=== PATIENT | male | born 1955 | race Two or more races ===

== ENCOUNTER 2020-01-06 18:27 | Inpatient (IN) | payer SELFPAY ==
[~2020-01-06] VITALS: Ht 157.5 cm; Wt 99.8 kg
[2020-01-06] VITALS (12 sets, daily range): BP systolic 57–126; BP diastolic 39–79
[2020-01-06] MEDS ORDERED: ETOMIDATE 20 MG/10 ML VIAL. IV ONE (18:54)
[2020-01-06] MEDS ORDERED: PROPOFOL 50 ML IV ONE (18:55)
[2020-01-06] MEDS ORDERED: SUCCINYLCHOLINE 200 MG/10 ML VIAL. ONE (18:55)
[2020-01-06] MEDS: PROPOFOL 50 ML IV ONE (18:55)
[2020-01-06] MEDS ORDERED: fentaNYL PF VIAL 100 MCG/2 ML VIAL IV PRN ×2 (19:00)
--- NOTE | 2020-01-06 19:01 | PHYS DOC ---
Past Medical History Past Medical History: No Pertinent History Past Surgical History: No Surgical History Smoking Status: Unknown if ever smoked Alcohol Use: None General Adult EDM: Chief Complaint: SHORTNESS OF BREATH HPI: HPI: Patient is a 54-year-old male reportedly previously healthy who presents emergency room complaining of respiratory distress. History is very limited due to respiratory distress and patient being Romanian-speaking only. Patient rep ortedly tested positive for COVID on Friday Review of Systems: Review of Systems: Unable to obtain Heart Score: Risk Factors: Risk Factors: DM, Current or recent (<one month) smoker, HTN, HLP, family history of CAD, obesity. Risk Scores: Score 0 - 3: 2.5% MACE over next 6 weeks - Discharge Home Score 4 - 6: 20.3% MACE over next 6 weeks - Admit for Clinical Observation Score 7 - 10: 72.7% MACE over next 6 weeks - Early Invasive Strategies Current Medications: Current Medications Medications (Trade) Dose Ordered Sig/Augusto Start Time Stop Time Status Last Admin Dose Admin Etomidate (Amidate) 20 mg STK-MED ONCE 01/06/20 18:54 01/06/20 18:54 DC Propofol 50 ml @ As Directed STK-MED ONCE 01/06/20 18:55 01/06/20 18:56 DC Succinylcholine Chloride (Anectine) 200 mg STK-MED ONCE 01/06/20 18:55 01/06/20 18:55 DC Allergies: Allergies: Allergies Coded Allergies Type Severity Reaction Last Updated Verified No Known Drug Allergies 01/06/20 No Physical Exam: PE: General: Awake, alert, moderate distress D. Well Nourished, well hydrated. Cooperative HEENT: Atraumatic, EOMI, PERRL, airway patent, moist oral mucosa Neck: Supple, trachea midline Respiratory: Tachypnea, diffuse crackles, decreased breath sounds, respiratory distress, increased work of breathing CV: Tachycardic, no murmur, cap refill <2 GI: Soft, nondistended, nontender, no masses MSK: No obvious deformities Skin: Warm, dry, intact Neuro: A&O x3, speech NL, sensory and motor grossly intact, no focal deficits Psych: Normal affect, normal mood, not suicidal or homicidal Current Patient Data: Vital Signs: Vital Signs Date Time Temp Pulse Resp B/P (MAP) Pulse Ox O2 Delivery O2 Flow Rate FiO2 01/06/20 18:30 97.9 110 45 199/95 (129) 100 NonRebreather Mask 18.0 97.9 EKG: EKG: [] Radiology/Procedures: Radiology/Procedures: [] Course & Med Decision Making: Course & Med Decision Making Pertinent Labs and Imaging studies reviewed. (See chart for details) Patient is a 54-year-old male who presents to the emergency room with respiratory distress. At this time there is concern for the novel coronavirus 19. Patient's risk factors include age, race. Risk stratifying work-up was ordered including chest x-ray, d-dimer, CPK, CRP, LDH, troponin, ferritin, CBC, CMP. At this time, patients labs, vitals, and exam are significant for elevated inflammatory markers. Upon arrival to the emergency room patient is in respirat ory distress requiring 25 L on a nonrebreather. Patient is in significant respiratory distress and is hypoxic. He was intubated without difficulty. There was some difficulty with keeping him sedated. Adjustments were made to the ventilator to help with oxygenation. Chest x-ray and ABG are suggestive of severe ARDs. due to patient's risk and clinical picture, they will need to be admitted at this time. IVFs will be limited due to concern for fluid overload in COVID-19 patients. Patient will be given empiric antibiotics due to infiltrates and risk of co-bacterial infection. Further treatment will be dictated by the inpatient team. Dragon Disclaimer: Dragon Disclaimer: This electronic medical record was generated, in whole or in part, using a voice recognition dictation system. Justicifation of Admission Dx: Justifications for Admission: Justification of Admission Dx: Yes Critical Care Time Critical Care: Authorized and Performed by: Gaston Espinal MD Total critical care time: approximately 40 minutes Due to a high probability of clinically significant, life threatening deterioration, the patient required my highest level of preparedness to intervene emergently and I personally spent this critical care time directly and personally managing the patient. This critical care time included obtaining a history; examining the patient; pulse oximetry; ventilator management if necessary; ordering and review of studies; arranging urgent treatment with development of a management plan; evaluation of patient's response to treatment; frequent reassessment; discussion with patient/family; and, discussions with other providers. This critical care time was performed to assess and manage the high probability of imminent, life-threatening deterioration that could result in multi-organ failure. It was exclusive of separately billable procedures and treating other patients and teaching time. Please see MDM section and the rest of the note for further information on patient assessment and treatment. PROCEDURE Procedure Intubation Performed by: Gaston Espinal MD Consent: Verbal consent not obtained. The procedure was performed in an emergent situation. Required items: required blood products, implants, devices, and special equipment available Patient identity confirmed: arm band Time out: Immediately prior to procedure a "time out" was called to verify the correct patient, procedure, equipment, client support coordinator and site/side marked as required. Indications: respiratory failure and airway protection Intubation method: glidescope Patient status: paralyzed (RSI) Preoxygenation: NRB Sedatives: etomidate Paralytic: succinylcoline Laryngoscope size: Mac 4 Tube size: 7.5 mm Tube type: cuffed Number of attempts: 1 Cords visualized: yes Post-procedure assessment: chest rise, BS = bilaterally none over epigastrum, +CO2 detector Breath sounds: equal and absent over the epigastrium Cuff inflated: yes Tube secured with: adhesive tape Chest x-ray interpreted by me. Chest x-ray findings: endotracheal tube in appropriate position Patient tolerance: Patient tolerated the procedure well with no immediate complications. GASTON ESPINAL MD Jan 06, 2020 19:01
[2020-01-06 19:05] LABS: BASO % 0 % (0-3); EOS % 0 % (0-3); HEMATOCRIT 38.5 % (39.0-53.0); HEMOGLOBIN 13.3 g/dL (13.0-17.5); LYMPH # 1.1 x10^3/uL (1.0-4.8); LYMPH % 8 % (24-48); MEAN CORPUSCULAR HEMOGLOBIN 31 pg (25-35); MEAN CORPUSCULAR HGB CONC 34 g/dL (31-37); MEAN CORPUSCULAR VOLUME 89 fL (79-100); MONO # 0.8 x10^3/uL (0.0-1.1); MONO % 5 % (0-9); NEUT # 12.5 x10^3/uL (1.8-7.7); NEUT % 87 % (31-73); PLATELET COUNT 294 x10^3/uL (140-400); RED BLOOD COUNT 4.33 x10^6/uL (4.30-5.70); RED CELL DISTRIBUTION WIDTH 13.1 % (11.5-14.5); WHITE BLOOD COUNT 14.4 x10^3/uL (4.0-11.0)
[2020-01-06 19:09] LABS: CALCIUM 8.4 mg/dL (8.5-10.1); CREATININE 1.6 mg/dL (0.7-1.3); GFR 45.1; POTASSIUM 3.6 mmol/L (3.5-5.1)
[2020-01-06 19:13] LABS: BASE EXCESS ABG -6 mmol/L (-3-3); HCO3 ABG 18 mmol/L (21-28); PCO2 ABG 31 mmHg (35-46); PO2 ABG 82 mmHg (75-108); SAT O2 ABG 95 % (92-99)
[2020-01-06] MEDS ORDERED: MIDAZOLAM HCL/PF 5 MG/5 ML VIAL. ONE (19:17)
[2020-01-06] MEDS ORDERED: MIDAZOLAM HCL/PF 5 MG/5 ML VIAL. NS ONE (19:18)
[2020-01-06] MEDS ORDERED: IPRATRPIUM/ALBUTEROL 0.5/2.5MG 3 ML NEBU. ONE (19:27)
[2020-01-06] MEDS ORDERED: MIDAZOLAM HCL 50 MG in IV NORMAL SALINE 50ML 50 ML IV ONE (19:30)
[2020-01-06] MEDS: MIDAZOLAM 100mg/100ml NS BAG 100 ML IV PRN (19:37)
[2020-01-06 19:47] LABS: ALBUMIN 2.6 g/dL (3.4-5.0); ALBUMIN/GLOBULIN RATIO 0.5 (1.0-1.7); MAGNESIUM 2.4 mg/dL (1.8-2.4); TOTAL BILIRUBIN 1.4 mg/dL (0.2-1.0); TOTAL PROTEIN 7.9 g/dL (6.4-8.2)
[2020-01-06 19:48] LABS: % ATYL 2 % (0-0); % BANDS 18 % (0-9); % BASOS 1 % (0-3); % EOS 2 % (0-5); % LYMPHS 7 % (24-48); % METAS 3 % (0-0); % MONOS 4 % (0-10); % SEGS 63 % (35-66)
[2020-01-06 19:49] LABS: PLT ESTIMATE ADEQUATE (ADEQUATE); POLYCHROMASIA SLIGHT
[2020-01-06 19:51] LABS: C-REACTIVE PROTEIN 342.9 mg/L (0-3.3)
[2020-01-06 19:54] LABS: BILIRUBIN,URINE SMALL (NEG); CLARITY,URINE CLOUDY; COLOR,URINE ORANGE; NITRITE,URINE NEGATIVE (NEG); PROTEIN,URINE 30 mg/dL (NEG-TRACE)
[2020-01-06 19:59] LABS: BACTERIA,URINE 0 /HPF (0-FEW); RBC,URINE OCC /HPF (0-2); SQUAMOUS EPITHELIAL CELL,UR OCC /LPF
[2020-01-06 20:00] LABS: AMORPHOUS SEDIMENT,UR PRESENT /HPF; GRANULAR CASTS,URINE OCCASIONAL /HPF; HYALINE CASTS, URINE MODERATE /HPF
[2020-01-06 20:03] LABS: FIO2 ABG 95
[2020-01-06] MEDS ORDERED: IV NORMAL SALINE 500ML BAG 500 ML IV PRN (20:15)
[2020-01-06] MEDS ORDERED: fentaNYL PF VIAL 100 MCG/2 ML VIAL IVP ONE (20:15)
[2020-01-06] MEDS ORDERED: ATROPINE 0.5 MG/5 ML DISP.SYRINGE. IV PRN (20:15)
[2020-01-06] MEDS ORDERED: PIPERACILLIN/TAZOBACTAM 3.375 GM in IV NORMAL SALINE 50ML 50 ML IV ONE (20:45)
--- NOTE | 2020-01-06 21:16 | RAD ---
AP portable chest radiograph 01/06/2020 Clinical History: Respiratory failure. An AP erect portable digital radiograph of the chest was obtained. No previous studies available for comparison. An ET tube has been placed. The tip of this tube overlies the trachea 3 cm below the level of clavicles. An NG tube been placed. The tip of this tube extends to overlie the antrum of the stomach. The cardiac silhouette is mildly enlarged. The thoracic aorta is mildly tortuous. Bilateral perihilar infiltrates are seen which are most confluent within the lower lobes. No pneumothorax or pleural effusion is noted the osseous structures are grossly intact. IMPRESSION: 1. ET and NG tube position as discussed above. 2. Bilateral perihilar infiltrates. Electronically signed by: Fredis Burns MD (01/06/2020 9:14 PM) [id number]
[2020-01-06] MEDS ORDERED: POTASSIUM CL 20MEQ D5-0.45NACL 1,000 ML IV ONE (21:30)
[2020-01-06] MEDS ORDERED: ONDANSETRON PF 4 MG/2 ML VIAL. IV PRN (21:30)
[2020-01-06] MEDS ORDERED: ACETAMINOPHEN 650 MG SUPP.RECT. PR PRN (21:30)
[2020-01-06] MEDS ORDERED: NOREPINEPHRINE VIAL 8 MG in IV DEXTROSE 5% 250 ML IV PRN (21:45)
[2020-01-06] MEDS ORDERED: IV NORMAL SALINE 1000ML BAG 1,000 ML IV ONE ×2 (21:45→22:30)
[2020-01-06] MEDS: VECURONIUM BOLUS 10 MG VIAL. IV PRN (22:03)
--- NOTE | 2020-01-06 22:06 | NUR ---
Spoke with Dr. Campos regarding patient's status. Orders received to keep patient well sedated--may add Fentanyl and 6 mg Vec PRN. For hypotension, may give 1 L bolus of fluid and then reassess--if the bolus helps patient then we may give another 1 L bolus NS. May start Levophed for BP, get ABG in AM, and may keep PEEP at 12 if needed, but if patient's O2 sats improve then try turning down PEEP to 11 and see how he does. Reassessments of Versed and Fentanyl not completed by ED RN--documented as "not done" by this RN.
[2020-01-06] MEDS: ENOXAPARIN 40 MG/0.4 ML SYRINGE. SQ SCH (22:13)
[2020-01-06] MEDS: CHLORHEXIDINE 0.12% 15 ML MOUTHWASH. MM SCH (22:13)
[2020-01-06] MEDS: methylPREDNISolone SOD SUCC PF 40 MG/ML VIAL. IV SCH (22:14)
--- NOTE | 2020-01-06 23:00 | NUR ---
Patient admitted to room 116 at 2100. Patient transferred to ICU bed. RT at bedside placed patient on ventilator. ICU monitors placed. Patient not tolerating ventilator well, coughing, high peak pressures, raised arms- O2 saturation in 80s. Patient received bolus of versed. Patient became more relaxed, SBP then dropped to the 50s. Another CAT OPERATOR called Dr. Campos on behalf of this pattern chart writer. Orders received for levophed, vec, NS bolus, and Vec PRN. Patient responded well to levophed. This RN called patient's brother Luis Carlos- update given. Emphasized that patient is critically ill. Family states patient does not have known medical history and is not currently taking any medications. Patient did recently test positive for covid a couple days ago. Admission completed using this information to the best of this RN's ability. ER reassessments not completed documented "not done" by this RN
[2020-01-07] VITALS (35 sets, daily range): BP systolic 76–167; BP diastolic 57–101
[2020-01-07] MEDS: PIPERACILLIN/TAZOBACTAM 3.375 GM in IV NORMAL SALINE 50ML 50 ML IV SCH ×4 (00:51→17:36)
[2020-01-07] MEDS: methylPREDNISolone SOD SUCC PF 40 MG/ML VIAL. IV SCH ×3 (05:36→20:52)
[2020-01-07] MEDS: MIDAZOLAM 100mg/100ml NS BAG 100 ML IV PRN ×2 (05:37→20:07)
[2020-01-07 06:17] LABS: BASO % 0 % (0-3); EOS % 0 % (0-3); HEMOGLOBIN 11.4 g/dL (13.0-17.5); LYMPH # 0.5 x10^3/uL (1.0-4.8); LYMPH % 5 % (24-48); MEAN CORPUSCULAR HEMOGLOBIN 31 pg (25-35); MEAN CORPUSCULAR HGB CONC 35 g/dL (31-37); MEAN CORPUSCULAR VOLUME 88 fL (79-100); MONO # 0.4 x10^3/uL (0.0-1.1); MONO % 4 % (0-9); NEUT # 9.4 x10^3/uL (1.8-7.7); NEUT % 91 % (31-73); PLATELET COUNT 212 x10^3/uL (140-400); RED BLOOD COUNT 3.73 x10^6/uL (4.30-5.70); RED CELL DISTRIBUTION WIDTH 13.1 % (11.5-14.5); WHITE BLOOD COUNT 10.4 x10^3/uL (4.0-11.0)
[2020-01-07 06:46] LABS: ALBUMIN/GLOBULIN RATIO 0.4 (1.0-1.7); CALCIUM 7.5 mg/dL (8.5-10.1); CREATININE 1.2 mg/dL (0.7-1.3); GFR 62.9; POTASSIUM 4.5 mmol/L (3.5-5.1); TOTAL BILIRUBIN 1.1 mg/dL (0.2-1.0); TOTAL PROTEIN 6.5 g/dL (6.4-8.2)
[2020-01-07] MEDS: PANTOPRAZOLE IV PUSH 40 MG VIAL. IVP SCH (08:11)
[2020-01-07 08:15] LABS: BASE EXCESS ABG -6 mmol/L (-3-3); HCO3 ABG 19 mmol/L (21-28); PCO2 ABG 36 mmHg (35-46); PO2 ABG 72 mmHg (75-108); SAT O2 ABG 92 % (92-99)
[2020-01-07] MEDS: ENOXAPARIN 40 MG/0.4 ML SYRINGE. SQ SCH (08:15)
[2020-01-07] MEDS: ZINC SULFATE 220 MG CAPSULE. PO SCH (08:15)
[2020-01-07] MEDS: CHLORHEXIDINE 0.12% 15 ML MOUTHWASH. MM SCH (08:16)
[2020-01-07 08:18] LABS: FIO2 ABG 100
--- NOTE | 2020-01-07 09:44 | PDOC1 ---
History and Physical Date of Admission Date of Admission Respiratory failure Identification/Chief Complaint Chief Complaint COVID-19 infection Source Source: Chart review History of Present Illness History of Present Illness Patient is a 54-year-old gentleman who was diagnosed with COVID-19 infection on Friday 5 days prior to his admission to the intensive care unit. Apparently the patient reported worsening respiratory distress reason why he came to the emergency department for evaluation and treatment. The story was quite limited since the patient was speaking Polish only and his acuity was such that he required mechanical ventilation and prompt intubation by the emergency department physician. At the present time patient is intubated and sedated continues to require a lot of support no pertinent past medical history was reported he is admitted to the intensive care unit for further treatment Past Medical History Past Medical History No past medical history Past Surgical History Past Surgical History: No pertinent history Family History Family History: No Significant Social History Smoke: No ALCOHOL: none Drugs: None Current Medications Current Medications Current Medications Medications (Trade) Dose Ordered Sig/Augusto Start Time Stop Time Status Last Admin Dose Admin Acetaminophen (Tylenol Supp) 650 mg PRN Q4HRS PRN 01/06/20 21:30 Acetaminophen (Tylenol) 650 mg PRN Q4HRS PRN 01/06/20 21:30 Albuterol/ Ipratropium (Duoneb) 3 ml STK-MED ONCE 01/06/20 19:27 01/06/20 19:27 DC Atropine Sulfate (ATROPINE 0.5mg SYRINGE) 0.5 mg PRN Q5MIN PRN 01/06/20 20:15 Chlorhexidine Gluconate (Peridex) 15 ml BID 01/06/20 21:00 01/07/20 08:16 15 ML Dexmedetomidine HCl 400 mcg/ Sodium Chloride 100 ml @ 0 mls/hr CONT PRN 01/06/20 20:15 Docusate Sodium (Colace) 100 mg PRN BID PRN 01/06/20 21:30 Enoxaparin Sodium (Lovenox 40mg Syringe) 40 mg BID 01/06/20 21:30 01/07/20 08:15 40 MG Etomidate (Amidate) 20 mg STK-MED ONCE 01/06/20 18:54 01/06/20 18:54 DC Fentanyl Citrate 30 ml @ 0 mls/hr CONT PRN 01/06/20 21:45 01/07/20 07:36 2.5 MLS/HR Fentanyl Citrate (Fentanyl 2ml Vial) 100 mcg 1X ONCE 01/06/20 20:15 01/06/20 20:18 DC 01/06/20 20:17 100 MCG Methylprednisolone Sodium Succinate (SOLU-Medrol 40MG VIAL) 40 mg Q8HRS 01/06/20 22:00 01/07/20 05:36 40 MG Midazolam HCl (Versed) 5 mg 1X ONCE 01/06/20 19:18 01/06/20 19:59 DC 01/06/20 19:18 5 MG Midazolam HCl 50 mg/Sodium Chloride 50 ml @ 0 mls/hr 1X ONCE 01/06/20 19:30 01/06/20 19:31 UNV Norepinephrine Bitartrate 8 mg/ Dextrose 258 ml @ 12.578 mls/ hr CONT PRN 01/06/20 21:45 01/06/20 22:15 6.289 MLS/HR Ondansetron HCl (Zofran) 4 mg PRN Q4HRS PRN 01/06/20 21:30 Pantoprazole Sodium (PROTONIX VIAL for IV PUSH) 40 mg DAILYAC 01/07/20 07:30 01/07/20 08:11 40 MG Piperacillin Sod/ Tazobactam Sod 3.375 gm/Sodium Chloride 50 ml @ 100 mls/hr Q6HRS 01/07/20 00:00 01/07/20 05:37 100 MLS/HR Potassium Chloride/Dextrose/ Sod Cl 1,000 ml @ 125 mls/hr Q8H ONCE 01/06/20 21:30 01/07/20 05:29 DC 01/06/20 22:13 125 MLS/HR Propofol 50 ml @ 0 mls/hr 1X ONCE 01/06/20 20:00 01/06/20 20:01 DC 01/06/20 18:55 3.9 MLS/HR Sodium Chloride 1,000 ml @ 1,000 mls/hr 1X ONCE 01/06/20 22:30 01/06/20 23:29 DC 01/06/20 22:36 1,000 MLS/HR Succinylcholine Chloride (Anectine) 200 mg STK-MED ONCE 01/06/20 18:55 01/06/20 18:55 DC Vecuronium [place] (Norcuron Bolus) 6 mg PRN Q2HR PRN 01/06/20 21:45 01/06/20 22:03 6 MG Zinc Sulfate (Orazinc) 220 mg DAILY 01/07/20 09:00 01/07/20 08:15 220 MG Allergies Allergies Allergies Coded Allergies Type Severity Reaction Last Updated Verified No Known Drug Allergies 01/06/20 No ROS Review of System Patient is intubated and sedated unable to assess due to acuity of his illness Physical Exam Physical Exam GEN.: No apparent distress. Sedated HEENT: Head is normocephalic, atraumatic NECK: Supple. LUNGS: Coarse to auscultation. HEART: RRR, S1, S2 present. Peripheral pulses intact ABDOMEN: Soft, nontender. Positive bowel sounds. EXTREMITIES: Without any cyanosis. NEUROLOGIC: Sedated PSYCHIATRIC: Unable to assess SKIN: No ulcerations Vitals Vitals Vital Signs Date Time Temp Pulse Resp B/P (MAP) Pulse Ox O2 Delivery O2 Flow Rate FiO2 01/07/20 08:02 99 Ventilator 01/07/20 07:36 20 01/07/20 06:15 97/65 (76) 01/07/20 06:00 73 01/07/20 04:00 99.0 99.0 01/06/20 18:30 18.0 Labs Labs Laboratory Tests Test 01/06/20 18:30 01/06/20 19:00 01/06/20 19:41 01/07/20 05:30 White Blood Count 14.4 x10^3/uL (4.0-11.0) 10.4 x10^3/uL (4.0-11.0) Red Blood Count 4.33 x10^6/uL (4.30-5.70) 3.73 x10^6/uL (4.30-5.70) Hemoglobin 13.3 g/dL (13.0-17.5) 11.4 g/dL (13.0-17.5) Hematocrit 38.5 % (39.0-53.0) 33.0 % (39.0-53.0) Mean Corpuscular Volume 89 fL (79-100) 88 fL (79-100) Mean Corpuscular Hemoglobin 31 pg (25-35) 31 pg (25-35) Mean Corpuscular Hemoglobin Concent 34 g/dL (31-37) 35 g/dL (31-37) Red Cell Distribution Width 13.1 % (11.5-14.5) 13.1 % (11.5-14.5) Platelet Count 294 x10^3/uL (140-400) 212 x10^3/uL (140-400) Neutrophils (%) (Auto) 87 % (31-73) 91 % (31-73) Lymphocytes (%) (Auto) 8 % (24-48) 5 % (24-48) Monocytes (%) (Auto) 5 % (0-9) 4 % (0-9) Eosinophils (%) (Auto) 0 % (0-3) 0 % (0-3) Basophils (%) (Auto) 0 % (0-3) 0 % (0-3) Neutrophils # (Auto) 12.5 x10^3/uL (1.8-7.7) 9.4 x10^3/uL (1.8-7.7) Lymphocytes # (Auto) 1.1 x10^3/uL (1.0-4.8) 0.5 x10^3/uL (1.0-4.8) Monocytes # (Auto) 0.8 x10^3/uL (0.0-1.1) 0.4 x10^3/uL (0.0-1.1) Eosinophils # (Auto) 0.0 x10^3/uL (0.0-0.7) 0.0 x10^3/uL (0.0-0.7) Basophils # (Auto) 0.0 x10^3/uL (0.0-0.2) 0.0 x10^3/uL (0.0-0.2) Segmented Neutrophils % 63 % (35-66) Band Neutrophils % 18 % (0-9) Lymphocytes % 7 % (24-48) Atypical Lymphocytes % (Manual) 2 % (0-0) Monocytes % 4 % (0-10) Eosinophils % 2 % (0-5) Basophils % 1 % (0-3) Metamyelocytes % 3 % (0-0) Platelet Estimate Adequate (ADEQUATE) Giant Platelets Polychromasia Slight D-Dimer (Shivani) 4.02 ug/mlFEU (0.00-0.50) Sodium Level 129 mmol/L (136-145) 130 mmol/L (136-145) Potassium Level 3.6 mmol/L (3.5-5.1) 4.5 mmol/L (3.5-5.1) Chloride Level 90 mmol/L (98-107) 97 mmol/L (98-107) Carbon Dioxide Level 22 mmol/L (21-32) 23 mmol/L (21-32) Anion Gap 17 (6-14) 10 (6-14) Blood Urea Nitrogen 25 mg/dL (8-26) 29 mg/dL (8-26) Creatinine 1.6 mg/dL (0.7-1.3) 1.2 mg/dL (0.7-1.3) Estimated GFR (Cockcroft-Gault) 45.1 62.9 BUN/Creatinine Ratio 16 (6-20) 24 (6-20) Glucose Level 301 mg/dL (70-99) 420 mg/dL (70-99) Calcium Level 8.4 mg/dL (8.5-10.1) 7.5 mg/dL (8.5-10.1) Magnesium Level 2.4 mg/dL (1.8-2.4) Ferritin 1683 ng/mL (26-388) Total Bilirubin 1.4 mg/dL (0.2-1.0) 1.1 mg/dL (0.2-1.0) Aspartate Amino Transf (AST/SGOT) 65 U/L (15-37) 57 U/L (15-37) Alanine Aminotransferase (ALT/SGPT) 63 U/L (16-63) 55 U/L (16-63) Alkaline Phosphatase 141 U/L (46-116) 103 U/L (46-116) Creatine Kinase 120 U/L (39-308) C-Reactive Protein, Quantitative 342.9 mg/L (0-3.3) Total Protein 7.9 g/dL (6.4-8.2) 6.5 g/dL (6.4-8.2) Albumin 2.6 g/dL (3.4-5.0) 2.0 g/dL (3.4-5.0) Albumin/Globulin Ratio 0.5 (1.0-1.7) 0.4 (1.0-1.7) Lipase 109 U/L (73-393) O2 Saturation 95 % (92-99) Arterial Blood pH 7.38 (7.35-7.45) Arterial Blood pCO2 at Patient Temp 31 mmHg (35-46) Arterial Blood pO2 at Patient Temp 82 mmHg (75-108) Arterial Blood HCO3 18 mmol/L (21-28) Arterial Blood Base Excess -6 mmol/L (-3-3) FiO2 95 Urine Collection Type U cath Urine Color Crook Urine Clarity Cloudy Urine pH 5.0 (<5.0-8.0) Urine Specific [place] 1.025 (1.000-1.030) Urine Protein 30 mg/dL (NEG-TRACE) Urine Glucose (UA) 250 mg/dL (NEG) Urine Ketones (Stick) Trace mg/dL (NEG) Urine Blood Negative (NEG) Urine Nitrite Negative (NEG) Urine Bilirubin Small (NEG) Urine Urobilinogen Dipstick 2.0 mg/dL (0.2 mg/dL) Urine Leukocyte Esterase Trace (NEG) Urine RBC Occ /HPF (0-2) Urine WBC 1-4 /HPF (0-4) Urine Squamous Epithelial Cells Occ /LPF Urine Amorphous Sediment Present /HPF Urine Bacteria 0 /HPF (0-FEW) Urine Hyaline Casts Moderate /HPF Urine Granular Casts Occasional /HPF Urine Mucus Marked /LPF Test 01/07/20 08:15 O2 Saturation 92 % (92-99) Arterial Blood pH 7.34 (7.35-7.45) Arterial Blood pCO2 at Patient Temp 36 mmHg (35-46) Arterial Blood pO2 at Patient Temp 72 mmHg (75-108) Arterial Blood HCO3 19 mmol/L (21-28) Arterial Blood Base Excess -6 mmol/L (-3-3) FiO2 100 Laboratory Tests Test 01/06/20 18:30 01/06/20 19:00 01/06/20 19:41 01/07/20 05:30 White Blood Count 14.4 x10^3/uL (4.0-11.0) 10.4 x10^3/uL (4.0-11.0) Red Blood Count 4.33 x10^6/uL (4.30-5.70) 3.73 x10^6/uL (4.30-5.70) Hemoglobin 13.3 g/dL (13.0-17.5) 11.4 g/dL (13.0-17.5) Hematocrit 38.5 % (39.0-53.0) 33.0 % (39.0-53.0) Mean Corpuscular Volume 89 fL (79-100) 88 fL (79-100) Mean Corpuscular Hemoglobin 31 pg (25-35) 31 pg (25-35) Mean Corpuscular Hemoglobin Concent 34 g/dL (31-37) 35 g/dL (31-37) Red Cell Distribution Width 13.1 % (11.5-14.5) 13.1 % (11.5-14.5) Platelet Count 294 x10^3/uL (140-400) 212 x10^3/uL (140-400) Neutrophils (%) (Auto) 87 % (31-73) 91 % (31-73) Lymphocytes (%) (Auto) 8 % (24-48) 5 % (24-48) Monocytes (%) (Auto) 5 % (0-9) 4 % (0-9) Eosinophils (%) (Auto) 0 % (0-3) 0 % (0-3) Basophils (%) (Auto) 0 % (0-3) 0 % (0-3) Neutrophils # (Auto) 12.5 x10^3/uL (1.8-7.7) 9.4 x10^3/uL (1.8-7.7) Lymphocytes # (Auto) 1.1 x10^3/uL (1.0-4.8) 0.5 x10^3/uL (1.0-4.8) Monocytes # (Auto) 0.8 x10^3/uL (0.0-1.1) 0.4 x10^3/uL (0.0-1.1) Eosinophils # (Auto) 0.0 x10^3/uL (0.0-0.7) 0.0 x10^3/uL (0.0-0.7) Basophils # (Auto) 0.0 x10^3/uL (0.0-0.2) 0.0 x10^3/uL (0.0-0.2) Segmented Neutrophils % 63 % (35-66) Band Neutrophils % 18 % (0-9) Lymphocytes % 7 % (24-48) Atypical Lymphocytes % (Manual) 2 % (0-0) Monocytes % 4 % (0-10) Eosinophils % 2 % (0-5) Basophils % 1 % (0-3) Metamyelocytes % 3 % (0-0) Platelet Estimate Adequate (ADEQUATE) Giant Platelets Polychromasia Slight D-Dimer (Shivani) 4.02 ug/mlFEU (0.00-0.50) Sodium Level 129 mmol/L (136-145) 130 mmol/L (136-145) Potassium Level 3.6 mmol/L (3.5-5.1) 4.5 mmol/L (3.5-5.1) Chloride Level 90 mmol/L (98-107) 97 mmol/L (98-107) Carbon Dioxide Level 22 mmol/L (21-32) 23 mmol/L (21-32) Anion Gap 17 (6-14) 10 (6-14) Blood Urea Nitrogen 25 mg/dL (8-26) 29 mg/dL (8-26) Creatinine 1.6 mg/dL (0.7-1.3) 1.2 mg/dL (0.7-1.3) Estimated GFR (Cockcroft-Gault) 45.1 62.9 BUN/Creatinine Ratio 16 (6-20) 24 (6-20) Glucose Level 301 mg/dL (70-99) 420 mg/dL (70-99) Calcium Level 8.4 mg/dL (8.5-10.1) 7.5 mg/dL (8.5-10.1) Magnesium Level 2.4 mg/dL (1.8-2.4) Ferritin 1683 ng/mL (26-388) Total Bilirubin 1.4 mg/dL (0.2-1.0) 1.1 mg/dL (0.2-1.0) Aspartate Amino Transf (AST/SGOT) 65 U/L (15-37) 57 U/L (15-37) Alanine Aminotransferase (ALT/SGPT) 63 U/L (16-63) 55 U/L (16-63) Alkaline Phosphatase 141 U/L (46-116) 103 U/L (46-116) Creatine Kinase 120 U/L (39-308) C-Reactive Protein, Quantitative 342.9 mg/L (0-3.3) Total Protein 7.9 g/dL (6.4-8.2) 6.5 g/dL (6.4-8.2) Albumin 2.6 g/dL (3.4-5.0) 2.0 g/dL (3.4-5.0) Albumin/Globulin Ratio 0.5 (1.0-1.7) 0.4 (1.0-1.7) Lipase 109 U/L (73-393) O2 Saturation 95 % (92-99) Arterial Blood pH 7.38 (7.35-7.45) Arterial Blood pCO2 at Patient Temp 31 mmHg (35-46) Arterial Blood pO2 at Patient Temp 82 mmHg (75-108) Arterial Blood HCO3 18 mmol/L (21-28) Arterial Blood Base Excess -6 mmol/L (-3-3) FiO2 95 Urine Collection Type U cath Urine Color [place] Urine Clarity Cloudy Urine pH 5.0 (<5.0-8.0) Urine Specific [place] 1.025 (1.000-1.030) Urine Protein 30 mg/dL (NEG-TRACE) Urine Glucose (UA) 250 mg/dL (NEG) Urine Ketones (Stick) Trace mg/dL (NEG) Urine Blood Negative (NEG) Urine Nitrite Negative (NEG) Urine Bilirubin Small (NEG) Urine Urobilinogen Dipstick 2.0 mg/dL (0.2 mg/dL) Urine Leukocyte Esterase Trace (NEG) Urine RBC Occ /HPF (0-2) Urine WBC 1-4 /HPF (0-4) Urine Squamous Epithelial Cells Occ /LPF Urine Amorphous Sediment Present /HPF Urine Bacteria 0 /HPF (0-FEW) Urine Hyaline Casts Moderate /HPF Urine Granular Casts Occasional /HPF Urine Mucus Marked /LPF Test 01/07/20 08:15 O2 Saturation 92 % (92-99) Arterial Blood pH 7.34 (7.35-7.45) Arterial Blood pCO2 at Patient Temp 36 mmHg (35-46) Arterial Blood pO2 at Patient Temp 72 mmHg (75-108) Arterial Blood HCO3 19 mmol/L (21-28) Arterial Blood Base Excess -6 mmol/L (-3-3) FiO2 100 VTE Prophylaxis Ordered VTE Prophylaxis Devices: Yes VTE Pharmacological Prophylaxi: Yes Assessment/Plan Assessment/Plan Acute hypoxemic respiratory failure Leukocytosis with bandemia secondary to septic process Hyponatremia secondary to low effective circulatory volume Acue renal failure due to vasomotor nephropathy most likely Hyperglycemia mild transaminitis Plan: supoprtive measures will start insulin follow labs in am prognosis guarded consult pulmonology Justicifation of Admission Dx: Justifications for Admission: Justification of Admission Dx: Yes CAROLINA VEGA MD Jan 07, 2020 09:44
--- NOTE | 2020-01-07 09:47 | CONS ---
DATE OF CONSULTATION: PULMONARY CONSULTATION ATTENDING PHYSICIAN: Juventino Gill MD REASON FOR CONSULTATION: Respiratory failure, COVID-19 pneumonia. HISTORY OF PRESENT ILLNESS: The patient is a 54-year-old male with a BMI of 31. He was brought into the hospital in respiratory distress. The patient was clinically suspected to have COVID-19 hypoxic respiratory failure as he tested positive on Friday. Due to his respiratory distress, he was intubated. The patient is currently in the ICU. His ABGs has latest shown a pH of 7.34, pCO2 of 36 and a pO2 of 72 on 100% FiO2 with bicarbonate of 19. He is currently on assist control mode and 10 of PEEP and 100% FiO2. His chest x-ray revealed bilateral perihilar infiltrates. Consultation requested for further evaluation and management. PAST MEDICAL HISTORY: Unable to obtain. FAMILY HISTORY: Unable to obtain. ALLERGIES: None. SOCIAL HISTORY: Unable to obtain. MEDICATIONS: Reviewed as listed in the [facility]AD including broad-spectrum antibiotic, Zosyn. He is on sedation, Lovenox for DVT prophylaxis. REVIEW OF SYSTEMS: Unable to obtain from the patient. PHYSICAL EXAMINATION: VITAL SIGNS: Reviewed. Blood pressure 97 systolic. Pulse ox is 99% on current FiO2. T-max of 99. GENERAL: Visual exam done due to COVID-19 pandemia. He is obese. He is in no respiratory distress. No paradoxical breathing pattern. EXTREMITIES: With trace pitting edema. LABORATORY DATA: Reviewed. Sodium 130, potassium 4.5, chloride 97, BUN 29 and creatinine 1.2. Bilirubin 1.1 from 1.4. AST, ALT mildly elevated. Albumin is 2.0. D-dimer is 4.02. White cell count 10.4, hemoglobin 11.4 and platelets are 212. IMPRESSION: 1. Acute hypoxic respiratory failure secondary to COVID-19 pneumonia/ARDS/acute lung injury. 2. Abnormal chest x-ray with bilateral infiltrates consistent with COVID-19 pneumonia. 3. Hypotension secondary to combination of hypovolemia and sepsis status post 2 liters of IV fluids. 4. Acute kidney injury, improving. 5. Severe protein-calorie malnutrition. 6. Abnormal D-dimer related to COVID-19 pneumonia. Currently on DVT prophylaxis. RECOMMENDATIONS: 1. Continue present assist control mode, PEEP of 8 and FiO2 of 100% and gradually wean based on improvement clinically. 2. Follow chest x-rays as needed. 3. Broad spectrum antibiotic. 4. IV steroids will be added. 5. DVT prophylaxis with Lovenox high dose. 6. The patient would require intubation for minimal 1 week. 7. Stress ulcer prophylaxis. 8. Discussed with RN and RT. Critical care time 39 minutes. YVONNE TAYLOR MD DR: LOVELY/sahil JOB#: [id number] / [id number]
--- NOTE | 2020-01-07 09:59 | EKG ---
[facility] [address] [place] [address] Test Date: 2020-01-06 Test Time: 18:40:03 Pat Name: YANDY SCHAEFFER Department: Room: 116 1 Gender: M [employer] Operator: : [id number] Requested By: GASTON ORTA Order Number: [id number] Reading MD: Measurements Intervals Raven Rate: 115 P: -2 CA: 106 QRS: 36 QRSD: 98 T: 47 QT: 314 QTc: 436 Interpretive Statements SINUS TACHYCARDIA LEFT ATRIAL ABNORMALITY ABNORMAL ECG RI6.02 No previous ECG available for comparison
[2020-01-07] MEDS: IV NORMAL SALINE 1000ML BAG 1,000 ML IV SCH (10:16)
[2020-01-07] MEDS ORDERED: INSULIN GLARGINE SYRINGE. SQ ONE (11:00)
[2020-01-07] MEDS: ASCORBIC ACID 500 MG TABLET PO SCH ×2 (11:31→17:36)
[2020-01-07] MEDS: INSULIN LISPRO 300 UNITS/3 ML VIAL. SQ SCH ×2 (11:41→17:42)
[2020-01-07] MEDS ORDERED: INSULIN LISPRO 300 UNITS/3 ML VIAL. SQ SCH (14:00)
[2020-01-07] MEDS ORDERED: methylPREDNISolone SOD SUCC PF 40 MG/ML VIAL. IV SCH (14:00)
--- NOTE | 2020-01-07 14:27 | NUR ---
SS following for discharge planning. SS reviewed pt chart and discussed with pt RN. Pt is from home and is currently on the vent. Pt self pay. Per RN, pt tested positive for COVID19 on Friday. COVID19 retest ordered. Plasma being ordered. Pt on IV Zosyn. SS will continue to follow for discharge planning.
--- NOTE | 2020-01-07 15:10 | RAD ---
EXAM: CHEST ONE VIEW. HISTORY: Central line placement. COMPARISON: 01/06/2020. FINDINGS: A frontal view of the chest is obtained. A right internal jugular central venous catheter has its tip in the superior vena cava. A nasogastric tube has its tip below the inferior margin of the view. An endotracheal tube has its tip 3 cm above the elvis. Bilateral diffuse airspace opacities have improved but not completely resolved. There is no pneumothorax or clear pleural effusion. The heart is not enlarged. IMPRESSION: 1. Improved bilateral infiltrates. Correlate for moderate residual pulmonary edema or multifocal pneumonia. Electronically signed by: Kevan Barnhart MD (01/07/2020 3:07 PM) [id number]
--- NOTE | 2020-01-07 17:40 | PDOC ---
Provider Note Provider Note Anesthesiology Called to place a central line in Covid+ pt. requiring IV access. Right IJ TLC placed in usual sterile fashion and under US guidance. Cath. sutured in place and sterile dressing applied. CXR pending to confirm placement. Pt. tolerated procedure well. Mohan Martínez MD Justicifation of Admission Dx: Justifications for Admission: Justification of Admission Dx: Yes ZARI MARTÍNEZ MD Jan 07, 2020 17:40
[2020-01-07] MEDS: INSULIN GLARGINE SYRINGE. SQ SCH (20:54)
[2020-01-08] VITALS (25 sets, daily range): BP systolic 114–188; BP diastolic 60–88
[2020-01-08] MEDS: PIPERACILLIN/TAZOBACTAM 3.375 GM in IV NORMAL SALINE 50ML 50 ML IV SCH ×5 (00:22→23:39)
[2020-01-08] MEDS: ASCORBIC ACID 500 MG TABLET PO SCH ×5 (00:22→23:38)
[2020-01-08] MEDS: IV NORMAL SALINE 1000ML BAG 1,000 ML IV SCH ×2 (00:22→12:59)
[2020-01-08] MEDS: INSULIN LISPRO 300 UNITS/3 ML VIAL. SQ SCH ×5 (00:32→23:41)
[2020-01-08] MEDS: VECURONIUM BOLUS 10 MG VIAL. IV PRN ×4 (04:19→19:35)
[2020-01-08] MEDS: methylPREDNISolone SOD SUCC PF 40 MG/ML VIAL. IV SCH ×3 (06:09→21:02)
[2020-01-08] MEDS: MIDAZOLAM 100mg/100ml NS BAG 100 ML IV PRN ×2 (06:09→16:29)
[2020-01-08] MEDS: DEXMEDETOMIDINE 400 MCG in IV NORMAL SALINE 100ML 96 ML IV PRN ×2 (06:10→16:29)
[2020-01-08 06:35] LABS: ALBUMIN 1.9 g/dL (3.4-5.0); ALBUMIN/GLOBULIN RATIO 0.5 (1.0-1.7); CALCIUM 7.3 mg/dL (8.5-10.1); CREATININE 1.4 mg/dL (0.7-1.3); GFR 52.6; POTASSIUM 3.7 mmol/L (3.5-5.1); TOTAL BILIRUBIN 0.9 mg/dL (0.2-1.0); TOTAL PROTEIN 5.5 g/dL (6.4-8.2)
[2020-01-08 06:41] LABS: BASO % 0 % (0-3); EOS % 0 % (0-3); HEMATOCRIT 30.3 % (39.0-53.0); HEMOGLOBIN 10.4 g/dL (13.0-17.5); LYMPH # 0.4 x10^3/uL (1.0-4.8); LYMPH % 4 % (24-48); MEAN CORPUSCULAR HEMOGLOBIN 31 pg (25-35); MEAN CORPUSCULAR HGB CONC 34 g/dL (31-37); MEAN CORPUSCULAR VOLUME 90 fL (79-100); MONO # 0.4 x10^3/uL (0.0-1.1); MONO % 3 % (0-9); NEUT # 11.1 x10^3/uL (1.8-7.7); NEUT % 93 % (31-73); PLATELET COUNT 215 x10^3/uL (140-400); RED BLOOD COUNT 3.36 x10^6/uL (4.30-5.70); RED CELL DISTRIBUTION WIDTH 13.4 % (11.5-14.5)
[2020-01-08] MEDS: PANTOPRAZOLE IV PUSH 40 MG VIAL. IVP SCH (07:51)
--- NOTE | 2020-01-08 08:33 | NUR ---
Sam's Renal Function has Changed 01/06 BUN 29 Creat 1.2 01/07 BUN [address] Meza to discuss need for Renal Consult?
--- NOTE | 2020-01-08 08:50 | RAD ---
EXAM: CHEST ONE VIEW. HISTORY: Ventilated, respiratory failure. COMPARISON: 01/07/2020. FINDINGS: A frontal view of the chest is obtained. An endotracheal tube has its tip 5 cm above the elvis. A right internal jugular central venous catheter has its tip in the right brachycephalic vein. A nasogastric tube has its tip below the inferior margin of the view. Bilateral diffuse airspace infiltrates appear increased in the left base and slightly improved elsewhere. There is no pneumothorax or clear pleural effusion. The heart is not enlarged. IMPRESSION: 1. Bilateral diffuse infiltrates are increased in the left base and mildly improved elsewhere. Electronically signed by: Kevan Barnhart MD (01/08/2020 8:47 AM) [id number]
--- NOTE | 2020-01-08 08:56 | PDOC ---
PULMONARY PROGRESS NOTES DATE: 01/08/20 TIME: 08:49 Subjective remains intubated/sedated AC mode ,90%FIO2/10 PEEP Vitals Vital Signs Date Time Temp Pulse Resp B/P (MAP) Pulse Ox O2 Delivery O2 Flow Rate FiO2 01/08/20 08:00 99.2 83 23 145/72 (96) 99 99.2 01/08/20 08:00 Mechanical Ventilator Comments visual exam done due to COVID-Pandemia no resp distess no skin rash lower extremity edema Labs Laboratory Tests Test 01/06/20 18:30 01/06/20 19:00 01/06/20 19:35 01/06/20 19:41 White Blood Count 14.4 x10^3/uL (4.0-11.0) Red Blood Count 4.33 x10^6/uL (4.30-5.70) Hemoglobin 13.3 g/dL (13.0-17.5) Hematocrit 38.5 % (39.0-53.0) Mean Corpuscular Volume 89 fL (79-100) Mean Corpuscular Hemoglobin 31 pg (25-35) Mean Corpuscular Hemoglobin Concent 34 g/dL (31-37) Red Cell Distribution Width 13.1 % (11.5-14.5) Platelet Count 294 x10^3/uL (140-400) Neutrophils (%) (Auto) 87 % (31-73) Lymphocytes (%) (Auto) 8 % (24-48) Monocytes (%) (Auto) 5 % (0-9) Eosinophils (%) (Auto) 0 % (0-3) Basophils (%) (Auto) 0 % (0-3) Neutrophils # (Auto) 12.5 x10^3/uL (1.8-7.7) Lymphocytes # (Auto) 1.1 x10^3/uL (1.0-4.8) Monocytes # (Auto) 0.8 x10^3/uL (0.0-1.1) Eosinophils # (Auto) 0.0 x10^3/uL (0.0-0.7) Basophils # (Auto) 0.0 x10^3/uL (0.0-0.2) Segmented Neutrophils % 63 % (35-66) Band Neutrophils % 18 % (0-9) Lymphocytes % 7 % (24-48) Atypical Lymphocytes % (Manual) 2 % (0-0) Monocytes % 4 % (0-10) Eosinophils % 2 % (0-5) Basophils % 1 % (0-3) Metamyelocytes % 3 % (0-0) Platelet Estimate Adequate (ADEQUATE) Giant Platelets Polychromasia Slight D-Dimer (Shivani) 4.02 ug/mlFEU (0.00-0.50) Sodium Level 129 mmol/L (136-145) Potassium Level 3.6 mmol/L (3.5-5.1) Chloride Level 90 mmol/L (98-107) Carbon Dioxide Level 22 mmol/L (21-32) Anion Gap 17 (6-14) Blood Urea Nitrogen 25 mg/dL (8-26) Creatinine 1.6 mg/dL (0.7-1.3) Estimated GFR (Cockcroft-Gault) 45.1 BUN/Creatinine Ratio 16 (6-20) Glucose Level 301 mg/dL (70-99) Calcium Level 8.4 mg/dL (8.5-10.1) Magnesium Level 2.4 mg/dL (1.8-2.4) Ferritin 1683 ng/mL (26-388) Total Bilirubin 1.4 mg/dL (0.2-1.0) Aspartate Amino Transf (AST/SGOT) 65 U/L (15-37) Alanine Aminotransferase (ALT/SGPT) 63 U/L (16-63) Alkaline Phosphatase 141 U/L (46-116) Creatine Kinase 120 U/L (39-308) C-Reactive Protein, Quantitative 342.9 mg/L (0-3.3) Total Protein 7.9 g/dL (6.4-8.2) Albumin 2.6 g/dL (3.4-5.0) Albumin/Globulin Ratio 0.5 (1.0-1.7) Lipase 109 U/L (73-393) O2 Saturation 95 % (92-99) Arterial Blood pH 7.38 (7.35-7.45) Arterial Blood pCO2 at Patient Temp 31 mmHg (35-46) Arterial Blood pO2 at Patient Temp 82 mmHg (75-108) Arterial Blood HCO3 18 mmol/L (21-28) Arterial Blood Base Excess -6 mmol/L (-3-3) FiO2 95 Coronavirus (PCR) Detected (Not Detected) Urine Collection Type U cath Urine Color Cedar Urine Clarity Cloudy Urine pH 5.0 (<5.0-8.0) Urine Specific Hubbard 1.025 (1.000-1.030) Urine Protein 30 mg/dL (NEG-TRACE) Urine Glucose (UA) 250 mg/dL (NEG) Urine Ketones (Stick) Trace mg/dL (NEG) Urine Blood Negative (NEG) Urine Nitrite Negative (NEG) Urine Bilirubin Small (NEG) Urine Urobilinogen Dipstick 2.0 mg/dL (0.2 mg/dL) Urine Leukocyte Esterase Trace (NEG) Urine RBC Occ /HPF (0-2) Urine WBC 1-4 /HPF (0-4) Urine Squamous Epithelial Cells Occ /LPF Urine Amorphous Sediment Present /HPF Urine Bacteria 0 /HPF (0-FEW) Urine Hyaline Casts Moderate /HPF Urine Granular Casts Occasional /HPF Urine Mucus Marked /LPF Test 01/07/20 05:30 01/07/20 08:15 01/07/20 17:41 01/07/20 20:51 White Blood Count 10.4 x10^3/uL (4.0-11.0) Red Blood Count 3.73 x10^6/uL (4.30-5.70) Hemoglobin 11.4 g/dL (13.0-17.5) Hematocrit 33.0 % (39.0-53.0) Mean Corpuscular Volume 88 fL (79-100) Mean Corpuscular Hemoglobin 31 pg (25-35) Mean Corpuscular Hemoglobin Concent 35 g/dL (31-37) Red Cell Distribution Width 13.1 % (11.5-14.5) Platelet Count 212 x10^3/uL (140-400) Neutrophils (%) (Auto) 91 % (31-73) Lymphocytes (%) (Auto) 5 % (24-48) Monocytes (%) (Auto) 4 % (0-9) Eosinophils (%) (Auto) 0 % (0-3) Basophils (%) (Auto) 0 % (0-3) Neutrophils # (Auto) 9.4 x10^3/uL (1.8-7.7) Lymphocytes # (Auto) 0.5 x10^3/uL (1.0-4.8) Monocytes # (Auto) 0.4 x10^3/uL (0.0-1.1) Eosinophils # (Auto) 0.0 x10^3/uL (0.0-0.7) Basophils # (Auto) 0.0 x10^3/uL (0.0-0.2) Sodium Level 130 mmol/L (136-145) Potassium Level 4.5 mmol/L (3.5-5.1) Chloride Level 97 mmol/L (98-107) Carbon Dioxide Level 23 mmol/L (21-32) Anion Gap 10 (6-14) Blood Urea Nitrogen 29 mg/dL (8-26) Creatinine 1.2 mg/dL (0.7-1.3) Estimated GFR (Cockcroft-Gault) 62.9 BUN/Creatinine Ratio 24 (6-20) Glucose Level 420 mg/dL (70-99) Calcium Level 7.5 mg/dL (8.5-10.1) Total Bilirubin 1.1 mg/dL (0.2-1.0) Aspartate Amino Transf (AST/SGOT) 57 U/L (15-37) Alanine Aminotransferase (ALT/SGPT) 55 U/L (16-63) Alkaline Phosphatase 103 U/L (46-116) Total Protein 6.5 g/dL (6.4-8.2) Albumin 2.0 g/dL (3.4-5.0) Albumin/Globulin Ratio 0.4 (1.0-1.7) O2 Saturation 92 % (92-99) Arterial Blood pH 7.34 (7.35-7.45) Arterial Blood pCO2 at Patient Temp 36 mmHg (35-46) Arterial Blood pO2 at Patient Temp 72 mmHg (75-108) Arterial Blood HCO3 19 mmol/L (21-28) Arterial Blood Base Excess -6 mmol/L (-3-3) FiO2 100 Glucose (Fingerstick) 285 mg/dL (70-99) 257 mg/dL (70-99) Test 01/08/20 00:29 01/08/20 05:30 01/08/20 06:00 Glucose (Fingerstick) 316 mg/dL (70-99) 351 mg/dL (70-99) White Blood Count 12.0 x10^3/uL (4.0-11.0) Red Blood Count 3.36 x10^6/uL (4.30-5.70) Hemoglobin 10.4 g/dL (13.0-17.5) Hematocrit 30.3 % (39.0-53.0) Mean Corpuscular Volume 90 fL (79-100) Mean Corpuscular Hemoglobin 31 pg (25-35) Mean Corpuscular Hemoglobin Concent 34 g/dL (31-37) Red Cell Distribution Width 13.4 % (11.5-14.5) Platelet Count 215 x10^3/uL (140-400) Neutrophils (%) (Auto) 93 % (31-73) Lymphocytes (%) (Auto) 4 % (24-48) Monocytes (%) (Auto) 3 % (0-9) Eosinophils (%) (Auto) 0 % (0-3) Basophils (%) (Auto) 0 % (0-3) Neutrophils # (Auto) 11.1 x10^3/uL (1.8-7.7) Lymphocytes # (Auto) 0.4 x10^3/uL (1.0-4.8) Monocytes # (Auto) 0.4 x10^3/uL (0.0-1.1) Eosinophils # (Auto) 0.0 x10^3/uL (0.0-0.7) Basophils # (Auto) 0.0 x10^3/uL (0.0-0.2) Sodium Level 138 mmol/L (136-145) Potassium Level 3.7 mmol/L (3.5-5.1) Chloride Level 104 mmol/L (98-107) Carbon Dioxide Level 21 mmol/L (21-32) Anion Gap 13 (6-14) Blood Urea Nitrogen 50 mg/dL (8-26) Creatinine 1.4 mg/dL (0.7-1.3) Estimated GFR (Cockcroft-Gault) 52.6 BUN/Creatinine Ratio 36 (6-20) Glucose Level 350 mg/dL (70-99) Calcium Level 7.3 mg/dL (8.5-10.1) Total Bilirubin 0.9 mg/dL (0.2-1.0) Aspartate Amino Transf (AST/SGOT) 96 U/L (15-37) Alanine Aminotransferase (ALT/SGPT) 74 U/L (16-63) Alkaline Phosphatase 110 U/L (46-116) Total Protein 5.5 g/dL (6.4-8.2) Albumin 1.9 g/dL (3.4-5.0) Albumin/Globulin Ratio 0.5 (1.0-1.7) Laboratory Tests Test 01/07/20 17:41 01/07/20 20:51 01/08/20 00:29 01/08/20 05:30 Glucose (Fingerstick) 285 mg/dL (70-99) 257 mg/dL (70-99) 316 mg/dL (70-99) White Blood Count 12.0 x10^3/uL (4.0-11.0) Red Blood Count 3.36 x10^6/uL (4.30-5.70) Hemoglobin 10.4 g/dL (13.0-17.5) Hematocrit 30.3 % (39.0-53.0) Mean Corpuscular Volume 90 fL (79-100) Mean Corpuscular Hemoglobin 31 pg (25-35) Mean Corpuscular Hemoglobin Concent 34 g/dL (31-37) Red Cell Distribution Width 13.4 % (11.5-14.5) Platelet Count 215 x10^3/uL (140-400) Neutrophils (%) (Auto) 93 % (31-73) Lymphocytes (%) (Auto) 4 % (24-48) Monocytes (%) (Auto) 3 % (0-9) Eosinophils (%) (Auto) 0 % (0-3) Basophils (%) (Auto) 0 % (0-3) Neutrophils # (Auto) 11.1 x10^3/uL (1.8-7.7) Lymphocytes # (Auto) 0.4 x10^3/uL (1.0-4.8) Monocytes # (Auto) 0.4 x10^3/uL (0.0-1.1) Eosinophils # (Auto) 0.0 x10^3/uL (0.0-0.7) Basophils # (Auto) 0.0 x10^3/uL (0.0-0.2) Sodium Level 138 mmol/L (136-145) Potassium Level 3.7 mmol/L (3.5-5.1) Chloride Level 104 mmol/L (98-107) Carbon Dioxide Level 21 mmol/L (21-32) Anion Gap 13 (6-14) Blood Urea Nitrogen 50 mg/dL (8-26) Creatinine 1.4 mg/dL (0.7-1.3) Estimated GFR (Cockcroft-Gault) 52.6 BUN/Creatinine Ratio 36 (6-20) Glucose Level 350 mg/dL (70-99) Calcium Level 7.3 mg/dL (8.5-10.1) Total Bilirubin 0.9 mg/dL (0.2-1.0) Aspartate Amino Transf (AST/SGOT) 96 U/L (15-37) Alanine Aminotransferase (ALT/SGPT) 74 U/L (16-63) Alkaline Phosphatase 110 U/L (46-116) Total Protein 5.5 g/dL (6.4-8.2) Albumin 1.9 g/dL (3.4-5.0) Albumin/Globulin Ratio 0.5 (1.0-1.7) Test 01/08/20 06:00 Glucose (Fingerstick) 351 mg/dL (70-99) Impression . 1. Acute hypoxic respiratory failure secondary to COVID-19 pneumonia/ARDS/acute lung injury. 2. Abnormal chest x-ray with bilateral infiltrates consistent with COVID-19 pneumonia. 3. Hypotension secondary to combination of hypovolemia and sepsis status post 2 liters of IV fluids. no pressors 4. Acute kidney injury, improving. 5. Severe protein-calorie malnutrition. 6. Abnormal D-dimer related to COVID-19 pneumonia. Currently on DVT prophylaxis. Plan . RECOMMENDATIONS: 1. Continue present assist control mode, PEEP of 10 and FiO2 of 90% and gradually wean based on improvement clinically. 2. Follow chest x-rays as needed. 3. Broad spectrum antibiotic. 4. IV steroids 5. DVT prophylaxis with Lovenox high dose. 6. The patient would require intubation for minimal 1 week. 7. Stress ulcer prophylaxis. 8. Discussed with RN and RT. 9. s/p Plasma 10. repeat D-Dimer Friday Critical care time 30 minutes. YVONNE TYALOR MD Jan 08, 2020 08:56
[2020-01-08 09:01] LABS: BASE EXCESS ABG -6 mmol/L (-3-3); HCO3 ABG 17 mmol/L (21-28); PCO2 ABG 28 mmHg (35-46); PO2 ABG 80 mmHg (75-108); SAT O2 ABG 94 % (92-99)
[2020-01-08 09:04] LABS: FIO2 ABG 90%+10
[2020-01-08] MEDS: ZINC SULFATE 220 MG CAPSULE. PO SCH (09:26)
[2020-01-08] MEDS: INSULIN GLARGINE SYRINGE. SQ SCH ×2 (09:27→21:07)
--- NOTE | 2020-01-08 11:24 | PDOC ---
PROGRESS NOTES Date of Service: DATE: 01/08/20 TIME: 11:07 Chief Complaint Chief Complaint Assessment/Plan Acute hypoxemic respiratory failure Leukocytosis with bandemia secondary to septic process Hyponatremia secondary to low effective circulatory volume Acue renal failure due to vasomotor nephropathy most likely Hyperglycemia mild transaminitis Plan: supportive measures will adjust insulin for better glycemia control follow labs in am prognosis guarded follow pulmonology recommendations Vitals Vitals Vital Signs Date Time Temp Pulse Resp B/P (MAP) Pulse Ox O2 Delivery O2 Flow Rate FiO2 01/08/20 11:00 82 37 143/68 (93) 94 01/08/20 10:44 Ventilator 01/08/20 08:00 99.2 99.2 Labs LABS Laboratory Tests Test 01/07/20 17:41 01/07/20 20:51 01/08/20 00:29 01/08/20 05:30 Glucose (Fingerstick) 285 mg/dL (70-99) 257 mg/dL (70-99) 316 mg/dL (70-99) White Blood Count 12.0 x10^3/uL (4.0-11.0) Red Blood Count 3.36 x10^6/uL (4.30-5.70) Hemoglobin 10.4 g/dL (13.0-17.5) Hematocrit 30.3 % (39.0-53.0) Mean Corpuscular Volume 90 fL (79-100) Mean Corpuscular Hemoglobin 31 pg (25-35) Mean Corpuscular Hemoglobin Concent 34 g/dL (31-37) Red Cell Distribution Width 13.4 % (11.5-14.5) Platelet Count 215 x10^3/uL (140-400) Neutrophils (%) (Auto) 93 % (31-73) Lymphocytes (%) (Auto) 4 % (24-48) Monocytes (%) (Auto) 3 % (0-9) Eosinophils (%) (Auto) 0 % (0-3) Basophils (%) (Auto) 0 % (0-3) Neutrophils # (Auto) 11.1 x10^3/uL (1.8-7.7) Lymphocytes # (Auto) 0.4 x10^3/uL (1.0-4.8) Monocytes # (Auto) 0.4 x10^3/uL (0.0-1.1) Eosinophils # (Auto) 0.0 x10^3/uL (0.0-0.7) Basophils # (Auto) 0.0 x10^3/uL (0.0-0.2) Sodium Level 138 mmol/L (136-145) Potassium Level 3.7 mmol/L (3.5-5.1) Chloride Level 104 mmol/L (98-107) Carbon Dioxide Level 21 mmol/L (21-32) Anion Gap 13 (6-14) Blood Urea Nitrogen 50 mg/dL (8-26) Creatinine 1.4 mg/dL (0.7-1.3) Estimated GFR (Cockcroft-Gault) 52.6 BUN/Creatinine Ratio 36 (6-20) Glucose Level 350 mg/dL (70-99) Calcium Level 7.3 mg/dL (8.5-10.1) Total Bilirubin 0.9 mg/dL (0.2-1.0) Aspartate Amino Transf (AST/SGOT) 96 U/L (15-37) Alanine Aminotransferase (ALT/SGPT) 74 U/L (16-63) Alkaline Phosphatase 110 U/L (46-116) Total Protein 5.5 g/dL (6.4-8.2) Albumin 1.9 g/dL (3.4-5.0) Albumin/Globulin Ratio 0.5 (1.0-1.7) Test 01/08/20 06:00 01/08/20 08:00 Glucose (Fingerstick) 351 mg/dL (70-99) O2 Saturation 94 % (92-99) Arterial Blood pH 7.41 (7.35-7.45) Arterial Blood pCO2 at Patient Temp 28 mmHg (35-46) Arterial Blood pO2 at Patient Temp 80 mmHg (75-108) Arterial Blood HCO3 17 mmol/L (21-28) Arterial Blood Base Excess -6 mmol/L (-3-3) FiO2 90%+10 Comment Review of Relevant I have reviewed the following items hong (where applicable) has been applied. Labs Laboratory Tests Test 01/06/20 18:30 01/06/20 19:00 01/06/20 19:35 01/06/20 19:41 White Blood Count 14.4 x10^3/uL (4.0-11.0) Red Blood Count 4.33 x10^6/uL (4.30-5.70) Hemoglobin 13.3 g/dL (13.0-17.5) Hematocrit 38.5 % (39.0-53.0) Mean Corpuscular Volume 89 fL (79-100) Mean Corpuscular Hemoglobin 31 pg (25-35) Mean Corpuscular Hemoglobin Concent 34 g/dL (31-37) Red Cell Distribution Width 13.1 % (11.5-14.5) Platelet Count 294 x10^3/uL (140-400) Neutrophils (%) (Auto) 87 % (31-73) Lymphocytes (%) (Auto) 8 % (24-48) Monocytes (%) (Auto) 5 % (0-9) Eosinophils (%) (Auto) 0 % (0-3) Basophils (%) (Auto) 0 % (0-3) Neutrophils # (Auto) 12.5 x10^3/uL (1.8-7.7) Lymphocytes # (Auto) 1.1 x10^3/uL (1.0-4.8) Monocytes # (Auto) 0.8 x10^3/uL (0.0-1.1) Eosinophils # (Auto) 0.0 x10^3/uL (0.0-0.7) Basophils # (Auto) 0.0 x10^3/uL (0.0-0.2) Segmented Neutrophils % 63 % (35-66) Band Neutrophils % 18 % (0-9) Lymphocytes % 7 % (24-48) Atypical Lymphocytes % (Manual) 2 % (0-0) Monocytes % 4 % (0-10) Eosinophils % 2 % (0-5) Basophils % 1 % (0-3) Metamyelocytes % 3 % (0-0) Platelet Estimate Adequate (ADEQUATE) Giant Platelets Polychromasia Slight D-Dimer (Shivani) 4.02 ug/mlFEU (0.00-0.50) Sodium Level 129 mmol/L (136-145) Potassium Level 3.6 mmol/L (3.5-5.1) Chloride Level 90 mmol/L (98-107) Carbon Dioxide Level 22 mmol/L (21-32) Anion Gap 17 (6-14) Blood Urea Nitrogen 25 mg/dL (8-26) Creatinine 1.6 mg/dL (0.7-1.3) Estimated GFR (Cockcroft-Gault) 45.1 BUN/Creatinine Ratio 16 (6-20) Glucose Level 301 mg/dL (70-99) Calcium Level 8.4 mg/dL (8.5-10.1) Magnesium Level 2.4 mg/dL (1.8-2.4) Ferritin 1683 ng/mL (26-388) Total Bilirubin 1.4 mg/dL (0.2-1.0) Aspartate Amino Transf (AST/SGOT) 65 U/L (15-37) Alanine Aminotransferase (ALT/SGPT) 63 U/L (16-63) Alkaline Phosphatase 141 U/L (46-116) Creatine Kinase 120 U/L (39-308) C-Reactive Protein, Quantitative 342.9 mg/L (0-3.3) Total Protein 7.9 g/dL (6.4-8.2) Albumin 2.6 g/dL (3.4-5.0) Albumin/Globulin Ratio 0.5 (1.0-1.7) Lipase 109 U/L (73-393) O2 Saturation 95 % (92-99) Arterial Blood pH 7.38 (7.35-7.45) Arterial Blood pCO2 at Patient Temp 31 mmHg (35-46) Arterial Blood pO2 at Patient Temp 82 mmHg (75-108) Arterial Blood HCO3 18 mmol/L (21-28) Arterial Blood Base Excess -6 mmol/L (-3-3) FiO2 95 Coronavirus (PCR) Detected (Not Detected) Urine Collection Type U cath Urine Color [place] Urine Clarity Cloudy Urine pH 5.0 (<5.0-8.0) Urine Specific [place] 1.025 (1.000-1.030) Urine Protein 30 mg/dL (NEG-TRACE) Urine Glucose (UA) 250 mg/dL (NEG) Urine Ketones (Stick) Trace mg/dL (NEG) Urine Blood Negative (NEG) Urine Nitrite Negative (NEG) Urine Bilirubin Small (NEG) Urine Urobilinogen Dipstick 2.0 mg/dL (0.2 mg/dL) Urine Leukocyte Esterase Trace (NEG) Urine RBC Occ /HPF (0-2) Urine WBC 1-4 /HPF (0-4) Urine Squamous Epithelial Cells Occ /LPF Urine Amorphous Sediment Present /HPF Urine Bacteria 0 /HPF (0-FEW) Urine Hyaline Casts Moderate /HPF Urine Granular Casts Occasional /HPF Urine Mucus Marked /LPF Test 01/07/20 05:30 01/07/20 08:15 01/07/20 17:41 01/07/20 20:51 White Blood Count 10.4 x10^3/uL (4.0-11.0) Red Blood Count 3.73 x10^6/uL (4.30-5.70) Hemoglobin 11.4 g/dL (13.0-17.5) Hematocrit 33.0 % (39.0-53.0) Mean Corpuscular Volume 88 fL (79-100) Mean Corpuscular Hemoglobin 31 pg (25-35) Mean Corpuscular Hemoglobin Concent 35 g/dL (31-37) Red Cell Distribution Width 13.1 % (11.5-14.5) Platelet Count 212 x10^3/uL (140-400) Neutrophils (%) (Auto) 91 % (31-73) Lymphocytes (%) (Auto) 5 % (24-48) Monocytes (%) (Auto) 4 % (0-9) Eosinophils (%) (Auto) 0 % (0-3) Basophils (%) (Auto) 0 % (0-3) Neutrophils # (Auto) 9.4 x10^3/uL (1.8-7.7) Lymphocytes # (Auto) 0.5 x10^3/uL (1.0-4.8) Monocytes # (Auto) 0.4 x10^3/uL (0.0-1.1) Eosinophils # (Auto) 0.0 x10^3/uL (0.0-0.7) Basophils # (Auto) 0.0 x10^3/uL (0.0-0.2) Sodium Level 130 mmol/L (136-145) Potassium Level 4.5 mmol/L (3.5-5.1) Chloride Level 97 mmol/L (98-107) Carbon Dioxide Level 23 mmol/L (21-32) Anion Gap 10 (6-14) Blood Urea Nitrogen 29 mg/dL (8-26) Creatinine 1.2 mg/dL (0.7-1.3) Estimated GFR (Cockcroft-Gault) 62.9 BUN/Creatinine Ratio 24 (6-20) Glucose Level 420 mg/dL (70-99) Calcium Level 7.5 mg/dL (8.5-10.1) Total Bilirubin 1.1 mg/dL (0.2-1.0) Aspartate Amino Transf (AST/SGOT) 57 U/L (15-37) Alanine Aminotransferase (ALT/SGPT) 55 U/L (16-63) Alkaline Phosphatase 103 U/L (46-116) Total Protein 6.5 g/dL (6.4-8.2) Albumin 2.0 g/dL (3.4-5.0) Albumin/Globulin Ratio 0.4 (1.0-1.7) O2 Saturation 92 % (92-99) Arterial Blood pH 7.34 (7.35-7.45) Arterial Blood pCO2 at Patient Temp 36 mmHg (35-46) Arterial Blood pO2 at Patient Temp 72 mmHg (75-108) Arterial Blood HCO3 19 mmol/L (21-28) Arterial Blood Base Excess -6 mmol/L (-3-3) FiO2 100 Glucose (Fingerstick) 285 mg/dL (70-99) 257 mg/dL (70-99) Test 01/08/20 00:29 01/08/20 05:30 01/08/20 06:00 01/08/20 08:00 Glucose (Fingerstick) 316 mg/dL (70-99) 351 mg/dL (70-99) White Blood Count 12.0 x10^3/uL (4.0-11.0) Red Blood Count 3.36 x10^6/uL (4.30-5.70) Hemoglobin 10.4 g/dL (13.0-17.5) Hematocrit 30.3 % (39.0-53.0) Mean Corpuscular Volume 90 fL (79-100) Mean Corpuscular Hemoglobin 31 pg (25-35) Mean Corpuscular Hemoglobin Concent 34 g/dL (31-37) Red Cell Distribution Width 13.4 % (11.5-14.5) Platelet Count 215 x10^3/uL (140-400) Neutrophils (%) (Auto) 93 % (31-73) Lymphocytes (%) (Auto) 4 % (24-48) Monocytes (%) (Auto) 3 % (0-9) Eosinophils (%) (Auto) 0 % (0-3) Basophils (%) (Auto) 0 % (0-3) Neutrophils # (Auto) 11.1 x10^3/uL (1.8-7.7) Lymphocytes # (Auto) 0.4 x10^3/uL (1.0-4.8) Monocytes # (Auto) 0.4 x10^3/uL (0.0-1.1) Eosinophils # (Auto) 0.0 x10^3/uL (0.0-0.7) Basophils # (Auto) 0.0 x10^3/uL (0.0-0.2) Sodium Level 138 mmol/L (136-145) Potassium Level 3.7 mmol/L (3.5-5.1) Chloride Level 104 mmol/L (98-107) Carbon Dioxide Level 21 mmol/L (21-32) Anion Gap 13 (6-14) Blood Urea Nitrogen 50 mg/dL (8-26) Creatinine 1.4 mg/dL (0.7-1.3) Estimated GFR (Cockcroft-Gault) 52.6 BUN/Creatinine Ratio 36 (6-20) Glucose Level 350 mg/dL (70-99) Calcium Level 7.3 mg/dL (8.5-10.1) Total Bilirubin 0.9 mg/dL (0.2-1.0) Aspartate Amino Transf (AST/SGOT) 96 U/L (15-37) Alanine Aminotransferase (ALT/SGPT) 74 U/L (16-63) Alkaline Phosphatase 110 U/L (46-116) Total Protein 5.5 g/dL (6.4-8.2) Albumin 1.9 g/dL (3.4-5.0) Albumin/Globulin Ratio 0.5 (1.0-1.7) O2 Saturation 94 % (92-99) Arterial Blood pH 7.41 (7.35-7.45) Arterial Blood pCO2 at Patient Temp 28 mmHg (35-46) Arterial Blood pO2 at Patient Temp 80 mmHg (75-108) Arterial Blood HCO3 17 mmol/L (21-28) Arterial Blood Base Excess -6 mmol/L (-3-3) FiO2 90%+10 Laboratory Tests Test 01/07/20 17:41 01/07/20 20:51 01/08/20 00:29 01/08/20 05:30 Glucose (Fingerstick) 285 mg/dL (70-99) 257 mg/dL (70-99) 316 mg/dL (70-99) White Blood Count 12.0 x10^3/uL (4.0-11.0) Red Blood Count 3.36 x10^6/uL (4.30-5.70) Hemoglobin 10.4 g/dL (13.0-17.5) Hematocrit 30.3 % (39.0-53.0) Mean Corpuscular Volume 90 fL (79-100) Mean Corpuscular Hemoglobin 31 pg (25-35) Mean Corpuscular Hemoglobin Concent 34 g/dL (31-37) Red Cell Distribution Width 13.4 % (11.5-14.5) Platelet Count 215 x10^3/uL (140-400) Neutrophils (%) (Auto) 93 % (31-73) Lymphocytes (%) (Auto) 4 % (24-48) Monocytes (%) (Auto) 3 % (0-9) Eosinophils (%) (Auto) 0 % (0-3) Basophils (%) (Auto) 0 % (0-3) Neutrophils # (Auto) 11.1 x10^3/uL (1.8-7.7) Lymphocytes # (Auto) 0.4 x10^3/uL (1.0-4.8) Monocytes # (Auto) 0.4 x10^3/uL (0.0-1.1) Eosinophils # (Auto) 0.0 x10^3/uL (0.0-0.7) Basophils # (Auto) 0.0 x10^3/uL (0.0-0.2) Sodium Level 138 mmol/L (136-145) Potassium Level 3.7 mmol/L (3.5-5.1) Chloride Level 104 mmol/L (98-107) Carbon Dioxide Level 21 mmol/L (21-32) Anion Gap 13 (6-14) Blood Urea Nitrogen 50 mg/dL (8-26) Creatinine 1.4 mg/dL (0.7-1.3) Estimated GFR (Cockcroft-Gault) 52.6 BUN/Creatinine Ratio 36 (6-20) Glucose Level 350 mg/dL (70-99) Calcium Level 7.3 mg/dL (8.5-10.1) Total Bilirubin 0.9 mg/dL (0.2-1.0) Aspartate Amino Transf (AST/SGOT) 96 U/L (15-37) Alanine Aminotransferase (ALT/SGPT) 74 U/L (16-63) Alkaline Phosphatase 110 U/L (46-116) Total Protein 5.5 g/dL (6.4-8.2) Albumin 1.9 g/dL (3.4-5.0) Albumin/Globulin Ratio 0.5 (1.0-1.7) Test 01/08/20 06:00 01/08/20 08:00 Glucose (Fingerstick) 351 mg/dL (70-99) O2 Saturation 94 % (92-99) Arterial Blood pH 7.41 (7.35-7.45) Arterial Blood pCO2 at Patient Temp 28 mmHg (35-46) Arterial Blood pO2 at Patient Temp 80 mmHg (75-108) Arterial Blood HCO3 17 mmol/L (21-28) Arterial Blood Base Excess -6 mmol/L (-3-3) FiO2 90%+10 Microbiology 01/06/20 Urine Culture - Final, Complete Medications Current Medications Etomidate (Amidate) 20 mg STK-MED ONCE IV ; Start 01/06/20 at 18:54; Stop 01/06/20 at 18:54; Status DC Succinylcholine Chloride (Anectine) 200 mg STK-MED ONCE .ROUTE ; Start 01/06/20 at 18:55; Stop 01/06/20 at 18:55; Status DC Propofol 50 ml @ As Directed STK-MED ONCE IV ; Start 01/06/20 at 18:55; Stop 01/06/20 at 18:56; Status DC Propofol 100 ml @ 0 mls/hr CONT PRN IV SEE PROTOCOL; Start 01/06/20 at 19:00 Fentanyl Citrate (Fentanyl 2ml Vial) 25 mcg PRN Q1HR PRN IV SEE COMMENTS; Start 01/06/20 at 19:00 Fentanyl Citrate (Fentanyl 2ml Vial) 50 mcg PRN Q1HR PRN IV SEE COMMENTS Last administered on 01/06/20at 19:42; Start 01/06/20 at 19:00 Chlorhexidine Gluconate (Peridex) 15 ml BID MM Last administered on 01/07/20at 08:16; Start 01/06/20 at 21:00; Stop 01/07/20 at 09:45; Status DC Midazolam HCl (Versed) 5 mg STK-MED ONCE .ROUTE ; Start 01/06/20 at 19:17; Stop 01/06/20 at 19:18; Status DC Midazolam HCl 50 mg/Sodium Chloride 50 ml @ 0 mls/hr 1X ONCE IV ; Start 01/06/20 at 19:30; Stop 01/06/20 at 19:31; Status UNV Albuterol/ Ipratropium (Duoneb) 3 ml STK-MED ONCE .ROUTE ; Start 01/06/20 at 19:27; Stop 01/06/20 at 19:27; Status DC Midazolam HCl 100 ml @ 0 mls/hr CONT PRN IV SEE PROTOCOL Last administered on 01/08/20at 06:09; Start 01/06/20 at 19:30 Propofol 50 ml @ 0 mls/hr 1X ONCE IV Last administered on 01/06/20at 18:55; Start 01/06/20 at 20:00; Stop 01/06/20 at 20:01; Status DC Midazolam HCl (Versed) 5 mg 1X ONCE NS Last administered on 01/06/20at 19:18; Start 01/06/20 at 19:18; Stop 01/06/20 at 19:59; Status DC Piperacillin Sod/ Tazobactam Sod 3.375 gm/Sodium Chloride 50 ml @ 100 mls/hr 1X ONCE IV Last administered on 01/06/20at 21:47; Start 01/06/20 at 20:45; Stop 01/06/20 at 21:14; Status DC Dexmedetomidine HCl 400 mcg/ Sodium Chloride 100 ml @ 0 mls/hr CONT PRN IV SEDATION Last administered on 01/08/20at 06:10; Start 01/06/20 at 20:15 Sodium Chloride 500 ml @ 500 mls/hr 1X PRN PRN IV SEE COMMENTS; Start 01/06/20 at 20:15 Atropine Sulfate (ATROPINE 0.5mg SYRINGE) 0.5 mg PRN Q5MIN PRN IV SEE COMMENTS; Start 01/06/20 at 20:15 Fentanyl Citrate (Fentanyl 2ml Vial) 100 mcg 1X ONCE IVP Last administered on 01/06/20at 20:17; Start 01/06/20 at 20:15; Stop 01/06/20 at 20:18; Status DC Methylprednisolone Sodium Succinate (SOLU-Medrol 40MG VIAL) 40 mg Q8HRS IV Last administered on 01/08/20at 06:09; Start 01/06/20 at 22:00 Enoxaparin Sodium (Lovenox 40mg Syringe) 40 mg BID SQ Last administered on 01/07/20at 08:15; Start 01/06/20 at 21:30; Stop 01/07/20 at 09:47; Status DC Potassium Chloride/Dextrose/ Sod Cl 1,000 ml @ 125 mls/hr Q8H ONCE IV Last administered on 01/06/20at 22:13; Start 01/06/20 at 21:30; Stop 01/07/20 at 05: 29; Status DC Zinc Sulfate (Orazinc) 220 mg DAILY PO Last administered on 01/08/20at 09:26; Start 01/07/20 at 09:00 Ondansetron HCl (Zofran) 4 mg PRN Q4HRS PRN IV NAUSEA/VOMITING; Start 01/06/20 at 21:30 Acetaminophen (Tylenol) 650 mg PRN Q4HRS PRN GT TEMP OVER 100.4F OR MILD PAIN; Start 01/06/20 at 21:30 Acetaminophen (Tylenol Supp) 650 mg PRN Q4HRS PRN [place] TEMP OVER 100.4F OR MILD PAIN; Start 01/06/20 at 21:30 Docusate Sodium (Colace) 100 mg PRN BID PRN PO HARD STOOLS; Start 01/06/20 at 21:30 Piperacillin Sod/ Tazobactam Sod 3.375 gm/Sodium Chloride 50 ml @ 100 mls/hr Q6HRS IV Last administered on 01/08/20at 06:09; Start 01/07/20 at 00:00 Pantoprazole Sodium (PROTONIX VIAL for IV PUSH) 40 mg DAILYAC IVP Last administered on 01/08/20at 07:51; Start 01/07/20 at 07:30 Norepinephrine Bitartrate 8 mg/ Dextrose 258 ml @ 12.578 mls/ hr CONT PRN IV PER PROTOCOL Last administered on 01/06/20at 22:15; Start 01/06/20 at 21:45 Sodium Chloride 1,000 ml @ 1,000 mls/hr 1X ONCE IV Last administered on 01/06/20at 21:44; Start 01/06/20 at 21:45; Stop 01/06/20 at 22:44; Status DC Fentanyl Citrate 30 ml @ 0 mls/hr CONT PRN IV SEE PROTOCOL Last administered on 01/08/20at 10:44; Start 01/06/20 at 21:45 Vecuronium [place] (Norcuron Bolus) 6 mg PRN Q2HR PRN IV VENT ASYNCHRONY Last administered on 01/08/20at 06:36; Start 01/06/20 at 21:45 Sodium Chloride 1,000 ml @ 1,000 mls/hr 1X ONCE IV Last administered on 01/06/20at 22:36; Start 01/06/20 at 22:30; Stop 01/06/20 at 23:29; Status DC Methylprednisolone Sodium Succinate (SOLU-Medrol 40MG VIAL) 40 mg Q8HRS IV ; Start 01/07/20 at 14:00; Status UNV Enoxaparin Sodium (Lovenox 80mg Syringe) 80 mg BID SQ Last administered on 01/07/20at 20:53; Start 01/07/20 at 21:00; Stop 01/08/20 at 08:57; Status DC Insulin Human Lispro (HumaLOG) 6 units TID SQ ; Start 01/07/20 at 14:00; Stop 01/07/20 at 10:05; Status DC Insulin Glargine (Lantus Syringe) 10 unit BID SQ Last administered on 01/08/20at 09:27; Start 01/07/20 at 21:00 Ascorbic Acid (Vitamin C) 250 mg Q6HRS PO Last administered on 01/08/20at 06:09; Start 01/07/20 at 12:00 Sodium Chloride 1,000 ml @ 75 mls/hr [id number] IV Last administered on 01/08/20at 00:22; Start 01/07/20 at 10:00 Insulin Human Lispro (HumaLOG) 6 units Q6HRS SQ Last administered on 01/08/20at 06:11; Start 01/07/20 at 12:00 Insulin Glargine (Lantus Syringe) 10 unit 1X ONCE SQ Last administered on 01/07/20at 11:40; Start 01/07/20 at 11:00; Stop 01/07/20 at 11:01; Status DC Enoxaparin Sodium (Lovenox 60mg Syringe) 60 mg BID SQ Last administered on 01/08/20at 09:26; Start 01/08/20 at 09:00 Vecuronium [place] (Norcuron Bolus) 6 mg PRN Q6HRS PRN IV SEDATION; Start 01/08/20 at 09:30 Vitals/I & O Vital Sign - Last 24 Hours 01/07/20 01/07/20 01/07/20 01/07/20 12:00 12:00 12:15 13:00 Temp 99.2 99.2 Pulse 72 66 Resp 20 B/P (MAP) 91/59 (70) 95/62 (73) Pulse Ox 100 100 100 O2 Delivery Mechanical Ventilator Ventilator 01/07/20 01/07/20 01/07/20 01/07/20 14:00 15:00 15:46 16:00 Temp 99.3 99.3 Pulse 64 66 67 Resp B/P (MAP) 86/59 (68) 117/83 (94) 101/67 (78) Pulse Ox 98 100 100 96 O2 Delivery Ventilator 01/07/20 01/07/20 01/07/20 01/07/20 16:00 16:24 17:00 18:00 Pulse 67 66 Resp B/P (MAP) 103/61 (75) 101/60 (74) Pulse Ox 99 100 100 O2 Delivery Mechanical Ventilator Ventilator 01/07/20 01/07/20 01/07/20 01/07/20 19:00 20:00 20:00 21:00 Temp 99.0 99.0 Pulse 66 64 66 Resp 20 B/P (MAP) 108/64 (79) 105/63 (77) 110/66 (81) Pulse Ox 100 100 96 O2 Delivery Mechanical Ventilator 01/07/20 01/07/20 01/07/20 01/07/20 21:00 21:54 22:00 22:54 Temp 98.7 99.0 98.7 99.0 Pulse 66 66 67 Resp 22 B/P (MAP) 112/69 112/69 (83) 114/68 Pulse Ox 96 96 O2 Delivery Ventilator 01/07/20 01/07/20 01/08/20 01/08/20 23:00 23:54 00:00 00:00 Temp 98.6 98.6 98.6 98.6 Pulse 67 74 74 Resp B/P (MAP) 114/68 (83) 119/71 119/71 (87) Pulse Ox 99 100 O2 Delivery Mechanical Ventilator 01/08/20 01/08/20 01/08/20 01/08/20 00:46 01:00 01:52 02:00 Temp 98.5 98.5 Pulse 70 73 73 Resp B/P (MAP) 114/64 (81) 117/64 117/64 (81) Pulse Ox 95 99 96 O2 Delivery Ventilator 01/08/20 01/08/20 01/08/20 01/08/20 03:00 04:00 04:00 05:00 Temp 99.8 99.8 Pulse 71 73 84 Resp 28 B/P (MAP) 126/67 (86) 115/60 (78) 126/64 (84) Pulse Ox 99 100 97 O2 Delivery Mechanical Ventilator 01/08/20 01/08/20 01/08/20 01/08/20 05:00 06:00 07:00 07:45 Pulse 75 82 Resp 30 24 B/P (MAP) 137/67 (90) 142/68 (92) Pulse Ox 95 98 100 98 O2 Delivery Ventilator Ventilator 01/08/20 01/08/20 01/08/20 01/08/20 08:00 08:00 09:00 10:00 Temp 99.2 99.2 Pulse 83 85 82 Resp 23 35 36 B/P (MAP) 145/72 (96) 135/67 (89) 145/73 (97) Pulse Ox 99 93 96 O2 Delivery Mechanical Ventilator 01/08/20 01/08/20 10:44 11:00 Pulse 82 Resp 22 37 B/P (MAP) 143/68 (93) Pulse Ox 96 94 O2 Delivery Ventilator Intake and Output 01/07/20 01/07/20 01/08/20 15:00 23:00 07:00 Intake Total 225 ml 678 ml 1969 ml Output Total 370 ml 255 ml 450 ml Balance -145 ml 423 ml 1519 ml Justicifation of Admission Dx: Justifications for Admission: Justification of Admission Dx: Yes CAROLINA VEGA MD Jan 08, 2020 11:24
[2020-01-08] MEDS: fentaNYL HIGH DOSE PCA 55 ML IV PRN (16:31)
[2020-01-08] MEDS: PROPOFOL 100 ML IV PRN (17:09)
[2020-01-08] MEDS: ACETAMINOPHEN 650 MG/20.3 ML SOLUTION. GT PRN (19:35)
--- NOTE | 2020-01-08 20:37 | NUR ---
Patient overbreathing vent RR in 32-38, Peaks easily hit 50-60 when even touched. Deep suctioning produces no sputum. Patient recently placed on propofol gtt, now maxed, also used dose of PRN vec to get patient back in sync. Also spiked new fever of 101.7. Paged Dr. Gill about development, spoke in lengths about patient condition: labs, UO, sedation, vent settings. Decided to draw fungal blood cultures and see if dose of Tylenol and ice packs are effective in treating newly developed fever.
[2020-01-09] VITALS (24 sets, daily range): BP systolic 128–180; BP diastolic 69–96
[2020-01-09] MEDS: DEXMEDETOMIDINE 400 MCG in IV NORMAL SALINE 100ML 96 ML IV PRN ×5 (00:43→18:20)
[2020-01-09] MEDS: PROPOFOL 100 ML IV PRN ×6 (02:35→21:09)
[2020-01-09] MEDS: IV NORMAL SALINE 1000ML BAG 1,000 ML IV SCH ×2 (03:40→15:04)
[2020-01-09] MEDS: MIDAZOLAM 100mg/100ml NS BAG 100 ML IV PRN ×2 (04:55→12:59)
[2020-01-09] MEDS: methylPREDNISolone SOD SUCC PF 40 MG/ML VIAL. IV SCH ×3 (05:56→23:28)
[2020-01-09] MEDS: PIPERACILLIN/TAZOBACTAM 3.375 GM in IV NORMAL SALINE 50ML 50 ML IV SCH ×4 (05:56→23:28)
[2020-01-09] MEDS: ASCORBIC ACID 500 MG TABLET PO SCH ×4 (05:56→23:28)
[2020-01-09 06:04] LABS: BASO # 0.1 x10^3/uL (0.0-0.2); BASO % 1 % (0-3); EOS % 0 % (0-3); HEMATOCRIT 31.2 % (39.0-53.0); HEMOGLOBIN 10.6 g/dL (13.0-17.5); LYMPH # 0.5 x10^3/uL (1.0-4.8); LYMPH % 5 % (24-48); MEAN CORPUSCULAR HEMOGLOBIN 31 pg (25-35); MEAN CORPUSCULAR HGB CONC 34 g/dL (31-37); MEAN CORPUSCULAR VOLUME 91 fL (79-100); MONO # 0.4 x10^3/uL (0.0-1.1); MONO % 4 % (0-9); NEUT # 10.2 x10^3/uL (1.8-7.7); NEUT % 91 % (31-73); PLATELET COUNT 202 x10^3/uL (140-400); RED BLOOD COUNT 3.44 x10^6/uL (4.30-5.70); RED CELL DISTRIBUTION WIDTH 13.4 % (11.5-14.5); WHITE BLOOD COUNT 11.3 x10^3/uL (4.0-11.0)
[2020-01-09] MEDS ORDERED: INSULIN LISPRO 300 UNITS/3 ML VIAL. SQ ONE (06:15)
[2020-01-09] MEDS: INSULIN LISPRO 300 UNITS/3 ML VIAL. SQ SCH ×3 (06:19→17:52)
[2020-01-09 06:24] LABS: ALBUMIN 1.7 g/dL (3.4-5.0); ALBUMIN/GLOBULIN RATIO 0.5 (1.0-1.7); CALCIUM 6.9 mg/dL (8.5-10.1); CREATININE 1.4 mg/dL (0.7-1.3); GFR 52.6; POTASSIUM 4.4 mmol/L (3.5-5.1); TOTAL BILIRUBIN 0.7 mg/dL (0.2-1.0); TOTAL PROTEIN 5.3 g/dL (6.4-8.2)
[2020-01-09] MEDS: PANTOPRAZOLE IV PUSH 40 MG VIAL. IVP SCH (07:50)
[2020-01-09 08:48] LABS: BASE EXCESS ABG -4 mmol/L (-3-3); HCO3 ABG 20 mmol/L (21-28); PCO2 ABG 34 mmHg (35-46)
[2020-01-09 08:52] LABS: FIO2 ABG 100%+10; PO2 ABG 46 mmHg (75-108)
[2020-01-09] MEDS: INSULIN GLARGINE SYRINGE. SQ SCH ×2 (09:02→21:10)
[2020-01-09] MEDS: ZINC SULFATE 220 MG CAPSULE. PO SCH (09:02)
--- NOTE | 2020-01-09 09:39 | PDOC ---
PULMONARY PROGRESS NOTES DATE: 01/09/20 TIME: 09:37 Subjective remains intubated/sedated AC mode ,100%FIO2/10 PEEP nursing report hypoxia with minimal stimulation Vitals Vital Signs Date Time Temp Pulse Resp B/P (MAP) Pulse Ox O2 Delivery O2 Flow Rate FiO2 01/09/20 09:00 73 21 144/79 (100) 94 01/09/20 08:00 98.8 98.8 01/09/20 08:00 Mechanical Ventilator Comments visual exam done due to COVID-Pandemia no resp distess no skin rash lower extremity edema Labs Laboratory Tests Test 01/07/20 17:41 01/07/20 20:51 01/08/20 00:29 01/08/20 05:30 Glucose (Fingerstick) 285 mg/dL (70-99) 257 mg/dL (70-99) 316 mg/dL (70-99) White Blood Count 12.0 x10^3/uL (4.0-11.0) Red Blood Count 3.36 x10^6/uL (4.30-5.70) Hemoglobin 10.4 g/dL (13.0-17.5) Hematocrit 30.3 % (39.0-53.0) Mean Corpuscular Volume 90 fL (79-100) Mean Corpuscular Hemoglobin 31 pg (25-35) Mean Corpuscular Hemoglobin Concent 34 g/dL (31-37) Red Cell Distribution Width 13.4 % (11.5-14.5) Platelet Count 215 x10^3/uL (140-400) Neutrophils (%) (Auto) 93 % (31-73) Lymphocytes (%) (Auto) 4 % (24-48) Monocytes (%) (Auto) 3 % (0-9) Eosinophils (%) (Auto) 0 % (0-3) Basophils (%) (Auto) 0 % (0-3) Neutrophils # (Auto) 11.1 x10^3/uL (1.8-7.7) Lymphocytes # (Auto) 0.4 x10^3/uL (1.0-4.8) Monocytes # (Auto) 0.4 x10^3/uL (0.0-1.1) Eosinophils # (Auto) 0.0 x10^3/uL (0.0-0.7) Basophils # (Auto) 0.0 x10^3/uL (0.0-0.2) Sodium Level 138 mmol/L (136-145) Potassium Level 3.7 mmol/L (3.5-5.1) Chloride Level 104 mmol/L (98-107) Carbon Dioxide Level 21 mmol/L (21-32) Anion Gap 13 (6-14) Blood Urea Nitrogen 50 mg/dL (8-26) Creatinine 1.4 mg/dL (0.7-1.3) Estimated GFR (Cockcroft-Gault) 52.6 BUN/Creatinine Ratio 36 (6-20) Glucose Level 350 mg/dL (70-99) Calcium Level 7.3 mg/dL (8.5-10.1) Total Bilirubin 0.9 mg/dL (0.2-1.0) Aspartate Amino Transf (AST/SGOT) 96 U/L (15-37) Alanine Aminotransferase (ALT/SGPT) 74 U/L (16-63) Alkaline Phosphatase 110 U/L (46-116) Total Protein 5.5 g/dL (6.4-8.2) Albumin 1.9 g/dL (3.4-5.0) Albumin/Globulin Ratio 0.5 (1.0-1.7) Test 01/08/20 06:00 01/08/20 08:00 01/08/20 11:42 01/08/20 18:16 Glucose (Fingerstick) 351 mg/dL (70-99) 420 mg/dL (70-99) 390 mg/dL (70-99) O2 Saturation 94 % (92-99) Arterial Blood pH 7.41 (7.35-7.45) Arterial Blood pCO2 at Patient Temp 28 mmHg (35-46) Arterial Blood pO2 at Patient Temp 80 mmHg (75-108) Arterial Blood HCO3 17 mmol/L (21-28) Arterial Blood Base Excess -6 mmol/L (-3-3) FiO2 90%+10 Test 01/08/20 20:58 01/08/20 23:33 01/09/20 05:30 01/09/20 05:42 Glucose (Fingerstick) 429 mg/dL (70-99) 432 mg/dL (70-99) 444 mg/dL (70-99) White Blood Count 11.3 x10^3/uL (4.0-11.0) Red Blood Count 3.44 x10^6/uL (4.30-5.70) Hemoglobin 10.6 g/dL (13.0-17.5) Hematocrit 31.2 % (39.0-53.0) Mean Corpuscular Volume 91 fL (79-100) Mean Corpuscular Hemoglobin 31 pg (25-35) Mean Corpuscular Hemoglobin Concent 34 g/dL (31-37) Red Cell Distribution Width 13.4 % (11.5-14.5) Platelet Count 202 x10^3/uL (140-400) Neutrophils (%) (Auto) 91 % (31-73) Lymphocytes (%) (Auto) 5 % (24-48) Monocytes (%) (Auto) 4 % (0-9) Eosinophils (%) (Auto) 0 % (0-3) Basophils (%) (Auto) 1 % (0-3) Neutrophils # (Auto) 10.2 x10^3/uL (1.8-7.7) Lymphocytes # (Auto) 0.5 x10^3/uL (1.0-4.8) Monocytes # (Auto) 0.4 x10^3/uL (0.0-1.1) Eosinophils # (Auto) 0.0 x10^3/uL (0.0-0.7) Basophils # (Auto) 0.1 x10^3/uL (0.0-0.2) Sodium Level 143 mmol/L (136-145) Potassium Level 4.4 mmol/L (3.5-5.1) Chloride Level 109 mmol/L (98-107) Carbon Dioxide Level 24 mmol/L (21-32) Anion Gap 10 (6-14) Blood Urea Nitrogen 44 mg/dL (8-26) Creatinine 1.4 mg/dL (0.7-1.3) Estimated GFR (Cockcroft-Gault) 52.6 BUN/Creatinine Ratio 31 (6-20) Glucose Level 462 mg/dL (70-99) Calcium Level 6.9 mg/dL (8.5-10.1) Total Bilirubin 0.7 mg/dL (0.2-1.0) Aspartate Amino Transf (AST/SGOT) 106 U/L (15-37) Alanine Aminotransferase (ALT/SGPT) 101 U/L (16-63) Alkaline Phosphatase 139 U/L (46-116) Total Protein 5.3 g/dL (6.4-8.2) Albumin 1.7 g/dL (3.4-5.0) Albumin/Globulin Ratio 0.5 (1.0-1.7) Test 01/09/20 08:00 Arterial Blood pH 7.40 (7.35-7.45) Arterial Blood pCO2 at Patient Temp 34 mmHg (35-46) Arterial Blood pO2 at Patient Temp 46 mmHg (75-108) Arterial Blood HCO3 20 mmol/L (21-28) Arterial Blood Base Excess -4 mmol/L (-3-3) FiO2 100%+10 Laboratory Tests Test 01/08/20 11:42 01/08/20 18:16 01/08/20 20:58 01/08/20 23:33 Glucose (Fingerstick) 420 mg/dL (70-99) 390 mg/dL (70-99) 429 mg/dL (70-99) 432 mg/dL (70-99) Test 01/09/20 05:30 01/09/20 05:42 01/09/20 08:00 White Blood Count 11.3 x10^3/uL (4.0-11.0) Red Blood Count 3.44 x10^6/uL (4.30-5.70) Hemoglobin 10.6 g/dL (13.0-17.5) Hematocrit 31.2 % (39.0-53.0) Mean Corpuscular Volume 91 fL (79-100) Mean Corpuscular Hemoglobin 31 pg (25-35) Mean Corpuscular Hemoglobin Concent 34 g/dL (31-37) Red Cell Distribution Width 13.4 % (11.5-14.5) Platelet Count 202 x10^3/uL (140-400) Neutrophils (%) (Auto) 91 % (31-73) Lymphocytes (%) (Auto) 5 % (24-48) Monocytes (%) (Auto) 4 % (0-9) Eosinophils (%) (Auto) 0 % (0-3) Basophils (%) (Auto) 1 % (0-3) Neutrophils # (Auto) 10.2 x10^3/uL (1.8-7.7) Lymphocytes # (Auto) 0.5 x10^3/uL (1.0-4.8) Monocytes # (Auto) 0.4 x10^3/uL (0.0-1.1) Eosinophils # (Auto) 0.0 x10^3/uL (0.0-0.7) Basophils # (Auto) 0.1 x10^3/uL (0.0-0.2) Sodium Level 143 mmol/L (136-145) Potassium Level 4.4 mmol/L (3.5-5.1) Chloride Level 109 mmol/L (98-107) Carbon Dioxide Level 24 mmol/L (21-32) Anion Gap 10 (6-14) Blood Urea Nitrogen 44 mg/dL (8-26) Creatinine 1.4 mg/dL (0.7-1.3) Estimated GFR (Cockcroft-Gault) 52.6 BUN/Creatinine Ratio 31 (6-20) Glucose Level 462 mg/dL (70-99) Calcium Level 6.9 mg/dL (8.5-10.1) Total Bilirubin 0.7 mg/dL (0.2-1.0) Aspartate Amino Transf (AST/SGOT) 106 U/L (15-37) Alanine Aminotransferase (ALT/SGPT) 101 U/L (16-63) Alkaline Phosphatase 139 U/L (46-116) Total Protein 5.3 g/dL (6.4-8.2) Albumin 1.7 g/dL (3.4-5.0) Albumin/Globulin Ratio 0.5 (1.0-1.7) Glucose (Fingerstick) 444 mg/dL (70-99) Arterial Blood pH 7.40 (7.35-7.45) Arterial Blood pCO2 at Patient Temp 34 mmHg (35-46) Arterial Blood pO2 at Patient Temp 46 mmHg (75-108) Arterial Blood HCO3 20 mmol/L (21-28) Arterial Blood Base Excess -4 mmol/L (-3-3) FiO2 100%+10 Comments CXR 01/06 IMPRESSION: 1. Bilateral diffuse infiltrates are increased in the left base and mildly improved elsewhere. Impression . 1. Acute hypoxic respiratory failure secondary to COVID-19 pneumonia/ARDS/acute lung injury--worsening oxygen requirements 2. Abnormal chest x-ray with bilateral infiltrates consistent with COVID-19 pneumonia. 3. Hypotension secondary to combination of hypovolemia and sepsis status post 2 liters of IV fluids. no pressors 4. Acute kidney injury, improving. 5. Severe protein-calorie malnutrition. 6. Abnormal D-dimer related to COVID-19 pneumonia. Currently on DVT prophylaxis. Plan . RECOMMENDATIONS: 1. Continue present assist control mode, PEEP of 10 and FiO2 of 90% ABG reviewed , remain hypoxic will increase PEEP, ensure adequate sedation 2. Follow chest x-rays as needed. 3. Broad spectrum antibiotic. 4. Cont. IV steroids 5. DVT prophylaxis with Lovenox high dose. 6. The patient would require intubation for minimal 1 week. 7. Stress ulcer prophylaxis. 8. Discussed with RN and RT. 9. s/p Plasma 10. repeat D-Dimer Friday. cont. TF for nutritional sup[port Critical care time 30 minutes. YVONNE TAYLOR MD Jan 09, 2020 09:39
[2020-01-09] MEDS: fentaNYL HIGH DOSE PCA 55 ML IV PRN (10:24)
[2020-01-09] MEDS: VECURONIUM BOLUS 10 MG VIAL. IV PRN (15:38)
[2020-01-09] MEDS: ACETAMINOPHEN 650 MG/20.3 ML SOLUTION. GT PRN (22:59)
[2020-01-10] VITALS (24 sets, daily range): BP systolic 110–184; BP diastolic 60–83
[2020-01-10] MEDS: MIDAZOLAM 100mg/100ml NS BAG 100 ML IV PRN ×3 (00:16→19:29)
[2020-01-10] MEDS: DEXMEDETOMIDINE 400 MCG in IV NORMAL SALINE 100ML 96 ML IV PRN ×3 (00:18→18:59)
[2020-01-10] MEDS: INSULIN LISPRO 300 UNITS/3 ML VIAL. SQ SCH ×4 (01:20→18:41)
[2020-01-10] MEDS: PROPOFOL 100 ML IV PRN ×5 (01:21→17:17)
[2020-01-10] MEDS: fentaNYL HIGH DOSE PCA 55 ML IV PRN ×2 (02:32→19:32)
[2020-01-10 05:16] LABS: BASO % 0 % (0-3); EOS % 0 % (0-3); HEMATOCRIT 30.9 % (39.0-53.0); HEMOGLOBIN 10.4 g/dL (13.0-17.5); LYMPH # 0.5 x10^3/uL (1.0-4.8); LYMPH % 4 % (24-48); MEAN CORPUSCULAR HEMOGLOBIN 31 pg (25-35); MEAN CORPUSCULAR HGB CONC 34 g/dL (31-37); MEAN CORPUSCULAR VOLUME 91 fL (79-100); MONO # 0.4 x10^3/uL (0.0-1.1); MONO % 3 % (0-9); NEUT % 93 % (31-73); PLATELET COUNT 184 x10^3/uL (140-400); RED BLOOD COUNT 3.38 x10^6/uL (4.30-5.70); RED CELL DISTRIBUTION WIDTH 13.3 % (11.5-14.5); WHITE BLOOD COUNT 13.9 x10^3/uL (4.0-11.0)
[2020-01-10] MEDS: PIPERACILLIN/TAZOBACTAM 3.375 GM in IV NORMAL SALINE 50ML 50 ML IV SCH ×3 (05:41→18:28)
[2020-01-10] MEDS: methylPREDNISolone SOD SUCC PF 40 MG/ML VIAL. IV SCH ×3 (05:41→21:12)
[2020-01-10] MEDS: ASCORBIC ACID 500 MG TABLET PO SCH ×3 (05:42→18:28)
[2020-01-10] MEDS: IV NORMAL SALINE 1000ML BAG 1,000 ML IV SCH ×2 (05:44→19:33)
[2020-01-10 05:47] LABS: ALBUMIN 1.6 g/dL (3.4-5.0); ALBUMIN/GLOBULIN RATIO 0.4 (1.0-1.7); CALCIUM 7.2 mg/dL (8.5-10.1); CREATININE 1.1 mg/dL (0.7-1.3); GFR 69.5; POTASSIUM 4.5 mmol/L (3.5-5.1); TOTAL BILIRUBIN 0.7 mg/dL (0.2-1.0); TOTAL PROTEIN 5.7 g/dL (6.4-8.2)
[2020-01-10 08:32] LABS: BASE EXCESS ABG 1 mmol/L (-3-3); HCO3 ABG 25 mmol/L (21-28); PCO2 ABG 40 mmHg (35-46); PO2 ABG 83 mmHg (75-108)
[2020-01-10 08:49] LABS: FIO2 ABG 100
[2020-01-10] MEDS: PANTOPRAZOLE IV PUSH 40 MG VIAL. IVP SCH (08:55)
[2020-01-10] MEDS: ZINC SULFATE 220 MG CAPSULE. PO SCH (08:56)
[2020-01-10] MEDS: INSULIN GLARGINE SYRINGE. SQ SCH ×2 (09:24→21:12)
[2020-01-10] MEDS ORDERED: ALTEPLASE 1MG SYRINGE. INT CAT ONE (11:00)
--- NOTE | 2020-01-10 11:07 | NUR ---
SS following up with discharge planning. SS reviewed pt chart and discussed with pt RN. Pt remains on the vent at this time. COVID19 positive. Pt on IV Zosyn. Pt is self pay. SS discussed with [facility]. Pt is not a citizen and works at [employer]. [employer] working to complete application for [employer]. SS will continue to follow for discharge planning.
--- NOTE | 2020-01-10 11:47 | PDOC ---
PULMONARY PROGRESS NOTES DATE: 01/10/20 TIME: 11:44 Subjective remains intubated/sedated AC mode ,100%FIO2/10 PEEP nursing report hypoxia with minimal stimulation Vitals Vital Signs Date Time Temp Pulse Resp B/P (MAP) Pulse Ox O2 Delivery O2 Flow Rate FiO2 01/10/20 10:00 62 22 137/68 (91) 100 Ventilator 01/10/20 08:00 98.1 98.1 01/10/20 03:02 18.0 Comments visual exam done due to COVID-Pandemia no resp distess no skin rash lower extremity edema Labs Laboratory Tests Test 01/08/20 18:16 01/08/20 20:58 01/08/20 23:33 01/09/20 05:30 Glucose (Fingerstick) 390 mg/dL (70-99) 429 mg/dL (70-99) 432 mg/dL (70-99) White Blood Count 11.3 x10^3/uL (4.0-11.0) Red Blood Count 3.44 x10^6/uL (4.30-5.70) Hemoglobin 10.6 g/dL (13.0-17.5) Hematocrit 31.2 % (39.0-53.0) Mean Corpuscular Volume 91 fL (79-100) Mean Corpuscular Hemoglobin 31 pg (25-35) Mean Corpuscular Hemoglobin Concent 34 g/dL (31-37) Red Cell Distribution Width 13.4 % (11.5-14.5) Platelet Count 202 x10^3/uL (140-400) Neutrophils (%) (Auto) 91 % (31-73) Lymphocytes (%) (Auto) 5 % (24-48) Monocytes (%) (Auto) 4 % (0-9) Eosinophils (%) (Auto) 0 % (0-3) Basophils (%) (Auto) 1 % (0-3) Neutrophils # (Auto) 10.2 x10^3/uL (1.8-7.7) Lymphocytes # (Auto) 0.5 x10^3/uL (1.0-4.8) Monocytes # (Auto) 0.4 x10^3/uL (0.0-1.1) Eosinophils # (Auto) 0.0 x10^3/uL (0.0-0.7) Basophils # (Auto) 0.1 x10^3/uL (0.0-0.2) Sodium Level 143 mmol/L (136-145) Potassium Level 4.4 mmol/L (3.5-5.1) Chloride Level 109 mmol/L (98-107) Carbon Dioxide Level 24 mmol/L (21-32) Anion Gap 10 (6-14) Blood Urea Nitrogen 44 mg/dL (8-26) Creatinine 1.4 mg/dL (0.7-1.3) Estimated GFR (Cockcroft-Gault) 52.6 BUN/Creatinine Ratio 31 (6-20) Glucose Level 462 mg/dL (70-99) Calcium Level 6.9 mg/dL (8.5-10.1) Total Bilirubin 0.7 mg/dL (0.2-1.0) Aspartate Amino Transf (AST/SGOT) 106 U/L (15-37) Alanine Aminotransferase (ALT/SGPT) 101 U/L (16-63) Alkaline Phosphatase 139 U/L (46-116) Total Protein 5.3 g/dL (6.4-8.2) Albumin 1.7 g/dL (3.4-5.0) Albumin/Globulin Ratio 0.5 (1.0-1.7) Test 01/09/20 05:42 01/09/20 08:00 01/09/20 11:28 01/09/20 17:51 Glucose (Fingerstick) 444 mg/dL (70-99) 426 mg/dL (70-99) 363 mg/dL (70-99) O2 Saturation % (92-99) Arterial Blood pH 7.40 (7.35-7.45) Arterial Blood pCO2 at Patient Temp 34 mmHg (35-46) Arterial Blood pO2 at Patient Temp 46 mmHg (75-108) Arterial Blood HCO3 20 mmol/L (21-28) Arterial Blood Base Excess -4 mmol/L (-3-3) FiO2 100%+10 Test 01/10/20 00:39 01/10/20 05:00 01/10/20 05:04 01/10/20 07:30 Glucose (Fingerstick) 342 mg/dL (70-99) 326 mg/dL (70-99) White Blood Count 13.9 x10^3/uL (4.0-11.0) Red Blood Count 3.38 x10^6/uL (4.30-5.70) Hemoglobin 10.4 g/dL (13.0-17.5) Hematocrit 30.9 % (39.0-53.0) Mean Corpuscular Volume 91 fL (79-100) Mean Corpuscular Hemoglobin 31 pg (25-35) Mean Corpuscular Hemoglobin Concent 34 g/dL (31-37) Red Cell Distribution Width 13.3 % (11.5-14.5) Platelet Count 184 x10^3/uL (140-400) Neutrophils (%) (Auto) 93 % (31-73) Lymphocytes (%) (Auto) 4 % (24-48) Monocytes (%) (Auto) 3 % (0-9) Eosinophils (%) (Auto) 0 % (0-3) Basophils (%) (Auto) 0 % (0-3) Neutrophils # (Auto) 13.0 x10^3/uL (1.8-7.7) Lymphocytes # (Auto) 0.5 x10^3/uL (1.0-4.8) Monocytes # (Auto) 0.4 x10^3/uL (0.0-1.1) Eosinophils # (Auto) 0.0 x10^3/uL (0.0-0.7) Basophils # (Auto) 0.0 x10^3/uL (0.0-0.2) D-Dimer (Shivani) > 20.00 ug/mlFEU Sodium Level 149 mmol/L (136-145) Potassium Level 4.5 mmol/L (3.5-5.1) Chloride Level 114 mmol/L (98-107) Carbon Dioxide Level 25 mmol/L (21-32) Anion Gap 10 (6-14) Blood Urea Nitrogen 34 mg/dL (8-26) Creatinine 1.1 mg/dL (0.7-1.3) Estimated GFR (Cockcroft-Gault) 69.5 BUN/Creatinine Ratio 31 (6-20) Glucose Level 316 mg/dL (70-99) Calcium Level 7.2 mg/dL (8.5-10.1) Total Bilirubin 0.7 mg/dL (0.2-1.0) Aspartate Amino Transf (AST/SGOT) 76 U/L (15-37) Alanine Aminotransferase (ALT/SGPT) 77 U/L (16-63) Alkaline Phosphatase 118 U/L (46-116) Total Protein 5.7 g/dL (6.4-8.2) Albumin 1.6 g/dL (3.4-5.0) Albumin/Globulin Ratio 0.4 (1.0-1.7) Arterial Blood pH 7.42 (7.35-7.45) Arterial Blood pCO2 at Patient Temp 40 mmHg (35-46) Arterial Blood pO2 at Patient Temp 83 mmHg (75-108) Arterial Blood HCO3 25 mmol/L (21-28) Arterial Blood Base Excess 1 mmol/L (-3-3) FiO2 100 Laboratory Tests Test 01/09/20 17:51 01/10/20 00:39 01/10/20 05:00 01/10/20 05:04 Glucose (Fingerstick) 363 mg/dL (70-99) 342 mg/dL (70-99) 326 mg/dL (70-99) White Blood Count 13.9 x10^3/uL (4.0-11.0) Red Blood Count 3.38 x10^6/uL (4.30-5.70) Hemoglobin 10.4 g/dL (13.0-17.5) Hematocrit 30.9 % (39.0-53.0) Mean Corpuscular Volume 91 fL (79-100) Mean Corpuscular Hemoglobin 31 pg (25-35) Mean Corpuscular Hemoglobin Concent 34 g/dL (31-37) Red Cell Distribution Width 13.3 % (11.5-14.5) Platelet Count 184 x10^3/uL (140-400) Neutrophils (%) (Auto) 93 % (31-73) Lymphocytes (%) (Auto) 4 % (24-48) Monocytes (%) (Auto) 3 % (0-9) Eosinophils (%) (Auto) 0 % (0-3) Basophils (%) (Auto) 0 % (0-3) Neutrophils # (Auto) 13.0 x10^3/uL (1.8-7.7) Lymphocytes # (Auto) 0.5 x10^3/uL (1.0-4.8) Monocytes # (Auto) 0.4 x10^3/uL (0.0-1.1) Eosinophils # (Auto) 0.0 x10^3/uL (0.0-0.7) Basophils # (Auto) 0.0 x10^3/uL (0.0-0.2) D-Dimer (Shivani) > 20.00 ug/mlFEU Sodium Level 149 mmol/L (136-145) Potassium Level 4.5 mmol/L (3.5-5.1) Chloride Level 114 mmol/L (98-107) Carbon Dioxide Level 25 mmol/L (21-32) Anion Gap 10 (6-14) Blood Urea Nitrogen 34 mg/dL (8-26) Creatinine 1.1 mg/dL (0.7-1.3) Estimated GFR (Cockcroft-Gault) 69.5 BUN/Creatinine Ratio 31 (6-20) Glucose Level 316 mg/dL (70-99) Calcium Level 7.2 mg/dL (8.5-10.1) Total Bilirubin 0.7 mg/dL (0.2-1.0) Aspartate Amino Transf (AST/SGOT) 76 U/L (15-37) Alanine Aminotransferase (ALT/SGPT) 77 U/L (16-63) Alkaline Phosphatase 118 U/L (46-116) Total Protein 5.7 g/dL (6.4-8.2) Albumin 1.6 g/dL (3.4-5.0) Albumin/Globulin Ratio 0.4 (1.0-1.7) Test 01/10/20 07:30 Arterial Blood pH 7.42 (7.35-7.45) Arterial Blood pCO2 at Patient Temp 40 mmHg (35-46) Arterial Blood pO2 at Patient Temp 83 mmHg (75-108) Arterial Blood HCO3 25 mmol/L (21-28) Arterial Blood Base Excess 1 mmol/L (-3-3) FiO2 100 Comments CXR 01/06 IMPRESSION: 1. Bilateral diffuse infiltrates are increased in the left base and mildly improved elsewhere. Impression . 1. Acute hypoxic respiratory failure secondary to COVID-19 pneumonia/ARDS/acute lung injury--worsening oxygen requirements 2. Abnormal chest x-ray with bilateral infiltrates consistent with COVID-19 pneumonia. 3. Hypotension secondary to combination of hypovolemia and sepsis status post 2 liters of IV fluids. no pressors 4. Acute kidney injury, improving. 5. Severe protein-calorie malnutrition. 6. Abnormal D-dimer related to COVID-19 pneumonia. Currently on high dose DVT prophylaxis.Sig increase in D-Dimer to 20. will order dopplers Plan . RECOMMENDATIONS: 1. Continue present assist control mode, PEEP of 12 and FiO2 of 100% ABG reviewed , wean FIO2/PEEP as tolerated, ensure adequate sedation 2. Follow chest x-rays as needed. 3. Broad spectrum antibiotic. 4. Cont. IV steroids 5. Abnormal D-dimer related to COVID-19 pneumonia. Currently on high dose DVT prophylaxis. Sig increase in D-Dimer to 20. will order dopplers 7. Stress ulcer prophylaxis. 8. Discussed with RN and RT. 9. s/p Plasma 10. cont. TF for nutritional sup[port Critical care time 30 minutes. YVONNE TAYLOR MD Jan 10, 2020 11:47
--- NOTE | 2020-01-10 12:27 | PDOC ---
PROGRESS NOTES Date of Service: DATE: 01/10/20 TIME: 12:23 Chief Complaint Chief Complaint Assessment/Plan Acute hypoxemic respiratory failure Leukocytosis with bandemia secondary to septic process Hyponatremia secondary to low effective circulatory volume Acue renal failure due to vasomotor nephropathy most likely Hyperglycemia mild transaminitis Uncontrolled hypertension Plan: will start hidralazine will increase insulin for better glycemia control supportive measures will adjust insulin for better glycemia control follow labs in am prognosis guarded follow pulmonology recommendations History of Present Illness History of Present Illness History of Present Illness Patient is a 54-year-old gentleman who was diagnosed with COVID-19 infection on Friday 5 days prior to his admission to the intensive care unit. Apparently the patient reported worsening respiratory distress reason why he came to the emergency department for evaluation and treatment. The story was quite limited since the patient was speaking [place]oth[place] only and his acuity was such that he required mechanical ventilation and prompt intubation by the emergency department physician. At the present time patient is intubated and sedated continues to require a lot of support no pertinent past medical history was reported he is admitted to the intensive care unit for further treatment 01/10/2020 Continues to require full support, glycemia has been noted in hypertension as well. Discussed with nursing staff, all of concerns were addressed to the best of my abilities no acute events reported overnight Vitals Vitals Vital Signs Date Time Temp Pulse Resp B/P (MAP) Pulse Ox O2 Delivery O2 Flow Rate FiO2 01/10/20 10:00 62 22 137/68 (91) 100 Ventilator 01/10/20 08:00 98.1 98.1 01/10/20 03:02 18.0 Labs LABS Laboratory Tests Test 01/09/20 17:51 01/10/20 00:39 01/10/20 05:00 01/10/20 05:04 Glucose (Fingerstick) 363 mg/dL (70-99) 342 mg/dL (70-99) 326 mg/dL (70-99) White Blood Count 13.9 x10^3/uL (4.0-11.0) Red Blood Count 3.38 x10^6/uL (4.30-5.70) Hemoglobin 10.4 g/dL (13.0-17.5) Hematocrit 30.9 % (39.0-53.0) Mean Corpuscular Volume 91 fL (79-100) Mean Corpuscular Hemoglobin 31 pg (25-35) Mean Corpuscular Hemoglobin Concent 34 g/dL (31-37) Red Cell Distribution Width 13.3 % (11.5-14.5) Platelet Count 184 x10^3/uL (140-400) Neutrophils (%) (Auto) 93 % (31-73) Lymphocytes (%) (Auto) 4 % (24-48) Monocytes (%) (Auto) 3 % (0-9) Eosinophils (%) (Auto) 0 % (0-3) Basophils (%) (Auto) 0 % (0-3) Neutrophils # (Auto) 13.0 x10^3/uL (1.8-7.7) Lymphocytes # (Auto) 0.5 x10^3/uL (1.0-4.8) Monocytes # (Auto) 0.4 x10^3/uL (0.0-1.1) Eosinophils # (Auto) 0.0 x10^3/uL (0.0-0.7) Basophils # (Auto) 0.0 x10^3/uL (0.0-0.2) D-Dimer (Shivani) > 20.00 ug/mlFEU Sodium Level 149 mmol/L (136-145) Potassium Level 4.5 mmol/L (3.5-5.1) Chloride Level 114 mmol/L (98-107) Carbon Dioxide Level 25 mmol/L (21-32) Anion Gap 10 (6-14) Blood Urea Nitrogen 34 mg/dL (8-26) Creatinine 1.1 mg/dL (0.7-1.3) Estimated GFR (Cockcroft-Gault) 69.5 BUN/Creatinine Ratio 31 (6-20) Glucose Level 316 mg/dL (70-99) Calcium Level 7.2 mg/dL (8.5-10.1) Total Bilirubin 0.7 mg/dL (0.2-1.0) Aspartate Amino Transf (AST/SGOT) 76 U/L (15-37) Alanine Aminotransferase (ALT/SGPT) 77 U/L (16-63) Alkaline Phosphatase 118 U/L (46-116) Total Protein 5.7 g/dL (6.4-8.2) Albumin 1.6 g/dL (3.4-5.0) Albumin/Globulin Ratio 0.4 (1.0-1.7) Test 01/10/20 07:30 01/10/20 11:53 Arterial Blood pH 7.42 (7.35-7.45) Arterial Blood pCO2 at Patient Temp 40 mmHg (35-46) Arterial Blood pO2 at Patient Temp 83 mmHg (75-108) Arterial Blood HCO3 25 mmol/L (21-28) Arterial Blood Base Excess 1 mmol/L (-3-3) FiO2 100 Glucose (Fingerstick) 243 mg/dL (70-99) Comment Review of Relevant I have reviewed the following items hong (where applicable) has been applied. Labs Laboratory Tests Test 01/08/20 18:16 01/08/20 20:58 01/08/20 23:33 01/09/20 05:30 Glucose (Fingerstick) 390 mg/dL (70-99) 429 mg/dL (70-99) 432 mg/dL (70-99) White Blood Count 11.3 x10^3/uL (4.0-11.0) Red Blood Count 3.44 x10^6/uL (4.30-5.70) Hemoglobin 10.6 g/dL (13.0-17.5) Hematocrit 31.2 % (39.0-53.0) Mean Corpuscular Volume 91 fL (79-100) Mean Corpuscular Hemoglobin 31 pg (25-35) Mean Corpuscular Hemoglobin Concent 34 g/dL (31-37) Red Cell Distribution Width 13.4 % (11.5-14.5) Platelet Count 202 x10^3/uL (140-400) Neutrophils (%) (Auto) 91 % (31-73) Lymphocytes (%) (Auto) 5 % (24-48) Monocytes (%) (Auto) 4 % (0-9) Eosinophils (%) (Auto) 0 % (0-3) Basophils (%) (Auto) 1 % (0-3) Neutrophils # (Auto) 10.2 x10^3/uL (1.8-7.7) Lymphocytes # (Auto) 0.5 x10^3/uL (1.0-4.8) Monocytes # (Auto) 0.4 x10^3/uL (0.0-1.1) Eosinophils # (Auto) 0.0 x10^3/uL (0.0-0.7) Basophils # (Auto) 0.1 x10^3/uL (0.0-0.2) Sodium Level 143 mmol/L (136-145) Potassium Level 4.4 mmol/L (3.5-5.1) Chloride Level 109 mmol/L (98-107) Carbon Dioxide Level 24 mmol/L (21-32) Anion Gap 10 (6-14) Blood Urea Nitrogen 44 mg/dL (8-26) Creatinine 1.4 mg/dL (0.7-1.3) Estimated GFR (Cockcroft-Gault) 52.6 BUN/Creatinine Ratio 31 (6-20) Glucose Level 462 mg/dL (70-99) Calcium Level 6.9 mg/dL (8.5-10.1) Total Bilirubin 0.7 mg/dL (0.2-1.0) Aspartate Amino Transf (AST/SGOT) 106 U/L (15-37) Alanine Aminotransferase (ALT/SGPT) 101 U/L (16-63) Alkaline Phosphatase 139 U/L (46-116) Total Protein 5.3 g/dL (6.4-8.2) Albumin 1.7 g/dL (3.4-5.0) Albumin/Globulin Ratio 0.5 (1.0-1.7) Test 01/09/20 05:42 01/09/20 08:00 01/09/20 11:28 01/09/20 17:51 Glucose (Fingerstick) 444 mg/dL (70-99) 426 mg/dL (70-99) 363 mg/dL (70-99) O2 Saturation % (92-99) Arterial Blood pH 7.40 (7.35-7.45) Arterial Blood pCO2 at Patient Temp 34 mmHg (35-46) Arterial Blood pO2 at Patient Temp 46 mmHg (75-108) Arterial Blood HCO3 20 mmol/L (21-28) Arterial Blood Base Excess -4 mmol/L (-3-3) FiO2 100%+10 Test 01/10/20 00:39 01/10/20 05:00 01/10/20 05:04 01/10/20 07:30 Glucose (Fingerstick) 342 mg/dL (70-99) 326 mg/dL (70-99) White Blood Count 13.9 x10^3/uL (4.0-11.0) Red Blood Count 3.38 x10^6/uL (4.30-5.70) Hemoglobin 10.4 g/dL (13.0-17.5) Hematocrit 30.9 % (39.0-53.0) Mean Corpuscular Volume 91 fL (79-100) Mean Corpuscular Hemoglobin 31 pg (25-35) Mean Corpuscular Hemoglobin Concent 34 g/dL (31-37) Red Cell Distribution Width 13.3 % (11.5-14.5) Platelet Count 184 x10^3/uL (140-400) Neutrophils (%) (Auto) 93 % (31-73) Lymphocytes (%) (Auto) 4 % (24-48) Monocytes (%) (Auto) 3 % (0-9) Eosinophils (%) (Auto) 0 % (0-3) Basophils (%) (Auto) 0 % (0-3) Neutrophils # (Auto) 13.0 x10^3/uL (1.8-7.7) Lymphocytes # (Auto) 0.5 x10^3/uL (1.0-4.8) Monocytes # (Auto) 0.4 x10^3/uL (0.0-1.1) Eosinophils # (Auto) 0.0 x10^3/uL (0.0-0.7) Basophils # (Auto) 0.0 x10^3/uL (0.0-0.2) D-Dimer (Shivani) > 20.00 ug/mlFEU Sodium Level 149 mmol/L (136-145) Potassium Level 4.5 mmol/L (3.5-5.1) Chloride Level 114 mmol/L (98-107) Carbon Dioxide Level 25 mmol/L (21-32) Anion Gap 10 (6-14) Blood Urea Nitrogen 34 mg/dL (8-26) Creatinine 1.1 mg/dL (0.7-1.3) Estimated GFR (Cockcroft-Gault) 69.5 BUN/Creatinine Ratio 31 (6-20) Glucose Level 316 mg/dL (70-99) Calcium Level 7.2 mg/dL (8.5-10.1) Total Bilirubin 0.7 mg/dL (0.2-1.0) Aspartate Amino Transf (AST/SGOT) 76 U/L (15-37) Alanine Aminotransferase (ALT/SGPT) 77 U/L (16-63) Alkaline Phosphatase 118 U/L (46-116) Total Protein 5.7 g/dL (6.4-8.2) Albumin 1.6 g/dL (3.4-5.0) Albumin/Globulin Ratio 0.4 (1.0-1.7) Arterial Blood pH 7.42 (7.35-7.45) Arterial Blood pCO2 at Patient Temp 40 mmHg (35-46) Arterial Blood pO2 at Patient Temp 83 mmHg (75-108) Arterial Blood HCO3 25 mmol/L (21-28) Arterial Blood Base Excess 1 mmol/L (-3-3) FiO2 100 Test 01/10/20 11:53 Glucose (Fingerstick) 243 mg/dL (70-99) Laboratory Tests Test 01/09/20 17:51 01/10/20 00:39 01/10/20 05:00 01/10/20 05:04 Glucose (Fingerstick) 363 mg/dL (70-99) 342 mg/dL (70-99) 326 mg/dL (70-99) White Blood Count 13.9 x10^3/uL (4.0-11.0) Red Blood Count 3.38 x10^6/uL (4.30-5.70) Hemoglobin 10.4 g/dL (13.0-17.5) Hematocrit 30.9 % (39.0-53.0) Mean Corpuscular Volume 91 fL (79-100) Mean Corpuscular Hemoglobin 31 pg (25-35) Mean Corpuscular Hemoglobin Concent 34 g/dL (31-37) Red Cell Distribution Width 13.3 % (11.5-14.5) Platelet Count 184 x10^3/uL (140-400) Neutrophils (%) (Auto) 93 % (31-73) Lymphocytes (%) (Auto) 4 % (24-48) Monocytes (%) (Auto) 3 % (0-9) Eosinophils (%) (Auto) 0 % (0-3) Basophils (%) (Auto) 0 % (0-3) Neutrophils # (Auto) 13.0 x10^3/uL (1.8-7.7) Lymphocytes # (Auto) 0.5 x10^3/uL (1.0-4.8) Monocytes # (Auto) 0.4 x10^3/uL (0.0-1.1) Eosinophils # (Auto) 0.0 x10^3/uL (0.0-0.7) Basophils # (Auto) 0.0 x10^3/uL (0.0-0.2) D-Dimer (Shivani) > 20.00 ug/mlFEU Sodium Level 149 mmol/L (136-145) Potassium Level 4.5 mmol/L (3.5-5.1) Chloride Level 114 mmol/L (98-107) Carbon Dioxide Level 25 mmol/L (21-32) Anion Gap 10 (6-14) Blood Urea Nitrogen 34 mg/dL (8-26) Creatinine 1.1 mg/dL (0.7-1.3) Estimated GFR (Cockcroft-Gault) 69.5 BUN/Creatinine Ratio 31 (6-20) Glucose Level 316 mg/dL (70-99) Calcium Level 7.2 mg/dL (8.5-10.1) Total Bilirubin 0.7 mg/dL (0.2-1.0) Aspartate Amino Transf (AST/SGOT) 76 U/L (15-37) Alanine Aminotransferase (ALT/SGPT) 77 U/L (16-63) Alkaline Phosphatase 118 U/L (46-116) Total Protein 5.7 g/dL (6.4-8.2) Albumin 1.6 g/dL (3.4-5.0) Albumin/Globulin Ratio 0.4 (1.0-1.7) Test 01/10/20 07:30 01/10/20 11:53 Arterial Blood pH 7.42 (7.35-7.45) Arterial Blood pCO2 at Patient Temp 40 mmHg (35-46) Arterial Blood pO2 at Patient Temp 83 mmHg (75-108) Arterial Blood HCO3 25 mmol/L (21-28) Arterial Blood Base Excess 1 mmol/L (-3-3) FiO2 100 Glucose (Fingerstick) 243 mg/dL (70-99) Microbiology 01/08/20 Blood Culture - Preliminary, Resulted NO GROWTH AFTER 1 DAY 01/06/20 Urine Culture - Final, Complete Medications Current Medications Etomidate (Amidate) 20 mg STK-MED ONCE IV ; Start 01/06/20 at 18:54; Stop 01/06/20 at 18:54; Status DC Succinylcholine Chloride (Anectine) 200 mg STK-MED ONCE .ROUTE ; Start 01/06/20 at 18:55; Stop 01/06/20 at 18:55; Status DC Propofol 50 ml @ As Directed STK-MED ONCE IV ; Start 01/06/20 at 18:55; Stop 01/06/20 at 18:56; Status DC Propofol 100 ml @ 0 mls/hr CONT PRN IV SEE PROTOCOL Last administered on 01/10/20at 10:28; Start 01/06/20 at 19:00 Fentanyl Citrate (Fentanyl 2ml Vial) 25 mcg PRN Q1HR PRN IV SEE COMMENTS; Start 01/06/20 at 19:00 Fentanyl Citrate (Fentanyl 2ml Vial) 50 mcg PRN Q1HR PRN IV SEE COMMENTS Last administered on 01/06/20at 19:42; Start 01/06/20 at 19:00 Chlorhexidine Gluconate (Peridex) 15 ml BID MM Last administered on 01/07/20at 08:16; Start 01/06/20 at 21:00; Stop 01/07/20 at 09:45; Status DC Midazolam HCl (Versed) 5 mg STK-MED ONCE .ROUTE ; Start 01/06/20 at 19:17; Stop 01/06/20 at 19:18; Status DC Midazolam HCl 50 mg/Sodium Chloride 50 ml @ 0 mls/hr 1X ONCE IV ; Start 01/06/20 at 19:30; Stop 01/06/20 at 19:31; Status UNV Albuterol/ Ipratropium (Duoneb) 3 ml STK-MED ONCE .ROUTE ; Start 01/06/20 at 19:27; Stop 01/06/20 at 19:27; Status DC Midazolam HCl 100 ml @ 0 mls/hr CONT PRN IV SEE PROTOCOL Last administered on 01/10/20at 10:27; Start 01/06/20 at 19:30 Propofol 50 ml @ 0 mls/hr 1X ONCE IV Last administered on 01/06/20at 18:55; Start 01/06/20 at 20:00; Stop 01/06/20 at 20:01; Status DC Midazolam HCl (Versed) 5 mg 1X ONCE NS Last administered on 01/06/20at 19:18; Start 01/06/20 at 19:18; Stop 01/06/20 at 19:59; Status DC Piperacillin Sod/ Tazobactam Sod 3.375 gm/Sodium Chloride 50 ml @ 100 mls/hr 1X ONCE IV Last administered on 01/06/20at 21:47; Start 01/06/20 at 20:45; Stop 01/06/20 at 21:14; Status DC Dexmedetomidine HCl 400 mcg/ Sodium Chloride 100 ml @ 0 mls/hr CONT PRN IV SEDATION Last administered on 01/10/20at 05:42; Start 01/06/20 at 20:15 Sodium Chloride 500 ml @ 500 mls/hr 1X PRN PRN IV SEE COMMENTS; Start 01/06/20 at 20:15 Atropine Sulfate (ATROPINE 0.5mg SYRINGE) 0.5 mg PRN Q5MIN PRN IV SEE COMMENTS; Start 01/06/20 at 20:15 Fentanyl Citrate (Fentanyl 2ml Vial) 100 mcg 1X ONCE IVP Last administered on 01/06/20at 20:17; Start 01/06/20 at 20:15; Stop 01/06/20 at 20:18; Status DC Methylprednisolone Sodium Succinate (SOLU-Medrol 40MG VIAL) 40 mg Q8HRS IV Last administered on 01/10/20at 05:41; Start 01/06/20 at 22:00 Enoxaparin Sodium (Lovenox 40mg Syringe) 40 mg BID SQ Last administered on 01/07/20at 08:15; Start 01/06/20 at 21:30; Stop 01/07/20 at 09:47; Status DC Potassium Chloride/Dextrose/ Sod Cl 1,000 ml @ 125 mls/hr Q8H ONCE IV Last administered on 01/06/20at 22:13; Start 01/06/20 at 21:30; Stop 01/07/20 at 05:29; Status DC Zinc Sulfate (Orazinc) 220 mg DAILY PO Last administered on 01/10/20at 08:56; Start 01/07/20 at 09:00 Ondansetron HCl (Zofran) 4 mg PRN Q4HRS PRN IV NAUSEA/VOMITING; Start 01/06/20 at 21:30 Acetaminophen (Tylenol) 650 mg PRN Q4HRS PRN GT TEMP OVER 100.4F OR MILD PAIN Last administered on 01/09/20at 22:59; Start 01/06/20 at 21:30 Acetaminophen (Tylenol Supp) 650 mg PRN Q4HRS PRN SD TEMP OVER 100.4F OR MILD PAIN; Start 01/06/20 at 21:30 Docusate Sodium (Colace) 100 mg PRN BID PRN PO HARD STOOLS; Start 01/06/20 at 21:30 Piperacillin Sod/ Tazobactam Sod 3.375 gm/Sodium Chloride 50 ml @ 100 mls/hr Q6HRS IV Last administered on 01/10/20at 12:04; Start 01/07/20 at 00:00 Pantoprazole Sodium (PROTONIX VIAL for IV PUSH) 40 mg DAILYAC IVP Last administered on 01/10/20at 08:55; Start 01/07/20 at 07:30 Norepinephrine Bitartrate 8 mg/ Dextrose 258 ml @ 12.578 mls/ hr CONT PRN IV PER PROTOCOL Last administered on 01/06/20at 22:15; Start 01/06/20 at 21:45 Sodium Chloride 1,000 ml @ 1,000 mls/hr 1X ONCE IV Last administered on 01/06/20at 21:44; Start 01/06/20 at 21:45; Stop 01/06/20 at 22:44; Status DC Fentanyl Citrate 30 ml @ 0 mls/hr CONT PRN IV SEE PROTOCOL Last administered on 01/08/20at 10:44; Start 01/06/20 at 21:45; Stop 01/08/20 at 14:49; Status DC Vecuronium [place] (Norcuron Bolus) 6 mg PRN Q2HR PRN IV VENT ASYNCHRONY Last administered on 01/08/20at 11:23; Start 01/06/20 at 21:45; Stop 01/08/20 at 14:48; Status DC Sodium Chloride 1,000 ml @ 1,000 mls/hr 1X ONCE IV Last administered on 01/06/20at 22:36; Start 01/06/20 at 22:30; Stop 01/06/20 at 23:29; Status DC Methylprednisolone Sodium Succinate (SOLU-Medrol 40MG VIAL) 40 mg Q8HRS IV ; Start 01/07/20 at 14:00; Status UNV Enoxaparin Sodium (Lovenox 80mg Syringe) 80 mg BID SQ Last administered on 01/07/20at 20:53; Start 01/07/20 at 21:00; Stop 01/08/20 at 08:57; Status DC Insulin Human Lispro (HumaLOG) 6 units TID SQ ; Start 01/07/20 at 14:00; Stop 01/07/20 at 10:05; Status DC Insulin Glargine (Lantus Syringe) 10 unit BID SQ Last administered on 01/08/20at 09:27; Start 01/07/20 at 21:00; Stop 01/08/20 at 11:25; Status DC Ascorbic Acid (Vitamin C) 250 mg Q6HRS PO Last administered on 01/10/20at 12:05; Start 01/07/20 at 12:00 Sodium Chloride 1,000 ml @ 75 mls/hr [id number] IV Last administered on 01/10/20at 05:44; Start 01/07/20 at 10:00 Insulin Human Lispro (HumaLOG) 6 units Q6HRS SQ Last administered on 01/08/20at 06:11; Start 01/07/20 at 12:00; Stop 01/08/20 at 11:25; Status DC Insulin Glargine (Lantus Syringe) 10 unit 1X ONCE SQ Last administered on 01/07/20at 11:40; Start 01/07/20 at 11:00; Stop 01/07/20 at 11:01; Status DC Enoxaparin Sodium (Lovenox 60mg Syringe) 60 mg BID SQ Last administered on 01/09at 08:55; Start 01/08/20 at 09:00 Vecuronium [place] (Norcuron Bolus) 6 mg PRN Q6HRS PRN IV SEDATION Last administered on 01/09/20at 15:38; Start 01/08/20 at 09:30 Insulin Glargine (Lantus Syringe) 14 unit BID SQ Last administered on 01/10/20at 09:24; Start 01/08/20 at 21:00 Insulin Human Lispro (HumaLOG) 8 units Q6HRS SQ Last administered on 01/10/20at 12:11; Start 01/08/20 at 12:00 Fentanyl Citrate 55 ml @ 0 mls/hr CONT PRN IV SEE PROTOCOL Last administered on 01/10/20at 02:32; Start 01/08/20 at 14:49 Lorazepam (Ativan Inj) 1 mg PRN Q1HR PRN IVP ANXIETY / AGITATION- MODERATE; Start 01/08/20 at 16:15 Lorazepam (Ativan Inj) 2 mg PRN Q1HR PRN IVP ANXIETY / AGITATION- SEVERE Last administered on 01/09/20at 13:10; Start 01/08/20 at 16:30 Insulin Human Lispro (HumaLOG) 6 units 1X ONCE SQ Last administered on 01/09/20at 06:20; Start 01/09/20 at 06:15; Stop 01/09/20 at 06:16; Status DC Hydralazine HCl (Apresoline Inj) 10 mg PRN Q4HRS PRN IVP ELEVATED BP, SEE COMMENTS; Start 01/10/20 at 09:15 Alteplase, Recombinant (Cathflo For Central Catheter Clearance) 1 mg 1X ONCE INT CAT Last administered on 01/10/20at 12:05; Start 01/10/20 at 11:00; Stop 01/10/20 at 11:01; Status DC Vitals/I & O Vital Sign - Last 24 Hours 01/09/20 01/09/20 01/09/20 01/09/20 13:00 14:00 15:00 15:22 Pulse 81 77 78 Resp B/P (MAP) 172/81 (111) 166/85 (112) 180/92 (121) Pulse Ox 93 99 97 98 O2 Delivery Ventilator 01/09/20 01/09/20 01/09/20 01/09/20 16:00 16:00 17:00 18:00 Temp 99.1 99.1 Pulse 79 77 80 Resp B/P (MAP) 167/86 (113) 157/71 (99) 172/92 (118) Pulse Ox 97 99 100 O2 Delivery Mechanical Ventilator 01/09/20 01/09/20 01/09/20 01/09/20 19:00 19:26 20:00 20:00 Pulse 81 81 Resp B/P (MAP) 161/82 (108) 174/96 (122) Pulse Ox 99 94 100 O2 Delivery Ventilator Mechanical Ventilator 01/09/20 01/09/20 01/09/20 01/09/20 21:00 22:00 23:00 23:59 Temp 103.0 103.0 Pulse 81 80 78 Resp 22 22 B/P (MAP) 175/91 (119) 169/90 (116) 145/75 (98) Pulse Ox 100 100 100 O2 Delivery Mechanical Ventilator 01/10/20 01/10/20 01/10/20 01/10/20 00:01 00:33 01:00 02:00 Temp 102.0 102.0 Pulse 78 77 77 Resp B/P (MAP) 172/80 (110) 145/75 (98) 184/83 (116) Pulse Ox 99 100 100 100 O2 Delivery Ventilator 01/10/20 01/10/20 01/10/20 01/10/20 02:32 03:00 03:02 03:57 Pulse 77 Resp B/P (MAP) 162/67 (98) Pulse Ox 100 100 100 100 O2 Delivery Ventilator Ventilator O2 Flow Rate 18.0 18.0 01/10/20 01/10/20 01/10/20 01/10/20 04:00 04:00 05:00 06:00 Temp 101.3 101.3 Pulse 77 71 70 Resp 24 B/P (MAP) 167/77 (107) 169/81 (110) 166/81 (109) Pulse Ox 100 100 100 O2 Delivery Mechanical Ventilator 01/10/20 01/10/20 01/10/20 01/10/20 07:00 07:30 08:00 08:00 Temp 98.1 98.1 Pulse 66 64 Resp 22 22 B/P (MAP) 157/77 (103) 156/79 (104) Pulse Ox 100 100 100 O2 Delivery Ventilator Ventilator Ventilator Mechanical Ventilator 01/10/20 01/10/20 09:00 10:00 Pulse 62 62 Resp 22 22 B/P (MAP) 155/77 (103) 137/68 (91) Pulse Ox 100 100 O2 Delivery Ventilator Ventilator Intake and Output 01/09/20 01/09/20 01/10/20 15:00 23:00 07:00 Intake Total 300 ml 2518 ml 2995.1 ml Output Total 1100 ml 1050 ml 775 ml Balance -800 ml 1468 ml 2220.1 ml Justicifation of Admission Dx: Justifications for Admission: Justification of Admission Dx: Yes CAROLINA VEGA MD Jan 10, 2020 12:27
--- NOTE | 2020-01-10 13:14 | RAD ---
Examination: Bilateral Lower Extremity Venous Doppler Ultrasound History: Bilateral lower extremity edema Comparison: None Procedure: Dominguez scale, color flow 2D and spectal waveform analysis images are obtained with and without compression in the area of the common femoral vein, superficial femoral vein - femoral vein junction, main femoral vein (superficial femoral vein) and popliteal vein. Veins of the proximal calf are also imaged. Findings: There is normal duplex flow, color flow and compressibility of all visualized vein segments. No evidence of deep venous thrombus is present. Impression: No evidence of DVT in the bilateral lower extremity venous system. Electronically signed by: Winston Dueñas MD (01/10/2020 1:11 PM) [id number]
[2020-01-10] MEDS: VECURONIUM BOLUS 10 MG VIAL. IV PRN ×2 (14:00→16:36)
[2020-01-10] MEDS: VECURONIUM BROMIDE 50 MG in TOTAL VOLUME 50 ML IV PRN ×2 (16:36→21:12)
[2020-01-11] VITALS (23 sets, daily range): BP systolic 133–220; BP diastolic 61–100
[2020-01-11] MEDS: ASCORBIC ACID 500 MG TABLET PO SCH ×4 (00:30→17:36)
[2020-01-11] MEDS: PIPERACILLIN/TAZOBACTAM 3.375 GM in IV NORMAL SALINE 50ML 50 ML IV SCH ×4 (00:30→17:29)
[2020-01-11] MEDS: INSULIN LISPRO 300 UNITS/3 ML VIAL. SQ SCH ×4 (00:31→17:32)
[2020-01-11] MEDS: PROPOFOL 100 ML IV PRN ×5 (02:46→21:04)
[2020-01-11] MEDS: methylPREDNISolone SOD SUCC PF 40 MG/ML VIAL. IV SCH ×3 (05:53→20:31)
[2020-01-11 06:14] LABS: BASO % 0 % (0-3); EOS % 0 % (0-3); HEMATOCRIT 30.3 % (39.0-53.0); LYMPH # 0.4 x10^3/uL (1.0-4.8); LYMPH % 4 % (24-48); MEAN CORPUSCULAR HEMOGLOBIN 31 pg (25-35); MEAN CORPUSCULAR HGB CONC 33 g/dL (31-37); MEAN CORPUSCULAR VOLUME 92 fL (79-100); MONO # 0.2 x10^3/uL (0.0-1.1); MONO % 2 % (0-9); NEUT # 11.7 x10^3/uL (1.8-7.7); NEUT % 95 % (31-73); PLATELET COUNT 179 x10^3/uL (140-400); RED BLOOD COUNT 3.28 x10^6/uL (4.30-5.70); RED CELL DISTRIBUTION WIDTH 13.6 % (11.5-14.5); WHITE BLOOD COUNT 12.3 x10^3/uL (4.0-11.0)
[2020-01-11 06:20] LABS: ALBUMIN 1.4 g/dL (3.4-5.0); ALBUMIN/GLOBULIN RATIO 0.4 (1.0-1.7); CALCIUM 7.1 mg/dL (8.5-10.1); POTASSIUM 4.8 mmol/L (3.5-5.1); TOTAL BILIRUBIN 0.6 mg/dL (0.2-1.0); TOTAL PROTEIN 5.4 g/dL (6.4-8.2)
[2020-01-11 06:44] LABS: SAT O2 ABG 95 % (92-99)
[2020-01-11] MEDS: MIDAZOLAM 100mg/100ml NS BAG 100 ML IV PRN ×2 (07:09→18:42)
[2020-01-11] MEDS: PANTOPRAZOLE IV PUSH 40 MG VIAL. IVP SCH (08:02)
[2020-01-11] MEDS: ZINC SULFATE 220 MG CAPSULE. PO SCH (08:02)
[2020-01-11] MEDS: DOCUSATE SODIUM 100 MG CAPSULE. PO PRN (08:02)
[2020-01-11] MEDS: DEXMEDETOMIDINE 400 MCG in IV NORMAL SALINE 100ML 96 ML IV PRN ×2 (08:29→18:36)
[2020-01-11] MEDS: INSULIN GLARGINE SYRINGE. SQ SCH ×3 (08:30→20:30)
[2020-01-11 08:41] LABS: BASE EXCESS ABG -2 mmol/L (-3-3); HCO3 ABG 23 mmol/L (21-28); PCO2 ABG 45 mmHg (35-46); PO2 ABG 63 mmHg (65-108); SAT O2 ABG 90 % (92-99)
[2020-01-11 08:56] LABS: FIO2 ABG 100% VENT
[2020-01-11] MEDS: hydrALAZINE 20 MG/ML VIAL. IVP PRN ×2 (09:23→18:10)
[2020-01-11] MEDS: VECURONIUM BROMIDE 50 MG in TOTAL VOLUME 50 ML IV PRN ×2 (09:47→18:35)
--- NOTE | 2020-01-11 09:52 | PDOC ---
PULMONARY PROGRESS NOTES DATE: 01/11/20 TIME: 09:49 Subjective remains intubated/sedated AC mode ,100%FIO2/12 PEEP nursing report hypoxia with minimal stimulation Full dose lovenox added 01/09 due to increase in D-dimer to 20 Vitals Vital Signs Date Time Temp Pulse Resp B/P (MAP) Pulse Ox O2 Delivery O2 Flow Rate FiO2 01/11/20 09:23 93 177/72 01/11/20 07:45 95 Ventilator 01/11/20 07:00 22 01/11/20 04:00 99.1 99.1 Comments visual exam done due to COVID-Pandemia no resp distess no skin rash lower extremity edema Labs Laboratory Tests Test 01/09/20 11:28 01/09/20 17:51 01/10/20 00:39 01/10/20 05:00 Glucose (Fingerstick) 426 mg/dL (70-99) 363 mg/dL (70-99) 342 mg/dL (70-99) White Blood Count 13.9 x10^3/uL (4.0-11.0) Red Blood Count 3.38 x10^6/uL (4.30-5.70) Hemoglobin 10.4 g/dL (13.0-17.5) Hematocrit 30.9 % (39.0-53.0) Mean Corpuscular Volume 91 fL (79-100) Mean Corpuscular Hemoglobin 31 pg (25-35) Mean Corpuscular Hemoglobin Concent 34 g/dL (31-37) Red Cell Distribution Width 13.3 % (11.5-14.5) Platelet Count 184 x10^3/uL (140-400) Neutrophils (%) (Auto) 93 % (31-73) Lymphocytes (%) (Auto) 4 % (24-48) Monocytes (%) (Auto) 3 % (0-9) Eosinophils (%) (Auto) 0 % (0-3) Basophils (%) (Auto) 0 % (0-3) Neutrophils # (Auto) 13.0 x10^3/uL (1.8-7.7) Lymphocytes # (Auto) 0.5 x10^3/uL (1.0-4.8) Monocytes # (Auto) 0.4 x10^3/uL (0.0-1.1) Eosinophils # (Auto) 0.0 x10^3/uL (0.0-0.7) Basophils # (Auto) 0.0 x10^3/uL (0.0-0.2) D-Dimer (Shivani) > 20.00 ug/mlFEU Sodium Level 149 mmol/L (136-145) Potassium Level 4.5 mmol/L (3.5-5.1) Chloride Level 114 mmol/L (98-107) Carbon Dioxide Level 25 mmol/L (21-32) Anion Gap 10 (6-14) Blood Urea Nitrogen 34 mg/dL (8-26) Creatinine 1.1 mg/dL (0.7-1.3) Estimated GFR (Cockcroft-Gault) 69.5 BUN/Creatinine Ratio 31 (6-20) Glucose Level 316 mg/dL (70-99) Calcium Level 7.2 mg/dL (8.5-10.1) Total Bilirubin 0.7 mg/dL (0.2-1.0) Aspartate Amino Transf (AST/SGOT) 76 U/L (15-37) Alanine Aminotransferase (ALT/SGPT) 77 U/L (16-63) Alkaline Phosphatase 118 U/L (46-116) Total Protein 5.7 g/dL (6.4-8.2) Albumin 1.6 g/dL (3.4-5.0) Albumin/Globulin Ratio 0.4 (1.0-1.7) Test 01/10/20 05:04 01/10/20 07:30 01/10/20 11:53 01/10/20 18:34 Glucose (Fingerstick) 326 mg/dL (70-99) 243 mg/dL (70-99) 317 mg/dL (70-99) O2 Saturation 95 % (92-99) Arterial Blood pH 7.42 (7.35-7.45) Arterial Blood pCO2 at Patient Temp 40 mmHg (35-46) Arterial Blood pO2 at Patient Temp 83 mmHg (75-108) Arterial Blood HCO3 25 mmol/L (21-28) Arterial Blood Base Excess 1 mmol/L (-3-3) FiO2 100 Test 01/11/20 00:29 01/11/20 05:30 01/11/20 05:41 01/11/20 08:00 Glucose (Fingerstick) 304 mg/dL (70-99) 327 mg/dL (70-99) White Blood Count 12.3 x10^3/uL (4.0-11.0) Red Blood Count 3.28 x10^6/uL (4.30-5.70) Hemoglobin 10.0 g/dL (13.0-17.5) Hematocrit 30.3 % (39.0-53.0) Mean Corpuscular Volume 92 fL (79-100) Mean Corpuscular Hemoglobin 31 pg (25-35) Mean Corpuscular Hemoglobin Concent 33 g/dL (31-37) Red Cell Distribution Width 13.6 % (11.5-14.5) Platelet Count 179 x10^3/uL (140-400) Neutrophils (%) (Auto) 95 % (31-73) Lymphocytes (%) (Auto) 4 % (24-48) Monocytes (%) (Auto) 2 % (0-9) Eosinophils (%) (Auto) 0 % (0-3) Basophils (%) (Auto) 0 % (0-3) Neutrophils # (Auto) 11.7 x10^3/uL (1.8-7.7) Lymphocytes # (Auto) 0.4 x10^3/uL (1.0-4.8) Monocytes # (Auto) 0.2 x10^3/uL (0.0-1.1) Eosinophils # (Auto) 0.0 x10^3/uL (0.0-0.7) Basophils # (Auto) 0.0 x10^3/uL (0.0-0.2) Sodium Level 148 mmol/L (136-145) Potassium Level 4.8 mmol/L (3.5-5.1) Chloride Level 114 mmol/L (98-107) Carbon Dioxide Level 26 mmol/L (21-32) Anion Gap 8 (6-14) Blood Urea Nitrogen 39 mg/dL (8-26) Creatinine 1.0 mg/dL (0.7-1.3) Estimated GFR (Cockcroft-Gault) 75.0 BUN/Creatinine Ratio 39 (6-20) Glucose Level 342 mg/dL (70-99) Calcium Level 7.1 mg/dL (8.5-10.1) Total Bilirubin 0.6 mg/dL (0.2-1.0) Aspartate Amino Transf (AST/SGOT) 51 U/L (15-37) Alanine Aminotransferase (ALT/SGPT) 55 U/L (16-63) Alkaline Phosphatase 111 U/L (46-116) Total Protein 5.4 g/dL (6.4-8.2) Albumin 1.4 g/dL (3.4-5.0) Albumin/Globulin Ratio 0.4 (1.0-1.7) O2 Saturation 90 % (92-99) Arterial Blood pH 7.34 (7.35-7.45) Arterial Blood pCO2 at Patient Temp 45 mmHg (35-46) Arterial Blood pO2 at Patient Temp 63 mmHg (65-108) Arterial Blood HCO3 23 mmol/L (21-28) Arterial Blood Base Excess -2 mmol/L (-3-3) FiO2 100% vent Laboratory Tests Test 01/10/20 11:53 01/10/20 18:34 01/11/20 00:29 01/11/20 05:30 Glucose (Fingerstick) 243 mg/dL (70-99) 317 mg/dL (70-99) 304 mg/dL (70-99) White Blood Count 12.3 x10^3/uL (4.0-11.0) Red Blood Count 3.28 x10^6/uL (4.30-5.70) Hemoglobin 10.0 g/dL (13.0-17.5) Hematocrit 30.3 % (39.0-53.0) Mean Corpuscular Volume 92 fL (79-100) Mean Corpuscular Hemoglobin 31 pg (25-35) Mean Corpuscular Hemoglobin Concent 33 g/dL (31-37) Red Cell Distribution Width 13.6 % (11.5-14.5) Platelet Count 179 x10^3/uL (140-400) Neutrophils (%) (Auto) 95 % (31-73) Lymphocytes (%) (Auto) 4 % (24-48) Monocytes (%) (Auto) 2 % (0-9) Eosinophils (%) (Auto) 0 % (0-3) Basophils (%) (Auto) 0 % (0-3) Neutrophils # (Auto) 11.7 x10^3/uL (1.8-7.7) Lymphocytes # (Auto) 0.4 x10^3/uL (1.0-4.8) Monocytes # (Auto) 0.2 x10^3/uL (0.0-1.1) Eosinophils # (Auto) 0.0 x10^3/uL (0.0-0.7) Basophils # (Auto) 0.0 x10^3/uL (0.0-0.2) Sodium Level 148 mmol/L (136-145) Potassium Level 4.8 mmol/L (3.5-5.1) Chloride Level 114 mmol/L (98-107) Carbon Dioxide Level 26 mmol/L (21-32) Anion Gap 8 (6-14) Blood Urea Nitrogen 39 mg/dL (8-26) Creatinine 1.0 mg/dL (0.7-1.3) Estimated GFR (Cockcroft-Gault) 75.0 BUN/Creatinine Ratio 39 (6-20) Glucose Level 342 mg/dL (70-99) Calcium Level 7.1 mg/dL (8.5-10.1) Total Bilirubin 0.6 mg/dL (0.2-1.0) Aspartate Amino Transf (AST/SGOT) 51 U/L (15-37) Alanine Aminotransferase (ALT/SGPT) 55 U/L (16-63) Alkaline Phosphatase 111 U/L (46-116) Total Protein 5.4 g/dL (6.4-8.2) Albumin 1.4 g/dL (3.4-5.0) Albumin/Globulin Ratio 0.4 (1.0-1.7) Test 01/11/20 05:41 01/11/20 08:00 Glucose (Fingerstick) 327 mg/dL (70-99) O2 Saturation 90 % (92-99) Arterial Blood pH 7.34 (7.35-7.45) Arterial Blood pCO2 at Patient Temp 45 mmHg (35-46) Arterial Blood pO2 at Patient Temp 63 mmHg (65-108) Arterial Blood HCO3 23 mmol/L (21-28) Arterial Blood Base Excess -2 mmol/L (-3-3) FiO2 100% vent Comments CXR 01/06 IMPRESSION: 1. Bilateral diffuse infiltrates are increased in the left base and mildly improved elsewhere. Impression . 1. Acute hypoxic respiratory failure secondary to COVID-19 pneumonia/ARDS/acute lung injury--worsening oxygen requirements 2. Abnormal chest x-ray with bilateral infiltrates consistent with COVID-19 pneumonia. 3. Hypotension secondary to combination of hypovolemia and sepsis status post 2 liters of IV fluids. no pressors, now hypertensive 4. Acute kidney injury, improving. 5. Severe protein-calorie malnutrition. 6. Abnormal D-dimer related to COVID-19 pneumonia. Full dose lovenox added 01/09 due to increase in D-dimer to 20 Plan . RECOMMENDATIONS: 1. Continue present assist control mode, PEEP of 12 and FiO2 of 100% ABG revi ewed , wean FIO2/PEEP as tolerated, ensure adequate sedation 2. Follow chest x-rays as needed. 3. Broad spectrum antibiotic. 4. Cont. IV steroids 5. Abnormal D-dimer related to COVID-19 pneumonia. Full dose lovenox added 01/09 due to increase in D-dimer to 20. dopplers neg for DVT 7. Stress ulcer prophylaxis. 8. Discussed with RN and RT. 9. s/p Plasma 10. cont. TF for nutritional sup[port Critical care time 30 minutes. YVONNE TAYLOR MD Jan 11, 2020 09:52
[2020-01-11] MEDS ORDERED: FUROSEMIDE 40 MG/4 ML VIAL. IVP ONE (10:00)
--- NOTE | 2020-01-11 10:01 | PDOC ---
PROGRESS NOTES Date of Service: DATE: 01/11/20 TIME: 10:00 Chief Complaint Chief Complaint Assessment/Plan Acute hypoxemic respiratory failure Leukocytosis with bandemia secondary to septic process Hyponatremia secondary to low effective circulatory volume Acue renal failure due to vasomotor nephropathy most likely Hyperglycemia mild transaminitis Uncontrolled hypertension Plan: will start hidralazine will increase insulin for better glycemia control supportive measures will adjust insulin for better glycemia control follow labs in am prognosis guarded follow pulmonology recommendations History of Present Illness History of Present Illness History of Present Illness Patient is a 54-year-old gentleman who was diagnosed with COVID-19 infection on Friday 5 days prior to his admission to the intensive care unit. Apparently the patient reported worsening respiratory distress reason why he came to the emergency department for evaluation and treatment. The story was quite limited since the patient was speaking English only and his acuity was such that he required mechanical ventilation and prompt intubation by the emergency department physician. At the present time patient is intubated and sedated continues to require a lot of support no pertinent past medical history was reported he is admitted to the intensive care unit for further treatment 01/10/2020 Continues to require full support, glycemia has been noted in hypertension as well. Discussed with nursing staff, all of concerns were addressed to the best of my abilities no acute events reported overnight 01/11/2020 No acute events reported overnight, case discussed with nursing staff patient in no acute distress Vitals Vitals Vital Signs Date Time Temp Pulse Resp B/P (MAP) Pulse Ox O2 Delivery O2 Flow Rate FiO2 01/11/20 09:23 93 177/72 01/11/20 08:00 Mechanical Ventilator 01/11/20 07:45 95 01/11/20 07:00 22 01/11/20 04:00 99.1 99.1 Labs LABS Laboratory Tests Test 01/10/20 11:53 01/10/20 18:34 01/11/20 00:29 01/11/20 05:30 Glucose (Fingerstick) 243 mg/dL (70-99) 317 mg/dL (70-99) 304 mg/dL (70-99) White Blood Count 12.3 x10^3/uL (4.0-11.0) Red Blood Count 3.28 x10^6/uL (4.30-5.70) Hemoglobin 10.0 g/dL (13.0-17.5) Hematocrit 30.3 % (39.0-53.0) Mean Corpuscular Volume 92 fL (79-100) Mean Corpuscular Hemoglobin 31 pg (25-35) Mean Corpuscular Hemoglobin Concent 33 g/dL (31-37) Red Cell Distribution Width 13.6 % (11.5-14.5) Platelet Count 179 x10^3/uL (140-400) Neutrophils (%) (Auto) 95 % (31-73) Lymphocytes (%) (Auto) 4 % (24-48) Monocytes (%) (Auto) 2 % (0-9) Eosinophils (%) (Auto) 0 % (0-3) Basophils (%) (Auto) 0 % (0-3) Neutrophils # (Auto) 11.7 x10^3/uL (1.8-7.7) Lymphocytes # (Auto) 0.4 x10^3/uL (1.0-4.8) Monocytes # (Auto) 0.2 x10^3/uL (0.0-1.1) Eosinophils # (Auto) 0.0 x10^3/uL (0.0-0.7) Basophils # (Auto) 0.0 x10^3/uL (0.0-0.2) Sodium Level 148 mmol/L (136-145) Potassium Level 4.8 mmol/L (3.5-5.1) Chloride Level 114 mmol/L (98-107) Carbon Dioxide Level 26 mmol/L (21-32) Anion Gap 8 (6-14) Blood Urea Nitrogen 39 mg/dL (8-26) Creatinine 1.0 mg/dL (0.7-1.3) Estimated GFR (Cockcroft-Gault) 75.0 BUN/Creatinine Ratio 39 (6-20) Glucose Level 342 mg/dL (70-99) Calcium Level 7.1 mg/dL (8.5-10.1) Total Bilirubin 0.6 mg/dL (0.2-1.0) Aspartate Amino Transf (AST/SGOT) 51 U/L (15-37) Alanine Aminotransferase (ALT/SGPT) 55 U/L (16-63) Alkaline Phosphatase 111 U/L (46-116) Total Protein 5.4 g/dL (6.4-8.2) Albumin 1.4 g/dL (3.4-5.0) Albumin/Globulin Ratio 0.4 (1.0-1.7) Test 01/11/20 05:41 01/11/20 08:00 Glucose (Fingerstick) 327 mg/dL (70-99) O2 Saturation 90 % (92-99) Arterial Blood pH 7.34 (7.35-7.45) Arterial Blood pCO2 at Patient Temp 45 mmHg (35-46) Arterial Blood pO2 at Patient Temp 63 mmHg (65-108) Arterial Blood HCO3 23 mmol/L (21-28) Arterial Blood Base Excess -2 mmol/L (-3-3) FiO2 100% vent Comment Review of Relevant I have reviewed the following items hong (where applicable) has been applied. Labs Laboratory Tests Test 01/09/20 11:28 01/09/20 17:51 01/10/20 00:39 01/10/20 05:00 Glucose (Fingerstick) 426 mg/dL (70-99) 363 mg/dL (70-99) 342 mg/dL (70-99) White Blood Count 13.9 x10^3/uL (4.0-11.0) Red Blood Count 3.38 x10^6/uL (4.30-5.70) Hemoglobin 10.4 g/dL (13.0-17.5) Hematocrit 30.9 % (39.0-53.0) Mean Corpuscular Volume 91 fL (79-100) Mean Corpuscular Hemoglobin 31 pg (25-35) Mean Corpuscular Hemoglobin Concent 34 g/dL (31-37) Red Cell Distribution Width 13.3 % (11.5-14.5) Platelet Count 184 x10^3/uL (140-400) Neutrophils (%) (Auto) 93 % (31-73) Lymphocytes (%) (Auto) 4 % (24-48) Monocytes (%) (Auto) 3 % (0-9) Eosinophils (%) (Auto) 0 % (0-3) Basophils (%) (Auto) 0 % (0-3) Neutrophils # (Auto) 13.0 x10^3/uL (1.8-7.7) Lymphocytes # (Auto) 0.5 x10^3/uL (1.0-4.8) Monocytes # (Auto) 0.4 x10^3/uL (0.0-1.1) Eosinophils # (Auto) 0.0 x10^3/uL (0.0-0.7) Basophils # (Auto) 0.0 x10^3/uL (0.0-0.2) D-Dimer (Shivani) > 20.00 ug/mlFEU Sodium Level 149 mmol/L (136-145) Potassium Level 4.5 mmol/L (3.5-5.1) Chloride Level 114 mmol/L (98-107) Carbon Dioxide Level 25 mmol/L (21-32) Anion Gap 10 (6-14) Blood Urea Nitrogen 34 mg/dL (8-26) Creatinine 1.1 mg/dL (0.7-1.3) Estimated GFR (Cockcroft-Gault) 69.5 BUN/Creatinine Ratio 31 (6-20) Glucose Level 316 mg/dL (70-99) Calcium Level 7.2 mg/dL (8.5-10.1) Total Bilirubin 0.7 mg/dL (0.2-1.0) Aspartate Amino Transf (AST/SGOT) 76 U/L (15-37) Alanine Aminotransferase (ALT/SGPT) 77 U/L (16-63) Alkaline Phosphatase 118 U/L (46-116) Total Protein 5.7 g/dL (6.4-8.2) Albumin 1.6 g/dL (3.4-5.0) Albumin/Globulin Ratio 0.4 (1.0-1.7) Test 01/10/20 05:04 01/10/20 07:30 01/10/20 11:53 01/10/20 18:34 Glucose (Fingerstick) 326 mg/dL (70-99) 243 mg/dL (70-99) 317 mg/dL (70-99) O2 Saturation 95 % (92-99) Arterial Blood pH 7.42 (7.35-7.45) Arterial Blood pCO2 at Patient Temp 40 mmHg (35-46) Arterial Blood pO2 at Patient Temp 83 mmHg (75-108) Arterial Blood HCO3 25 mmol/L (21-28) Arterial Blood Base Excess 1 mmol/L (-3-3) FiO2 100 Test 01/11/20 00:29 01/11/20 05:30 8/25/20 05:41 01/11/20 08:00 Glucose (Fingerstick) 304 mg/dL (70-99) 327 mg/dL (70-99) White Blood Count 12.3 x10^3/uL (4.0-11.0) Red Blood Count 3.28 x10^6/uL (4.30-5.70) Hemoglobin 10.0 g/dL (13.0-17.5) Hematocrit 30.3 % (39.0-53.0) Mean Corpuscular Volume 92 fL (79-100) Mean Corpuscular Hemoglobin 31 pg (25-35) Mean Corpuscular Hemoglobin Concent 33 g/dL (31-37) Red Cell Distribution Width 13.6 % (11.5-14.5) Platelet Count 179 x10^3/uL (140-400) Neutrophils (%) (Auto) 95 % (31-73) Lymphocytes (%) (Auto) 4 % (24-48) Monocytes (%) (Auto) 2 % (0-9) Eosinophils (%) (Auto) 0 % (0-3) Basophils (%) (Auto) 0 % (0-3) Neutrophils # (Auto) 11.7 x10^3/uL (1.8-7.7) Lymphocytes # (Auto) 0.4 x10^3/uL (1.0-4.8) Monocytes # (Auto) 0.2 x10^3/uL (0.0-1.1) Eosinophils # (Auto) 0.0 x10^3/uL (0.0-0.7) Basophils # (Auto) 0.0 x10^3/uL (0.0-0.2) Sodium Level 148 mmol/L (136-145) Potassium Level 4.8 mmol/L (3.5-5.1) Chloride Level 114 mmol/L (98-107) Carbon Dioxide Level 26 mmol/L (21-32) Anion Gap 8 (6-14) Blood Urea Nitrogen 39 mg/dL (8-26) Creatinine 1.0 mg/dL (0.7-1.3) Estimated GFR (Cockcroft-Gault) 75.0 BUN/Creatinine Ratio 39 (6-20) Glucose Level 342 mg/dL (70-99) Calcium Level 7.1 mg/dL (8.5-10.1) Total Bilirubin 0.6 mg/dL (0.2-1.0) Aspartate Amino Transf (AST/SGOT) 51 U/L (15-37) Alanine Aminotransferase (ALT/SGPT) 55 U/L (16-63) Alkaline Phosphatase 111 U/L (46-116) Total Protein 5.4 g/dL (6.4-8.2) Albumin 1.4 g/dL (3.4-5.0) Albumin/Globulin Ratio 0.4 (1.0-1.7) O2 Saturation 90 % (92-99) Arterial Blood pH 7.34 (7.35-7.45) Arterial Blood pCO2 at Patient Temp 45 mmHg (35-46) Arterial Blood pO2 at Patient Temp 63 mmHg (65-108) Arterial Blood HCO3 23 mmol/L (21-28) Arterial Blood Base Excess -2 mmol/L (-3-3) FiO2 100% vent Laboratory Tests Test 01/10/20 11:53 01/10/20 18:34 01/11/20 00:29 01/11/20 05:30 Glucose (Fingerstick) 243 mg/dL (70-99) 317 mg/dL (70-99) 304 mg/dL (70-99) White Blood Count 12.3 x10^3/uL (4.0-11.0) Red Blood Count 3.28 x10^6/uL (4.30-5.70) Hemoglobin 10.0 g/dL (13.0-17.5) Hematocrit 30.3 % (39.0-53.0) Mean Corpuscular Volume 92 fL (79-100) Mean Corpuscular Hemoglobin 31 pg (25-35) Mean Corpuscular Hemoglobin Concent 33 g/dL (31-37) Red Cell Distribution Width 13.6 % (11.5-14.5) Platelet Count 179 x10^3/uL (140-400) Neutrophils (%) (Auto) 95 % (31-73) Lymphocytes (%) (Auto) 4 % (24-48) Monocytes (%) (Auto) 2 % (0-9) Eosinophils (%) (Auto) 0 % (0-3) Basophils (%) (Auto) 0 % (0-3) Neutrophils # (Auto) 11.7 x10^3/uL (1.8-7.7) Lymphocytes # (Auto) 0.4 x10^3/uL (1.0-4.8) Monocytes # (Auto) 0.2 x10^3/uL (0.0-1.1) Eosinophils # (Auto) 0.0 x10^3/uL (0.0-0.7) Basophils # (Auto) 0.0 x10^3/uL (0.0-0.2) Sodium Level 148 mmol/L (136-145) Potassium Level 4.8 mmol/L (3.5-5.1) Chloride Level 114 mmol/L (98-107) Carbon Dioxide Level 26 mmol/L (21-32) Anion Gap 8 (6-14) Blood Urea Nitrogen 39 mg/dL (8-26) Creatinine 1.0 mg/dL (0.7-1.3) Estimated GFR (Cockcroft-Gault) 75.0 BUN/Creatinine Ratio 39 (6-20) Glucose Level 342 mg/dL (70-99) Calcium Level 7.1 mg/dL (8.5-10.1) Total Bilirubin 0.6 mg/dL (0.2-1.0) Aspartate Amino Transf (AST/SGOT) 51 U/L (15-37) Alanine Aminotransferase (ALT/SGPT) 55 U/L (16-63) Alkaline Phosphatase 111 U/L (46-116) Total Protein 5.4 g/dL (6.4-8.2) Albumin 1.4 g/dL (3.4-5.0) Albumin/Globulin Ratio 0.4 (1.0-1.7) Test 01/11/20 05:41 01/11/20 08:00 Glucose (Fingerstick) 327 mg/dL (70-99) O2 Saturation 90 % (92-99) Arterial Blood pH 7.34 (7.35-7.45) Arterial Blood pCO2 at Patient Temp 45 mmHg (35-46) Arterial Blood pO2 at Patient Temp 63 mmHg (65-108) Arterial Blood HCO3 23 mmol/L (21-28) Arterial Blood Base Excess -2 mmol/L (-3-3) FiO2 100% vent Microbiology 01/08/20 Blood Culture - Preliminary, Resulted NO GROWTH AFTER 2 DAYS 01/06/20 Urine Culture - Final, Complete Medications Current Medications Etomidate (Amidate) 20 mg STK-MED ONCE IV ; Start 01/06/20 at 18:54; Stop 01/06/20 at 18:54; Status DC Succinylcholine Chloride (Anectine) 200 mg STK-MED ONCE .ROUTE ; Start 01/06/20 at 18:55; Stop 01/06/20 at 18:55; Status DC Propofol 50 ml @ As Directed STK-MED ONCE IV ; Start 01/06/20 at 18:55; Stop 01/06/20 at 18:56; Status DC Propofol 100 ml @ 0 mls/hr CONT PRN IV SEE PROTOCOL Last administered on 01/11/20at 05:54; Start 01/06/20 at 19:00 Fentanyl Citrate (Fentanyl 2ml Vial) 25 mcg PRN Q1HR PRN IV SEE COMMENTS; Start 01/06/20 at 19:00 Fentanyl Citrate (Fentanyl 2ml Vial) 50 mcg PRN Q1HR PRN IV SEE COMMENTS Last administered on 01/06/20at 19:42; Start 01/06/20 at 19:00 Chlorhexidine Gluconate (Peridex) 15 ml BID MM Last administered on 01/07/20at 08:16; Start 01/06/20 at 21:00; Stop 01/07/20 at 09:45; Status DC Midazolam HCl (Versed) 5 mg STK-MED ONCE .ROUTE ; Start 01/06/20 at 19:17; Stop 01/06/20 at 19:18; Status DC Midazolam HCl 50 mg/Sodium Chloride 50 ml @ 0 mls/hr 1X ONCE IV ; Start 01/06/20 at 19:30; Stop 01/06/20 at 19:31; Status UNV Albuterol/ Ipratropium (Duoneb) 3 ml STK-MED ONCE .ROUTE ; Start 01/06/20 at 19:27; Stop 01/06/20 at 19:27; Status DC Midazolam HCl 100 ml @ 0 mls/hr CONT PRN IV SEE PROTOCOL Last administered on 01/11/20at 07:09; Start 01/06/20 at 19:30 Propofol 50 ml @ 0 mls/hr 1X ONCE IV Last administered on 01/06/20at 18:55; Start 01/06/20 at 20:00; Stop 01/06/20 at 20:01; Status DC Midazolam HCl (Versed) 5 mg 1X ONCE NS Last administered on 01/06/20at 19:18; Start 01/06/20 at 19:18; Stop 01/06/20 at 19:59; Status DC Piperacillin Sod/ Tazobactam Sod 3.375 gm/Sodium Chloride 50 ml @ 100 mls/hr 1X ONCE IV Last administered on 01/06/20at 21:47; Start 01/06/20 at 20:45; Stop 01/06/20 at 21:14; Status DC Dexmedetomidine HCl 400 mcg/ Sodium Chloride 100 ml @ 0 mls/hr CONT PRN IV SEDATION Last administered on 01/11/20at 08:29; Start 01/06/20 at 20:15 Sodium Chloride 500 ml @ 500 mls/hr 1X PRN PRN IV SEE COMMENTS; Start 01/06/20 at 20:15 Atropine Sulfate (ATROPINE 0.5mg SYRINGE) 0.5 mg PRN Q5MIN PRN IV SEE COMMENTS; Start 01/06/20 at 20:15 Fentanyl Citrate (Fentanyl 2ml Vial) 100 mcg 1X ONCE IVP Last administered on 01/06/20at 20:17; Start 01/06/20 at 20:15; Stop 01/06/20 at 20:18; Status DC Methylprednisolone Sodium Succinate (SOLU-Medrol 40MG VIAL) 40 mg Q8HRS IV Last administered on 01/11/20at 05:53; Start 01/06/20 at 22:00 Enoxaparin Sodium (Lovenox 40mg Syringe) 40 mg BID SQ Last administered on 01/07/20at 08:15; Start 01/06/20 at 21:30; Stop 01/07/20 at 09:47; Status DC Potassium Chloride/Dextrose/ Sod Cl 1,000 ml @ 125 mls/hr Q8H ONCE IV Last administered on 01/06/20at 22:13; Start 01/06/20 at 21:30; Stop 01/07/20 at 05:29; Status DC Zinc Sulfate (Orazinc) 220 mg DAILY PO Last administered on 01/11/20at 08:02; Start 01/07/20 at 09:00 Ondansetron HCl (Zofran) 4 mg PRN Q4HRS PRN IV NAUSEA/VOMITING; Start 01/06/20 at 21:30 Acetaminophen (Tylenol) 650 mg PRN Q4HRS PRN GT TEMP OVER 100.4F OR MILD PAIN Last administered on 01/09/20at 22:59; Start 01/06/20 at 21:30 Acetaminophen (Tylenol Supp) 650 mg PRN Q4HRS PRN LA TEMP OVER 100.4F OR MILD PAIN; Start 01/06/20 at 21:30 Docusate Sodium (Colace) 100 mg PRN BID PRN PO HARD STOOLS Last administered on 01/11/20at 08:02; Start 01/06/20 at 21:30 Piperacillin Sod/ Tazobactam Sod 3.375 gm/Sodium Chloride 50 ml @ 100 mls/hr Q6HRS IV Last administered on 01/11/20at 05:54; Start 01/07/20 at 00:00 Pantoprazole Sodium (PROTONIX VIAL for IV PUSH) 40 mg DAILYAC IVP Last administered on 01/11/20 08:02; Start 01/07/20 at 07:30 Norepinephrine Bitartrate 8 mg/ Dextrose 258 ml @ 12.578 mls/ hr CONT PRN IV PER PROTOCOL Last administered on 01/06/20at 22:15; Start 01/06/20 at 21:45 Sodium Chloride 1,000 ml @ 1,000 mls/hr 1X ONCE IV Last administered on 01/06/20at 21:44; Start 01/06/20 at 21:45; Stop 01/06/20 at 22:44; Status DC Fentanyl Citrate 30 ml @ 0 mls/hr CONT PRN IV SEE PROTOCOL Last administered on 01/08/20at 10:44; Start 01/06/20 at 21:45; Stop 01/08/20 at 14:49; Status DC Vecuronium Golva (Norcuron Bolus) 6 mg PRN Q2HR PRN IV VENT ASYNCHRONY Last administered on 01/08/20at 11:23; Start 01/06/20 at 21:45; Stop 01/08/20 at 14:48; Status DC Sodium Chloride 1,000 ml @ 1,000 mls/hr 1X ONCE IV Last administered on 01/06/20at 22:36; Start 01/06/20 at 22:30; Stop 01/06/20 at 23:29; Status DC Methylprednisolone Sodium Succinate (SOLU-Medrol 40MG VIAL) 40 mg Q8HRS IV ; Start 01/07/20 at 14:00; Status UNV Enoxaparin Sodium (Lovenox 80mg Syringe) 80 mg BID SQ Last administered on 01/07/20at 20:53; Start 01/07/20 at 21:00; Stop 01/08/20 at 08:57; Status DC Insulin Human Lispro (HumaLOG) 6 units TID SQ ; Start 01/07/20 at 14:00; Stop 01/07/20 at 10:05; Status DC Insulin Glargine (Lantus Syringe) 10 unit BID SQ Last administered on 01/08/20at 09:27; Start 01/07/20 at 21:00; Stop 01/08/20 at 11:25; Status DC Ascorbic Acid (Vitamin C) 250 mg Q6HRS PO Last administered on 01/11/20at 05:52; Start 01/07/20 at 12:00 Sodium Chloride 1,000 ml @ 75 mls/hr [id number] IV Last administered on 01/10/20at 19:33; Start 01/07/20 at 10:00 Insulin Human Lispro (HumaLOG) 6 units Q6HRS SQ Last administered on 01/08/20at 06:11; Start 01/07/20 at 12:00; Stop 01/08/20 at 11:25; Status DC Insulin Glargine (Lantus Syringe) 10 unit 1X ONCE SQ Last administered on 01/07/20at 11:40; Start 01/07/20 at 11:00; Stop 01/07/20 at 11:01; Status DC Enoxaparin Sodium (Lovenox 60mg Syringe) 60 mg BID SQ Last administered on 01/10/20at 08:55; Start 01/08/20 at 09:00; Stop 01/10/20 at 16:45; Status DC Vecuronium Golva (Norcuron Bolus) 6 mg PRN Q6HRS PRN IV SEDATION Last administered on 01/10/20at 16:36; Start 01/08/20 at 09:30 Insulin Glargine (Lantus Syringe) 14 unit BID SQ Last administered on 01/10/20at 09:24; Start 01/08/20 at 21:00; Stop 01/10/20 at 12:27; Status DC Insulin Human Lispro (HumaLOG) 8 units Q6HRS SQ Last administered on 01/10/20at 12:11; Start 01/08/20 at 12:00; Stop 01/10/20 at 12:27; Status DC Fentanyl Citrate 55 ml @ 0 mls/hr CONT PRN IV SEE PROTOCOL Last administered on 01/10/20at 19:32; Start 01/08/20 at 14:49 Lorazepam (Ativan Inj) 1 mg PRN Q1HR PRN IVP ANXIETY / AGITATION- MODERATE; Start 01/08/20 at 16:15 Lorazepam (Ativan Inj) 2 mg PRN Q1HR PRN IVP ANXIETY / AGITATION- SEVERE Last administered on 01/09/20at 13:10; Start 01/08/20 at 16:30 Insulin Human Lispro (HumaLOG) 6 units 1X ONCE SQ Last administered on 01/09/20at 06:20; Start 01/09/20 at 06:15; Stop 01/09/20 at 06:16; Status DC Hydralazine HCl (Apresoline Inj) 10 mg PRN Q4HRS PRN IVP ELEVATED BP, SEE COMMENTS Last administered on 01/11/20at 09:23; Start 01/10/20 at 09:15 Alteplase, Recombinant (Cathflo For Central Catheter Clearance) 1 mg 1X ONCE INT CAT Last administered on 01/10/20at 12:05; Start 01/10/20 at 11:00; Stop 01/10/20 at 11:01; Status DC Insulin Glargine (Lantus Syringe) 18 unit BID SQ Last administered on 01/11/20at 08:30; Start 01/10/20 at 21:00 Insulin Human Lispro (HumaLOG) 10 units Q6HRS SQ Last administered on 01/11/20at 05:53; Start 01/10/20 at 18:00 Vecuronium Golva 50 mg/ Miscellaneous 50 ml @ 4.027 mls/ hr CONT PRN IV SEE I/O RECORD Last administered on 01/11/20at 09:47; Start 01/10/20 at 16:15 Enoxaparin Sodium (Lovenox Per Pharmacy Treatment Dosing) 1 each PRN DAILY PRN MC SEE COMMENTS; Start 01/10/20 at 16:45 Enoxaparin Sodium (Lovenox 80mg Syringe) 80 mg Q12HR SQ Last administered on 01/11/20at 08:03; Start 01/10/20 at 21:00 Furosemide (Lasix) 40 mg 1X ONCE IVP ; Start 01/11/20 at 10:00; Stop 01/11/20 at 10:01 Vitals/I & O Vital Sign - Last 24 Hours 01/10/20 01/10/20 01/10/20 01/10/20 11:00 12:00 12:00 12:00 Temp 98.4 98.4 Pulse 62 60 Resp 22 B/P (MAP) 141/70 (93) 137/79 (98) Pulse Ox 99 99 99 O2 Delivery Ventilator Ventilator Mechanical Ventilator Ventilator 01/10/20 01/10/20 01/10/20 01/10/20 13:00 14:00 15:00 15:38 Pulse 62 76 64 Resp 22 B/P (MAP) 117/62 (80) 127/66 (86) 134/67 (89) Pulse Ox 98 44 89 88 O2 Delivery Ventilator Ventilator Ventilator Ventilator 01/10/20 01/10/20 01/10/20 01/10/20 16:00 16:00 17:00 18:00 Temp 98.0 98.0 Pulse 68 66 68 Resp 22 B/P (MAP) 117/61 (79) 110/60 (77) 120/65 (83) Pulse Ox 70 94 94 O2 Delivery Ventilator Mechanical Ventilator Ventilator Ventilator 01/10/20 01/10/20 01/10/20 01/10/20 19:00 19:32 20:00 20:00 Temp 98.5 98.5 Pulse 69 71 Resp B/P (MAP) 124/66 (85) 136/67 (90) Pulse Ox 95 94 96 O2 Delivery Ventilator Ventilator Mechanical Ventilator Ventilator 01/10/20 01/10/20 01/10/20 01/11/20 21:00 22:00 23:00 00:00 Pulse 70 71 72 Resp 22 22 B/P (MAP) 134/65 (88) 127/68 (87) 131/69 (89) Pulse Ox 97 97 96 O2 Delivery Ventilator Ventilator Ventilator Mechanical Ventilator 01/11/20 01/11/20 01/11/20 01/11/20 00:00 00:04 01:00 02:00 Temp 98.5 98.5 Pulse 72 72 78 Resp 22 22 B/P (MAP) 140/62 (88) 138/65 (89) 144/66 (92) Pulse Ox 98 94 98 99 O2 Delivery Ventilator Ventilator Ventilator Ventilator 01/11/20 01/11/20 01/11/20 01/11/20 03:00 03:44 04:00 04:00 Temp 99.1 99.1 Pulse 72 84 Resp B/P (MAP) 134/61 (85) 142/62 (88) Pulse Ox 99 96 97 O2 Delivery Ventilator Ventilator Ventilator Mechanical Ventilator 01/11/20 01/11/20 01/11/20 01/11/20 05:00 06:00 07:00 07:45 Pulse 83 86 88 Resp B/P (MAP) 148/67 (94) 149/71 (97) 151/75 (100) Pulse Ox 96 99 98 95 O2 Delivery Ventilator Ventilator Ventilator Ventilator 01/11/20 01/11/20 08:00 09:23 Pulse 93 B/P (MAP) 177/72 O2 Delivery Mechanical Ventilator Intake and Output 01/10/20 01/10/20 01/11/20 15:00 23:00 07:00 Intake Total 300 ml 2449.6 ml 2361 ml Output Total 525 ml 525 ml 700 ml Balance -225 ml 1924.6 ml 1661 ml Justicifation of Admission Dx: Justifications for Admission: Justification of Admission Dx: Yes CAROLINA VEGA MD Jan 11, 2020 10:01
[2020-01-11] MEDS: IV NORMAL SALINE 1000ML BAG 1,000 ML IV SCH (10:22)
[2020-01-11] MEDS: fentaNYL HIGH DOSE PCA 55 ML IV PRN (13:58)
--- NOTE | 2020-01-11 14:32 | NUR ---
Asymptomatic bradycardia. VSS,map.68. NO overt resp distress observed CPOT in parameters. Dr Ramos at bedside. Aware of rhythm and lack of symptoms. No order changes at this time Addendum: 01/11/20 at 1436 by Keli Tovra RN disreguard above note. Documented on wrong patient
--- NOTE | 2020-01-11 15:59 | NUR ---
SS following up with discharge planning. SS reviewed pt chart and discussed with pt RN. Pt remains on the vent at this time. COVID19 positive. Pt on IV Zosyn. Pt is self pay. SS will continue to follow for discharge planning.
[2020-01-11] MEDS: ACETAMINOPHEN 650 MG/20.3 ML SOLUTION. GT PRN (20:31)
[2020-01-12] VITALS (24 sets, daily range): BP systolic 105–266; BP diastolic 56–85
[2020-01-12] MEDS: PIPERACILLIN/TAZOBACTAM 3.375 GM in IV NORMAL SALINE 50ML 50 ML IV SCH ×4 (01:03→16:58)
[2020-01-12] MEDS: INSULIN LISPRO 300 UNITS/3 ML VIAL. SQ SCH ×4 (01:04→17:58)
[2020-01-12] MEDS: VECURONIUM BROMIDE 50 MG in TOTAL VOLUME 50 ML IV PRN ×2 (01:10→16:57)
[2020-01-12] MEDS: PROPOFOL 100 ML IV PRN ×2 (02:39→13:19)
[2020-01-12] MEDS: fentaNYL HIGH DOSE PCA 55 ML IV PRN ×2 (03:45→18:00)
[2020-01-12] MEDS: MIDAZOLAM 100mg/100ml NS BAG 100 ML IV PRN ×2 (05:41→16:15)
[2020-01-12] MEDS: methylPREDNISolone SOD SUCC PF 40 MG/ML VIAL. IV SCH ×3 (06:05→22:00)
[2020-01-12] MEDS: ACETAMINOPHEN 650 MG/20.3 ML SOLUTION. GT PRN (06:05)
[2020-01-12] MEDS: ASCORBIC ACID 500 MG TABLET PO SCH ×4 (06:05→16:59)
[2020-01-12 07:52] LABS: BASE EXCESS ABG 0 mmol/L (-3-3); CORRECTED PCO2 ABG 47 mmHg; CORRECTED PH ABG 7.36; CORRECTED PO2 ABG 58 mmHg; HCO3 ABG 26 mmol/L (21-28); SAT O2 ABG 87 % (92-99)
[2020-01-12 07:56] LABS: PCO2 ABG 45 mmHg (35-46); PO2 ABG 55 mmHg (65-108)
[2020-01-12 07:57] LABS: FIO2 ABG 100
[2020-01-12] MEDS: PANTOPRAZOLE IV PUSH 40 MG VIAL. IVP SCH (08:26)
[2020-01-12] MEDS: DOCUSATE SODIUM 100 MG CAPSULE. PO PRN (08:26)
[2020-01-12] MEDS: ZINC SULFATE 220 MG CAPSULE. PO SCH (08:27)
[2020-01-12] MEDS: ANTI-COAG MONITOR BY PHARMACY. MC PRN (09:59)
--- NOTE | 2020-01-12 10:37 | PDOC ---
PULMONARY PROGRESS NOTES DATE: 01/12/20 TIME: 10:34 Subjective remains intubated/sedated AC mode ,100%FIO2/12 PEEP nursing report hypoxia with minimal stimulation Full dose lovenox added 01/09 due to increase in D-dimer to 20, now down to 8 Vitals Vital Signs Date Time Temp Pulse Resp B/P (MAP) Pulse Ox O2 Delivery O2 Flow Rate FiO2 01/12/20 07:09 98 Ventilator 01/12/20 06:00 80 22 106/63 (77) 01/12/20 04:00 99.7 99.7 01/11/20 14:28 18.0 Comments visual exam done due to COVID-Pandemia no resp distess VENT 100% and PEEP 12 no skin rash lower extremity edema Labs Laboratory Tests Test 01/10/20 11:53 01/10/20 18:34 01/11/20 00:29 01/11/20 05:30 Glucose (Fingerstick) 243 mg/dL (70-99) 317 mg/dL (70-99) 304 mg/dL (70-99) White Blood Count 12.3 x10^3/uL (4.0-11.0) Red Blood Count 3.28 x10^6/uL (4.30-5.70) Hemoglobin 10.0 g/dL (13.0-17.5) Hematocrit 30.3 % (39.0-53.0) Mean Corpuscular Volume 92 fL (79-100) Mean Corpuscular Hemoglobin 31 pg (25-35) Mean Corpuscular Hemoglobin Concent 33 g/dL (31-37) Red Cell Distribution Width 13.6 % (11.5-14.5) Platelet Count 179 x10^3/uL (140-400) Neutrophils (%) (Auto) 95 % (31-73) Lymphocytes (%) (Auto) 4 % (24-48) Monocytes (%) (Auto) 2 % (0-9) Eosinophils (%) (Auto) 0 % (0-3) Basophils (%) (Auto) 0 % (0-3) Neutrophils # (Auto) 11.7 x10^3/uL (1.8-7.7) Lymphocytes # (Auto) 0.4 x10^3/uL (1.0-4.8) Monocytes # (Auto) 0.2 x10^3/uL (0.0-1.1) Eosinophils # (Auto) 0.0 x10^3/uL (0.0-0.7) Basophils # (Auto) 0.0 x10^3/uL (0.0-0.2) Sodium Level 148 mmol/L (136-145) Potassium Level 4.8 mmol/L (3.5-5.1) Chloride Level 114 mmol/L (98-107) Carbon Dioxide Level 26 mmol/L (21-32) Anion Gap 8 (6-14) Blood Urea Nitrogen 39 mg/dL (8-26) Creatinine 1.0 mg/dL (0.7-1.3) Estimated GFR (Cockcroft-Gault) 75.0 BUN/Creatinine Ratio 39 (6-20) Glucose Level 342 mg/dL (70-99) Calcium Level 7.1 mg/dL (8.5-10.1) Total Bilirubin 0.6 mg/dL (0.2-1.0) Aspartate Amino Transf (AST/SGOT) 51 U/L (15-37) Alanine Aminotransferase (ALT/SGPT) 55 U/L (16-63) Alkaline Phosphatase 111 U/L (46-116) Total Protein 5.4 g/dL (6.4-8.2) Albumin 1.4 g/dL (3.4-5.0) Albumin/Globulin Ratio 0.4 (1.0-1.7) Test 01/11/20 05:41 01/11/20 08:00 01/11/20 11:29 01/11/20 16:54 Glucose (Fingerstick) 327 mg/dL (70-99) 327 mg/dL (70-99) 303 mg/dL (70-99) O2 Saturation 90 % (92-99) Arterial Blood pH 7.34 (7.35-7.45) Arterial Blood pCO2 at Patient Temp 45 mmHg (35-46) Arterial Blood pO2 at Patient Temp 63 mmHg (65-108) Arterial Blood HCO3 23 mmol/L (21-28) Arterial Blood Base Excess -2 mmol/L (-3-3) FiO2 100% vent Test 01/12/20 01:00 01/12/20 06:02 01/12/20 07:45 01/12/20 07:50 Glucose (Fingerstick) 288 mg/dL (70-99) 245 mg/dL (70-99) O2 Saturation 87 % (92-99) Arterial Blood pH 7.37 (7.35-7.45) Arterial Blood pH (Temp corrected) 7.36 Arterial Blood pCO2 at Patient Temp 45 mmHg (35-46) Arterial Blood pCO2 (Temp correct) 47 mmHg Arterial Blood pO2 at Patient Temp 55 mmHg (65-108) Arterial Blood pO2 (Temp corrected) 58 mmHg Arterial Blood HCO3 26 mmol/L (21-28) Arterial Blood Base Excess 0 mmol/L (-3-3) FiO2 100 D-Dimer (Shivani) 8.10 ug/mlFEU (0.00-0.50) Test 01/12/20 08:15 Glucose (Fingerstick) 203 mg/dL (70-99) Laboratory Tests Test 01/11/20 11:29 01/11/20 16:54 01/12/20 01:00 01/12/20 06:02 Glucose (Fingerstick) 327 mg/dL (70-99) 303 mg/dL (70-99) 288 mg/dL (70-99) 245 mg/dL (70-99) Test 01/12/20 07:45 01/12/20 07:50 01/12/20 08:15 O2 Saturation 87 % (92-99) Arterial Blood pH 7.37 (7.35-7.45) Arterial Blood pH (Temp corrected) 7.36 Arterial Blood pCO2 at Patient Temp 45 mmHg (35-46) Arterial Blood pCO2 (Temp correct) 47 mmHg Arterial Blood pO2 at Patient Temp 55 mmHg (65-108) Arterial Blood pO2 (Temp corrected) 58 mmHg Arterial Blood HCO3 26 mmol/L (21-28) Arterial Blood Base Excess 0 mmol/L (-3-3) FiO2 100 D-Dimer (Shivani) 8.10 ug/mlFEU (0.00-0.50) Glucose (Fingerstick) 203 mg/dL (70-99) Comments CXR 01/06 IMPRESSION: 1. Bilateral diffuse infiltrates are increased in the left base and mildly improved elsewhere. Impression . 1. Acute hypoxic respiratory failure secondary to COVID-19 pneumonia/ARDS/acute lung injury--worsening oxygen requirements 2. Abnormal chest x-ray with bilateral infiltrates consistent with COVID-19 pneumonia. 3. Hypotension secondary to combination of hypovolemia and sepsis status post 2 liters of IV fluids. no pressors, now hypertensive 4. Acute kidney injury, improving. 5. Severe protein-calorie malnutrition. 6. Abnormal D-dimer related to COVID-19 pneumonia. Full dose lovenox added 01/09 due to increase in D-dimer to 20 Plan . RECOMMENDATIONS: 1. Continue present assist control mode, PEEP of 12 and FiO2 of 100% ABG reviewed , wean FIO2/PEEP as tolerated, ensure adequate sedation 2. Follow chest x-rays as needed. 3. Broad spectrum antibiotic. 4. Cont. IV steroids 5. Abnormal D-dimer related to COVID-19 pneumonia. Full dose lovenox added 01/09 due to increase in D-dimer to 20. dopplers neg for DVT, D-dimer now down to 8 7. Stress ulcer prophylaxis. 8. Discussed with RN and RT. 9. s/p Plasma 10. cont. TF for nutritional support Critical care time 30 minutes. YVONNE TAYLOR MD Jan 12, 2020 10:37
[2020-01-12] MEDS: INSULIN GLARGINE SYRINGE. SQ SCH (10:45)
--- NOTE | 2020-01-12 11:08 | PDOC ---
PROGRESS NOTES Date of Service: DATE: 01/12/20 TIME: 11:05 Chief Complaint Chief Complaint Assessment/Plan Acute hypoxemic respiratory failure Leukocytosis with bandemia secondary to septic process Hyponatremia secondary to low effective circulatory volume Acue renal failure due to vasomotor nephropathy most likely Hyperglycemia mild transaminitis Uncontrolled hypertension History of Present Illness History of Present Illness History of Present Illness Patient is a 54-year-old gentleman who was diagnosed with COVID-19 infection on Friday 5 days prior to his admission to the intensive care unit. Apparently the patient reported worsening respiratory distress reason why he came to the emergency department for evaluation and treatment. The story was quite limited since the patient was speaking Welsh only and his acuity was such that he required mechanical ventilation and prompt intubation by the emergency de partment physician. At the present time patient is intubated and sedated continues to require a lot of support no pertinent past medical history was reported he is admitted to the intensive care unit for further treatment 01/10/2020 Continues to require full support, glycemia has been noted in hypertension as well. Discussed with nursing staff, all of concerns were addressed to the best of my abilities no acute events reported overnight 01/11/2020 No acute events reported overnight, case discussed with nursing staff patient in no acute distress 01/12/2020 Per nursing staff, patient febrile overnight, treated with Tylenol and tepid water bath. Case discussed with nursing staff, continue with IV antibiotics and full VTE prophylaxis. Vitals Vitals Vital Signs Date Time Temp Pulse Resp B/P (MAP) Pulse Ox O2 Delivery O2 Flow Rate FiO2 01/12/20 07:09 98 Ventilator 01/12/20 06:00 80 22 106/63 (77) 01/12/20 04:00 99.7 99.7 01/11/20 14:28 18.0 Labs LABS Laboratory Tests Test 01/11/20 11:29 01/11/20 16:54 01/12/20 01:00 01/12/20 06:02 Glucose (Fingerstick) 327 mg/dL (70-99) 303 mg/dL (70-99) 288 mg/dL (70-99) 245 mg/dL (70-99) Test 01/12/20 07:45 01/12/20 07:50 01/12/20 08:15 O2 Saturation 87 % (92-99) Arterial Blood pH 7.37 (7.35-7.45) Arterial Blood pH (Temp corrected) 7.36 Arterial Blood pCO2 at Patient Temp 45 mmHg (35-46) Arterial Blood pCO2 (Temp correct) 47 mmHg Arterial Blood pO2 at Patient Temp 55 mmHg (65-108) Arterial Blood pO2 (Temp corrected) 58 mmHg Arterial Blood HCO3 26 mmol/L (21-28) Arterial Blood Base Excess 0 mmol/L (-3-3) FiO2 100 D-Dimer (Shivani) 8.10 ug/mlFEU (0.00-0.50) Glucose (Fingerstick) 203 mg/dL (70-99) Review of Systems Review of Systems Unable to obtain due to clinical condition Assessment and Plan Assessmemt and Plan Continue IV antibiotics, continue IV steroids, continue full dose Lovenox. Comment Review of Relevant I have reviewed the following items hong (where applicable) has been applied. Labs Laboratory Tests Test 01/10/20 11:53 01/10/20 18:34 01/11/20 00:29 01/11/20 05:30 Glucose (Fingerstick) 243 mg/dL (70-99) 317 mg/dL (70-99) 304 mg/dL (70-99) White Blood Count 12.3 x10^3/uL (4.0-11.0) Red Blood Count 3.28 x10^6/uL (4.30-5.70) Hemoglobin 10.0 g/dL (13.0-17.5) Hematocrit 30.3 % (39.0-53.0) Mean Corpuscular Volume 92 fL (79-100) Mean Corpuscular Hemoglobin 31 pg (25-35) Mean Corpuscular Hemoglobin Concent 33 g/dL (31-37) Red Cell Distribution Width 13.6 % (11.5-14.5) Platelet Count 179 x10^3/uL (140-400) Neutrophils (%) (Auto) 95 % (31-73) Lymphocytes (%) (Auto) 4 % (24-48) Monocytes (%) (Auto) 2 % (0-9) Eosinophils (%) (Auto) 0 % (0-3) Basophils (%) (Auto) 0 % (0-3) Neutrophils # (Auto) 11.7 x10^3/uL (1.8-7.7) Lymphocytes # (Auto) 0.4 x10^3/uL (1.0-4.8) Monocytes # (Auto) 0.2 x10^3/uL (0.0-1.1) Eosinophils # (Auto) 0.0 x10^3/uL (0.0-0.7) Basophils # (Auto) 0.0 x10^3/uL (0.0-0.2) Sodium Level 148 mmol/L (136-145) Potassium Level 4.8 mmol/L (3.5-5.1) Chloride Level 114 mmol/L (98-107) Carbon Dioxide Level 26 mmol/L (21-32) Anion Gap 8 (6-14) Blood Urea Nitrogen 39 mg/dL (8-26) Creatinine 1.0 mg/dL (0.7-1.3) Estimated GFR (Cockcroft-Gault) 75.0 BUN/Creatinine Ratio 39 (6-20) Glucose Level 342 mg/dL (70-99) Calcium Level 7.1 mg/dL (8.5-10.1) Total Bilirubin 0.6 mg/dL (0.2-1.0) Aspartate Amino Transf (AST/SGOT) 51 U/L (15-37) Alanine Aminotransferase (ALT/SGPT) 55 U/L (16-63) Alkaline Phosphatase 111 U/L (46-116) Total Protein 5.4 g/dL (6.4-8.2) Albumin 1.4 g/dL (3.4-5.0) Albumin/Globulin Ratio 0.4 (1.0-1.7) Test 01/11/20 05:41 01/11/20 08:00 01/11/20 11:29 01/11/20 16:54 Glucose (Fingerstick) 327 mg/dL (70-99) 327 mg/dL (70-99) 303 mg/dL (70-99) O2 Saturation 90 % (92-99) Arterial Blood pH 7.34 (7.35-7.45) Arterial Blood pCO2 at Patient Temp 45 mmHg (35-46) Arterial Blood pO2 at Patient Temp 63 mmHg (65-108) Arterial Blood HCO3 23 mmol/L (21-28) Arterial Blood Base Excess -2 mmol/L (-3-3) FiO2 100% vent Test 01/12/20 01:00 01/12/20 06:02 01/12/20 07:45 01/12/20 07:50 Glucose (Fingerstick) 288 mg/dL (70-99) 245 mg/dL (70-99) O2 Saturation 87 % (92-99) Arterial Blood pH 7.37 (7.35-7.45) Arterial Blood pH (Temp corrected) 7.36 Arterial Blood pCO2 at Patient Temp 45 mmHg (35-46) Arterial Blood pCO2 (Temp correct) 47 mmHg Arterial Blood pO2 at Patient Temp 55 mmHg (65-108) Arterial Blood pO2 (Temp corrected) 58 mmHg Arterial Blood HCO3 26 mmol/L (21-28) Arterial Blood Base Excess 0 mmol/L (-3-3) FiO2 100 D-Dimer (Shivani) 8.10 ug/mlFEU (0.00-0.50) Test 01/12/20 08:15 Glucose (Fingerstick) 203 mg/dL (70-99) Laboratory Tests Test 01/11/20 11:29 01/11/20 16:54 01/12/20 01:00 01/12/20 06:02 Glucose (Fingerstick) 327 mg/dL (70-99) 303 mg/dL (70-99) 288 mg/dL (70-99) 245 mg/dL (70-99) Test 01/12/20 07:45 01/12/20 07:50 01/12/20 08:15 O2 Saturation 87 % (92-99) Arterial Blood pH 7.37 (7.35-7.45) Arterial Blood pH (Temp corrected) 7.36 Arterial Blood pCO2 at Patient Temp 45 mmHg (35-46) Arterial Blood pCO2 (Temp correct) 47 mmHg Arterial Blood pO2 at Patient Temp 55 mmHg (65-108) Arterial Blood pO2 (Temp corrected) 58 mmHg Arterial Blood HCO3 26 mmol/L (21-28) Arterial Blood Base Excess 0 mmol/L (-3-3) FiO2 100 D-Dimer (Shivani) 8.10 ug/mlFEU (0.00-0.50) Glucose (Fingerstick) 203 mg/dL (70-99) Microbiology 01/08/20 Blood Culture - Preliminary, Resulted NO GROWTH AFTER 3 DAYS 01/06/20 Urine Culture - Final, Complete Medications Current Medications Etomidate (Amidate) 20 mg STK-MED ONCE IV ; Start 01/06/20 at 18:54; Stop 01/06/20 at 18:54; Status DC Succinylcholine Chloride (Anectine) 200 mg STK-MED ONCE .ROUTE ; Start 01/06/20 at 18:55; Stop 01/06/20 at 18:55; Status DC Propofol 50 ml @ As Directed STK-MED ONCE IV ; Start 01/06/20 at 18:55; Stop 01/06/20 at 18:56; Status DC Propofol 100 ml @ 0 mls/hr CONT PRN IV SEE PROTOCOL Last administered on at 02:39; Start 01/06/20 at 19:00 Fentanyl Citrate (Fentanyl 2ml Vial) 25 mcg PRN Q1HR PRN IV SEE COMMENTS; Start 01/06/20 at 19:00 Fentanyl Citrate (Fentanyl 2ml Vial) 50 mcg PRN Q1HR PRN IV SEE COMMENTS Last administered on 01/06/20at 19:42; Start 01/06/20 at 19:00 Chlorhexidine Gluconate (Peridex) 15 ml BID MM Last administered on 01/07/20at 08:16; Start 01/06/20 at 21:00; Stop 01/07/20 at 09:45; Status DC Midazolam HCl (Versed) 5 mg STK-MED ONCE .ROUTE ; Start 01/06/20 at 19:17; Stop 01/06/20 at 19:18; Status DC Midazolam HCl 50 mg/Sodium Chloride 50 ml @ 0 mls/hr 1X ONCE IV ; Start 01/06/20 at 19:30; Stop 01/06/20 at 19:31; Status UNV Albuterol/ Ipratropium (Duoneb) 3 ml STK-MED ONCE .ROUTE ; Start 01/06/20 at 19:27; Stop 01/06/20 at 19:27; Status DC Midazolam HCl 100 ml @ 0 mls/hr CONT PRN IV SEE PROTOCOL Last administered on 01/12/20at 05:41; Start 01/06/20 at 19:30 Propofol 50 ml @ 0 mls/hr 1X ONCE IV Last administered on 01/06/20at 18:55; Start 01/06/20 at 20:00; Stop 01/06/20 at 20:01; Status DC Midazolam HCl (Versed) 5 mg 1X ONCE NS Last administered on 01/06/20at 19:18; Start 01/06/20 at 19:18; Stop 01/06/20 at 19:59; Status DC Piperacillin Sod/ Tazobactam Sod 3.375 gm/Sodium Chloride 50 ml @ 100 mls/hr 1X ONCE IV Last administered on 01/06/20at 21:47; Start 01/06/20 at 20:45; Stop 01/06/20 at 21:14; Status DC Dexmedetomidine HCl 400 mcg/ Sodium Chloride 100 ml @ 0 mls/hr CONT PRN IV SEDATION Last administered on 01/11/20at 18:36; Start 01/06/20 at 20:15 Sodium Chloride 500 ml @ 500 mls/hr 1X PRN PRN IV SEE COMMENTS; Start 01/06/20 at 20:15 Atropine Sulfate (ATROPINE 0.5mg SYRINGE) 0.5 mg PRN Q5MIN PRN IV SEE COMMENTS; Start 01/06/20 at 20:15 Fentanyl Citrate (Fentanyl 2ml Vial) 100 mcg 1X ONCE IVP Last administered on 01/06/20at 20:17; Start 01/06/20 at 20:15; Stop 01/06/20 at 20:18; Status DC Methylprednisolone Sodium Succinate (SOLU-Medrol 40MG VIAL) 40 mg Q8HRS IV Last administered on 01/12/20at 06:05; Start 01/06/20 at 22:00 Enoxaparin Sodium (Lovenox 40mg Syringe) 40 mg BID SQ Last administered on 01/07/20at 08:15; Start 01/06/20 at 21:30; Stop 01/07/20 at 09:47; Status DC Potassium Chloride/Dextrose/ Sod Cl 1,000 ml @ 125 mls/hr Q8H ONCE IV Last administered on 01/06/20at 22:13; Start 01/06/20 at 21:30; Stop 01/07/20 at 05:29; Status DC Zinc Sulfate (Orazinc) 220 mg DAILY PO Last administered on 01/12/20at 08:27; Start 01/07/20 at 09:00 Ondansetron HCl (Zofran) 4 mg PRN Q4HRS PRN IV NAUSEA/VOMITING; Start 01/06/20 at 21:30 Acetaminophen (Tylenol) 650 mg PRN Q4HRS PRN GT TEMP OVER 100.4F OR MILD PAIN Last administered on 01/12/20at 06:05; Start 01/06/20 at 21:30 Acetaminophen (Tylenol Supp) 650 mg PRN Q4HRS PRN [place] TEMP OVER 100.4F OR MILD PAIN; Start 01/06/20 at 21:30 Docusate Sodium (Colace) 100 mg PRN BID PRN PO HARD STOOLS Last administered on 01/12/20 08:26; Start 01/06/20 at 21:30 Piperacillin Sod/ Tazobactam Sod 3.375 gm/Sodium Chloride 50 ml @ 100 mls/hr Q6HRS IV Last administered on 01/12/20at 06:06; Start 01/07/20 at 00:00 Pantoprazole Sodium (PROTONIX VIAL for IV PUSH) 40 mg DAILYAC IVP Last administered on 01/12/20at 08:26; Start 01/07/20 at 07:30 Norepinephrine Bitartrate 8 mg/ Dextrose 258 ml @ 12.578 mls/ hr CONT PRN IV PER PROTOCOL Last administered on 01/06/20at 22:15; Start 01/06/20 at 21:45 Sodium Chloride 1,000 ml @ 1,000 mls/hr 1X ONCE IV Last administered on 01/06/20at 21:44; Start 01/06/20 at 21:45; Stop 01/06/20 at 22:44; Status DC Fentanyl Citrate 30 ml @ 0 mls/hr CONT PRN IV SEE PROTOCOL Last administered on 01/08/20at 10:44; Start 01/06/20 at 21:45; Stop 01/08/20 at 14:49; Status DC Vec[facility] [place] (Norcuron Bolus) 6 mg PRN Q2HR PRN IV VENT ASYNCHRONY Last administered on 01/08/20at 11:23; Start 01/06/20 at 21:45; Stop 01/08/20 at 14:48; Status DC Sodium Chloride 1,000 ml @ 1,000 mls/hr 1X ONCE IV Last administered on 01/06/20at 22:36; Start 01/06/20 at 22:30; Stop 01/06/20 at 23:29; Status DC Methylprednisolone Sodium Succinate (SOLU-Medrol 40MG VIAL) 40 mg Q8HRS IV ; Start 01/07/20 at 14:00; Status UNV Enoxaparin Sodium (Lovenox 80mg Syringe) 80 mg BID SQ Last administered on 01/07/20at 20:53; Start 01/07/20 at 21:00; Stop 01/08/20 at 08:57; Status DC Insulin Human Lispro (HumaLOG) 6 units TID SQ ; Start 01/07/20 at 14:00; Stop 01/07/20 at 10:05; Status DC Insulin Glargine (Lantus Syringe) 10 unit BID SQ Last administered on 01/08/20at 09:27; Start 01/07/20 at 21:00; Stop 01/08/20 at 11:25; Status DC Ascorbic Acid (Vitamin C) 250 mg Q6HRS PO Last administered on 01/12/20at 06:05; Start 01/07/20 at 12:00 Sodium Chloride 1,000 ml @ 75 mls/hr [id number] IV Last administered on 01/10/20at 19:33; Start 01/07/20 at 10:00; Stop 01/11/20 at 10:23; Status DC Insulin Human Lispro (HumaLOG) 6 units Q6HRS SQ Last administered on 01/08/20at 06:11; Start 01/07/20 at 12:00; Stop 01/08/20 at 11:25; Status DC Insulin Glargine (Lantus Syringe) 10 unit 1X ONCE SQ Last administered on 01/07/20at 11:40; Start 01/07/20 at 11:00; Stop 01/07/20 at 11:01; Status DC Enoxaparin Sodium (Lovenox 60mg Syringe) 60 mg BID SQ Last administered on 01/10/20at 08:55; Start 01/08/20 at 09:00; Stop 01/10/20 at 16:45; Status DC [facility] [place] (Norcuron Bolus) 6 mg PRN Q6HRS PRN IV SEDATION Last administered on 01/10/20at 16:36; Start 01/08/20 at 09:30 Insulin Glargine (Lantus Syringe) 14 unit BID SQ Last administered on 01/10/20at 09:24; Start 01/08/20 at 21:00; Stop 01/10/20 at 12:27; Status DC Insulin Human Lispro (HumaLOG) 8 units Q6HRS SQ Last administered on 01/10/20at 12:11; Start 01/08/20 at 12:00; Stop 01/10/20 at 12:27; Status DC Fentanyl Citrate 55 ml @ 0 mls/hr CONT PRN IV SEE PROTOCOL Last administered on 01/12/20at 03:45; Start 01/08/20 at 14:49 Lorazepam (Ativan Inj) 1 mg PRN Q1HR PRN IVP ANXIETY / AGITATION- MODERATE; Start 01/08/20 at 16:15 Lorazepam (Ativan Inj) 2 mg PRN Q1HR PRN IVP ANXIETY / AGITATION- SEVERE Last administered on 01/09/20at 13:10; Start 01/08/20 at 16:30 Insulin Human Lispro (HumaLOG) 6 units 1X ONCE SQ Last administered on 01/09/20at 06:20; Start 01/09/20 at 06:15; Stop 01/09/20 at 06:16; Status DC Hydralazine HCl (Apresoline Inj) 10 mg PRN Q4HRS PRN IVP ELEVATED BP, SEE COMMENTS Last administered on 01/11/20at 18:10; Start 01/10/20 at 09:15 Alteplase, Recombinant (Cathflo For Central Catheter Clearance) 1 mg 1X ONCE INT CAT Last administered on 01/10/20at 12:05; Start 01/10/20 at 11:00; Stop 01/10/20 at 11:01; Status DC Insulin Glargine (Lantus Syringe) 18 unit BID SQ Last administered on 01/11/20at 08:30; Start 01/10/20 at 21:00; Stop 01/11/20 at 10:03; Status DC Insulin Human Lispro (HumaLOG) 10 units Q6HRS SQ Last administered on 01/11/20at 05:53; Start 01/10/20 at 18:00; Stop 01/11/20 at 10:03; Status DC [facility] [place] 50 mg/ Miscellaneous 50 ml @ 4.027 mls/ hr CONT PRN IV SEE I/O RECORD Last administered on 01/12/20at 01:10; Start 01/10/20 at 16:15 Enoxaparin Sodium (Lovenox Per Pharmacy Treatment Dosing) 1 each PRN DAILY PRN MC SEE COMMENTS; Start 01/10/20 at 16:45 Enoxaparin Sodium (Lovenox 80mg Syringe) 80 mg Q12HR SQ Last administered on 01/12/20at 08:29; Start 01/10/20 at 21:00 Furosemide (Lasix) 40 mg 1X ONCE IVP Last administered on 01/11/20at 10:19; Start 01/11/20 at 10:00; Stop 01/11/20 at 10:01; Status DC Insulin Glargine (Lantus Syringe) 24 unit BID SQ Last administered on 01/12/20at 10:45; Start 01/11/20 at 10:30 Insulin Human Lispro (HumaLOG) 14 units Q6HRS SQ Last administered on 01/12/20at 06:07; Start 01/11/20 at 12:00 Info (Anti-Coagulation Monitoring By Pharmacy) 1 each PRN DAILY PRN MC SEE COMMENTS Last administered on 01/12/20at 09:59; Start 01/12/20 at 10:00 Vitals/I & O Vital Sign - Last 24 Hours 01/11/20 01/11/20 01/11/20 01/11/20 12:00 12:00 12:03 13:00 Temp 99.9 99.9 Pulse 104 100 Resp 22 22 B/P (MAP) 143/63 (89) 144/63 (90) Pulse Ox 100 96 100 O2 Delivery Ventilator Mechanical Ventilator Ventilator Ventilator 01/11/20 01/11/20 01/11/20 01/11/20 13:58 14:00 14:28 15:00 Pulse 98 98 Resp 22 22 22 B/P (MAP) 141/70 (93) 147/70 (95) Pulse Ox 100 100 99 O2 Delivery Ventilator Ventilator O2 Flow Rate 18.0 01/11/20 01/11/20 01/11/20 01/11/20 15:41 16:00 16:00 17:00 Temp 99.3 99.3 Pulse 112 100 Resp 22 22 B/P (MAP) 148/71 (96) 160/77 (104) Pulse Ox 99 100 100 O2 Delivery Ventilator Ventilator Mechanical Ventilator Ventilator 01/11/20 01/11/20 01/11/20 01/11/20 17:00 18:00 18:10 20:00 Pulse 120 100 116 Resp 22 22 B/P (MAP) 220/100 (140) 220/93 (135) 207/97 Pulse Ox 100 100 O2 Delivery Ventilator Ventilator Mechanical Ventilator 01/11/20 01/11/20 01/11/20 01/11/20 20:00 20:15 21:00 22:00 Temp 100.4 100.4 Pulse 114 110 94 Resp 22 22 22 B/P (MAP) 157/71 (99) 144/65 (91) 134/64 (87) Pulse Ox 100 100 100 99 O2 Delivery Ventilator Ventilator Ventilator Ventilator 01/11/20 01/11/20 01/12/20 01/12/20 23:00 23:44 00:00 00:00 Temp 99.9 99.9 Pulse 86 86 Resp 22 22 B/P (MAP) 133/64 (87) 135/64 (87) Pulse Ox 99 99 99 O2 Delivery Ventilator Ventilator Mechanical Ventilator Ventilator 01/12/20 01/12/20 01/12/20 01/12/20 01:00 02:00 03:00 03:45 Pulse 94 106 94 Resp 22 22 22 B/P (MAP) 149/71 (97) 169/78 (108) 135/67 (89) Pulse Ox 100 100 100 100 O2 Delivery Ventilator Ventilator Ventilator Ventilator 01/12/20 01/12/20 01/12/20 01/12/20 03:49 04:00 04:00 04:20 Temp 99.7 99.7 Pulse 82 Resp 22 22 B/P (MAP) 117/66 (83) Pulse Ox 99 99 100 O2 Delivery Ventilator Mechanical Ventilator Ventilator 01/12/20 01/12/20 01/12/20 05:00 06:00 07:09 Pulse 74 80 Resp 22 22 B/P (MAP) 105/61 (76) 106/63 (77) Pulse Ox 100 100 98 O2 Delivery Ventilator Ventilator Ventilator Intake and Output 01/11/20 01/11/20 01/12/20 14:59 22:59 06:59 Intake Total 250 ml 605 ml 1647 ml Output Total 985 ml 1475 ml 830 ml Balance -735 ml -870 ml 817 ml Justicifation of Admission Dx: Justifications for Admission: Justification of Admission Dx: Yes MERVAT MARQUEZ MD Jan 12, 2020 11:08
--- NOTE | 2020-01-12 15:21 | NUR ---
SS following up with discharge planning. SS reviewed pt chart and discussed with pt RN. Pt remains on the vent at this time. COVID19 positive. SS will continue to follow for discharge planning.
[2020-01-12] MEDS: DEXMEDETOMIDINE 400 MCG in IV NORMAL SALINE 100ML 96 ML IV PRN (19:12)
[2020-01-13] VITALS (24 sets, daily range): BP systolic 110–221; BP diastolic 52–80
[2020-01-13] MEDS: PROPOFOL 100 ML IV PRN ×8 (00:51→22:38)
[2020-01-13] MEDS: PIPERACILLIN/TAZOBACTAM 3.375 GM in IV NORMAL SALINE 50ML 50 ML IV SCH ×5 (00:52→23:36)
[2020-01-13] MEDS: ASCORBIC ACID 500 MG TABLET PO SCH ×5 (00:52→23:36)
[2020-01-13] MEDS: INSULIN GLARGINE SYRINGE. SQ SCH ×3 (00:53→21:50)
[2020-01-13] MEDS: INSULIN LISPRO 300 UNITS/3 ML VIAL. SQ SCH ×4 (00:53→17:48)
[2020-01-13] MEDS: hydrALAZINE 20 MG/ML VIAL. IVP PRN (02:18)
[2020-01-13] MEDS: MIDAZOLAM 100mg/100ml NS BAG 100 ML IV PRN ×2 (02:59→14:42)
[2020-01-13] MEDS: DEXMEDETOMIDINE 400 MCG in IV NORMAL SALINE 100ML 96 ML IV PRN ×4 (03:00→19:40)
[2020-01-13] MEDS: fentaNYL HIGH DOSE PCA 55 ML IV PRN ×2 (03:13→17:13)
[2020-01-13] MEDS: methylPREDNISolone SOD SUCC PF 40 MG/ML VIAL. IV SCH ×3 (05:43→21:51)
[2020-01-13 05:50] LABS: BASO # 0.1 x10^3/uL (0.0-0.2); BASO % 1 % (0-3); EOS # 0.1 x10^3/uL (0.0-0.7); EOS % 1 % (0-3); HEMATOCRIT 32.1 % (39.0-53.0); HEMOGLOBIN 10.4 g/dL (13.0-17.5); LYMPH # 0.3 x10^3/uL (1.0-4.8); LYMPH % 2 % (24-48); MEAN CORPUSCULAR HEMOGLOBIN 31 pg (25-35); MEAN CORPUSCULAR HGB CONC 33 g/dL (31-37); MEAN CORPUSCULAR VOLUME 95 fL (79-100); MONO # 0.3 x10^3/uL (0.0-1.1); MONO % 2 % (0-9); NEUT # 14.2 x10^3/uL (1.8-7.7); NEUT % 94 % (31-73); PLATELET COUNT 201 x10^3/uL (140-400); RED BLOOD COUNT 3.39 x10^6/uL (4.30-5.70); RED CELL DISTRIBUTION WIDTH 14.6 % (11.5-14.5)
[2020-01-13 06:48] LABS: CALCIUM 7.5 mg/dL (8.5-10.1); CREATININE 0.9 mg/dL (0.7-1.3); GFR 84.7; POTASSIUM 4.9 mmol/L (3.5-5.1)
[2020-01-13 08:00] LABS: BASE EXCESS ABG -1 mmol/L (-3-3); HCO3 ABG 24 mmol/L (21-28); PCO2 ABG 41 mmHg (35-46); PO2 ABG 67 mmHg (65-108); SAT O2 ABG 92 % (92-99)
[2020-01-13 08:02] LABS: FIO2 ABG 100%
[2020-01-13] MEDS: PANTOPRAZOLE IV PUSH 40 MG VIAL. IVP SCH (09:05)
[2020-01-13] MEDS: ZINC SULFATE 220 MG CAPSULE. PO SCH (09:06)
--- NOTE | 2020-01-13 10:54 | PDOC ---
PROGRESS NOTES Date of Service: DATE: 01/13/20 TIME: 10:49 Chief Complaint Chief Complaint Assessment/Plan Acute hypoxemic respiratory failure Leukocytosis with bandemia secondary to septic process Hyponatremia secondary to low effective circulatory volume Acue renal failure due to vasomotor nephropathy most likely Hyperglycemia mild transaminitis Uncontrolled hypertension History of Present Illness History of Present Illness History of Present Illness Patient is a 54-year-old gentleman who was diagnosed with COVID-19 infection on Friday 5 days prior to his admission to the intensive care unit. Apparently the patient reported worsening respiratory distress reason why he came to the emergency department for evaluation and treatment. The story was quite limited since the patient was speaking Tajik only and his acuity was such that he required mechanical ventilation and prompt intubation by the emergency de partment physician. At the present time patient is intubated and sedated continues to require a lot of support no pertinent past medical history was reported he is admitted to the intensive care unit for further treatment 01/10/2020 Continues to require full support, glycemia has been noted in hypertension as well. Discussed with nursing staff, all of concerns were addressed to the best of my abilities no acute events reported overnight 01/11/2020 No acute events reported overnight, case discussed with nursing staff patient in no acute distress 01/12/2020 Per nursing staff, patient febrile overnight, treated with Tylenol and tepid water bath. Case discussed with nursing staff, continue with IV antibiotics and full VTE prophylaxis. 01/13/2020 Patient still febrile overnight. O2 requirement increasing. Discussed with RN. Vitals Vitals Vital Signs Date Time Temp Pulse Resp B/P (MAP) Pulse Ox O2 Delivery O2 Flow Rate FiO2 01/13/20 07:35 92 Ventilator 01/13/20 06:00 89 22 132/64 (86) 01/13/20 04:00 100.1 100.1 01/13/20 03:43 18.0 Physical Exam General: No acute distress, Other (Intubated and sedated) Heart: Regular rate Lungs: Other (Intubated) Abdomen: Other (Nondistended) Extremities: No clubbing, No cyanosis Skin: No rashes, No breakdown Labs LABS Laboratory Tests Test 01/12/20 12:54 01/12/20 17:55 01/13/20 00:26 01/13/20 05:20 Glucose (Fingerstick) 254 mg/dL (70-99) 259 mg/dL (70-99) 228 mg/dL (70-99) White Blood Count 15.0 x10^3/uL (4.0-11.0) Red Blood Count 3.39 x10^6/uL (4.30-5.70) Hemoglobin 10.4 g/dL (13.0-17.5) Hematocrit 32.1 % (39.0-53.0) Mean Corpuscular Volume 95 fL (79-100) Mean Corpuscular Hemoglobin 31 pg (25-35) Mean Corpuscular Hemoglobin Concent 33 g/dL (31-37) Red Cell Distribution Width 14.6 % (11.5-14.5) Platelet Count 201 x10^3/uL (140-400) Neutrophils (%) (Auto) 94 % (31-73) Lymphocytes (%) (Auto) 2 % (24-48) Monocytes (%) (Auto) 2 % (0-9) Eosinophils (%) (Auto) 1 % (0-3) Basophils (%) (Auto) 1 % (0-3) Neutrophils # (Auto) 14.2 x10^3/uL (1.8-7.7) Lymphocytes # (Auto) 0.3 x10^3/uL (1.0-4.8) Monocytes # (Auto) 0.3 x10^3/uL (0.0-1.1) Eosinophils # (Auto) 0.1 x10^3/uL (0.0-0.7) Basophils # (Auto) 0.1 x10^3/uL (0.0-0.2) D-Dimer (Shivani) 7.66 ug/mlFEU (0.00-0.50) Sodium Level 153 mmol/L (136-145) Potassium Level 4.9 mmol/L (3.5-5.1) Chloride Level 116 mmol/L (98-107) Carbon Dioxide Level 29 mmol/L (21-32) Anion Gap 8 (6-14) Blood Urea Nitrogen 49 mg/dL (8-26) Creatinine 0.9 mg/dL (0.7-1.3) Estimated GFR (Cockcroft-Gault) 84.7 Glucose Level 272 mg/dL (70-99) Calcium Level 7.5 mg/dL (8.5-10.1) Ferritin 924 ng/mL (26-388) C-Reactive Protein, Quantitative 117.0 mg/L (0-3.3) Triglycerides Level 285 mg/dL (0-150) Procalcitonin 0.44 ng/mL (0.00-0.10) Test 01/13/20 05:26 01/13/20 07:55 Glucose (Fingerstick) 260 mg/dL (70-99) O2 Saturation 92 % (92-99) Arterial Blood pH 7.38 (7.35-7.45) Arterial Blood pCO2 at Patient Temp 41 mmHg (35-46) Arterial Blood pO2 at Patient Temp 67 mmHg (65-108) Arterial Blood HCO3 24 mmol/L (21-28) Arterial Blood Base Excess -1 mmol/L (-3-3) FiO2 100% Review of Systems Review of Systems Unable to obtain due to clinical condition Assessment and Plan Assessmemt and Plan Continue IV antibiotics, continue IV steroids, continue full dose Lovenox. Comment Review of Relevant I have reviewed the following items hong (where applicable) has been applied. Labs Laboratory Tests Test 01/11/20 11:29 01/11/20 16:54 01/12/20 01:00 01/12/20 06:02 Glucose (Fingerstick) 327 mg/dL (70-99) 303 mg/dL (70-99) 288 mg/dL (70-99) 245 mg/dL (70-99) Test 01/12/20 07:45 01/12/20 07:50 01/12/20 08:15 01/12/20 12:54 O2 Saturation 87 % (92-99) Arterial Blood pH 7.37 (7.35-7.45) Arterial Blood pH (Temp corrected) 7.36 Arterial Blood pCO2 at Patient Temp 45 mmHg (35-46) Arterial Blood pCO2 (Temp correct) 47 mmHg Arterial Blood pO2 at Patient Temp 55 mmHg (65-108) Arterial Blood pO2 (Temp corrected) 58 mmHg Arterial Blood HCO3 26 mmol/L (21-28) Arterial Blood Base Excess 0 mmol/L (-3-3) FiO2 100 D-Dimer (Shivani) 8.10 ug/mlFEU (0.00-0.50) Glucose (Fingerstick) 203 mg/dL (70-99) 254 mg/dL (70-99) Test 01/12/20 17:55 01/13/20 00:26 01/13/20 05:20 01/13/20 05:26 Glucose (Fingerstick) 259 mg/dL (70-99) 228 mg/dL (70-99) 260 mg/dL (70-99) White Blood Count 15.0 x10^3/uL (4.0-11.0) Red Blood Count 3.39 x10^6/uL (4.30-5.70) Hemoglobin 10.4 g/dL (13.0-17.5) Hematocrit 32.1 % (39.0-53.0) Mean Corpuscular Volume 95 fL (79-100) Mean Corpuscular Hemoglobin 31 pg (25-35) Mean Corpuscular Hemoglobin Concent 33 g/dL (31-37) Red Cell Distribution Width 14.6 % (11.5-14.5) Platelet Count 201 x10^3/uL (140-400) Neutrophils (%) (Auto) 94 % (31-73) Lymphocytes (%) (Auto) 2 % (24-48) Monocytes (%) (Auto) 2 % (0-9) Eosinophils (%) (Auto) 1 % (0-3) Basophils (%) (Auto) 1 % (0-3) Neutrophils # (Auto) 14.2 x10^3/uL (1.8-7.7) Lymphocytes # (Auto) 0.3 x10^3/uL (1.0-4.8) Monocytes # (Auto) 0.3 x10^3/uL (0.0-1.1) Eosinophils # (Auto) 0.1 x10^3/uL (0.0-0.7) Basophils # (Auto) 0.1 x10^3/uL (0.0-0.2) D-Dimer (Shivani) 7.66 ug/mlFEU (0.00-0.50) Sodium Level 153 mmol/L (136-145) Potassium Level 4.9 mmol/L (3.5-5.1) Chloride Level 116 mmol/L (98-107) Carbon Dioxide Level 29 mmol/L (21-32) Anion Gap 8 (6-14) Blood Urea Nitrogen 49 mg/dL (8-26) Creatinine 0.9 mg/dL (0.7-1.3) Estimated GFR (Cockcroft-Gault) 84.7 Glucose Level 272 mg/dL (70-99) Calcium Level 7.5 mg/dL (8.5-10.1) Ferritin 924 ng/mL (26-388) C-Reactive Protein, Quantitative 117.0 mg/L (0-3.3) Triglycerides Level 285 mg/dL (0-150) Procalcitonin 0.44 ng/mL (0.00-0.10) Test 01/13/20 07:55 O2 Saturation 92 % (92-99) Arterial Blood pH 7.38 (7.35-7.45) Arterial Blood pCO2 at Patient Temp 41 mmHg (35-46) Arterial Blood pO2 at Patient Temp 67 mmHg (65-108) Arterial Blood HCO3 24 mmol/L (21-28) Arterial Blood Base Excess -1 mmol/L (-3-3) FiO2 100% Laboratory Tests Test 01/12/20 12:54 01/12/20 17:55 01/13/20 00:26 01/13/20 05:20 Glucose (Fingerstick) 254 mg/dL (70-99) 259 mg/dL (70-99) 228 mg/dL (70-99) White Blood Count 15.0 x10^3/uL (4.0-11.0) Red Blood Count 3.39 x10^6/uL (4.30-5.70) Hemoglobin 10.4 g/dL (13.0-17.5) Hematocrit 32.1 % (39.0-53.0) Mean Corpuscular Volume 95 fL (79-100) Mean Corpuscular Hemoglobin 31 pg (25-35) Mean Corpuscular Hemoglobin Concent 33 g/dL (31-37) Red Cell Distribution Width 14.6 % (11.5-14.5) Platelet Count 201 x10^3/uL (140-400) Neutrophils (%) (Auto) 94 % (31-73) Lymphocytes (%) (Auto) 2 % (24-48) Monocytes (%) (Auto) 2 % (0-9) Eosinophils (%) (Auto) 1 % (0-3) Basophils (%) (Auto) 1 % (0-3) Neutrophils # (Auto) 14.2 x10^3/uL (1.8-7.7) Lymphocytes # (Auto) 0.3 x10^3/uL (1.0-4.8) Monocytes # (Auto) 0.3 x10^3/uL (0.0-1.1) Eosinophils # (Auto) 0.1 x10^3/uL (0.0-0.7) Basophils # (Auto) 0.1 x10^3/uL (0.0-0.2) D-Dimer (Shivani) 7.66 ug/mlFEU (0.00-0.50) Sodium Level 153 mmol/L (136-145) Potassium Level 4.9 mmol/L (3.5-5.1) Chloride Level 116 mmol/L (98-107) Carbon Dioxide Level 29 mmol/L (21-32) Anion Gap 8 (6-14) Blood Urea Nitrogen 49 mg/dL (8-26) Creatinine 0.9 mg/dL (0.7-1.3) Estimated GFR (Cockcroft-Gault) 84.7 Glucose Level 272 mg/dL (70-99) Calcium Level 7.5 mg/dL (8.5-10.1) Ferritin 924 ng/mL (26-388) C-Reactive Protein, Quantitative 117.0 mg/L (0-3.3) Triglycerides Level 285 mg/dL (0-150) Procalcitonin 0.44 ng/mL (0.00-0.10) Test 01/13/20 05:26 01/13/20 07:55 Glucose (Fingerstick) 260 mg/dL (70-99) O2 Saturation 92 % (92-99) Arterial Blood pH 7.38 (7.35-7.45) Arterial Blood pCO2 at Patient Temp 41 mmHg (35-46) Arterial Blood pO2 at Patient Temp 67 mmHg (65-108) Arterial Blood HCO3 24 mmol/L (21-28) Arterial Blood Base Excess -1 mmol/L (-3-3) FiO2 100% Microbiology 01/08/20 Blood Culture - Preliminary, Resulted NO GROWTH AFTER 4 DAYS 01/06/20 Urine Culture - Final, Complete Medications Current Medications Etomidate (Amidate) 20 mg STK-MED ONCE IV ; Start 01/06/20 at 18:54; Stop 01/06/20 at 18:54; Status DC Succinylcholine Chloride (Anectine) 200 mg STK-MED ONCE .ROUTE ; Start 01/06/20 at 18:55; Stop 01/06/20 at 18:55; Status DC Propofol 50 ml @ As Directed STK-MED ONCE IV ; Start 01/06/20 at 18:55; Stop 01/06/20 at 18:56; Status DC Propofol 100 ml @ 0 mls/hr CONT PRN IV SEE PROTOCOL Last administered on 01/12at 06:03; Start 01/06/20 at 19:00 Fentanyl Citrate (Fentanyl 2ml Vial) 25 mcg PRN Q1HR PRN IV SEE COMMENTS; Start 01/06/20 at 19:00 Fentanyl Citrate (Fentanyl 2ml Vial) 50 mcg PRN Q1HR PRN IV SEE COMMENTS Last administered on 01/06/20at 19:42; Start 01/06/20 at 19:00 Chlorhexidine Gluconate (Peridex) 15 ml BID MM Last administered on 01/07/20at 08:16; Start 01/06/20 at 21:00; Stop 01/07/20 at 09:45; Status DC Midazolam HCl (Versed) 5 mg STK-MED ONCE .ROUTE ; Start 01/06/20 at 19:17; Stop 01/06/20 at 19:18; Status DC Midazolam HCl 50 mg/Sodium Chloride 50 ml @ 0 mls/hr 1X ONCE IV ; Start 01/06/20 at 19:30; Stop 01/06/20 at 19:31; Status UNV Albuterol/ Ipratropium (Duoneb) 3 ml STK-MED ONCE .ROUTE ; Start 01/06/20 at 19:27; Stop 01/06/20 at 19:27; Status DC Midazolam HCl 100 ml @ 0 mls/hr CONT PRN IV SEE PROTOCOL Last administered on 01/13/20at 02:59; Start 01/06/20 at 19:30 Propofol 50 ml @ 0 mls/hr 1X ONCE IV Last administered on 01/06/20at 18:55; Start 01/06/20 at 20:00; Stop 01/06/20 at 20:01; Status DC Midazolam HCl (Versed) 5 mg 1X ONCE NS Last administered on 01/06/20at 19:18; Start 01/06/20 at 19:18; Stop 01/06/20 at 19:59; Status DC Piperacillin Sod/ Tazobactam Sod 3.375 gm/Sodium Chloride 50 ml @ 100 mls/hr 1X ONCE IV Last administered on 01/06/20at 21:47; Start 01/06/20 at 20:45; Stop 01/06/20 at 21:14; Status DC Dexmedetomidine HCl 400 mcg/ Sodium Chloride 100 ml @ 0 mls/hr CONT PRN IV SEDATION Last administered on 01/13/20 09:05; Start 01/06/20 at 20:15 Sodium Chloride 500 ml @ 500 mls/hr 1X PRN PRN IV SEE COMMENTS; Start 01/06/20 at 20:15 Atropine Sulfate (ATROPINE 0.5mg SYRINGE) 0.5 mg PRN Q5MIN PRN IV SEE COMMENTS; Start 01/06/20 at 20:15 Fentanyl Citrate (Fentanyl 2ml Vial) 100 mcg 1X ONCE IVP Last administered on 01/06/20at 20:17; Start 01/06/20 at 20:15; Stop 01/06/20 at 20:18; Status DC Methylprednisolone Sodium Succinate (SOLU-Medrol 40MG VIAL) 40 mg Q8HRS IV Last administered on 01/13/20at 05:43; Start 01/06/20 at 22:00 Enoxaparin Sodium (Lovenox 40mg Syringe) 40 mg BID SQ Last administered on 01/07/20at 08:15; Start 01/06/20 at 21:30; Stop 01/07/20 at 09:47; Status DC Potassium Chloride/Dextrose/ Sod Cl 1,000 ml @ 125 mls/hr Q8H ONCE IV Last administered on 01/06/20at 22:13; Start 01/06/20 at 21:30; Stop 01/07/20 at 05 :29; Status DC Zinc Sulfate (Orazinc) 220 mg DAILY PO Last administered on 01/13/20 09:06; Start 01/07/20 at 09:00 Ondansetron HCl (Zofran) 4 mg PRN Q4HRS PRN IV NAUSEA/VOMITING; Start 01/06/20 at 21:30 Acetaminophen (Tylenol) 650 mg PRN Q4HRS PRN GT TEMP OVER 100.4F OR MILD PAIN Last administered on 01/12/20at 06:05; Start 01/06/20 at 21:30 Acetaminophen (Tylenol Supp) 650 mg PRN Q4HRS PRN SD TEMP OVER 100.4F OR MILD PAIN; Start 01/06/20 at 21:30 Docusate Sodium (Colace) 100 mg PRN BID PRN PO HARD STOOLS Last administered on 01/12/20at 08:26; Start 01/06/20 at 21:30 Piperacillin Sod/ Tazobactam Sod 3.375 gm/Sodium Chloride 50 ml @ 100 mls/hr Q6HRS IV Last administered on 01/13/20at 05:42; Start 01/07/20 at 00:00 Pantoprazole Sodium (PROTONIX VIAL for IV PUSH) 40 mg DAILYAC IVP Last administered on 01/13/20 09:05; Start 01/07/20 at 07:30 Norepinephrine Bitartrate 8 mg/ Dextrose 258 ml @ 12.578 mls/ hr CONT PRN IV PER PROTOCOL Last administered on 01/06/20at 22:15; Start 01/06/20 at 21:45 Sodium Chloride 1,000 ml @ 1,000 mls/hr 1X ONCE IV Last administered on 01/06/20at 21:44; Start 01/06/20 at 21:45; Stop 01/06/20 at 22:44; Status DC Fentanyl Citrate 30 ml @ 0 mls/hr CONT PRN IV SEE PROTOCOL Last administered on 01/08/20at 10:44; Start 01/06/20 at 21:45; Stop 01/08/20 at 14:49; Status DC Vecuronium [place] (Norcuron Bolus) 6 mg PRN Q2HR PRN IV VENT ASYNCHRONY Last administered on 01/08/20at 11:23; Start 01/06/20 at 21:45; Stop 01/08/20 at 14:48; Status DC Sodium Chloride 1,000 ml @ 1,000 mls/hr 1X ONCE IV Last administered on 01/06/20at 22:36; Start 01/06/20 at 22:30; Stop 01/06/20 at 23:29; Status DC Methylprednisolone Sodium Succinate (SOLU-Medrol 40MG VIAL) 40 mg Q8HRS IV ; Start 01/07/20 at 14:00; Status UNV Enoxaparin Sodium (Lovenox 80mg Syringe) 80 mg BID SQ Last administered on 01/07/20at 20:53; Start 01/07/20 at 21:00; Stop 01/08/20 at 08:57; Status DC Insulin Human Lispro (HumaLOG) 6 units TID SQ ; Start 01/07/20 at 14:00; Stop 01/07/20 at 10:05; Status DC Insulin Glargine (Lantus Syringe) 10 unit BID SQ Last administered on 01/08/20at 09:27; Start 01/07/20 at 21:00; Stop 01/08/20 at 11:25; Status DC Ascorbic Acid (Vitamin C) 250 mg Q6HRS PO Last administered on 01/13/20at 05:43; Start 01/07/20 at 12:00 Sodium Chloride 1,000 ml @ 75 mls/hr [id number] IV Last administered on 01/10/20at 19:33; Start 01/07/20 at 10:00; Stop 01/11/20 at 10:23; Status DC Insulin Human Lispro (HumaLOG) 6 units Q6HRS SQ Last administered on 01/08/20at 06:11; Start 01/07/20 at 12:00; Stop 01/08/20 at 11:25; Status DC Insulin Glargine (Lantus Syringe) 10 unit 1X ONCE SQ Last administered on 01/07/20at 11:40; Start 01/07/20 at 11:00; Stop 01/07/20 at 11:01; Status DC Enoxaparin Sodium (Lovenox 60mg Syringe) 60 mg BID SQ Last administered on 01/10/20at 08:55; Start 01/08/20 at 09:00; Stop 01/10/20 at 16:45; Status DC Vecuronium [place] (Norcuron Bolus) 6 mg PRN Q6HRS PRN IV SEDATION (2nd Choice) Last administered on 01/10/20at 16:36; Start 01/08/20 at 09:30 Insulin Glargine (Lantus Syringe) 14 unit BID SQ Last administered on 01/10/20at 09:24; Start 01/08/20 at 21:00; Stop 01/10/20 at 12:27; Status DC Insulin Human Lispro (HumaLOG) 8 units Q6HRS SQ Last administered on 01/10/20at 12:11; Start 01/08/20 at 12:00; Stop 01/10/20 at 12:27; Status DC Fentanyl Citrate 55 ml @ 0 mls/hr CONT PRN IV SEE PROTOCOL Last administered on 01/13/20at 03:13; Start 01/08/20 at 14:49 Lorazepam (Ativan Inj) 1 mg PRN Q1HR PRN IVP ANXIETY / AGITATION- MODERATE; Start 01/08/20 at 16:15 Lorazepam (Ativan Inj) 2 mg PRN Q1HR PRN IVP ANXIETY / AGITATION- SEVERE Last administered on 01/09/20at 13:10; Start 01/08/20 at 16:30 Insulin Human Lispro (HumaLOG) 6 units 1X ONCE SQ Last administered on 01/09/20at 06:20; Start 01/09/20 at 06:15; Stop 01/09/20 at 06:16; Status DC Hydralazine HCl (Apresoline Inj) 10 mg PRN Q4HRS PRN IVP ELEVATED BP, SEE COMMENTS Last administered on 01/13/20at 02:18; Start 01/10/20 at 09:15 Alteplase, Recombinant (Cathflo For Central Catheter Clearance) 1 mg 1X ONCE INT CAT Last administered on 01/10/20at 12:05; Start 01/10/20 at 11:00; Stop 01/10/20 at 11:01; Status DC Insulin Glargine (Lantus Syringe) 18 unit BID SQ Last administered on 01/11/20at 08:30; Start 01/10/20 at 21:00; Stop 01/11/20 at 10:03; Status DC Insulin Human Lispro (HumaLOG) 10 units Q6HRS SQ Last administered on 01/11/20at 05:53; Start 01/10/20 at 18:00; Stop 01/11/20 at 10:03; Status DC Vecuronium [place] 50 mg/ Miscellaneous 50 ml @ 4.027 mls/ hr CONT PRN IV SEE I/O RECORD Last administered on 01/12/20at 16:57; Start 01/10/20 at 16:15 Enoxaparin Sodium (Lovenox Per Pharmacy Treatment Dosing) 1 each PRN DAILY PRN MC SEE COMMENTS; Start 01/10/20 at 16:45 Enoxaparin Sodium (Lovenox 80mg Syringe) 80 mg Q12HR SQ Last administered on 01/13/20at 09:14; Start 01/10/20 at 21:00 Furosemide (Lasix) 40 mg 1X ONCE IVP Last administered on 01/11/20at 10:19; Start 01/11/20 at 10:00; Stop 01/11/20 at 10:01; Status DC Insulin Glargine (Lantus Syringe) 24 unit BID SQ Last administered on 01/13/20at 09:20; Start 01/11/20 at 10:30 Insulin Human Lispro (HumaLOG) 14 units Q6HRS SQ Last administered on 01/13/20at 05:42; Start 01/11/20 at 12:00 Info (Anti-Coagulation Monitoring By Pharmacy) 1 each PRN DAILY PRN MC SEE COMMENTS Last administered on 01/12/20at 09:59; Start 01/12/20 at 10:00 Vitals/I & O Vital Sign - Last 24 Hours 01/12/20 01/12/20 01/12/20 01/12/20 11:00 11:46 12:00 12:00 Temp 99.9 99.9 Pulse 66 66 Resp 22 22 B/P (MAP) 135/71 (92) 131/70 (90) Pulse Ox 100 100 99 O2 Delivery Ventilator Ventilator Mechanical Ventilator Ventilator 01/12/20 01/12/20 01/12/20 01/12/20 13:00 14:00 15:00 15:29 Pulse 67 62 62 Resp 22 22 22 B/P (MAP) 128/69 (88) 129/74 (92) 125/67 (86) Pulse Ox 99 99 99 100 O2 Delivery Ventilator Ventilator Ventilator Ventilator 01/12/20 01/12/20 01/12/20 01/12/20 16:00 16:00 17:00 18:00 Temp 97.4 97.4 Pulse 64 62 Resp 22 22 B/P (MAP) 126/68 (87) 120/62 (81) Pulse Ox 98 99 100 O2 Delivery Mechanical Ventilator Ventilator Ventilator O2 Flow Rate 18.0 01/12/20 01/12/20 01/12/20 01/12/20 18:00 18:30 19:00 20:00 Pulse 72 92 Resp 22 22 B/P (MAP) 149/63 (91) 167/75 (105) Pulse Ox 93 100 93 O2 Delivery Ventilator Ventilator Mechanical Ventilator O2 Flow Rate 18.0 01/12/20 01/12/20 01/12/20 01/12/20 20:00 20:26 21:00 22:00 Temp 97.6 97.6 Pulse 102 104 94 Resp B/P (MAP) 140/66 (90) 204/78 (120) 134/56 (82) Pulse Ox 88 85 80 86 O2 Delivery Ventilator Ventilator Ventilator Ventilator 01/12/20 01/12/20 01/12/20 01/13/20 23:00 23:52 23:59 00:01 Temp 99.8 99.8 Pulse 94 108 Resp B/P (MAP) 266/85 (145) 186/76 (112) Pulse Ox 90 88 89 O2 Delivery Ventilator Ventilator Mechanical Ventilator Ventilator 01/13/20 01/13/20 01/13/20 01/13/20 01:00 02:00 02:18 03:00 Pulse 122 115 115 107 Resp B/P (MAP) 221/80 (127) 167/66 (99) 188/71 134/58 (83) Pulse Ox 93 92 92 O2 Delivery Ventilator Ventilator Ventilator 01/13/20 01/13/20 01/13/20 01/13/20 03:13 03:26 03:43 04:00 Resp Pulse Ox 92 92 98 O2 Delivery Ventilator Ventilator Mechanical Ventilator O2 Flow Rate 18.0 18.0 01/13/20 01/13/20 01/13/20 01/13/20 04:00 05:00 06:00 07:35 Temp 100.1 100.1 Pulse 107 91 89 Resp B/P (MAP) 169/73 (105) 171/70 (103) 132/64 (86) Pulse Ox 98 92 92 92 O2 Delivery Ventilator Ventilator Ventilator Ventilator Intake and Output 01/12/20 01/12/20 01/13/20 15:00 23:00 07:00 Intake Total 250 ml 2204 ml 1522.2 ml Output Total 900 ml 775 ml 660 ml Balance -650 ml 1429 ml 862.2 ml Justicifation of Admission Dx: Justifications for Admission: Justification of Admission Dx: Yes MERVAT MARQUEZ MD Jan 13, 2020 10:54
--- NOTE | 2020-01-13 10:57 | NUR ---
SS following up with discharge planning. SS reviewed pt chart and discussed with pt RN. COVID19 positive. Pt remains on the vent at this time. Self pay. Pt on IV Zosyn. SS will continue to follow for discharge planning.
--- NOTE | 2020-01-13 11:41 | PDOC ---
PULMONARY PROGRESS NOTES DATE: 01/13/20 TIME: 11:37 Subjective remains intubated/sedated AC mode ,100%FIO2/14 PEEP febrile overnight nursing report hypoxia with minimal stimulation Full dose lovenox added 01/09 due to elevated ddimer, continues to decrease Vitals Vital Signs Date Time Temp Pulse Resp B/P (MAP) Pulse Ox O2 Delivery O2 Flow Rate FiO2 01/13/20 08:00 Mechanical Ventilator 01/13/20 07:35 92 01/13/20 06:00 89 22 132/64 (86) 01/13/20 04:00 100.1 100.1 01/13/20 03:43 18.0 Comments visual exam done due to COVID-Pandemia no resp distess VENT 100% and PEEP 12 no skin rash lower extremity edema Lungs: Other (Intubated) Labs Laboratory Tests Test 01/11/20 16:54 01/12/20 01:00 01/12/20 06:02 01/12/20 07:45 Glucose (Fingerstick) 303 mg/dL (70-99) 288 mg/dL (70-99) 245 mg/dL (70-99) O2 Saturation 87 % (92-99) Arterial Blood pH 7.37 (7.35-7.45) Arterial Blood pH (Temp corrected) 7.36 Arterial Blood pCO2 at Patient Temp 45 mmHg (35-46) Arterial Blood pCO2 (Temp correct) 47 mmHg Arterial Blood pO2 at Patient Temp 55 mmHg (65-108) Arterial Blood pO2 (Temp corrected) 58 mmHg Arterial Blood HCO3 26 mmol/L (21-28) Arterial Blood Base Excess 0 mmol/L (-3-3) FiO2 100 Test 01/12/20 07:50 01/12/20 08:15 01/12/20 12:54 01/12/20 17:55 D-Dimer (Shivani) 8.10 ug/mlFEU (0.00-0.50) Glucose (Fingerstick) 203 mg/dL (70-99) 254 mg/dL (70-99) 259 mg/dL (70-99) Test 01/13/20 00:26 01/13/20 05:20 01/13/20 05:26 01/13/20 07:55 Glucose (Fingerstick) 228 mg/dL (70-99) 260 mg/dL (70-99) White Blood Count 15.0 x10^3/uL (4.0-11.0) Red Blood Count 3.39 x10^6/uL (4.30-5.70) Hemoglobin 10.4 g/dL (13.0-17.5) Hematocrit 32.1 % (39.0-53.0) Mean Corpuscular Volume 95 fL (79-100) Mean Corpuscular Hemoglobin 31 pg (25-35) Mean Corpuscular Hemoglobin Concent 33 g/dL (31-37) Red Cell Distribution Width 14.6 % (11.5-14.5) Platelet Count 201 x10^3/uL (140-400) Neutrophils (%) (Auto) 94 % (31-73) Lymphocytes (%) (Auto) 2 % (24-48) Monocytes (%) (Auto) 2 % (0-9) Eosinophils (%) (Auto) 1 % (0-3) Basophils (%) (Auto) 1 % (0-3) Neutrophils # (Auto) 14.2 x10^3/uL (1.8-7.7) Lymphocytes # (Auto) 0.3 x10^3/uL (1.0-4.8) Monocytes # (Auto) 0.3 x10^3/uL (0.0-1.1) Eosinophils # (Auto) 0.1 x10^3/uL (0.0-0.7) Basophils # (Auto) 0.1 x10^3/uL (0.0-0.2) D-Dimer (Shivani) 7.66 ug/mlFEU (0.00-0.50) Sodium Level 153 mmol/L (136-145) Potassium Level 4.9 mmol/L (3.5-5.1) Chloride Level 116 mmol/L (98-107) Carbon Dioxide Level 29 mmol/L (21-32) Anion Gap 8 (6-14) Blood Urea Nitrogen 49 mg/dL (8-26) Creatinine 0.9 mg/dL (0.7-1.3) Estimated GFR (Cockcroft-Gault) 84.7 Glucose Level 272 mg/dL (70-99) Calcium Level 7.5 mg/dL (8.5-10.1) Ferritin 924 ng/mL (26-388) C-Reactive Protein, Quantitative 117.0 mg/L (0-3.3) Triglycerides Level 285 mg/dL (0-150) Procalcitonin 0.44 ng/mL (0.00-0.10) O2 Saturation 92 % (92-99) Arterial Blood pH 7.38 (7.35-7.45) Arterial Blood pCO2 at Patient Temp 41 mmHg (35-46) Arterial Blood pO2 at Patient Temp 67 mmHg (65-108) Arterial Blood HCO3 24 mmol/L (21-28) Arterial Blood Base Excess -1 mmol/L (-3-3) FiO2 100% Laboratory Tests Test 01/12/20 12:54 01/12/20 17:55 01/13/20 00:26 01/13/20 05:20 Glucose (Fingerstick) 254 mg/dL (70-99) 259 mg/dL (70-99) 228 mg/dL (70-99) White Blood Count 15.0 x10^3/uL (4.0-11.0) Red Blood Count 3.39 x10^6/uL (4.30-5.70) Hemoglobin 10.4 g/dL (13.0-17.5) Hematocrit 32.1 % (39.0-53.0) Mean Corpuscular Volume 95 fL (79-100) Mean Corpuscular Hemoglobin 31 pg (25-35) Mean Corpuscular Hemoglobin Concent 33 g/dL (31-37) Red Cell Distribution Width 14.6 % (11.5-14.5) Platelet Count 201 x10^3/uL (140-400) Neutrophils (%) (Auto) 94 % (31-73) Lymphocytes (%) (Auto) 2 % (24-48) Monocytes (%) (Auto) 2 % (0-9) Eosinophils (%) (Auto) 1 % (0-3) Basophils (%) (Auto) 1 % (0-3) Neutrophils # (Auto) 14.2 x10^3/uL (1.8-7.7) Lymphocytes # (Auto) 0.3 x10^3/uL (1.0-4.8) Monocytes # (Auto) 0.3 x10^3/uL (0.0-1.1) Eosinophils # (Auto) 0.1 x10^3/uL (0.0-0.7) Basophils # (Auto) 0.1 x10^3/uL (0.0-0.2) D-Dimer (Shivani) 7.66 ug/mlFEU (0.00-0.50) Sodium Level 153 mmol/L (136-145) Potassium Level 4.9 mmol/L (3.5-5.1) Chloride Level 116 mmol/L (98-107) Carbon Dioxide Level 29 mmol/L (21-32) Anion Gap 8 (6-14) Blood Urea Nitrogen 49 mg/dL (8-26) Creatinine 0.9 mg/dL (0.7-1.3) Estimated GFR (Cockcroft-Gault) 84.7 Glucose Level 272 mg/dL (70-99) Calcium Level 7.5 mg/dL (8.5-10.1) Ferritin 924 ng/mL (26-388) C-Reactive Protein, Quantitative 117.0 mg/L (0-3.3) Triglycerides Level 285 mg/dL (0-150) Procalcitonin 0.44 ng/mL (0.00-0.10) Test 01/13/20 05:26 01/13/20 07:55 Glucose (Fingerstick) 260 mg/dL (70-99) O2 Saturation 92 % (92-99) Arterial Blood pH 7.38 (7.35-7.45) Arterial Blood pCO2 at Patient Temp 41 mmHg (35-46) Arterial Blood pO2 at Patient Temp 67 mmHg (65-108) Arterial Blood HCO3 24 mmol/L (21-28) Arterial Blood Base Excess -1 mmol/L (-3-3) FiO2 100% Comments CXR 01/06 IMPRESSION: 1. Bilateral diffuse infiltrates are increased in the left base and mildly improved elsewhere. Impression . 1. Acute hypoxic respiratory failure secondary to COVID-19 pneumonia/ARDS/acute lung injury--worsening oxygen requirements 2. Abnormal chest x-ray with bilateral infiltrates consistent with COVID-19 pneumonia. 3. Hypotension secondary to combination of hypovolemia and sepsis status post 2 liters of IV fluids. no pressors, now hypertensive 4. Acute kidney injury, improving. 5. Severe protein-calorie malnutrition. 6. Abnormal D-dimer related to COVID-19 pneumonia. Full dose lovenox added 01/09 due to increase in D-dimer to 20, now decreasing Plan . RECOMMENDATIONS: Continue present assist control mode, PEEP of 14 and FiO2 of 100% ABG reviewed, ensure adequate sedation, ARDS, no improvement clinically Follow chest x-rays as needed. Broad spectrum antibiotic. Cont. IV steroids Abnormal D-dimer related to COVID-19 pneumonia. Full dose lovenox added 01/09 due to increase in D-dimer to 20. dopplers neg for DVT, D-dimer continues to decrease Stress ulcer prophylaxis. s/p Plasma cont. TF for nutritional support D/W RN and RT Will reach out to family to discuss code status Prognosis poor Critical care time 30 minutes. addend: d/w brother. Explained critical illness.and prognosis. He agrees with DNR and continuing aggressive care YVONNE TAYLOR MD Jan 13, 2020 11:41
[2020-01-13] MEDS: VECURONIUM BROMIDE 50 MG in TOTAL VOLUME 50 ML IV PRN (13:45)
[2020-01-13] MEDS: ANTI-COAG MONITOR BY PHARMACY. MC PRN (14:14)
[2020-01-14] VITALS (24 sets, daily range): BP systolic 92–185; BP diastolic 46–70
[2020-01-14] MEDS: DEXMEDETOMIDINE 400 MCG in IV NORMAL SALINE 100ML 96 ML IV PRN ×3 (00:55→15:12)
[2020-01-14] MEDS: MIDAZOLAM 100mg/100ml NS BAG 100 ML IV PRN ×3 (00:56→21:47)
[2020-01-14] MEDS: INSULIN LISPRO 300 UNITS/3 ML VIAL. SQ SCH ×5 (00:57→17:26)
[2020-01-14] MEDS: PROPOFOL 100 ML IV PRN ×5 (04:07→20:41)
[2020-01-14] MEDS: ASCORBIC ACID 500 MG TABLET PO SCH ×3 (05:51→17:05)
[2020-01-14] MEDS: PIPERACILLIN/TAZOBACTAM 3.375 GM in IV NORMAL SALINE 50ML 50 ML IV SCH ×3 (05:51→17:05)
[2020-01-14] MEDS: methylPREDNISolone SOD SUCC PF 40 MG/ML VIAL. IV SCH ×3 (05:51→20:41)
[2020-01-14] MEDS: ACETAMINOPHEN 650 MG/20.3 ML SOLUTION. GT PRN (05:51)
[2020-01-14] MEDS: fentaNYL HIGH DOSE PCA 55 ML IV PRN ×2 (05:54→19:25)
[2020-01-14] MEDS: VECURONIUM BROMIDE 50 MG in TOTAL VOLUME 50 ML IV PRN ×2 (05:55→11:57)
[2020-01-14 06:01] LABS: BASO # 0.1 x10^3/uL (0.0-0.2); BASO % 1 % (0-3); EOS # 0.1 x10^3/uL (0.0-0.7); EOS % 1 % (0-3); HEMOGLOBIN 9.3 g/dL (13.0-17.5); LYMPH # 0.4 x10^3/uL (1.0-4.8); LYMPH % 4 % (24-48); MEAN CORPUSCULAR HEMOGLOBIN 31 pg (25-35); MEAN CORPUSCULAR HGB CONC 32 g/dL (31-37); MEAN CORPUSCULAR VOLUME 95 fL (79-100); MONO # 0.2 x10^3/uL (0.0-1.1); MONO % 2 % (0-9); NEUT # 10.8 x10^3/uL (1.8-7.7); NEUT % 93 % (31-73); PLATELET COUNT 189 x10^3/uL (140-400); RED BLOOD COUNT 3.06 x10^6/uL (4.30-5.70); RED CELL DISTRIBUTION WIDTH 14.1 % (11.5-14.5); WHITE BLOOD COUNT 11.7 x10^3/uL (4.0-11.0)
[2020-01-14 06:15] LABS: CALCIUM 7.6 mg/dL (8.5-10.1); CREATININE 0.9 mg/dL (0.7-1.3); GFR 84.7; POTASSIUM 4.7 mmol/L (3.5-5.1)
[2020-01-14 07:44] LABS: BASE EXCESS ABG -1 mmol/L (-3-3); HCO3 ABG 25 mmol/L (21-28); PCO2 ABG 49 mmHg (35-46); PO2 ABG 51 mmHg (65-108); SAT O2 ABG 80 % (92-99)
[2020-01-14] MEDS: ZINC SULFATE 220 MG CAPSULE. PO SCH (07:44)
[2020-01-14] MEDS: PANTOPRAZOLE IV PUSH 40 MG VIAL. IVP SCH (07:44)
[2020-01-14 07:47] LABS: FIO2 ABG 100
[2020-01-14 07:53] LABS: % EOS 1 % (0-5); % LYMPHS 3 % (24-48); % MONOS 4 % (0-10); % SEGS 92 % (35-66); PLT ESTIMATE ADEQUATE (ADEQUATE)
[2020-01-14 07:58] LABS: ANISOCYTOSIS SLIGHT
--- NOTE | 2020-01-14 08:50 | PDOC ---
PULMONARY PROGRESS NOTES DATE: 01/14/20 TIME: 08:50 Subjective remains intubated/sedated AC mode ,100%FIO2/14 PEEP, low P02 on ABG nursing report hypoxia with minimal stimulation Vitals Vital Signs Date Time Temp Pulse Resp B/P (MAP) Pulse Ox O2 Delivery O2 Flow Rate FiO2 01/14/20 07:22 85 Ventilator 01/14/20 06:24 22 18.0 01/14/20 06:00 82 150/56 (87) 01/14/20 04:00 100.2 100.2 Comments visual exam done due to COVID-Pandemia no resp distess VENT 100% and PEEP 12 no skin rash lower extremity edema Lungs: Other (Intubated) Labs Laboratory Tests Test 01/12/20 12:54 01/12/20 17:55 01/13/20 00:26 01/13/20 05:20 Glucose (Fingerstick) 254 mg/dL (70-99) 259 mg/dL (70-99) 228 mg/dL (70-99) White Blood Count 15.0 x10^3/uL (4.0-11.0) Red Blood Count 3.39 x10^6/uL (4.30-5.70) Hemoglobin 10.4 g/dL (13.0-17.5) Hematocrit 32.1 % (39.0-53.0) Mean Corpuscular Volume 95 fL (79-100) Mean Corpuscular Hemoglobin 31 pg (25-35) Mean Corpuscular Hemoglobin Concent 33 g/dL (31-37) Red Cell Distribution Width 14.6 % (11.5-14.5) Platelet Count 201 x10^3/uL (140-400) Neutrophils (%) (Auto) 94 % (31-73) Lymphocytes (%) (Auto) 2 % (24-48) Monocytes (%) (Auto) 2 % (0-9) Eosinophils (%) (Auto) 1 % (0-3) Basophils (%) (Auto) 1 % (0-3) Neutrophils # (Auto) 14.2 x10^3/uL (1.8-7.7) Lymphocytes # (Auto) 0.3 x10^3/uL (1.0-4.8) Monocytes # (Auto) 0.3 x10^3/uL (0.0-1.1) Eosinophils # (Auto) 0.1 x10^3/uL (0.0-0.7) Basophils # (Auto) 0.1 x10^3/uL (0.0-0.2) D-Dimer (Shivani) 7.66 ug/mlFEU (0.00-0.50) Sodium Level 153 mmol/L (136-145) Potassium Level 4.9 mmol/L (3.5-5.1) Chloride Level 116 mmol/L (98-107) Carbon Dioxide Level 29 mmol/L (21-32) Anion Gap 8 (6-14) Blood Urea Nitrogen 49 mg/dL (8-26) Creatinine 0.9 mg/dL (0.7-1.3) Estimated GFR (Cockcroft-Gault) 84.7 Glucose Level 272 mg/dL (70-99) Calcium Level 7.5 mg/dL (8.5-10.1) Ferritin 924 ng/mL (26-388) C-Reactive Protein, Quantitative 117.0 mg/L (0-3.3) Triglycerides Level 285 mg/dL (0-150) Procalcitonin 0.44 ng/mL (0.00-0.10) Test 01/13/20 05:26 01/13/20 07:55 01/13/20 12:04 01/13/20 17:41 Glucose (Fingerstick) 260 mg/dL (70-99) 292 mg/dL (70-99) 252 mg/dL (70-99) O2 Saturation 92 % (92-99) Arterial Blood pH 7.38 (7.35-7.45) Arterial Blood pCO2 at Patient Temp 41 mmHg (35-46) Arterial Blood pO2 at Patient Temp 67 mmHg (65-108) Arterial Blood HCO3 24 mmol/L (21-28) Arterial Blood Base Excess -1 mmol/L (-3-3) FiO2 100% Test 01/13/20 23:57 01/14/20 05:30 01/14/20 05:35 01/14/20 07:30 Glucose (Fingerstick) 243 mg/dL (70-99) 209 mg/dL (70-99) White Blood Count 11.7 x10^3/uL (4.0-11.0) Red Blood Count 3.06 x10^6/uL (4.30-5.70) Hemoglobin 9.3 g/dL (13.0-17.5) Hematocrit 29.0 % (39.0-53.0) Mean Corpuscular Volume 95 fL (79-100) Mean Corpuscular Hemoglobin 31 pg (25-35) Mean Corpuscular Hemoglobin Concent 32 g/dL (31-37) Red Cell Distribution Width 14.1 % (11.5-14.5) Platelet Count 189 x10^3/uL (140-400) Neutrophils (%) (Auto) 93 % (31-73) Lymphocytes (%) (Auto) 4 % (24-48) Monocytes (%) (Auto) 2 % (0-9) Eosinophils (%) (Auto) 1 % (0-3) Basophils (%) (Auto) 1 % (0-3) Neutrophils # (Auto) 10.8 x10^3/uL (1.8-7.7) Lymphocytes # (Auto) 0.4 x10^3/uL (1.0-4.8) Monocytes # (Auto) 0.2 x10^3/uL (0.0-1.1) Eosinophils # (Auto) 0.1 x10^3/uL (0.0-0.7) Basophils # (Auto) 0.1 x10^3/uL (0.0-0.2) Segmented Neutrophils % 92 % (35-66) Lymphocytes % 3 % (24-48) Monocytes % 4 % (0-10) Eosinophils % 1 % (0-5) Toxic Granulation Platelet Estimate Adequate (ADEQUATE) Anisocytosis Slight Sodium Level 154 mmol/L (136-145) Potassium Level 4.7 mmol/L (3.5-5.1) Chloride Level 119 mmol/L (98-107) Carbon Dioxide Level 27 mmol/L (21-32) Anion Gap 8 (6-14) Blood Urea Nitrogen 49 mg/dL (8-26) Creatinine 0.9 mg/dL (0.7-1.3) Estimated GFR (Cockcroft-Gault) 84.7 Glucose Level 221 mg/dL (70-99) Calcium Level 7.6 mg/dL (8.5-10.1) O2 Saturation 80 % (92-99) Arterial Blood pH 7.33 (7.35-7.45) [facility] ([facility]-46[facility] Arterial Blood pO2 at Patient Temp 51 mmHg (65-108) Arterial Blood HCO3 25 mmol/L (21-28) Arterial Blood Base Excess -1 mmol/L (-3-3) FiO2 100 Laboratory Tests Test 01/13/20 12:04 01/13/20 17:41 01/13/20 23:57 01/14/20 05:30 Glucose (Fingerstick) 292 mg/dL (70-99) 252 mg/dL (70-99) 243 mg/dL (70-99) White Blood Count 11.7 x10^3/uL (4.0-11.0) Red Blood Count 3.06 x10^6/uL (4.30-5.70) Hemoglobin 9.3 g/dL (13.0-17.5) Hematocrit 29.0 % (39.0-53.0) Mean Corpuscular Volume 95 fL (79-100) Mean Corpuscular Hemoglobin 31 pg (25-35) Mean Corpuscular Hemoglobin Concent 32 g/dL (31-37) Red Cell Distribution Width 14.1 % (11.5-14.5) Platelet Count 189 x10^3/uL (140-400) Neutrophils (%) (Auto) 93 % (31-73) Lymphocytes (%) (Auto) 4 % (24-48) Monocytes (%) (Auto) 2 % (0-9) Eosinophils (%) (Auto) 1 % (0-3) Basophils (%) (Auto) 1 % (0-3) Neutrophils # (Auto) 10.8 x10^3/uL (1.8-7.7) Lymphocytes # (Auto) 0.4 x10^3/uL (1.0-4.8) Monocytes # (Auto) 0.2 x10^3/uL (0.0-1.1) Eosinophils # (Auto) 0.1 x10^3/uL (0.0-0.7) Basophils # (Auto) 0.1 x10^3/uL (0.0-0.2) Segmented Neutrophils % 92 % (35-66) Lymphocytes % 3 % (24-48) Monocytes % 4 % (0-10) Eosinophils % 1 % (0-5) Toxic Granulation Platelet Estimate Adequate (ADEQUATE) Anisocytosis Slight Sodium Level 154 mmol/L (136-145) Potassium Level 4.7 mmol/L (3.5-5.1) Chloride Level 119 mmol/L (98-107) Carbon Dioxide Level 27 mmol/L (21-32) Anion Gap 8 (6-14) Blood Urea Nitrogen 49 mg/dL (8-26) Creatinine 0.9 mg/dL (0.7-1.3) Estimated GFR (Cockcroft-Gault) 84.7 Glucose Level 221 mg/dL (70-99) Calcium Level 7.6 mg/dL (8.5-10.1) Test 01/14/20 05:35 01/14/20 07:30 Glucose (Fingerstick) 209 mg/dL (70-99) O2 Saturation 80 % (92-99) Arterial Blood pH 7.33 (7.35-7.45) Arterial Blood pCO2 at Patient Temp 49 mmHg (35-46) Arterial Blood pO2 at Patient Temp 51 mmHg (65-108) Arterial Blood HCO3 25 mmol/L (21-28) Arterial Blood Base Excess -1 mmol/L (-3-3) FiO2 100 Comments CXR 01/06 IMPRESSION: 1. Bilateral diffuse infiltrates are increased in the left base and mildly improved elsewhere. CXR 01/14/20 Impression: Slight interval increase in the bilateral perihilar infiltrates. Impression . 1. Acute hypoxic respiratory failure secondary to COVID-19 pneumonia/ARDS/acute lung injury--worsening oxygen requirements 2. Abnormal chest x-ray with bilateral infiltrates consistent with COVID-19 pneumonia. 3. Hypotension secondary to combination of hypovolemia and sepsis status post 2 liters of IV fluids. no pressors, now hypertensive 4. Acute kidney injury--resolved 5. Severe protein-calorie malnutrition. 6. Abnormal D-dimer related to COVID-19 pneumonia. Full dose lovenox added 01/09 due to increase in D-dimer to 20, now decreasing Plan . RECOMMENDATIONS: Continue present assist control mode, PEEP of 14 and FiO2 of 100% ABG reviewed, ensure adequate sedation, ARDS, no improvement clinically Follow chest x-rays as needed. Broad spectrum antibiotic. Cont. IV steroids, will begin taper, full ten day course id over 01/16/2020 Abnormal D-dimer related to COVID-19 pneumonia. Full dose lovenox added 8/24 due to increase in D-dimer to 20. dopplers neg for DVT, D-dimer continues to decrease Stress ulcer prophylaxis. s/p Plasma cont. TF for nutritional support Pt doing poorly not expected to survive D/W RN and RT and discussed with via cryacom invertebrate paleontologist-- agrees with DNR and updated of clinical prognosis PT. is DNR Prognosis poor Critical care time 30 minutes. ACACIA MATIAS MD Jan 14, 2020 08:50
--- NOTE | 2020-01-14 09:29 | RAD ---
AP portable chest radiograph 01/14/2020 Clinical History: Covid 19. An AP erect portable digital radiograph of the chest was obtained. Comparison study is dated 01/08/2020. The right internal jugular central venous catheter and NG tube are unchanged in position. The cardiac silhouette is mildly enlarged. The thoracic aorta is mildly tortuous. Bilateral perihilar infiltrates are seen which appear increased slightly. No pneumothorax or pleural effusion is noted. The osseous structures are unchanged. Impression: Slight interval increase in the bilateral perihilar infiltrates. Electronically signed by: Fredis Burns MD (01/14/2020 9:25 AM) [place] [id number]
[2020-01-14] MEDS: INSULIN GLARGINE SYRINGE. SQ SCH ×2 (10:08→20:42)
--- NOTE | 2020-01-14 10:51 | PDOC ---
PROGRESS NOTES Date of Service: DATE: 01/14/20 TIME: 10:47 Chief Complaint Chief Complaint Assessment/Plan Acute hypoxemic respiratory failure Leukocytosis with bandemia secondary to septic process Hyponatremia secondary to low effective circulatory volume Acue renal failure due to vasomotor nephropathy most likely Hyperglycemia mild transaminitis Uncontrolled hypertension History of Present Illness History of Present Illness History of Present Illness Patient is a 54-year-old gentleman who was diagnosed with COVID-19 infection on Friday 5 days prior to his admission to the intensive care unit. Apparently the patient reported worsening respiratory distress reason why he came to the emergency department for evaluation and treatment. The story was quite limited since the patient was speaking Urdu only and his acuity was such that he required mechanical ventilation and prompt intubation by the emergency de partment physician. At the present time patient is intubated and sedated continues to require a lot of support no pertinent past medical history was reported he is admitted to the intensive care unit for further treatment 01/10/2020 Continues to require full support, glycemia has been noted in hypertension as well. Discussed with nursing staff, all of concerns were addressed to the best of my abilities no acute events reported overnight 01/11/2020 No acute events reported overnight, case discussed with nursing staff patient in no acute distress 01/12/2020 Per nursing staff, patient febrile overnight, treated with Tylenol and tepid water bath. Case discussed with nursing staff, continue with IV antibiotics and full VTE prophylaxis. 01/13/2020 Patient still febrile overnight. O2 requirement increasing. Discussed with RN. 01/14/2020 Patient still intubated and sedated. Discussed with RN, patient was made DNR. Nursing concerned about lack of bowel movements and abdominal distention. Will schedule MiraLAX. Vitals Vitals Vital Signs Date Time Temp Pulse Resp B/P (MAP) Pulse Ox O2 Delivery O2 Flow Rate FiO2 01/14/20 10:00 72 22 141/61 (87) 95 Ventilator 01/14/20 08:00 98.7 98.7 01/14/20 06:24 18.0 Physical Exam General: No acute distress, Other (Intubated and sedated) Heart: Regular rate Lungs: Other (Intubated) Abdomen: Other (Nondistended) Extremities: No clubbing, No cyanosis Skin: No rashes, No breakdown Labs LABS Laboratory Tests Test 01/13/20 12:04 01/13/20 17:41 01/13/20 23:57 01/14/20 05:30 Glucose (Fingerstick) 292 mg/dL (70-99) 252 mg/dL (70-99) 243 mg/dL (70-99) White Blood Count 11.7 x10^3/uL (4.0-11.0) Red Blood Count 3.06 x10^6/uL (4.30-5.70) Hemoglobin 9.3 g/dL (13.0-17.5) Hematocrit 29.0 % (39.0-53.0) Mean Corpuscular Volume 95 fL (79-100) Mean Corpuscular Hemoglobin 31 pg (25-35) Mean Corpuscular Hemoglobin Concent 32 g/dL (31-37) Red Cell Distribution Width 14.1 % (11.5-14.5) Platelet Count 189 x10^3/uL (140-400) Neutrophils (%) (Auto) 93 % (31-73) Lymphocytes (%) (Auto) 4 % (24-48) Monocytes (%) (Auto) 2 % (0-9) Eosinophils (%) (Auto) 1 % (0-3) Basophils (%) (Auto) 1 % (0-3) Neutrophils # (Auto) 10.8 x10^3/uL (1.8-7.7) Lymphocytes # (Auto) 0.4 x10^3/uL (1.0-4.8) Monocytes # (Auto) 0.2 x10^3/uL (0.0-1.1) Eosinophils # (Auto) 0.1 x10^3/uL (0.0-0.7) Basophils # (Auto) 0.1 x10^3/uL (0.0-0.2) Segmented Neutrophils % 92 % (35-66) Lymphocytes % 3 % (24-48) Monocytes % 4 % (0-10) Eosinophils % 1 % (0-5) Toxic Granulation Platelet Estimate Adequate (ADEQUATE) Anisocytosis Slight Sodium Level 154 mmol/L (136-145) Potassium Level 4.7 mmol/L (3.5-5.1) Chloride Level 119 mmol/L (98-107) Carbon Dioxide Level 27 mmol/L (21-32) Anion Gap 8 (6-14) Blood Urea Nitrogen 49 mg/dL (8-26) Creatinine 0.9 mg/dL (0.7-1.3) Estimated GFR (Cockcroft-Gault) 84.7 Glucose Level 221 mg/dL (70-99) Calcium Level 7.6 mg/dL (8.5-10.1) Test 01/14/20 05:35 01/14/20 07:30 Glucose (Fingerstick) 209 mg/dL (70-99) O2 Saturation 80 % (92-99) Arterial Blood pH 7.33 (7.35-7.45) Arterial Blood pCO2 at Patient Temp 49 mmHg (35-46) Arterial Blood pO2 at Patient Temp 51 mmHg (65-108) Arterial Blood HCO3 25 mmol/L (21-28) Arterial Blood Base Excess -1 mmol/L (-3-3) FiO2 100 Review of Systems Review of Systems Unable to obtain due to clinical condition Assessment and Plan Assessmemt and Plan COVID-19, respiratory failure Plan: Continue IV antibiotics, continue IV steroids, continue full dose Lovenox. Problems: (1) Person under investigation for COVID-19 (2) Respiratory failure Comment Review of Relevant I have reviewed the following items hong (where applicable) has been applied. Labs Laboratory Tests Test 01/12/20 12:54 01/12/20 17:55 01/13/20 00:26 01/13/20 05:20 Glucose (Fingerstick) 254 mg/dL (70-99) 259 mg/dL (70-99) 228 mg/dL (70-99) White Blood Count 15.0 x10^3/uL (4.0-11.0) Red Blood Count 3.39 x10^6/uL (4.30-5.70) Hemoglobin 10.4 g/dL (13.0-17.5) Hematocrit 32.1 % (39.0-53.0) Mean Corpuscular Volume 95 fL (79-100) Mean Corpuscular Hemoglobin 31 pg (25-35) Mean Corpuscular Hemoglobin Concent 33 g/dL (31-37) Red Cell Distribution Width 14.6 % (11.5-14.5) Platelet Count 201 x10^3/uL (140-400) Neutrophils (%) (Auto) 94 % (31-73) Lymphocytes (%) (Auto) 2 % (24-48) Monocytes (%) (Auto) 2 % (0-9) Eosinophils (%) (Auto) 1 % (0-3) Basophils (%) (Auto) 1 % (0-3) Neutrophils # (Auto) 14.2 x10^3/uL (1.8-7.7) Lymphocytes # (Auto) 0.3 x10^3/uL (1.0-4.8) Monocytes # (Auto) 0.3 x10^3/uL (0.0-1.1) Eosinophils # (Auto) 0.1 x10^3/uL (0.0-0.7) Basophils # (Auto) 0.1 x10^3/uL (0.0-0.2) D-Dimer (Shivani) 7.66 ug/mlFEU (0.00-0.50) Sodium Level 153 mmol/L (136-145) Potassium Level 4.9 mmol/L (3.5-5.1) Chloride Level 116 mmol/L (98-107) Carbon Dioxide Level 29 mmol/L (21-32) Anion Gap 8 (6-14) Blood Urea Nitrogen 49 mg/dL (8-26) Creatinine 0.9 mg/dL (0.7-1.3) Estimated GFR (Cockcroft-Gault) 84.7 Glucose Level 272 mg/dL (70-99) Calcium Level 7.5 mg/dL (8.5-10.1) Ferritin 924 ng/mL (26-388) C-Reactive Protein, Quantitative 117.0 mg/L (0-3.3) Triglycerides Level 285 mg/dL (0-150) Procalcitonin 0.44 ng/mL (0.00-0.10) Test 01/13/20 05:26 01/13/20 07:55 01/13/20 12:04 01/13/20 17:41 Glucose (Fingerstick) 260 mg/dL (70-99) 292 mg/dL (70-99) 252 mg/dL (70-99) O2 Saturation 92 % (92-99) Arterial Blood pH 7.38 (7.35-7.45) Arterial Blood pCO2 at Patient Temp 41 mmHg (35-46) Arterial Blood pO2 at Patient Temp 67 mmHg (65-108) Arterial Blood HCO3 24 mmol/L (21-28) Arterial Blood Base Excess -1 mmol/L (-3-3) FiO2 100% Test 01/13/20 23:57 01/14/20 05:30 01/14/20 05:35 01/14/20 07:30 Glucose (Fingerstick) 243 mg/dL (70-99) 209 mg/dL (70-99) White Blood Count 11.7 x10^3/uL (4.0-11.0) Red Blood Count 3.06 x10^6/uL (4.30-5.70) Hemoglobin 9.3 g/dL (13.0-17.5) Hematocrit 29.0 % (39.0-53.0) Mean Corpuscular Volume 95 fL (79-100) Mean Corpuscular Hemoglobin 31 pg (25-35) Mean Corpuscular Hemoglobin Concent 32 g/dL (31-37) Red Cell Distribution Width 14.1 % (11.5-14.5) Platelet Count 189 x10^3/uL (140-400) Neutrophils (%) (Auto) 93 % (31-73) Lymphocytes (%) (Auto) 4 % (24-48) Monocytes (%) (Auto) 2 % (0-9) Eosinophils (%) (Auto) 1 % (0-3) Basophils (%) (Auto) 1 % (0-3) Neutrophils # (Auto) 10.8 x10^3/uL (1.8-7.7) Lymphocytes # (Auto) 0.4 x10^3/uL (1.0-4.8) Monocytes # (Auto) 0.2 x10^3/uL (0.0-1.1) Eosinophils # (Auto) 0.1 x10^3/uL (0.0-0.7) Basophils # (Auto) 0.1 x10^3/uL (0.0-0.2) Segmented Neutrophils % 92 % (35-66) Lymphocytes % 3 % (24-48) Monocytes % 4 % (0-10) Eosinophils % 1 % (0-5) Toxic Granulation Platelet Estimate Adequate (ADEQUATE) Anisocytosis Slight Sodium Level 154 mmol/L (136-145) Potassium Level 4.7 mmol/L (3.5-5.1) Chloride Level 119 mmol/L (98-107) Carbon Dioxide Level 27 mmol/L (21-32) Anion Gap 8 (6-14) Blood Urea Nitrogen 49 mg/dL (8-26) Creatinine 0.9 mg/dL (0.7-1.3) Estimated GFR (Cockcroft-Gault) 84.7 Glucose Level 221 mg/dL (70-99) Calcium Level 7.6 mg/dL (8.5-10.1) O2 Saturation 80 % (92-99) Arterial Blood pH 7.33 (7.35-7.45) Arterial Blood pCO2 at Patient Temp 49 mmHg (35-46) Arterial Blood pO2 at Patient Temp 51 mmHg (65-108) Arterial Blood HCO3 25 mmol/L (21-28) Arterial Blood Base Excess -1 mmol/L (-3-3) FiO2 100 Laboratory Tests Test 01/13/20 12:04 01/13/20 17:41 01/13/20 23:57 01/14/20 05:30 Glucose (Fingerstick) 292 mg/dL (70-99) 252 mg/dL (70-99) 243 mg/dL (70-99) White Blood Count 11.7 x10^3/uL (4.0-11.0) Red Blood Count 3.06 x10^6/uL (4.30-5.70) Hemoglobin 9.3 g/dL (13.0-17.5) Hematocrit 29.0 % (39.0-53.0) Mean Corpuscular Volume 95 fL (79-100) Mean Corpuscular Hemoglobin 31 pg (25-35) Mean Corpuscular Hemoglobin Concent 32 g/dL (31-37) Red Cell Distribution Width 14.1 % (11.5-14.5) Platelet Count 189 x10^3/uL (140-400) Neutrophils (%) (Auto) 93 % (31-73) Lymphocytes (%) (Auto) 4 % (24-48) Monocytes (%) (Auto) 2 % (0-9) Eosinophils (%) (Auto) 1 % (0-3) Basophils (%) (Auto) 1 % (0-3) Neutrophils # (Auto) 10.8 x10^3/uL (1.8-7.7) Lymphocytes # (Auto) 0.4 x10^3/uL (1.0-4.8) Monocytes # (Auto) 0.2 x10^3/uL (0.0-1.1) Eosinophils # (Auto) 0.1 x10^3/uL (0.0-0.7) Basophils # (Auto) 0.1 x10^3/uL (0.0-0.2) Segmented Neutrophils % 92 % (35-66) Lymphocytes % 3 % (24-48) Monocytes % 4 % (0-10) Eosinophils % 1 % (0-5) Toxic Granulation Platelet Estimate Adequate (ADEQUATE) Anisocytosis Slight Sodium Level 154 mmol/L (136-145) Potassium Level 4.7 mmol/L (3.5-5.1) Chloride Level 119 mmol/L (98-107) Carbon Dioxide Level 27 mmol/L (21-32) Anion Gap 8 (6-14) Blood Urea Nitrogen 49 mg/dL (8-26) Creatinine 0.9 mg/dL (0.7-1.3) Estimated GFR (Cockcroft-Gault) 84.7 Glucose Level 221 mg/dL (70-99) Calcium Level 7.6 mg/dL (8.5-10.1) Test 01/14/20 05:35 01/14/20 07:30 Glucose (Fingerstick) 209 mg/dL (70-99) O2 Saturation 80 % (92-99) Arterial Blood pH 7.33 (7.35-7.45) Arterial Blood pCO2 at Patient Temp 49 mmHg (35-46) Arterial Blood pO2 at Patient Temp 51 mmHg (65-108) Arterial Blood HCO3 25 mmol/L (21-28) Arterial Blood Base Excess -1 mmol/L (-3-3) FiO2 100 Microbiology 01/08/20 Blood Culture - Final, Complete NO GROWTH AFTER 5 DAYS 01/06/20 Urine Culture - Final, Complete Medications Current Medications Etomidate (Amidate) 20 mg STK-MED ONCE IV ; Start 01/06/20 at 18:54; Stop 01/06/20 at 18:54; Status DC Succinylcholine Chloride (Anectine) 200 mg STK-MED ONCE .ROUTE ; Start 01/06/20 at 18:55; Stop 01/06/20 at 18:55; Status DC Propofol 50 ml @ As Directed STK-MED ONCE IV ; Start 01/06/20 at 18:55; Stop 01/06/20 at 18:56; Status DC Propofol 100 ml @ 0 mls/hr CONT PRN IV SEE PROTOCOL Last administered on 01/14/20at 07:45; Start 01/06/20 at 19:00 Fentanyl Citrate (Fentanyl 2ml Vial) 25 mcg PRN Q1HR PRN IV SEE COMMENTS; Start 01/06/20 at 19:00 Fentanyl Citrate (Fentanyl 2ml Vial) 50 mcg PRN Q1HR PRN IV SEE COMMENTS Last administered on 01/06/20at 19:42; Start 01/06/20 at 19:00 Chlorhexidine Gluconate (Peridex) 15 ml BID MM Last administered on 01/07/20at 08:16; Start 01/06/20 at 21:00; Stop 01/07/20 at 09:45; Status DC Midazolam HCl (Versed) 5 mg STK-MED ONCE .ROUTE ; Start 01/06/20 at 19:17; Stop 01/06/20 at 19:18; Status DC Midazolam HCl 50 mg/Sodium Chloride 50 ml @ 0 mls/hr 1X ONCE IV ; Start 01/06/20 at 19:30; Stop 01/06/20 at 19:31; Status UNV Albuterol/ Ipratropium (Duoneb) 3 ml STK-MED ONCE .ROUTE ; Start 01/06/20 at 19:27; Stop 01/06/20 at 19:27; Status DC Midazolam HCl 100 ml @ 0 mls/hr CONT PRN IV SEE PROTOCOL Last administered on 01/14/20at 00:56; Start 01/06/20 at 19:30 Propofol 50 ml @ 0 mls/hr 1X ONCE IV Last administered on 01/06/20at 18:55; Start 01/06/20 at 20:00; Stop 01/06/20 at 20:01; Status DC Midazolam HCl (Versed) 5 mg 1X ONCE NS Last administered on 01/06/20at 19:18; Start 01/06/20 at 19:18; Stop 01/06/20 at 19:59; Status DC Piperacillin Sod/ Tazobactam Sod 3.375 gm/Sodium Chloride 50 ml @ 100 mls/hr 1X ONCE IV Last administered on 01/06/20at 21:47; Start 01/06/20 at 20:45; Stop 01/06/20 at 21:14; Status DC Dexmedetomidine HCl 400 mcg/ Sodium Chloride 100 ml @ 0 mls/hr CONT PRN IV SEDATION Last administered on 01/14/20 05:55; Start 01/06/20 at 20:15 Sodium Chloride 500 ml @ 500 mls/hr 1X PRN PRN IV SEE COMMENTS Last administered on 01/13/20at 11:22; Start 01/06/20 at 20:15 Atropine Sulfate (ATROPINE 0.5mg SYRINGE) 0.5 mg PRN Q5MIN PRN IV SEE COMMENTS; Start 01/06/20 at 20:15 Fentanyl Citrate (Fentanyl 2ml Vial) 100 mcg 1X ONCE IVP Last administered on 01/06/20 20:17; Start 01/06/20 at 20:15; Stop 01/06/20 at 20:18; Status DC Methylprednisolone Sodium Succinate (SOLU-Medrol 40MG VIAL) 40 mg Q8HRS IV Last administered on 01/14/20 05:51; Start 01/06/20 at 22:00 Enoxaparin Sodium (Lovenox 40mg Syringe) 40 mg BID SQ Last administered on 01/07/20 08:15; Start 01/06/20 at 21:30; Stop 01/07/20 at 09:47; Status DC Potassium Chloride/Dextrose/ Sod Cl 1,000 ml @ 125 mls/hr Q8H ONCE IV Last a dministered on 01/06/20 22:13; Start 01/06/20 at 21:30; Stop 01/07/20 at 05:29; Status DC Zinc Sulfate (Orazinc) 220 mg DAILY PO Last administered on 01/14/20at 07:44; Start 01/07/20 at 09:00 Ondansetron HCl (Zofran) 4 mg PRN Q4HRS PRN IV NAUSEA/VOMITING; Start 01/06/20 at 21:30 Acetaminophen (Tylenol) 650 mg PRN Q4HRS PRN GT TEMP OVER 100.4F OR MILD PAIN Last administered on 01/14/20 05:51; Start 01/06/20 at 21:30 Acetaminophen (Tylenol Supp) 650 mg PRN Q4HRS PRN SC TEMP OVER 100.4F OR MILD PAIN; Start 01/06/20 at 21:30 Docusate Sodium (Colace) 100 mg PRN BID PRN PO HARD STOOLS Last administered on 8/26/20at 08:26; Start 01/06/20 at 21:30 Piperacillin Sod/ Tazobactam Sod 3.375 gm/Sodium Chloride 50 ml @ 100 mls/hr Q6HRS IV Last administered on 01/14/20at 05:51; Start 01/07/20 at 00:00 Pantoprazole Sodium (PROTONIX VIAL for IV PUSH) 40 mg DAILYAC IVP Last administered on 01/14/20at 07:44; Start 01/07/20 at 07:30 Norepinephrine Bitartrate 8 mg/ Dextrose 258 ml @ 12.578 mls/ hr CONT PRN IV PER PROTOCOL Last administered on 01/06/20at 22:15; Start 01/06/20 at 21:45 Sodium Chloride 1,000 ml @ 1,000 mls/hr 1X ONCE IV Last administered on 01/06/20at 21:44; Start 01/06/20 at 21:45; Stop 01/06/20 at 22:44; Status DC Fentanyl Citrate 30 ml @ 0 mls/hr CONT PRN IV SEE PROTOCOL Last administered on 01/08/20at 10:44; Start 01/06/20 at 21:45; Stop 01/08/20 at 14:49; Status DC Vecuronium Kayenta (Norcuron Bolus) 6 mg PRN Q2HR PRN IV VENT ASYNCHRONY Last administered on 01/08/20at 11:23; Start 01/06/20 at 21:45; Stop 01/08/20 at 14:48; Status DC Sodium Chloride 1,000 ml @ 1,000 mls/hr 1X ONCE IV Last administered on 01/06/20at 22:36; Start 01/06/20 at 22:30; Stop 01/06/20 at 23:29; Status DC Methylprednisolone Sodium Succinate (SOLU-Medrol 40MG VIAL) 40 mg Q8HRS IV ; Start 01/07/20 at 14:00; Status UNV Enoxaparin Sodium (Lovenox 80mg Syringe) 80 mg BID SQ Last administered on 01/07/20at 20:53; Start 01/07/20 at 21:00; Stop 01/08/20 at 08:57; Status DC Insulin Human Lispro (HumaLOG) 6 units TID SQ ; Start 01/07/20 at 14:00; Stop 01/07/20 at 10:05; Status DC Insulin Glargine (Lantus Syringe) 10 unit BID SQ Last administered on 01/08/20at 09:27; Start 01/07/20 at 21:00; Stop 01/08/20 at 11:25; Status DC Ascorbic Acid (Vitamin C) 250 mg Q6HRS PO Last administered on 01/14/20at 05:51; Start 01/07/20 at 12:00 Sodium Chloride 1,000 ml @ 75 mls/hr [id number] IV Last administered on 01/10/20at 19:33; Start 01/07/20 at 10:00; Stop 01/11/20 at 10:23; Status DC Insulin Human Lispro (HumaLOG) 6 units Q6HRS SQ Last administered on 01/08/20at 06:11; Start 01/07/20 at 12:00; Stop 01/08/20 at 11:25; Status DC Insulin Glargine (Lantus Syringe) 10 unit 1X ONCE SQ Last administered on 01/07/20at 11:40; Start 01/07/20 at 11:00; Stop 01/07/20 at 11:01; Status DC Enoxaparin Sodium (Lovenox 60mg Syringe) 60 mg BID SQ Last administered on 01/10/20at 08:55; Start 01/08/20 at 09:00; Stop 01/10/20 at 16:45; Status DC Vecuronium Kayenta (Norcuron Bolus) 6 mg PRN Q6HRS PRN IV SEDATION (2nd Choice) Last administered on 01/10/20at 16:36; Start 01/08/20 at 09:30 Insulin Glargine (Lantus Syringe) 14 unit BID SQ Last administered on 01/10/20at 09:24; Start 01/08/20 at 21:00; Stop 01/10/20 at 12:27; Status DC Insulin Human Lispro (HumaLOG) 8 units Q6HRS SQ Last administered on 01/10/20at 12:11; Start 01/08/20 at 12:00; Stop 01/10/20 at 12:27; Status DC Fentanyl Citrate 55 ml @ 0 mls/hr CONT PRN IV SEE PROTOCOL Last administered on 01/14/20at 05:54; Start 01/08/20 at 14:49 Lorazepam (Ativan Inj) 1 mg PRN Q1HR PRN IVP ANXIETY / AGITATION- MODERATE; Start 01/08/20 at 16:15 Lorazepam (Ativan Inj) 2 mg PRN Q1HR PRN IVP ANXIETY / AGITATION- SEVERE Last administered on 01/09/20at 13:10; Start 01/08/20 at 16:30 Insulin Human Lispro (HumaLOG) 6 units 1X ONCE SQ Last administered on 01/09/20at 06:20; Start 01/09/20 at 06:15; Stop 01/09/20 at 06:16; Status DC Hydralazine HCl (Apresoline Inj) 10 mg PRN Q4HRS PRN IVP ELEVATED BP, SEE COMMENTS Last administered on 01/13/20at 02:18; Start 01/10/20 at 09:15 Alteplase, Recombinant (Cathflo For Central Catheter Clearance) 1 mg 1X ONCE INT CAT Last administered on 01/10/20at 12:05; Start 01/10/20 at 11:00; Stop 01/10/20 at 11:01; Status DC Insulin Glargine (Lantus Syringe) 18 unit BID SQ Last administered on 01/11/20at 08:30; Start 01/10/20 at 21:00; Stop 01/11/20 at 10:03; Status DC Insulin Human Lispro (HumaLOG) 10 units Q6HRS SQ Last administered on 01/11/20at 05:53; Start 01/10/20 at 18:00; Stop 01/11/20 at 10:03; Status DC Vecuronium Kayenta 50 mg/ Miscellaneous 50 ml @ 4.027 mls/ hr CONT PRN IV SEE I/O RECORD Last administered on 01/14/20at 05:55; Start 01/10/20 at 16:15 Enoxaparin Sodium (Lovenox Per Pharmacy Treatment Dosing) 1 each PRN DAILY PRN MC SEE COMMENTS; Start 01/10/20 at 16:45 Enoxaparin Sodium (Lovenox 80mg Syringe) 80 mg Q12HR SQ Last administered on 01/14/20at 07:44; Start 01/10/20 at 21:00 Furosemide (Lasix) 40 mg 1X ONCE IVP Last administered on 01/11/20at 10:19; Start 01/11/20 at 10:00; Stop 01/11/20 at 10:01; Status DC Insulin Glargine (Lantus Syringe) 24 unit BID SQ Last administered on 01/14/20at 10:08; Start 01/11/20 at 10:30 Insulin Human Lispro (HumaLOG) 14 units Q6HRS SQ Last administered on 01/14/20at 05:52; Start 01/11/20 at 12:00 Info (Anti-Coagulation Monitoring By Pharmacy) 1 each PRN DAILY PRN MC SEE COMMENTS Last administered on 01/13/20at 14:14; Start 01/12/20 at 10:00 Polyethylene Glycol (miraLAX PACKET) 17 gm DAILY PO ; Start 01/14/20 at 11:00 Vitals/I & O Vital Sign - Last 24 Hours 01/13/20 01/13/20 01/13/20 01/13/20 11:00 11:52 12:00 12:00 Temp 98.4 98.4 Pulse 76 74 Resp 22 B/P (MAP) 117/57 (77) 115/52 (73) Pulse Ox 92 91 86 O2 Delivery Ventilator Ventilator Ventilator Mechanical Ventilator 01/13/20 01/13/20 01/13/20 01/13/20 13:00 14:00 15:00 15:44 Pulse 70 70 68 Resp 22 B/P (MAP) 117/53 (74) 119/56 (77) 119/57 (77) Pulse Ox 91 92 92 87 O2 Delivery Ventilator Ventilator Ventilator Ventilator 01/13/20 01/13/20 01/13/20 01/13/20 16:00 16:00 17:00 17:13 Temp 98.3 98.3 Pulse 68 70 Resp 22 B/P (MAP) 110/54 (72) 138/60 (86) Pulse Ox 89 86 O2 Delivery Mechanical Ventilator Ventilator Ventilator 01/13/20 01/13/20 01/13/20 01/13/20 18:00 19:00 20:00 20:00 Temp 99.4 99.4 Pulse 76 71 80 Resp 22 22 B/P (MAP) 135/57 (83) 138/71 (93) 133/54 (80) Pulse Ox 89 89 90 O2 Delivery Ventilator Ventilator Ventilator Mechanical Ventilator 01/13/20 01/13/20 01/13/20 01/13/20 20:29 20:45 21:00 22:00 Pulse 73 75 Resp 22 22 B/P (MAP) 130/59 (82) 130/59 (82) Pulse Ox 89 91 86 88 O2 Delivery Ventilator Ventilator Ventilator Ventilator O2 Flow Rate 18.0 01/13/20 01/13/20 01/14/20 01/14/20 23:00 23:59 00:01 00:31 Temp 99.2 99.2 Pulse 70 70 Resp 22 B/P (MAP) 128/56 (80) 145/60 (88) Pulse Ox 83 94 92 O2 Delivery Ventilator Mechanical Ventilator Ventilator Ventilator 01/14/20 01/14/20 01/14/20 01/14/20 01:00 02:00 03:00 04:00 Temp 100.2 100.2 Pulse 70 70 69 68 Resp 22 B/P (MAP) 147/63 (91) 145/61 (89) 139/61 (87) 138/61 (86) Pulse Ox 94 95 95 95 O2 Delivery Ventilator Ventilator Ventilator Ventilator 01/14/20 01/14/20 01/14/20 01/14/20 04:00 04:24 05:00 05:54 Pulse 80 Resp B/P (MAP) 137/59 (85) Pulse Ox 94 93 94 O2 Delivery Mechanical Ventilator Ventilator Ventilator O2 Flow Rate 18.0 01/14/20 01/14/20 01/14/20 01/14/20 06:00 06:24 07:00 07:22 Pulse 82 88 Resp B/P (MAP) 150/56 (87) 185/67 (106) Pulse Ox 92 92 87 85 O2 Delivery Ventilator Ventilator Ventilator O2 Flow Rate 18.0 01/14/20 01/14/20 01/14/20 01/14/20 08:00 08:00 09:00 10:00 Temp 98.7 98.7 Pulse 78 78 72 Resp 22 22 B/P (MAP) 168/68 (101) 150/62 (91) 141/61 (87) Pulse Ox 84 92 95 O2 Delivery Ventilator Mechanical Ventilator Ventilator Ventilator Intake and Output 01/13/20 01/13/20 01/14/20 15:00 23:00 07:00 Intake Total 250 ml 2143.9 ml 1462.9 ml Output Total 955 ml 730 ml 570 ml Balance -705 ml 1413.9 ml 892.9 ml Justicifation of Admission Dx: Justifications for Admission: Justification of Admission Dx: Yes MERVAT MARQUEZ MD Jan 14, 2020 10:51
[2020-01-14] MEDS: POLYETHYLENE GLYCOL 3350 17 GM PACKET. PO SCH (11:49)
--- NOTE | 2020-01-14 15:30 | NUR ---
SS following up with discharge planning. SS reviewed pt chart and discussed with pt RN. Pt remains on the vent at this time. Pt DNR now. Pt on IV Zosyn. COVID19 positive. SS will continue to follow for discharge planning.
--- NOTE | 2020-01-14 16:28 | NUR ---
Dr Mendoza notified of patients decreasing O2 sats. Current ventilator settings are 22/600/14/100. No new orders continue plan of care.
[2020-01-14] MEDS: hydrALAZINE 20 MG/ML VIAL. IVP PRN (18:23)
[2020-01-15] VITALS (24 sets, daily range): BP systolic 100–200; BP diastolic 50–80
[2020-01-15] MEDS: INSULIN LISPRO 300 UNITS/3 ML VIAL. SQ SCH ×4 (00:06→17:57)
[2020-01-15] MEDS: PIPERACILLIN/TAZOBACTAM 3.375 GM in IV NORMAL SALINE 50ML 50 ML IV SCH ×4 (00:06→17:57)
[2020-01-15] MEDS: ASCORBIC ACID 500 MG TABLET PO SCH ×4 (00:06→17:57)
[2020-01-15] MEDS: PROPOFOL 100 ML IV PRN ×6 (00:11→22:56)
[2020-01-15] MEDS: DEXMEDETOMIDINE 400 MCG in IV NORMAL SALINE 100ML 96 ML IV PRN ×6 (00:11→22:56)
[2020-01-15] MEDS: VECURONIUM BROMIDE 50 MG in TOTAL VOLUME 50 ML IV PRN (03:38)
[2020-01-15] MEDS: methylPREDNISolone SOD SUCC PF 40 MG/ML VIAL. IV SCH ×3 (05:45→23:10)
[2020-01-15 06:01] LABS: BASO # 0.1 x10^3/uL (0.0-0.2); BASO % 1 % (0-3); EOS # 0.1 x10^3/uL (0.0-0.7); EOS % 1 % (0-3); HEMATOCRIT 29.1 % (39.0-53.0); HEMOGLOBIN 9.4 g/dL (13.0-17.5); LYMPH # 0.3 x10^3/uL (1.0-4.8); LYMPH % 3 % (24-48); MEAN CORPUSCULAR HEMOGLOBIN 31 pg (25-35); MEAN CORPUSCULAR HGB CONC 32 g/dL (31-37); MEAN CORPUSCULAR VOLUME 96 fL (79-100); MONO # 0.3 x10^3/uL (0.0-1.1); MONO % 3 % (0-9); NEUT # 10.1 x10^3/uL (1.8-7.7); NEUT % 92 % (31-73); PLATELET COUNT 185 x10^3/uL (140-400); RED BLOOD COUNT 3.05 x10^6/uL (4.30-5.70); RED CELL DISTRIBUTION WIDTH 14.5 % (11.5-14.5); WHITE BLOOD COUNT 10.9 x10^3/uL (4.0-11.0)
[2020-01-15 06:30] LABS: CALCIUM 7.2 mg/dL (8.5-10.1); POTASSIUM 4.7 mmol/L (3.5-5.1)
[2020-01-15] MEDS: MIDAZOLAM 100mg/100ml NS BAG 100 ML IV PRN ×2 (07:46→18:13)
[2020-01-15] MEDS: fentaNYL HIGH DOSE PCA 55 ML IV PRN ×2 (08:50→22:58)
[2020-01-15] MEDS: PANTOPRAZOLE IV PUSH 40 MG VIAL. IVP SCH (09:01)
[2020-01-15] MEDS: ZINC SULFATE 220 MG CAPSULE. PO SCH (09:01)
[2020-01-15] MEDS: INSULIN GLARGINE SYRINGE. SQ SCH ×2 (09:02→21:00)
[2020-01-15] MEDS: POLYETHYLENE GLYCOL 3350 17 GM PACKET. PO SCH (09:02)
[2020-01-15 09:06] LABS: BASE EXCESS ABG 1 mmol/L (-3-3); HCO3 ABG 27 mmol/L (21-28); PCO2 ABG 49 mmHg (35-46); SAT O2 ABG 82 % (92-99)
[2020-01-15 09:08] LABS: FIO2 ABG 100; PO2 ABG 49 mmHg (65-108)
--- NOTE | 2020-01-15 09:20 | PDOC ---
PROGRESS NOTES Date of Service: DATE: 01/15/20 TIME: 09:19 Chief Complaint Chief Complaint Assessment/Plan Acute hypoxemic respiratory failure Bilateral perihilar infiltrates are seen which appear increased slightly Leukocytosis with bandemia secondary to septic process Hyponatremia secondary to low effective circulatory volume, now hypernatremic Acue renal failure due to vasomotor nephropathy most likely Hyperglycemia transaminitis Uncontrolled hypertension CONSULT NEPHROLOGY Hypotonic saline iv support serum osmolality 33 MIN CC TIME History of Present Illness History of Present Illness History of Present Illness Patient is a 54-year-old gentleman who was diagnosed with COVID-19 infection on Friday 5 days prior to his admission to the intensive care unit. Apparently the patient reported worsening respiratory distress reason why he came to the emergency department for evaluation and treatment. The story was quite limited since the patient was speaking Maltese only and his acuity was such that he required mechanical ventilation and prompt intubation by the emergency department physician. At the present time patient is intubated and sedated continues to require a lot of support no pertinent past medical history was reported he is admitted to the intensive care unit for further treatment 01/10/2020 Continues to require full support, glycemia has been noted in hypertension as well. Discussed with nursing staff, all of concerns were addressed to the best of my abilities no acute events reported overnight 01/11/2020 No acute events reported overnight, case discussed with nursing staff patient in no acute distress 01/12/2020 Per nursing staff, patient febrile overnight, treated with Tylenol and tepid water bath. Case discussed with nursing staff, continue with IV antibiotics and full VTE prophylaxis. 01/13/2020 Patient still febrile overnight. O2 requirement increasing. Discussed with RN. 01/14/2020 Patient still intubated and sedated. Discussed with RN, patient was made DNR. Nursing concerned about lack of bowel movements and abdominal distention. Will schedule MiraLAX. Vitals Vitals Vital Signs Date Time Temp Pulse Resp B/P (MAP) Pulse Ox O2 Delivery O2 Flow Rate FiO2 01/15/20 08:50 82 18.0 01/15/20 08:15 67 22 112/57 (75) Ventilator 01/15/20 04:00 97.7 97.7 Physical Exam General: No acute distress, Other (Intubated and sedated) Heart: Regular rate Lungs: Other (Intubated) Abdomen: Other (Nondistended) Extremities: No clubbing, No cyanosis Skin: No rashes, No breakdown Labs LABS AP portable chest radiograph 01/14/2020 Clinical History: Covid 19. An AP erect portable digital radiograph of the chest was obtained. Comparison study is dated 01/08/2020. The right internal jugular central venous catheter and NG tube are unchanged in position. The cardiac silhouette is mildly enlarged. The thoracic aorta is mildly tortuous. Bilateral perihilar infiltrates are seen which appear increased slightly. No pneumothorax or pleural effusion is noted. The osseous structures are unchanged. Impression: Slight interval increase in the bilateral perihilar infiltrates. Electronically signed by: Fredis Burns MD (01/14/2020 9:25 AM) [id number] Laboratory Tests Test 01/14/20 11:47 01/14/20 17:12 01/14/20 23:50 01/15/20 05:30 Glucose (Fingerstick) 177 mg/dL (70-99) 206 mg/dL (70-99) 234 mg/dL (70-99) White Blood Count 10.9 x10^3/uL (4.0-11.0) Red Blood Count 3.05 x10^6/uL (4.30-5.70) Hemoglobin 9.4 g/dL (13.0-17.5) Hematocrit 29.1 % (39.0-53.0) Mean Corpuscular Volume 96 fL (79-100) Mean Corpuscular Hemoglobin 31 pg (25-35) Mean Corpuscular Hemoglobin Concent 32 g/dL (31-37) Red Cell Distribution Width 14.5 % (11.5-14.5) Platelet Count 185 x10^3/uL (140-400) Neutrophils (%) (Auto) 92 % (31-73) Lymphocytes (%) (Auto) 3 % (24-48) Monocytes (%) (Auto) 3 % (0-9) Eosinophils (%) (Auto) 1 % (0-3) Basophils (%) (Auto) 1 % (0-3) Neutrophils # (Auto) 10.1 x10^3/uL (1.8-7.7) Lymphocytes # (Auto) 0.3 x10^3/uL (1.0-4.8) Monocytes # (Auto) 0.3 x10^3/uL (0.0-1.1) Eosinophils # (Auto) 0.1 x10^3/uL (0.0-0.7) Basophils # (Auto) 0.1 x10^3/uL (0.0-0.2) Sodium Level 153 mmol/L (136-145) Potassium Level 4.7 mmol/L (3.5-5.1) Chloride Level 118 mmol/L (98-107) Carbon Dioxide Level 29 mmol/L (21-32) Anion Gap 6 (6-14) Blood Urea Nitrogen 59 mg/dL (8-26) Creatinine 1.0 mg/dL (0.7-1.3) Estimated GFR (Cockcroft-Gault) 75.0 Glucose Level 176 mg/dL (70-99) Calcium Level 7.2 mg/dL (8.5-10.1) Test 01/15/20 05:35 01/15/20 09:00 Glucose (Fingerstick) 171 mg/dL (70-99) O2 Saturation 82 % (92-99) Arterial Blood pH 7.35 (7.35-7.45) Arterial Blood pCO2 at Patient Temp 49 mmHg (35-46) Arterial Blood pO2 at Patient Temp 49 mmHg (65-108) Arterial Blood HCO3 27 mmol/L (21-28) Arterial Blood Base Excess 1 mmol/L (-3-3) FiO2 100 Comment Review of Relevant I have reviewed the following items hong (where applicable) has been applied. Labs Laboratory Tests Test 01/13/20 12:04 01/13/20 17:41 01/13/20 23:57 01/14/20 05:30 Glucose (Fingerstick) 292 mg/dL (70-99) 252 mg/dL (70-99) 243 mg/dL (70-99) White Blood Count 11.7 x10^3/uL (4.0-11.0) Red Blood Count 3.06 x10^6/uL (4.30-5.70) Hemoglobin 9.3 g/dL (13.0-17.5) Hematocrit 29.0 % (39.0-53.0) Mean Corpuscular Volume 95 fL (79-100) Mean Corpuscular Hemoglobin 31 pg (25-35) Mean Corpuscular Hemoglobin Concent 32 g/dL (31-37) Red Cell Distribution Width 14.1 % (11.5-14.5) Platelet Count 189 x10^3/uL (140-400) Neutrophils (%) (Auto) 93 % (31-73) Lymphocytes (%) (Auto) 4 % (24-48) Monocytes (%) (Auto) 2 % (0-9) Eosinophils (%) (Auto) 1 % (0-3) Basophils (%) (Auto) 1 % (0-3) Neutrophils # (Auto) 10.8 x10^3/uL (1.8-7.7) Lymphocytes # (Auto) 0.4 x10^3/uL (1.0-4.8) Monocytes # (Auto) 0.2 x10^3/uL (0.0-1.1) Eosinophils # (Auto) 0.1 x10^3/uL (0.0-0.7) Basophils # (Auto) 0.1 x10^3/uL (0.0-0.2) Segmented Neutrophils % 92 % (35-66) Lymphocytes % 3 % (24-48) Monocytes % 4 % (0-10) Eosinophils % 1 % (0-5) Toxic Granulation Platelet Estimate Adequate (ADEQUATE) Anisocytosis Slight Sodium Level 154 mmol/L (136-145) Potassium Level 4.7 mmol/L (3.5-5.1) Chloride Level 119 mmol/L (98-107) Carbon Dioxide Level 27 mmol/L (21-32) Anion Gap 8 (6-14) Blood Urea Nitrogen 49 mg/dL (8-26) Creatinine 0.9 mg/dL (0.7-1.3) Estimated GFR (Cockcroft-Gault) 84.7 Glucose Level 221 mg/dL (70-99) Calcium Level 7.6 mg/dL (8.5-10.1) Test 01/14/20 05:35 01/14/20 07:30 01/14/20 11:47 01/14/20 17:12 Glucose (Fingerstick) 209 mg/dL (70-99) 177 mg/dL (70-99) 206 mg/dL (70-99) O2 Saturation 80 % (92-99) Arterial Blood pH 7.33 (7.35-7.45) Arterial Blood pCO2 at Patient Temp 49 mmHg (35-46) Arterial Blood pO2 at Patient Temp 51 mmHg (65-108) Arterial Blood HCO3 25 mmol/L (21-28) Arterial Blood Base Excess -1 mmol/L (-3-3) FiO2 100 Test 01/14/20 23:50 01/15/20 05:30 01/15/20 05:35 01/15/20 09:00 Glucose (Fingerstick) 234 mg/dL (70-99) 171 mg/dL (70-99) White Blood Count 10.9 x10^3/uL (4.0-11.0) Red Blood Count 3.05 x10^6/uL (4.30-5.70) Hemoglobin 9.4 g/dL (13.0-17.5) Hematocrit 29.1 % (39.0-53.0) Mean Corpuscular Volume 96 fL (79-100) Mean Corpuscular Hemoglobin 31 pg (25-35) Mean Corpuscular Hemoglobin Concent 32 g/dL (31-37) Red Cell Distribution Width 14.5 % (11.5-14.5) Platelet Count 185 x10^3/uL (140-400) Neutrophils (%) (Auto) 92 % (31-73) Lymphocytes (%) (Auto) 3 % (24-48) Monocytes (%) (Auto) 3 % (0-9) Eosinophils (%) (Auto) 1 % (0-3) Basophils (%) (Auto) 1 % (0-3) Neutrophils # (Auto) 10.1 x10^3/uL (1.8-7.7) Lymphocytes # (Auto) 0.3 x10^3/uL (1.0-4.8) Monocytes # (Auto) 0.3 x10^3/uL (0.0-1.1) Eosinophils # (Auto) 0.1 x10^3/uL (0.0-0.7) Basophils # (Auto) 0.1 x10^3/uL (0.0-0.2) Sodium Level 153 mmol/L (136-145) Potassium Level 4.7 mmol/L (3.5-5.1) Chloride Level 118 mmol/L (98-107) Carbon Dioxide Level 29 mmol/L (21-32) Anion Gap 6 (6-14) Blood Urea Nitrogen 59 mg/dL (8-26) Creatinine 1.0 mg/dL (0.7-1.3) Estimated GFR (Cockcroft-Gault) 75.0 Glucose Level 176 mg/dL (70-99) Calcium Level 7.2 mg/dL (8.5-10.1) O2 Saturation 82 % (92-99) Arterial Blood pH 7.35 (7.35-7.45) Arterial Blood pCO2 at Patient Temp 49 mmHg (35-46) Arterial Blood pO2 at Patient Temp 49 mmHg (65-108) Arterial Blood HCO3 27 mmol/L (21-28) Arterial Blood Base Excess 1 mmol/L (-3-3) FiO2 100 Laboratory Tests Test 01/14/20 11:47 01/14/20 17:12 01/14/20 23:50 01/15/20 05:30 Glucose (Fingerstick) 177 mg/dL (70-99) 206 mg/dL (70-99) 234 mg/dL (70-99) White Blood Count 10.9 x10^3/uL (4.0-11.0) Red Blood Count 3.05 x10^6/uL (4.30-5.70) Hemoglobin 9.4 g/dL (13.0-17.5) Hematocrit 29.1 % (39.0-53.0) Mean Corpuscular Volume 96 fL (79-100) Mean Corpuscular Hemoglobin 31 pg (25-35) Mean Corpuscular Hemoglobin Concent 32 g/dL (31-37) Red Cell Distribution Width 14.5 % (11.5-14.5) Platelet Count 185 x10^3/uL (140-400) Neutrophils (%) (Auto) 92 % (31-73) Lymphocytes (%) (Auto) 3 % (24-48) Monocytes (%) (Auto) 3 % (0-9) Eosinophils (%) (Auto) 1 % (0-3) Basophils (%) (Auto) 1 % (0-3) Neutrophils # (Auto) 10.1 x10^3/uL (1.8-7.7) Lymphocytes # (Auto) 0.3 x10^3/uL (1.0-4.8) Monocytes # (Auto) 0.3 x10^3/uL (0.0-1.1) Eosinophils # (Auto) 0.1 x10^3/uL (0.0-0.7) Basophils # (Auto) 0.1 x10^3/uL (0.0-0.2) Sodium Level 153 mmol/L (136-145) Potassium Level 4.7 mmol/L (3.5-5.1) Chloride Level 118 mmol/L (98-107) Carbon Dioxide Level 29 mmol/L (21-32) Anion Gap 6 (6-14) Blood Urea Nitrogen 59 mg/dL (8-26) Creatinine 1.0 mg/dL (0.7-1.3) Estimated GFR (Cockcroft-Gault) 75.0 Glucose Level 176 mg/dL (70-99) Calcium Level 7.2 mg/dL (8.5-10.1) Test 01/15/20 05:35 01/15/20 09:00 Glucose (Fingerstick) 171 mg/dL (70-99) O2 Saturation 82 % (92-99) Arterial Blood pH 7.35 (7.35-7.45) Arterial Blood pCO2 at Patient Temp 49 mmHg (35-46) Arterial Blood pO2 at Patient Temp 49 mmHg (65-108) Arterial Blood HCO3 27 mmol/L (21-28) Arterial Blood Base Excess 1 mmol/L (-3-3) FiO2 100 Microbiology 01/08/20 Blood Culture - Final, Complete NO GROWTH AFTER 5 DAYS 01/06/20 Urine Culture - Final, Complete Medications Current Medications Etomidate (Amidate) 20 mg STK-MED ONCE IV ; Start 01/06/20 at 18:54; Stop 01/06/20 at 18:54; Status DC Succinylcholine Chloride (Anectine) 200 mg STK-MED ONCE .ROUTE ; Start 01/06/20 at 18:55; Stop 01/06/20 at 18:55; Status DC Propofol 50 ml @ As Directed STK-MED ONCE IV ; Start 01/06/20 at 18:55; Stop 01/06/20 at 18:56; Status DC Propofol 100 ml @ 0 mls/hr CONT PRN IV SEE PROTOCOL Last administered on 01/15/20at 05:46; Start 01/06/20 at 19:00 Fentanyl Citrate (Fentanyl 2ml Vial) 25 mcg PRN Q1HR PRN IV SEE COMMENTS; Start 01/06/20 at 19:00 Fentanyl Citrate (Fentanyl 2ml Vial) 50 mcg PRN Q1HR PRN IV SEE COMMENTS Last administered on 01/06/20at 19:42; Start 01/06/20 at 19:00 Chlorhexidine Gluconate (Peridex) 15 ml BID MM Last administered on 01/07/20at 08:16; Start 01/06/20 at 21:00; Stop 01/07/20 at 09:45; Status DC Midazolam HCl (Versed) 5 mg STK-MED ONCE .ROUTE ; Start 01/06/20 at 19:17; Stop 01/06/20 at 19:18; Status DC Midazolam HCl 50 mg/Sodium Chloride 50 ml @ 0 mls/hr 1X ONCE IV ; Start 01/06/20 at 19:30; Stop 01/06/20 at 19:31; Status UNV Albuterol/ Ipratropium (Duoneb) 3 ml STK-MED ONCE .ROUTE ; Start 01/06/20 at 19:27; Stop 01/06/20 at 19:27; Status DC Midazolam HCl 100 ml @ 0 mls/hr CONT PRN IV SEE PROTOCOL Last administered on 01/15/20at 07:46; Start 01/06/20 at 19:30 Propofol 50 ml @ 0 mls/hr 1X ONCE IV Last administered on 01/06/20at 18:55; Start 01/06/20 at 20:00; Stop 01/06/20 at 20:01; Status DC Midazolam HCl (Versed) 5 mg 1X ONCE NS Last administered on 01/06/20at 19:18; Start 01/06/20 at 19:18; Stop 01/06/20 at 19:59; Status DC Piperacillin Sod/ Tazobactam Sod 3.375 gm/Sodium Chloride 50 ml @ 100 mls/hr 1X ONCE IV Last administered on 01/06/20at 21:47; Start 01/06/20 at 20:45; Stop 01/06/20 at 21:14; Status DC Dexmedetomidine HCl 400 mcg/ Sodium Chloride 100 ml @ 0 mls/hr CONT PRN IV SEDATION Last administered on 01/15/20at 09:11; Start 01/06/20 at 20:15 Sodium Chloride 500 ml @ 500 mls/hr 1X PRN PRN IV SEE COMMENTS Last administered on 01/13/20at 11:22; Start 01/06/20 at 20:15 Atropine Sulfate (ATROPINE 0.5mg SYRINGE) 0.5 mg PRN Q5MIN PRN IV SEE COMMENTS; Start 01/06/20 at 20:15 Fentanyl Citrate (Fentanyl 2ml Vial) 100 mcg 1X ONCE IVP Last administered on 01/06/20at 20:17; Start 01/06/20 at 20:15; Stop 01/06/20 at 20:18; Status DC Methylprednisolone Sodium Succinate (SOLU-Medrol 40MG VIAL) 40 mg Q8HRS IV Last administered on 01/15/20at 05:45; Start 01/06/20 at 22:00 Enoxaparin Sodium (Lovenox 40mg Syringe) 40 mg BID SQ Last administered on 01/07/20at 08:15; Start 01/06/20 at 21:30; Stop 01/07/20 at 09:47; Status DC Potassium Chloride/Dextrose/ Sod Cl 1,000 ml @ 125 mls/hr Q8H ONCE IV Last administered on 01/06/20at 22:13; Start 01/06/20 at 21:30; Stop 01/07/20 at 05:29; Status DC Zinc Sulfate (Orazinc) 220 mg DAILY PO Last administered on 01/15/20at 09:01; Start 01/07/20 at 09:00 Ondansetron HCl (Zofran) 4 mg PRN Q4HRS PRN IV NAUSEA/VOMITING; Start 01/06/20 at 21:30 Acetaminophen (Tylenol) 650 mg PRN Q4HRS PRN GT TEMP OVER 100.4F OR MILD PAIN Last administered on 01/14/20at 05:51; Start 01/06/20 at 21:30 Acetaminophen (Tylenol Supp) 650 mg PRN Q4HRS PRN [place] TEMP OVER 100.4F OR MILD PAIN; Start 01/06/20 at 21:30 Docusate Sodium (Colace) 100 mg PRN BID PRN PO HARD STOOLS Last administered on 01/12/20at 08:26; Start 01/06/20 at 21:30 Piperacillin Sod/ Tazobactam Sod 3.375 gm/Sodium Chloride 50 ml @ 100 mls/hr Q6HRS IV Last administered on 01/15/20at 05:48; Start 01/07/20 at 00:00 Pantoprazole Sodium (PROTONIX VIAL for IV PUSH) 40 mg DAILYAC IVP Last administered on 01/15/20at 09:01; Start 01/07/20 at 07:30 Norepinephrine Bitartrate 8 mg/ Dextrose 258 ml @ 12.578 mls/ hr CONT PRN IV PER PROTOCOL Last administered on 01/06/20at 22:15; Start 01/06/20 at 21:45 Sodium Chloride 1,000 ml @ 1,000 mls/hr 1X ONCE IV Last administered on 01/06/20at 21:44; Start 01/06/20 at 21:45; Stop 01/06/20 at 22:44; Status DC Fentanyl Citrate 30 ml @ 0 mls/hr CONT PRN IV SEE PROTOCOL Last administered on 01/08/20at 10:44; Start 01/06/20 at 21:45; Stop 01/08/20 at 14:49; Status DC Vecuronium [place] (Norcuron Bolus) 6 mg PRN Q2HR PRN IV VENT ASYNCHRONY Last administered on 01/08/20at 11:23; Start 01/06/20 at 21:45; Stop 01/08/20 at 14:48; Status DC Sodium Chloride 1,000 ml @ 1,000 mls/hr 1X ONCE IV Last administered on 01/06/20at 22:36; Start 01/06/20 at 22:30; Stop 01/06/20 at 23:29; Status DC Methylprednisolone Sodium Succinate (SOLU-Medrol 40MG VIAL) 40 mg Q8HRS IV ; St art 01/07/20 at 14:00; Status UNV Enoxaparin Sodium (Lovenox 80mg Syringe) 80 mg BID SQ Last administered on 01/07/20at 20:53; Start 01/07/20 at 21:00; Stop 01/08/20 at 08:57; Status DC Insulin Human Lispro (HumaLOG) 6 units TID SQ ; Start 01/07/20 at 14:00; Stop 01/07/20 at 10:05; Status DC Insulin Glargine (Lantus Syringe) 10 unit BID SQ Last administered on 01/08/20at 09:27; Start 01/07/20 at 21:00; Stop 01/08/20 at 11:25; Status DC Ascorbic Acid (Vitamin C) 250 mg Q6HRS PO Last administered on 01/15/20at 05:48; Start 01/07/20 at 12:00 Sodium Chloride 1,000 ml @ 75 mls/hr [id number] IV Last administered on 01/10/20at 19:33; Start 01/07/20 at 10:00; Stop 01/11/20 at 10:23; Status DC Insulin Human Lispro (HumaLOG) 6 units Q6HRS SQ Last administered on 01/08/20at 06:11; Start 01/07/20 at 12:00; Stop 01/08/20 at 11:25; Status DC Insulin Glargine (Lantus Syringe) 10 unit 1X ONCE SQ Last administered on 01/07/20at 11:40; Start 01/07/20 at 11:00; Stop 01/07/20 at 11:01; Status DC Enoxaparin Sodium (Lovenox 60mg Syringe) 60 mg BID SQ Last administered on 01/10/20at 08:55; Start 01/08/20 at 09:00; Stop 01/10/20 at 16:45; Status DC Vecuronium [place] (Norcuron Bolus) 6 mg PRN Q6HRS PRN IV SEDATION (2nd Choice) Last administered on 01/10/20at 16:36; Start 01/08/20 at 09:30 Insulin Glargine (Lantus Syringe) 14 unit BID SQ Last administered on 01/10/20at 09:24; Start 01/08/20 at 21:00; Stop 01/10/20 at 12:27; Status DC Insulin Human Lispro (HumaLOG) 8 units Q6HRS SQ Last administered on 01/10/20at 12:11; Start 01/08/20 at 12:00; Stop 01/10/20 at 12:27; Status DC Fentanyl Citrate 55 ml @ 0 mls/hr CONT PRN IV SEE PROTOCOL Last administered on 01/15/20at 08:50; Start 01/08/20 at 14:49 Lorazepam (Ativan Inj) 1 mg PRN Q1HR PRN IVP ANXIETY / AGITATION- MODERATE; Start 01/08/20 at 16:15 Lorazepam (Ativan Inj) 2 mg PRN Q1HR PRN IVP ANXIETY / AGITATION- SEVERE Last administered on 01/09/20at 13:10; Start 01/08/20 at 16:30 Insulin Human Lispro (HumaLOG) 6 units 1X ONCE SQ Last administered on 01/09/20at 06:20; Start 01/09/20 at 06:15; Stop 01/09/20 at 06:16; Status DC Hydralazine HCl (Apresoline Inj) 10 mg PRN Q4HRS PRN IVP ELEVATED BP, SEE COMME NTS Last administered on 01/14/20at 18:23; Start 01/10/20 at 09:15 Alteplase, Recombinant (Cathflo For Central Catheter Clearance) 1 mg 1X ONCE INT CAT Last administered on 01/10/20at 12:05; Start 01/10/20 at 11:00; Stop 01/10/20 at 11:01; Status DC Insulin Glargine (Lantus Syringe) 18 unit BID SQ Last administered on 01/11/20at 08:30; Start 01/10/20 at 21:00; Stop 01/11/20 at 10:03; Status DC Insulin Human Lispro (HumaLOG) 10 units Q6HRS SQ Last administered on 01/11/20at 05:53; Start 01/10/20 at 18:00; Stop 01/11/20 at 10:03; Status DC Vecuronium [place] 50 mg/ Miscellaneous 50 ml @ 4.027 mls/ hr CONT PRN IV SEE I/O RECORD Last administered on 01/15/20at 03:38; Start 01/10/20 at 16:15 Enoxaparin Sodium (Lovenox Per Pharmacy Treatment Dosing) 1 each PRN DAILY PRN MC SEE COMMENTS; Start 01/10/20 at 16:45 Enoxaparin Sodium (Lovenox 80mg Syringe) 80 mg Q12HR SQ Last administered on 01/15/20at 09:01; Start 01/10/20 at 21:00 Furosemide (Lasix) 40 mg 1X ONCE IVP Last administered on 01/11/20at 10:19; Start 01/11/20 at 10:00; Stop 01/11/20 at 10:01; Status DC Insulin Glargine (Lantus Syringe) 24 unit BID SQ Last administered on 01/15/20at 09:02; Start 01/11/20 at 10:30 Insulin Human Lispro (HumaLOG) 14 units Q6HRS SQ Last administered on 01/15/20at 05:47; Start 01/11/20 at 12:00 Info (Anti-Coagulation Monitoring By Pharmacy) 1 each PRN DAILY PRN MC SEE COMMENTS Last administered on 01/13/20at 14:14; Start 01/12/20 at 10:00 Polyethylene Glycol (miraLAX PACKET) 17 gm DAILY PO Last administered on 01/15/20at 09:02; Start 01/14/20 at 11:00 Vitals/I & O Vital Sign - Last 24 Hours 01/14/20 01/14/20 01/14/20 01/14/20 10:00 11:00 11:15 12:00 Pulse 72 66 Resp 22 22 B/P (MAP) 141/61 (87) 131/57 (81) Pulse Ox 95 93 93 O2 Delivery Ventilator Ventilator Ventilator Mechanical Ventilator 01/14/20 01/14/20 01/14/20 01/14/20 12:00 13:00 14:00 15:00 Temp 99.0 98.9 99.0 98.9 Pulse 66 84 72 72 Resp 22 22 22 22 B/P (MAP) 120/56 (77) 121/53 (75) 151/65 (93) 134/59 (84) Pulse Ox 93 90 90 92 O2 Delivery Ventilator Ventilator Ventilator Ventilator 01/14/20 01/14/20 01/14/20 01/14/20 15:53 16:00 16:00 17:00 Temp 98.1 98.1 Pulse 68 88 Resp 22 22 B/P (MAP) 120/58 (78) 175/66 (102) Pulse Ox 93 73 73 O2 Delivery Ventilator Ventilator Mechanical Ventilator Ventilator 01/14/20 01/14/20 01/14/20 01/14/20 18:00 18:23 19:00 19:25 Pulse 94 98 94 Resp 22 22 22 B/P (MAP) 185/70 (108) 206/78 185/70 (108) Pulse Ox 74 74 74 O2 Delivery Ventilator Ventilator Ventilator O2 Flow Rate 18.0 01/14/20 01/14/20 01/14/20 01/14/20 19:55 19:55 20:00 20:00 Temp 97.6 97.6 Pulse 106 Resp 22 22 B/P (MAP) 183/68 (106) Pulse Ox 74 74 72 O2 Delivery Ventilator Ventilator Mechanical Ventilator Ventilator O2 Flow Rate 18.0 01/14/20 01/14/20 01/14/20 01/14/20 21:00 22:00 23:00 23:30 Pulse 82 78 77 Resp B/P (MAP) 92/46 (61) 103/53 (70) 104/50 (68) Pulse Ox 78 79 83 84 O2 Delivery Ventilator Ventilator Ventilator Ventilator 01/14/20 01/15/20 01/15/20 01/15/20 23:59 00:00 01:00 02:00 Temp 99.6 99.6 Pulse 71 69 68 Resp 22 B/P (MAP) 100/50 (67) 102/53 (69) 108/61 (77) Pulse Ox 87 87 87 O2 Delivery Mechanical Ventilator Ventilator Ventilator Ventilator 01/15/20 01/15/20 01/15/20 01/15/20 03:00 04:00 04:00 04:00 Temp 97.7 97.7 Pulse 68 67 Resp B/P (MAP) 108/58 (75) 106/57 (73) Pulse Ox 88 88 88 O2 Delivery Ventilator Mechanical Ventilator Ventilator Ventilator 01/15/20 01/15/20 01/15/20 01/15/20 05:00 06:00 07:25 08:15 Pulse 66 66 72 67 Resp B/P (MAP) 109/58 (75) 108/51 (70) 107/55 (72) 112/57 (75) Pulse Ox 87 86 79 82 O2 Delivery Ventilator Ventilator Ventilator Ventilator 01/15/20 08:50 Pulse Ox 82 O2 Flow Rate 18.0 Intake and Output 01/14/20 01/14/20 01/15/20 15:00 23:00 07:00 Intake Total 300 ml 2711.75 ml 1294.8 ml Output Total 630 ml 435 ml 685 ml Balance -330 ml 2276.75 ml 609.8 ml Justicifation of Admission Dx: Justifications for Admission: Justification of Admission Dx: Yes FABIANA PRITCHETT MD Jan 15, 2020 09:20
--- NOTE | 2020-01-15 10:56 | PDOC ---
PULMONARY PROGRESS NOTES DATE: 01/15/20 TIME: 10:52 Subjective remains intubated/sedated AC mode ,100%FIO2/14 PEEP, low P02 on ABG -- continues to having significant hypoxia no clinical improvement Vitals Vital Signs Date Time Temp Pulse Resp B/P (MAP) Pulse Ox O2 Delivery O2 Flow Rate FiO2 01/15/20 10:08 80 22 136/62 (86) 76 Ventilator 01/15/20 09:29 98.2 98.2 01/15/20 09:20 18.0 Comments visual exam done due to COVID-Pandemic no resp distess VENT 100% and PEEP 14 no skin rash lower extremity edema Lungs: Other (Intubated) Labs Laboratory Tests Test 01/13/20 12:04 01/13/20 17:41 01/13/20 23:57 01/14/20 05:30 Glucose (Fingerstick) 292 mg/dL (70-99) 252 mg/dL (70-99) 243 mg/dL (70-99) White Blood Count 11.7 x10^3/uL (4.0-11.0) Red Blood Count 3.06 x10^6/uL (4.30-5.70) Hemoglobin 9.3 g/dL (13.0-17.5) Hematocrit 29.0 % (39.0-53.0) Mean Corpuscular Volume 95 fL (79-100) Mean Corpuscular Hemoglobin 31 pg (25-35) Mean Corpuscular Hemoglobin Concent 32 g/dL (31-37) Red Cell Distribution Width 14.1 % (11.5-14.5) Platelet Count 189 x10^3/uL (140-400) Neutrophils (%) (Auto) 93 % (31-73) Lymphocytes (%) (Auto) 4 % (24-48) Monocytes (%) (Auto) 2 % (0-9) Eosinophils (%) (Auto) 1 % (0-3) Basophils (%) (Auto) 1 % (0-3) Neutrophils # (Auto) 10.8 x10^3/uL (1.8-7.7) Lymphocytes # (Auto) 0.4 x10^3/uL (1.0-4.8) Monocytes # (Auto) 0.2 x10^3/uL (0.0-1.1) Eosinophils # (Auto) 0.1 x10^3/uL (0.0-0.7) Basophils # (Auto) 0.1 x10^3/uL (0.0-0.2) Segmented Neutrophils % 92 % (35-66) Lymphocytes % 3 % (24-48) Monocytes % 4 % (0-10) Eosinophils % 1 % (0-5) Toxic Granulation Platelet Estimate Adequate (ADEQUATE) Anisocytosis Slight Sodium Level 154 mmol/L (136-145) Potassium Level 4.7 mmol/L (3.5-5.1) Chloride Level 119 mmol/L (98-107) Carbon Dioxide Level 27 mmol/L (21-32) Anion Gap 8 (6-14) Blood Urea Nitrogen 49 mg/dL (8-26) Creatinine 0.9 mg/dL (0.7-1.3) Estimated GFR (Cockcroft-Gault) 84.7 Glucose Level 221 mg/dL (70-99) Calcium Level 7.6 mg/dL (8.5-10.1) Test 01/14/20 05:35 01/14/20 07:30 01/14/20 11:47 01/14/20 17:12 Glucose (Fingerstick) 209 mg/dL (70-99) 177 mg/dL (70-99) 206 mg/dL (70-99) O2 Saturation 80 % (92-99) Arterial Blood pH 7.33 (7.35-7.45) Arterial Blood pCO2 at Patient Temp 49 mmHg (35-46) Arterial Blood pO2 at Patient Temp 51 mmHg (65-108) Arterial Blood HCO3 25 mmol/L (21-28) Arterial Blood Base Excess -1 mmol/L (-3-3) FiO2 100 Test 01/14/20 23:50 01/15/20 05:30 01/15/20 05:35 01/15/20 09:00 Glucose (Fingerstick) 234 mg/dL (70-99) 171 mg/dL (70-99) White Blood Count 10.9 x10^3/uL (4.0-11.0) Red Blood Count 3.05 x10^6/uL (4.30-5.70) Hemoglobin 9.4 g/dL (13.0-17.5) Hematocrit 29.1 % (39.0-53.0) Mean Corpuscular Volume 96 fL (79-100) Mean Corpuscular Hemoglobin 31 pg (25-35) Mean Corpuscular Hemoglobin Concent 32 g/dL (31-37) Red Cell Distribution Width 14.5 % (11.5-14.5) Platelet Count 185 x10^3/uL (140-400) Neutrophils (%) (Auto) 92 % (31-73) Lymphocytes (%) (Auto) 3 % (24-48) Monocytes (%) (Auto) 3 % (0-9) Eosinophils (%) (Auto) 1 % (0-3) Basophils (%) (Auto) 1 % (0-3) Neutrophils # (Auto) 10.1 x10^3/uL (1.8-7.7) Lymphocytes # (Auto) 0.3 x10^3/uL (1.0-4.8) Monocytes # (Auto) 0.3 x10^3/uL (0.0-1.1) Eosinophils # (Auto) 0.1 x10^3/uL (0.0-0.7) Basophils # (Auto) 0.1 x10^3/uL (0.0-0.2) Sodium Level 153 mmol/L (136-145) Potassium Level 4.7 mmol/L (3.5-5.1) Chloride Level 118 mmol/L (98-107) Carbon Dioxide Level 29 mmol/L (21-32) Anion Gap 6 (6-14) Blood Urea Nitrogen 59 mg/dL (8-26) Creatinine 1.0 mg/dL (0.7-1.3) Estimated GFR (Cockcroft-Gault) 75.0 Glucose Level 176 mg/dL (70-99) Calcium Level 7.2 mg/dL (8.5-10.1) O2 Saturation 82 % (92-99) Arterial Blood pH 7.35 (7.35-7.45) Arterial Blood pCO2 at Patient Temp 49 mmHg (35-46) Arterial Blood pO2 at Patient Temp 49 mmHg (65-108) Arterial Blood HCO3 27 mmol/L (21-28) Arterial Blood Base Excess 1 mmol/L (-3-3) FiO2 100 Laboratory Tests Test 01/14/20 11:47 01/14/20 17:12 01/14/20 23:50 01/15/20 05:30 Glucose (Fingerstick) 177 mg/dL (70-99) 206 mg/dL (70-99) 234 mg/dL (70-99) White Blood Count 10.9 x10^3/uL (4.0-11.0) Red Blood Count 3.05 x10^6/uL (4.30-5.70) Hemoglobin 9.4 g/dL (13.0-17.5) Hematocrit 29.1 % (39.0-53.0) Mean Corpuscular Volume 96 fL (79-100) Mean Corpuscular Hemoglobin 31 pg (25-35) Mean Corpuscular Hemoglobin Concent 32 g/dL (31-37) Red Cell Distribution Width 14.5 % (11.5-14.5) Platelet Count 185 x10^3/uL (140-400) Neutrophils (%) (Auto) 92 % (31-73) Lymphocytes (%) (Auto) 3 % (24-48) Monocytes (%) (Auto) 3 % (0-9) Eosinophils (%) (Auto) 1 % (0-3) Basophils (%) (Auto) 1 % (0-3) Neutrophils # (Auto) 10.1 x10^3/uL (1.8-7.7) Lymphocytes # (Auto) 0.3 x10^3/uL (1.0-4.8) Monocytes # (Auto) 0.3 x10^3/uL (0.0-1.1) Eosinophils # (Auto) 0.1 x10^3/uL (0.0-0.7) Basophils # (Auto) 0.1 x10^3/uL (0.0-0.2) Sodium Level 153 mmol/L (136-145) Potassium Level 4.7 mmol/L (3.5-5.1) Chloride Level 118 mmol/L (98-107) Carbon Dioxide Level 29 mmol/L (21-32) Anion Gap 6 (6-14) Blood Urea Nitrogen 59 mg/dL (8-26) Creatinine 1.0 mg/dL (0.7-1.3) Estimated GFR (Cockcroft-Gault) 75.0 Glucose Level 176 mg/dL (70-99) Calcium Level 7.2 mg/dL (8.5-10.1) Test 01/15/20 05:35 8/29/20 09:00 Glucose (Fingerstick) 171 mg/dL (70-99) O2 Saturation 82 % (92-99) Arterial Blood pH 7.35 (7.35-7.45) Arterial Blood pCO2 at Patient Temp 49 mmHg (35-46) Arterial Blood pO2 at Patient Temp 49 mmHg (65-108) Arterial Blood HCO3 27 mmol/L (21-28) Arterial Blood Base Excess 1 mmol/L (-3-3) FiO2 100 Comments CXR 01/06 IMPRESSION: 1. Bilateral diffuse infiltrates are increased in the left base and mildly improved elsewhere. CXR 01/14/20 Impression: Slight interval increase in the bilateral perihilar infiltrates. Impression . 1. Acute hypoxic respiratory failure secondary to COVID-19 pneumonia/ARDS/acute lung injury--worsening oxygen requirements 2. Abnormal chest x-ray with bilateral infiltrates consistent with COVID-19 pneumonia. 3. Hypotension secondary to combination of hypovolemia and sepsis status post 2 liters of IV fluids. no pressors, now hypertensive 4. Acute kidney injury--resolved 5. Severe protein-calorie malnutrition. 6. Abnormal D-dimer related to COVID-19 pneumonia. Full dose lovenox added 01/09 due to increase in D-dimer to 20, now decreasing Plan . RECOMMENDATIONS: Continue present assist control mode, PEEP of 14 and FiO2 of 100% ABG reviewed, ensure adequate sedation, ARDS,worsening hypoxia, avoid increasing PEEP as could result in barotrauma/ Pneumothorax Follow chest x-rays as needed. Broad spectrum antibiotic. Cont. IV steroids, with taper, Abnormal D-dimer related to COVID-19 pneumonia. Full dose lovenox added 01/09 due to increase in D-dimer to 20. dopplers neg for DVT, D-dimer continues to decrease Stress ulcer prophylaxis. s/p Plasma cont. TF for nutritional support Pt doing poorly not expected to survive D/W RN and RT, I personally spoke with the , made her aware that will not survive. She will coming to visit. PT. is DNR Prognosis poor Critical care time 30 minutes. ACACIA MATIAS MD Jan 15, 2020 10:56
[2020-01-15] MEDS: IV DEXTROSE 5 %-0.2 % NACL 1,000 ML IV SCH (13:12)
[2020-01-15 17:25] LABS: C-REACTIVE PROTEIN 135.4 mg/L (0-3.3)
--- NOTE | 2020-01-15 18:18 | NUR ---
Dr. Mendoza discussed with family patient's prognosis. Family verbally understood. Family members visited patient outside of the glass. This RN discussed patient's POC and explained Comfort Care procedure. Family verbally stated they understood and can not make a decision right now. This RN will continue to monitor and care for patient. Addendum: 01/15/20 at 1827 by DAGMAR JON RN When this RN repositioned patient, patient O2 level desated to mid 60's. Repositioned patient to previous position in the bed. Patient unstable to reposition.
[2020-01-15] MEDS: hydrALAZINE 20 MG/ML VIAL. IVP PRN (23:09)
[2020-01-16] VITALS (22 sets, daily range): BP systolic 107–200; BP diastolic 54–80
[2020-01-16] MEDS: PROPOFOL 100 ML IV PRN ×6 (01:04→22:55)
[2020-01-16] MEDS: ASCORBIC ACID 500 MG TABLET PO SCH ×5 (01:37→23:48)
[2020-01-16] MEDS: PIPERACILLIN/TAZOBACTAM 3.375 GM in IV NORMAL SALINE 50ML 50 ML IV SCH ×4 (01:37→17:42)
[2020-01-16] MEDS: DEXMEDETOMIDINE 400 MCG in IV NORMAL SALINE 100ML 96 ML IV PRN ×5 (01:44→21:25)
[2020-01-16] MEDS: IV DEXTROSE 5 %-0.2 % NACL 1,000 ML IV SCH ×2 (04:05→18:11)
[2020-01-16] MEDS: INSULIN LISPRO 300 UNITS/3 ML VIAL. SQ SCH ×4 (06:00→17:42)
[2020-01-16 06:26] LABS: BASO # 0.1 x10^3/uL (0.0-0.2); BASO % 1 % (0-3); EOS # 0.2 x10^3/uL (0.0-0.7); EOS % 2 % (0-3); HEMATOCRIT 27.3 % (39.0-53.0); HEMOGLOBIN 8.8 g/dL (13.0-17.5); LYMPH # 0.3 x10^3/uL (1.0-4.8); LYMPH % 3 % (24-48); MEAN CORPUSCULAR HEMOGLOBIN 31 pg (25-35); MEAN CORPUSCULAR HGB CONC 32 g/dL (31-37); MEAN CORPUSCULAR VOLUME 96 fL (79-100); MONO # 0.5 x10^3/uL (0.0-1.1); MONO % 5 % (0-9); NEUT % 90 % (31-73); PLATELET COUNT 192 x10^3/uL (140-400); RED BLOOD COUNT 2.84 x10^6/uL (4.30-5.70); RED CELL DISTRIBUTION WIDTH 14.8 % (11.5-14.5); WHITE BLOOD COUNT 10.1 x10^3/uL (4.0-11.0)
[2020-01-16] MEDS: methylPREDNISolone SOD SUCC PF 40 MG/ML VIAL. IV SCH ×3 (06:27→22:09)
[2020-01-16 06:38] LABS: CALCIUM 7.3 mg/dL (8.5-10.1); CREATININE 0.9 mg/dL (0.7-1.3); GFR 84.7; POTASSIUM 4.5 mmol/L (3.5-5.1)
[2020-01-16] MEDS: MIDAZOLAM 100mg/100ml NS BAG 100 ML IV PRN ×2 (07:17→16:25)
[2020-01-16] MEDS: VECURONIUM BROMIDE 50 MG in TOTAL VOLUME 50 ML IV PRN (07:18)
[2020-01-16] MEDS: INSULIN GLARGINE SYRINGE. SQ SCH ×2 (07:52→22:10)
[2020-01-16] MEDS: ZINC SULFATE 220 MG CAPSULE. PO SCH (07:52)
[2020-01-16] MEDS: PANTOPRAZOLE IV PUSH 40 MG VIAL. IVP SCH (07:52)
[2020-01-16] MEDS: POLYETHYLENE GLYCOL 3350 17 GM PACKET. PO SCH (07:53)
[2020-01-16 09:23] LABS: BASE EXCESS ABG 0 mmol/L (-3-3); HCO3 ABG 26 mmol/L (21-28); PCO2 ABG 48 mmHg (35-46); PO2 ABG 56 mmHg (65-108); SAT O2 ABG 87 % (92-99)
[2020-01-16 09:24] LABS: FIO2 ABG 100
[2020-01-16] MEDS: fentaNYL HIGH DOSE PCA 55 ML IV PRN (10:47)
--- NOTE | 2020-01-16 10:49 | PDOC ---
PULMONARY PROGRESS NOTES DATE: 01/16/20 TIME: 10:44 Subjective remains intubated/sedated AC mode ,100%FIO2/14 PEEP, low P02 on ABG -- continues to hypoxia Fever overnight Not tolerating Tube feedings no clinical improvement, family visited overnight Vitals Vital Signs Date Time Temp Pulse Resp B/P (MAP) Pulse Ox O2 Delivery O2 Flow Rate FiO2 01/16/20 10:09 83 22 141/66 (91) 86 Ventilator 01/16/20 08:00 99.9 99.9 01/15/20 23:28 18.0 Comments visual exam done due to COVID-Pandemic no resp distess VENT 100% and PEEP 14 no skin rash lower extremity edema Lungs: Other (Intubated) Labs Laboratory Tests Test 01/14/20 11:47 01/14/20 17:12 01/14/20 23:50 01/15/20 05:30 Glucose (Fingerstick) 177 mg/dL (70-99) 206 mg/dL (70-99) 234 mg/dL (70-99) White Blood Count 10.9 x10^3/uL (4.0-11.0) Red Blood Count 3.05 x10^6/uL (4.30-5.70) Hemoglobin 9.4 g/dL (13.0-17.5) Hematocrit 29.1 % (39.0-53.0) Mean Corpuscular Volume 96 fL (79-100) Mean Corpuscular Hemoglobin 31 pg (25-35) Mean Corpuscular Hemoglobin Concent 32 g/dL (31-37) Red Cell Distribution Width 14.5 % (11.5-14.5) Platelet Count 185 x10^3/uL (140-400) Neutrophils (%) (Auto) 92 % (31-73) Lymphocytes (%) (Auto) 3 % (24-48) Monocytes (%) (Auto) 3 % (0-9) Eosinophils (%) (Auto) 1 % (0-3) Basophils (%) (Auto) 1 % (0-3) Neutrophils # (Auto) 10.1 x10^3/uL (1.8-7.7) Lymphocytes # (Auto) 0.3 x10^3/uL (1.0-4.8) Monocytes # (Auto) 0.3 x10^3/uL (0.0-1.1) Eosinophils # (Auto) 0.1 x10^3/uL (0.0-0.7) Basophils # (Auto) 0.1 x10^3/uL (0.0-0.2) Sodium Level 153 mmol/L (136-145) Potassium Level 4.7 mmol/L (3.5-5.1) Chloride Level 118 mmol/L (98-107) Carbon Dioxide Level 29 mmol/L (21-32) Anion Gap 6 (6-14) Blood Urea Nitrogen 59 mg/dL (8-26) Creatinine 1.0 mg/dL (0.7-1.3) Estimated GFR (Cockcroft-Gault) 75.0 Glucose Level 176 mg/dL (70-99) Calcium Level 7.2 mg/dL (8.5-10.1) Ferritin 757 ng/mL (26-388) C-Reactive Protein, Quantitative 135.4 mg/L (0-3.3) Test 01/15/20 05:35 01/15/20 09:00 01/15/20 12:19 01/15/20 17:47 Glucose (Fingerstick) 171 mg/dL (70-99) 162 mg/dL (70-99) 127 mg/dL (70-99) O2 Saturation 82 % (92-99) Arterial Blood pH 7.35 (7.35-7.45) Arterial Blood pCO2 at Patient Temp 49 mmHg (35-46) Arterial Blood pO2 at Patient Temp 49 mmHg (65-108) Arterial Blood HCO3 27 mmol/L (21-28) Arterial Blood Base Excess 1 mmol/L (-3-3) FiO2 100 Test 01/15/20 22:34 01/16/20 05:45 01/16/20 09:15 Glucose (Fingerstick) 89 mg/dL (70-99) White Blood Count 10.1 x10^3/uL (4.0-11.0) Red Blood Count 2.84 x10^6/uL (4.30-5.70) Hemoglobin 8.8 g/dL (13.0-17.5) Hematocrit 27.3 % (39.0-53.0) Mean Corpuscular Volume 96 fL (79-100) Mean Corpuscular Hemoglobin 31 pg (25-35) Mean Corpuscular Hemoglobin Concent 32 g/dL (31-37) Red Cell Distribution Width 14.8 % (11.5-14.5) Platelet Count 192 x10^3/uL (140-400) Neutrophils (%) (Auto) 90 % (31-73) Lymphocytes (%) (Auto) 3 % (24-48) Monocytes (%) (Auto) 5 % (0-9) Eosinophils (%) (Auto) 2 % (0-3) Basophils (%) (Auto) 1 % (0-3) Neutrophils # (Auto) 9.0 x10^3/uL (1.8-7.7) Lymphocytes # (Auto) 0.3 x10^3/uL (1.0-4.8) Monocytes # (Auto) 0.5 x10^3/uL (0.0-1.1) Eosinophils # (Auto) 0.2 x10^3/uL (0.0-0.7) Basophils # (Auto) 0.1 x10^3/uL (0.0-0.2) Sodium Level 151 mmol/L (136-145) Potassium Level 4.5 mmol/L (3.5-5.1) Chloride Level 118 mmol/L (98-107) Carbon Dioxide Level 31 mmol/L (21-32) Anion Gap 2 (6-14) Blood Urea Nitrogen 51 mg/dL (8-26) Creatinine 0.9 mg/dL (0.7-1.3) Estimated GFR (Cockcroft-Gault) 84.7 Glucose Level 112 mg/dL (70-99) Calcium Level 7.3 mg/dL (8.5-10.1) O2 Saturation 87 % (92-99) Arterial Blood pH 7.36 (7.35-7.45) Arterial Blood pCO2 at Patient Temp 48 mmHg (35-46) Arterial Blood pO2 at Patient Temp 56 mmHg (65-108) Arterial Blood HCO3 26 mmol/L (21-28) Arterial Blood Base Excess 0 mmol/L (-3-3) FiO2 100 Laboratory Tests Test 01/15/20 12:19 01/15/20 17:47 01/15/20 22:34 01/16/20 05:45 Glucose (Fingerstick) 162 mg/dL (70-99) 127 mg/dL (70-99) 89 mg/dL (70-99) White Blood Count 10.1 x10^3/uL (4.0-11.0) Red Blood Count 2.84 x10^6/uL (4.30-5.70) Hemoglobin 8.8 g/dL (13.0-17.5) Hematocrit 27.3 % (39.0-53.0) Mean Corpuscular Volume 96 fL (79-100) Mean Corpuscular Hemoglobin 31 pg (25-35) Mean Corpuscular Hemoglobin Concent 32 g/dL (31-37) Red Cell Distribution Width 14.8 % (11.5-14.5) Platelet Count 192 x10^3/uL (140-400) Neutrophils (%) (Auto) 90 % (31-73) Lymphocytes (%) (Auto) 3 % (24-48) Monocytes (%) (Auto) 5 % (0-9) Eosinophils (%) (Auto) 2 % (0-3) Basophils (%) (Auto) 1 % (0-3) Neutrophils # (Auto) 9.0 x10^3/uL (1.8-7.7) Lymphocytes # (Auto) 0.3 x10^3/uL (1.0-4.8) Monocytes # (Auto) 0.5 x10^3/uL (0.0-1.1) Eosinophils # (Auto) 0.2 x10^3/uL (0.0-0.7) Basophils # (Auto) 0.1 x10^3/uL (0.0-0.2) Sodium Level 151 mmol/L (136-145) Potassium Level 4.5 mmol/L (3.5-5.1) Chloride Level 118 mmol/L (98-107) Carbon Dioxide Level 31 mmol/L (21-32) Anion Gap 2 (6-14) Blood Urea Nitrogen 51 mg/dL (8-26) Creatinine 0.9 mg/dL (0.7-1.3) Estimated GFR (Cockcroft-Gault) 84.7 Glucose Level 112 mg/dL (70-99) Calcium Level 7.3 mg/dL (8.5-10.1) Test 01/16/20 09:15 O2 Saturation 87 % (92-99) Arterial Blood pH 7.36 (7.35-7.45) Arterial Blood pCO2 at Patient Temp 48 mmHg (35-46) Arterial Blood pO2 at Patient Temp 56 mmHg (65-108) Arterial Blood HCO3 26 mmol/L (21-28) Arterial Blood Base Excess 0 mmol/L (-3-3) FiO2 100 Comments CXR 01/06 IMPRESSION: 1. Bilateral diffuse infiltrates are increased in the left base and mildly improved elsewhere. CXR 01/14/20 Impression: Slight interval increase in the bilateral perihilar infiltrates. Impression . 1. Acute hypoxic respiratory failure secondary to COVID-19 pneumonia/ARDS/acute lung injury--worsening oxygen requirements 2. Abnormal chest x-ray with bilateral infiltrates consistent with COVID-19 pneumonia. 3. Hypotension secondary to combination of hypovolemia and sepsis status post 2 liters of IV fluids. no pressors, now hypertensive 4. Acute kidney injury--resolved 5. Severe protein-calorie malnutrition. 6. Abnormal D-dimer related to COVID-19 pneumonia. Full dose lovenox added 01/09 due to increase in D-dimer to 20, now decreasing 7. Fevers Plan . RECOMMENDATIONS: Continue present assist control mode, PEEP of 14 and FiO2 of 100% ABG reviewed, ensure adequate sedation, ARDS,worsening hypoxia, avoid increasing PEEP as could result in barotrauma/ Pneumothorax Broad spectrum antibiotic. Cont. IV steroids, with taper, Abnormal D-dimer related to COVID-19 pneumonia. Full dose lovenox added 01/09 due to increase in D-dimer to 20. dopplers neg for DVT, D-dimer continues to decrease Stress ulcer prophylaxis. s/p Plasma Pt doing poorly not expected to survive D/W RN and RT PT. is DNR Prognosis poor Critical care time 30 minutes, family aware and visited overnight and aware of pt. clinical condition, I spoke with yesterday ACACIA MATIAS MD Jan 16, 2020 10:49
--- NOTE | 2020-01-16 11:04 | PDOC ---
PROGRESS NOTES Date of Service: DATE: 01/16/20 TIME: 11:04 Chief Complaint Chief Complaint Assessment/Plan Acute hypoxemic respiratory failure Bilateral perihilar infiltrates are seen which appear increased slightly Leukocytosis with bandemia secondary to septic process Hyponatremia secondary to low effective circulatory volume, now hypernatremic Acue renal failure due to vasomotor nephropathy most likely Hyperglycemia transaminitis Uncontrolled hypertension CONSULT NEPHROLOGY Hypotonic saline iv support serum osmolality 100%FIO2/14 PEEP, 33 MIN CC TIME History of Present Illness History of Present Illness History of Present Illness Patient is a 54-year-old gentleman who was diagnosed with COVID-19 infection on Friday 5 days prior to his admission to the intensive care unit. Apparently the patient reported worsening respiratory distress reason why he came to the emergency department for evaluation and treatment. The story was quite limited since the patient was speaking Somali only and his acuity was such that he required mechanical ventilation and prompt intubation by the emergency department physician. At the present time patient is intubated and sedated continues to require a lot of support no pertinent past medical history was reported he is admitted to the intensive care unit for further treatment 01/10/2020 Continues to require full support, glycemia has been noted in hypertension as well. Discussed with nursing staff, all of concerns were addressed to the best of my abilities no acute events reported overnight 01/11/2020 No acute events reported overnight, case discussed with nursing staff patient in no acute distress 01/12/2020 Per nursing staff, patient febrile overnight, treated with Tylenol and tepid water bath. Case discussed with nursing staff, continue with IV antibiotics and full VTE prophylaxis. 01/13/2020 Patient still febrile overnight. O2 requirement increasing. Discussed with RN. 01/14/2020 Patient still intubated and sedated. Discussed with RN, patient was made DNR. Nursing concerned about lack of bowel movements and abdominal distention. Will schedule MiraLAX. Vitals Vitals Vital Signs Date Time Temp Pulse Resp B/P (MAP) Pulse Ox O2 Delivery O2 Flow Rate FiO2 01/16/20 10:47 22 86 Ventilator 18.0 01/16/20 10:09 83 141/66 (91) 01/16/20 08:00 99.9 99.9 Physical Exam General: No acute distress, Other (Intubated and sedated) Heart: Regular rate Lungs: Other (Intubated) Abdomen: Other (Nondistended) Extremities: No clubbing, No cyanosis Skin: No rashes, No breakdown Labs LABS Laboratory Tests Test 01/15/20 12:19 01/15/20 17:47 01/15/20 22:34 01/16/20 05:45 Glucose (Fingerstick) 162 mg/dL (70-99) 127 mg/dL (70-99) 89 mg/dL (70-99) White Blood Count 10.1 x10^3/uL (4.0-11.0) Red Blood Count 2.84 x10^6/uL (4.30-5.70) Hemoglobin 8.8 g/dL (13.0-17.5) Hematocrit 27.3 % (39.0-53.0) Mean Corpuscular Volume 96 fL (79-100) Mean Corpuscular Hemoglobin 31 pg (25-35) Mean Corpuscular Hemoglobin Concent 32 g/dL (31-37) Red Cell Distribution Width 14.8 % (11.5-14.5) Platelet Count 192 x10^3/uL (140-400) Neutrophils (%) (Auto) 90 % (31-73) Lymphocytes (%) (Auto) 3 % (24-48) Monocytes (%) (Auto) 5 % (0-9) Eosinophils (%) (Auto) 2 % (0-3) Basophils (%) (Auto) 1 % (0-3) Neutrophils # (Auto) 9.0 x10^3/uL (1.8-7.7) Lymphocytes # (Auto) 0.3 x10^3/uL (1.0-4.8) Monocytes # (Auto) 0.5 x10^3/uL (0.0-1.1) Eosinophils # (Auto) 0.2 x10^3/uL (0.0-0.7) Basophils # (Auto) 0.1 x10^3/uL (0.0-0.2) Sodium Level 151 mmol/L (136-145) Potassium Level 4.5 mmol/L (3.5-5.1) Chloride Level 118 mmol/L (98-107) Carbon Dioxide Level 31 mmol/L (21-32) Anion Gap 2 (6-14) Blood Urea Nitrogen 51 mg/dL (8-26) Creatinine 0.9 mg/dL (0.7-1.3) Estimated GFR (Cockcroft-Gault) 84.7 Glucose Level 112 mg/dL (70-99) Calcium Level 7.3 mg/dL (8.5-10.1) Test 01/16/20 09:15 O2 Saturation 87 % (92-99) Arterial Blood pH 7.36 (7.35-7.45) Arterial Blood pCO2 at Patient Temp 48 mmHg (35-46) Arterial Blood pO2 at Patient Temp 56 mmHg (65-108) Arterial Blood HCO3 26 mmol/L (21-28) Arterial Blood Base Excess 0 mmol/L (-3-3) FiO2 100 Comment Review of Relevant I have reviewed the following items hong (where applicable) has been applied. Labs Laboratory Tests Test 01/14/20 11:47 01/14/20 17:12 01/14/20 23:50 01/15/20 05:30 Glucose (Fingerstick) 177 mg/dL (70-99) 206 mg/dL (70-99) 234 mg/dL (70-99) White Blood Count 10.9 x10^3/uL (4.0-11.0) Red Blood Count 3.05 x10^6/uL (4.30-5.70) Hemoglobin 9.4 g/dL (13.0-17.5) Hematocrit 29.1 % (39.0-53.0) Mean Corpuscular Volume 96 fL (79-100) Mean Corpuscular Hemoglobin 31 pg (25-35) Mean Corpuscular Hemoglobin Concent 32 g/dL (31-37) Red Cell Distribution Width 14.5 % (11.5-14.5) Platelet Count 185 x10^3/uL (140-400) Neutrophils (%) (Auto) 92 % (31-73) Lymphocytes (%) (Auto) 3 % (24-48) Monocytes (%) (Auto) 3 % (0-9) Eosinophils (%) (Auto) 1 % (0-3) Basophils (%) (Auto) 1 % (0-3) Neutrophils # (Auto) 10.1 x10^3/uL (1.8-7.7) Lymphocytes # (Auto) 0.3 x10^3/uL (1.0-4.8) Monocytes # (Auto) 0.3 x10^3/uL (0.0-1.1) Eosinophils # (Auto) 0.1 x10^3/uL (0.0-0.7) Basophils # (Auto) 0.1 x10^3/uL (0.0-0.2) Sodium Level 153 mmol/L (136-145) Potassium Level 4.7 mmol/L (3.5-5.1) Chloride Level 118 mmol/L (98-107) Carbon Dioxide Level 29 mmol/L (21-32) Anion Gap 6 (6-14) Blood Urea Nitrogen 59 mg/dL (8-26) Creatinine 1.0 mg/dL (0.7-1.3) Estimated GFR (Cockcroft-Gault) 75.0 Glucose Level 176 mg/dL (70-99) Calcium Level 7.2 mg/dL (8.5-10.1) Ferritin 757 ng/mL (26-388) C-Reactive Protein, Quantitative 135.4 mg/L (0-3.3) Test 01/15/20 05:35 01/15/20 09:00 01/15/20 12:19 01/15/20 17:47 Glucose (Fingerstick) 171 mg/dL (70-99) 162 mg/dL (70-99) 127 mg/dL (70-99) O2 Saturation 82 % (92-99) Arterial Blood pH 7.35 (7.35-7.45) Arterial Blood pCO2 at Patient Temp 49 mmHg (35-46) Arterial Blood pO2 at Patient Temp 49 mmHg (65-108) Arterial Blood HCO3 27 mmol/L (21-28) Arterial Blood Base Excess 1 mmol/L (-3-3) FiO2 100 Test 01/15/20 22:34 01/16/20 05:45 01/16/20 09:15 Glucose (Fingerstick) 89 mg/dL (70-99) White Blood Count 10.1 x10^3/uL (4.0-11.0) Red Blood Count 2.84 x10^6/uL (4.30-5.70) Hemoglobin 8.8 g/dL (13.0-17.5) Hematocrit 27.3 % (39.0-53.0) Mean Corpuscular Volume 96 fL (79-100) Mean Corpuscular Hemoglobin 31 pg (25-35) Mean Corpuscular Hemoglobin Concent 32 g/dL (31-37) Red Cell Distribution Width 14.8 % (11.5-14.5) Platelet Count 192 x10^3/uL (140-400) Neutrophils (%) (Auto) 90 % (31-73) Lymphocytes (%) (Auto) 3 % (24-48) Monocytes (%) (Auto) 5 % (0-9) Eosinophils (%) (Auto) 2 % (0-3) Basophils (%) (Auto) 1 % (0-3) Neutrophils # (Auto) 9.0 x10^3/uL (1.8-7.7) Lymphocytes # (Auto) 0.3 x10^3/uL (1.0-4.8) Monocytes # (Auto) 0.5 x10^3/uL (0.0-1.1) Eosinophils # (Auto) 0.2 x10^3/uL (0.0-0.7) Basophils # (Auto) 0.1 x10^3/uL (0.0-0.2) Sodium Level 151 mmol/L (136-145) Potassium Level 4.5 mmol/L (3.5-5.1) Chloride Level 118 mmol/L (98-107) Carbon Dioxide Level 31 mmol/L (21-32) Anion Gap 2 (6-14) Blood Urea Nitrogen 51 mg/dL (8-26) Creatinine 0.9 mg/dL (0.7-1.3) Estimated GFR (Cockcroft-Gault) 84.7 Glucose Level 112 mg/dL (70-99) Calcium Level 7.3 mg/dL (8.5-10.1) O2 Saturation 87 % (92-99) Arterial Blood pH 7.36 (7.35-7.45) Arterial Blood pCO2 at Patient Temp 48 mmHg (35-46) Arterial Blood pO2 at Patient Temp 56 mmHg (65-108) Arterial Blood HCO3 26 mmol/L (21-28) Arterial Blood Base Excess 0 mmol/L (-3-3) FiO2 100 Laboratory Tests Test 01/15/20 12:19 01/15/20 17:47 01/15/20 22:34 01/16/20 05:45 Glucose (Fingerstick) 162 mg/dL (70-99) 127 mg/dL (70-99) 89 mg/dL (70-99) White Blood Count 10.1 x10^3/uL (4.0-11.0) Red Blood Count 2.84 x10^6/uL (4.30-5.70) Hemoglobin 8.8 g/dL (13.0-17.5) Hematocrit 27.3 % (39.0-53.0) Mean Corpuscular Volume 96 fL (79-100) Mean Corpuscular Hemoglobin 31 pg (25-35) Mean Corpuscular Hemoglobin Concent 32 g/dL (31-37) Red Cell Distribution Width 14.8 % (11.5-14.5) Platelet Count 192 x10^3/uL (140-400) Neutrophils (%) (Auto) 90 % (31-73) Lymphocytes (%) (Auto) 3 % (24-48) Monocytes (%) (Auto) 5 % (0-9) Eosinophils (%) (Auto) 2 % (0-3) Basophils (%) (Auto) 1 % (0-3) Neutrophils # (Auto) 9.0 x10^3/uL (1.8-7.7) Lymphocytes # (Auto) 0.3 x10^3/uL (1.0-4.8) Monocytes # (Auto) 0.5 x10^3/uL (0.0-1.1) Eosinophils # (Auto) 0.2 x10^3/uL (0.0-0.7) Basophils # (Auto) 0.1 x10^3/uL (0.0-0.2) Sodium Level 151 mmol/L (136-145) Potassium Level 4.5 mmol/L (3.5-5.1) Chloride Level 118 mmol/L (98-107) Carbon Dioxide Level 31 mmol/L (21-32) Anion Gap 2 (6-14) Blood Urea Nitrogen 51 mg/dL (8-26) Creatinine 0.9 mg/dL (0.7-1.3) Estimated GFR (Cockcroft-Gault) 84.7 Glucose Level 112 mg/dL (70-99) Calcium Level 7.3 mg/dL (8.5-10.1) Test 01/16/20 09:15 O2 Saturation 87 % (92-99) Arterial Blood pH 7.36 (7.35-7.45) Arterial Blood pCO2 at Patient Temp 48 mmHg (35-46) Arterial Blood pO2 at Patient Temp 56 mmHg (65-108) Arterial Blood HCO3 26 mmol/L (21-28) Arterial Blood Base Excess 0 mmol/L (-3-3) FiO2 100 Microbiology 01/08/20 Blood Culture - Final, Complete NO GROWTH AFTER 5 DAYS 01/06/20 Urine Culture - Final, Complete Medications Current Medications Etomidate (Amidate) 20 mg STK-MED ONCE IV ; Start 01/06/20 at 18:54; Stop 01/06/20 at 18:54; Status DC Succinylcholine Chloride (Anectine) 200 mg STK-MED ONCE .ROUTE ; Start 01/06/20 at 18:55; Stop 01/06/20 at 18:55; Status DC Propofol 50 ml @ As Directed STK-MED ONCE IV ; Start 01/06/20 at 18:55; Stop 01/06/20 at 18:56; Status DC Propofol 100 ml @ 0 mls/hr CONT PRN IV SEE PROTOCOL Last administered on 01/16/20at 07:23; Start 01/06/20 at 19:00 Fentanyl Citrate (Fentanyl 2ml Vial) 25 mcg PRN Q1HR PRN IV SEE COMMENTS; Start 01/06/20 at 19:00 Fentanyl Citrate (Fentanyl 2ml Vial) 50 mcg PRN Q1HR PRN IV SEE COMMENTS Last administered on 01/06/20at 19:42; Start 01/06/20 at 19:00 Chlorhexidine Gluconate (Peridex) 15 ml BID MM Last administered on 01/07/20at 08:16; Start 01/06/20 at 21:00; Stop 01/07/20 at 09:45; Status DC Midazolam HCl (Versed) 5 mg STK-MED ONCE .ROUTE ; Start 01/06/20 at 19:17; Stop 01/06/20 at 19:18; Status DC Midazolam HCl 50 mg/Sodium Chloride 50 ml @ 0 mls/hr 1X ONCE IV ; Start 01/06/20 at 19:30; Stop 01/06/20 at 19:31; Status UNV Albuterol/ Ipratropium (Duoneb) 3 ml STK-MED ONCE .ROUTE ; Start 01/06/20 at 19:27; Stop 01/06/20 at 19:27; Status DC Midazolam HCl 100 ml @ 0 mls/hr CONT PRN IV SEE PROTOCOL Last administered on 01/16/20 07:17; Start 01/06/20 at 19:30 Propofol 50 ml @ 0 mls/hr 1X ONCE IV Last administered on 01/06/20at 18:55; Start 01/06/20 at 20:00; Stop 01/06/20 at 20:01; Status DC Midazolam HCl (Versed) 5 mg 1X ONCE NS Last administered on 01/06/20at 19:18; Start 01/06/20 at 19:18; Stop 01/06/20 at 19:59; Status DC Piperacillin Sod/ Tazobactam Sod 3.375 gm/Sodium Chloride 50 ml @ 100 mls/hr 1X ONCE IV Last administered on 01/06/20at 21:47; Start 01/06/20 at 20:45; Stop 01/06/20 at 21:14; Status DC Dexmedetomidine HCl 400 mcg/ Sodium Chloride 100 ml @ 0 mls/hr CONT PRN IV SEDATION Last administered on 01/16/20 07:18; Start 01/06/20 at 20:15 Sodium Chloride 500 ml @ 500 mls/hr 1X PRN PRN IV SEE COMMENTS Last administered on 01/13/20at 11:22; Start 01/06/20 at 20:15 Atropine Sulfate (ATROPINE 0.5mg SYRINGE) 0.5 mg PRN Q5MIN PRN IV SEE COMMENTS; Start 01/06/20 at 20:15 Fentanyl Citrate (Fentanyl 2ml Vial) 100 mcg 1X ONCE IVP Last administered on 01/06/20at 20:17; Start 01/06/20 at 20:15; Stop 01/06/20 at 20:18; Status DC Methylprednisolone Sodium Succinate (SOLU-Medrol 40MG VIAL) 40 mg Q8HRS IV Last administered on 01/16/20 06:27; Start 01/06/20 at 22:00 Enoxaparin Sodium (Lovenox 40mg Syringe) 40 mg BID SQ Last administered on 01/07/20at 08:15; Start 01/06/20 at 21:30; Stop 01/07/20 at 09:47; Status DC Potassium Chloride/Dextrose/ Sod Cl 1,000 ml @ 125 mls/hr Q8H ONCE IV Last administered on 01/06/20at 22:13; Start 01/06/20 at 21:30; Stop 01/07/20 at 05:29; Status DC Zinc Sulfate (Orazinc) 220 mg DAILY PO Last administered on 01/16/20 07:52; Start 01/07/20 at 09:00 Ondansetron HCl (Zofran) 4 mg PRN Q4HRS PRN IV NAUSEA/VOMITING; Start 01/06/20 at 21:30 Acetaminophen (Tylenol) 650 mg PRN Q4HRS PRN GT TEMP OVER 100.4F OR MILD PAIN Last administered on 01/14/20at 05:51; Start 01/06/20 at 21:30 Acetaminophen (Tylenol Supp) 650 mg PRN Q4HRS PRN MT TEMP OVER 100.4F OR MILD PAIN; Start 01/06/20 at 21:30 Docusate Sodium (Colace) 100 mg PRN BID PRN PO HARD STOOLS Last administered on 01/12/20 08:26; Start 01/06/20 at 21:30 Piperacillin Sod/ Tazobactam Sod 3.375 gm/Sodium Chloride 50 ml @ 100 mls/hr Q6HRS IV Last administered on 01/16/20 06:26; Start 01/07/20 at 00:00 Pantoprazole Sodium (PROTONIX VIAL for IV PUSH) 40 mg DAILYAC IVP Last administered on 01/16/20 07:52; Start 01/07/20 at 07:30 Norepinephrine Bitartrate 8 mg/ Dextrose 258 ml @ 12.578 mls/ hr CONT PRN IV PER PROTOCOL Last administered on 01/06/20at 22:15; Start 01/06/20 at 21:45 Sodium Chloride 1,000 ml @ 1,000 mls/hr 1X ONCE IV Last administered on 01/06/20at 21:44; Start 01/06/20 at 21:45; Stop 01/06/20 at 22:44; Status DC Fentanyl Citrate 30 ml @ 0 mls/hr CONT PRN IV SEE PROTOCOL Last administered on 01/08/20at 10:44; Start 01/06/20 at 21:45; Stop 01/08/20 at 14:49; Status DC Vecuronium [place] (Norcuron Bolus) 6 mg PRN Q2HR PRN IV VENT ASYNCHRONY Last administered on 01/08/20at 11:23; Start 01/06/20 at 21:45; Stop 01/08/20 at 14:48; Status DC Sodium Chloride 1,000 ml @ 1,000 mls/hr 1X ONCE IV Last administered on 01/06/20at 22:36; Start 01/06/20 at 22:30; Stop 01/06/20 at 23:29; Status DC Methylprednisolone Sodium Succinate (SOLU-Medrol 40MG VIAL) 40 mg Q8HRS IV ; Start 01/07/20 at 14:00; Status UNV Enoxaparin Sodium (Lovenox 80mg Syringe) 80 mg BID SQ Last administered on 01/07/20at 20:53; Start 01/07/20 at 21:00; Stop 01/08/20 at 08:57; Status DC Insulin Human Lispro (HumaLOG) 6 units TID SQ ; Start 01/07/20 at 14:00; Stop 01/07/20 at 10:05; Status DC Insulin Glargine (Lantus Syringe) 10 unit BID SQ Last administered on 01/08/20at 09:27; Start 01/07/20 at 21:00; Stop 01/08/20 at 11:25; Status DC Ascorbic Acid (Vitamin C) 250 mg Q6HRS PO Last administered on 01/16/20at 06:27; Start 01/07/20 at 12:00 Sodium Chloride 1,000 ml @ 75 mls/hr [id number] IV Last administered on 01/10/20at 19:33; Start 01/07/20 at 10:00; Stop 01/11/20 at 10:23; Status DC Insulin Human Lispro (HumaLOG) 6 units Q6HRS SQ Last administered on 01/08/20at 06:11; Start 01/07/20 at 12:00; Stop 01/08/20 at 11:25; Status DC Insulin Glargine (Lantus Syringe) 10 unit 1X ONCE SQ Last administered on 01/07/20at 11:40; Start 01/07/20 at 11:00; Stop 01/07/20 at 11:01; Status DC Enoxaparin Sodium (Lovenox 60mg Syringe) 60 mg BID SQ Last administered on 01/10/20at 08:55; Start 01/08/20 at 09:00; Stop 01/10/20 at 16:45; Status DC Vecuronium [place] (Norcuron Bolus) 6 mg PRN Q6HRS PRN IV SEDATION (2nd Choice) Last administered on 01/10/20at 16:36; Start 01/08/20 at 09:30 Insulin Glargine (Lantus Syringe) 14 unit BID SQ Last administered on 01/10/20at 09:24; Start 01/08/20 at 21:00; Stop 01/10/20 at 12:27; Status DC Insulin Human Lispro (HumaLOG) 8 units Q6HRS SQ Last administered on 01/10/20at 12:11; Start 01/08/20 at 12:00; Stop 01/10/20 at 12:27; Status DC Fentanyl Citrate 55 ml @ 0 mls/hr CONT PRN IV SEE PROTOCOL Last administered on 01/16/20at 10:47; Start 01/08/20 at 14:49 Lorazepam (Ativan Inj) 1 mg PRN Q1HR PRN IVP ANXIETY / AGITATION- MODERATE; Start 01/08/20 at 16:15 Lorazepam (Ativan Inj) 2 mg PRN Q1HR PRN IVP ANXIETY / AGITATION- SEVERE Last administered on 01/09/20at 13:10; Start 01/08/20 at 16:30 Insulin Human Lispro (HumaLOG) 6 units 1X ONCE SQ Last administered on 01/09/20at 06:20; Start 01/09/20 at 06:15; Stop 01/09/20 at 06:16; Status DC Hydralazine HCl (Apresoline Inj) 10 mg PRN Q4HRS PRN IVP ELEVATED BP, SEE COMMENTS Last administered on 01/15/20at 23:09; Start 01/10/20 at 09:15 Alteplase, Recombinant (Cathflo For Central Catheter Clearance) 1 mg 1X ONCE INT CAT Last administered on 01/10/20at 12:05; Start 01/10/20 at 11:00; Stop 01/10/20 at 11:01; Status DC Insulin Glargine (Lantus Syringe) 18 unit BID SQ Last administered on 01/11/20at 08:30; Start 01/10/20 at 21:00; Stop 01/11/20 at 10:03; Status DC Insulin Human Lispro (HumaLOG) 10 units Q6HRS SQ Last administered on 01/11/20 05:53; Start 01/10/20 at 18:00; Stop 01/11/20 at 10:03; Status DC Vecuronium [place] 50 mg/ Miscellaneous 50 ml @ 4.027 mls/ hr CONT PRN IV SEE I/O RECORD Last administered on 01/16/20at 07:18; Start 01/10/20 at 16:15 Enoxaparin Sodium (Lovenox Per Pharmacy Treatment Dosing) 1 each PRN DAILY PRN MC SEE COMMENTS; Start 01/10/20 at 16:45 Enoxaparin Sodium (Lovenox 80mg Syringe) 80 mg Q12HR SQ Last administered on 01/16/20at 07:52; Start 01/10/20 at 21:00 Furosemide (Lasix) 40 mg 1X ONCE IVP Last administered on 01/11/20at 10:19; Start 01/11/20 at 10:00; Stop 01/11/20 at 10:01; Status DC Insulin Glargine (Lantus Syringe) 24 unit BID SQ Last administered on 01/16/20 07:52; Start 01/11/20 at 10:30 Insulin Human Lispro (HumaLOG) 14 units Q6HRS SQ Last administered on 01/15/20at 12:20; Start 01/11/20 at 12:00 Info (Anti-Coagulation Monitoring By Pharmacy) 1 each PRN DAILY PRN MC SEE COMMENTS Last administered on 01/13/20at 14:14; Start 01/12/20 at 10:00 Polyethylene Glycol (miraLAX PACKET) 17 gm DAILY PO Last administered on 01/15/20at 09:02; Start 01/14/20 at 11:00 Dextrose/Sodium Chloride 1,000 ml @ 75 mls/hr [id number] IV Last administered on 01/16/20at 04:05; Start 01/15/20 at 09:30 Vitals/I & O Vital Sign - Last 24 Hours 01/15/20 01/15/20 01/15/20 01/15/20 12:00 12:34 12:45 13:11 Temp 99.5 99.5 Pulse 85 87 Resp 22 22 B/P (MAP) 139/72 (94) 140/60 (86) Pulse Ox 79 71 70 O2 Delivery Mechanical Ventilator Ventilator Ventilator Ventilator 01/15/20 01/15/20 01/15/20 01/15/20 14:06 15:30 16:00 16:14 Pulse 92 88 85 Resp 22 B/P (MAP) 146/64 (91) 138/59 (85) 138/63 (88) Pulse Ox 74 77 79 O2 Delivery Ventilator Ventilator Ventilator Mechanical Ventilator 01/15/20 01/15/20 01/15/20 01/15/20 16:30 17:45 18:03 19:00 Temp 99.5 99.5 Pulse 83 83 85 Resp B/P (MAP) 135/63 (87) 136/65 (88) 146/65 (92) Pulse Ox 79 81 81 80 O2 Delivery Ventilator Ventilator Ventilator Ventilator 01/15/20 01/15/20 01/15/20 01/15/20 20:00 20:00 20:10 21:00 Temp 99.4 99.4 Pulse 87 88 Resp B/P (MAP) 146/66 (92) 173/69 (103) Pulse Ox 80 81 80 O2 Delivery Mechanical Ventilator Ventilator Ventilator Ventilator 01/15/20 01/15/20 01/15/20 01/15/20 22:00 22:58 23:00 23:09 Pulse 102 103 83 Resp 22 B/P (MAP) 198/52 (100) 200/80 (120) 200/80 Pulse Ox 79 81 81 O2 Delivery Ventilator Ventilator O2 Flow Rate 18.0 01/15/20 01/15/20 01/16/20 01/16/20 23:28 23:59 00:01 00:24 Temp 99.9 99.9 Pulse 106 Resp B/P (MAP) 200/70 (113) Pulse Ox 83 83 83 O2 Delivery Mechanical Ventilator Ventilator Ventilator O2 Flow Rate 18.0 01/16/20 01/16/20 01/16/20 01/16/20 01:00 02:00 03:00 03:40 Pulse 110 106 92 Resp 22 22 B/P (MAP) 169/80 (109) 122/63 (82) 121/65 (83) Pulse Ox 85 88 90 89 O2 Delivery Ventilator Ventilator Ventilator Ventilator 01/16/20 01/16/20 01/16/20 01/16/20 04:00 04:00 07:09 08:00 Temp 101.1 99.9 101.1 99.9 Pulse 91 79 78 Resp 22 22 22 B/P (MAP) 148/67 (94) 110/56 (74) 126/61 (82) Pulse Ox 90 88 88 O2 Delivery Mechanical Ventilator Ventilator Ventilator Ventilator 01/16/20 01/16/20 01/16/20 01/16/20 08:00 09:13 09:13 10:09 Pulse 80 83 Resp 22 B/P (MAP) 125/60 (81) 141/66 (91) Pulse Ox 88 88 86 O2 Delivery Mechanical Ventilator Ventilator Ventilator Ventilator 01/16/20 10:47 Resp 22 Pulse Ox 86 O2 Delivery Ventilator O2 Flow Rate 18.0 Intake and Output 01/15/20 01/15/20 01/16/20 15:00 23:00 07:00 Intake Total 250 ml 250 ml 250 ml Output Total 510 ml 1050 ml 625 ml Balance -260 ml -800 ml -375 ml Justicifation of Admission Dx: Justifications for Admission: Justification of Admission Dx: Yes FABIANA PRITCHETT MD Jan 16, 2020 11:04
--- NOTE | 2020-01-16 18:04 | NUR ---
Patient's family called to request to talk to patient. This RN held phone to patient's ear so his family could talk to him. Family is tearful and not able to make a decision to transition to comfort care. Will continue monitor and care for patient.
[2020-01-17] VITALS (24 sets, daily range): BP systolic 106–122; BP diastolic 51–63
[2020-01-17] MEDS: fentaNYL HIGH DOSE PCA 55 ML IV PRN ×2 (00:16→13:51)
[2020-01-17] MEDS: PIPERACILLIN/TAZOBACTAM 3.375 GM in IV NORMAL SALINE 50ML 50 ML IV SCH ×5 (00:24→23:35)
[2020-01-17] MEDS: DEXMEDETOMIDINE 400 MCG in IV NORMAL SALINE 100ML 96 ML IV PRN ×6 (01:37→22:07)
[2020-01-17] MEDS: PROPOFOL 100 ML IV PRN ×6 (01:39→23:35)
[2020-01-17 05:54] LABS: BASO % 0 % (0-3); EOS # 0.1 x10^3/uL (0.0-0.7); EOS % 1 % (0-3); HEMATOCRIT 27.2 % (39.0-53.0); HEMOGLOBIN 8.7 g/dL (13.0-17.5); LYMPH # 0.4 x10^3/uL (1.0-4.8); LYMPH % 4 % (24-48); MEAN CORPUSCULAR HEMOGLOBIN 31 pg (25-35); MEAN CORPUSCULAR HGB CONC 32 g/dL (31-37); MEAN CORPUSCULAR VOLUME 96 fL (79-100); MONO # 0.4 x10^3/uL (0.0-1.1); MONO % 4 % (0-9); NEUT % 91 % (31-73); PLATELET COUNT 195 x10^3/uL (140-400); RED BLOOD COUNT 2.83 x10^6/uL (4.30-5.70); RED CELL DISTRIBUTION WIDTH 14.7 % (11.5-14.5); WHITE BLOOD COUNT 8.9 x10^3/uL (4.0-11.0)
[2020-01-17] MEDS: MIDAZOLAM 100mg/100ml NS BAG 100 ML IV PRN ×2 (05:58→15:25)
[2020-01-17] MEDS: ASCORBIC ACID 500 MG TABLET PO SCH ×4 (06:00→23:35)
[2020-01-17] MEDS: methylPREDNISolone SOD SUCC PF 40 MG/ML VIAL. IV SCH ×3 (06:05→22:06)
[2020-01-17] MEDS: INSULIN LISPRO 300 UNITS/3 ML VIAL. SQ SCH ×4 (06:06→18:00)
[2020-01-17 06:15] LABS: CALCIUM 6.9 mg/dL (8.5-10.1); POTASSIUM 4.2 mmol/L (3.5-5.1)
[2020-01-17 06:32] LABS: C-REACTIVE PROTEIN 167.1 mg/L (0-3.3)
[2020-01-17] MEDS: VECURONIUM BROMIDE 50 MG in TOTAL VOLUME 50 ML IV PRN (06:35)
[2020-01-17] MEDS: INSULIN GLARGINE SYRINGE. SQ SCH ×2 (07:23→22:06)
[2020-01-17] MEDS: PANTOPRAZOLE IV PUSH 40 MG VIAL. IVP SCH (07:24)
[2020-01-17] MEDS: ZINC SULFATE 220 MG CAPSULE. PO SCH (07:24)
[2020-01-17] MEDS: POLYETHYLENE GLYCOL 3350 17 GM PACKET. PO SCH (07:24)
[2020-01-17 08:36] LABS: BASE EXCESS ABG -2 mmol/L (-3-3); HCO3 ABG 24 mmol/L (21-28); PCO2 ABG 45 mmHg (35-46); SAT O2 ABG 82 % (92-99)
[2020-01-17 08:43] LABS: FIO2 ABG 100; PO2 ABG 50 mmHg (65-108)
--- NOTE | 2020-01-17 08:53 | PDOC ---
PULMONARY PROGRESS NOTES DATE: 01/17/20 TIME: 08:53 Subjective remains intubated/sedated AC mode ,100%FIO2/14 PEEP, low P02 on ABG -- continues to hypoxia Fever overnight Vitals Vital Signs Date Time Temp Pulse Resp B/P (MAP) Pulse Ox O2 Delivery O2 Flow Rate FiO2 01/17/20 08:37 Mechanical Ventilator 01/17/20 08:18 98.4 58 22 122/61 (81) 82 98.4 01/16/20 11:17 18.0 Comments visual exam done due to COVID-Pandemic no resp distess VENT 100% and PEEP 14 no skin rash lower extremity edema Lungs: Other (Intubated) Labs Laboratory Tests Test 01/15/20 09:00 01/15/20 12:19 01/15/20 17:47 01/15/20 22:34 O2 Saturation 82 % (92-99) Arterial Blood pH 7.35 (7.35-7.45) Arterial Blood pCO2 at Patient Temp 49 mmHg (35-46) Arterial Blood pO2 at Patient Temp 49 mmHg (65-108) Arterial Blood HCO3 27 mmol/L (21-28) Arterial Blood Base Excess 1 mmol/L (-3-3) FiO2 100 Glucose (Fingerstick) 162 mg/dL (70-99) 127 mg/dL (70-99) 89 mg/dL (70-99) Test 01/16/20 05:45 01/16/20 09:15 01/16/20 12:24 01/16/20 22:02 White Blood Count 10.1 x10^3/uL (4.0-11.0) Red Blood Count 2.84 x10^6/uL (4.30-5.70) Hemoglobin 8.8 g/dL (13.0-17.5) Hematocrit 27.3 % (39.0-53.0) Mean Corpuscular Volume 96 fL (79-100) Mean Corpuscular Hemoglobin 31 pg (25-35) Mean Corpuscular Hemoglobin Concent 32 g/dL (31-37) Red Cell Distribution Width 14.8 % (11.5-14.5) Platelet Count 192 x10^3/uL (140-400) Neutrophils (%) (Auto) 90 % (31-73) Lymphocytes (%) (Auto) 3 % (24-48) Monocytes (%) (Auto) 5 % (0-9) Eosinophils (%) (Auto) 2 % (0-3) Basophils (%) (Auto) 1 % (0-3) Neutrophils # (Auto) 9.0 x10^3/uL (1.8-7.7) Lymphocytes # (Auto) 0.3 x10^3/uL (1.0-4.8) Monocytes # (Auto) 0.5 x10^3/uL (0.0-1.1) Eosinophils # (Auto) 0.2 x10^3/uL (0.0-0.7) Basophils # (Auto) 0.1 x10^3/uL (0.0-0.2) Sodium Level 151 mmol/L (136-145) Potassium Level 4.5 mmol/L (3.5-5.1) Chloride Level 118 mmol/L (98-107) Carbon Dioxide Level 31 mmol/L (21-32) Anion Gap 2 (6-14) Blood Urea Nitrogen 51 mg/dL (8-26) Creatinine 0.9 mg/dL (0.7-1.3) Estimated GFR (Cockcroft-Gault) 84.7 Glucose Level 112 mg/dL (70-99) Calcium Level 7.3 mg/dL (8.5-10.1) O2 Saturation 87 % (92-99) Arterial Blood pH 7.36 (7.35-7.45) Arterial Blood pCO2 at Patient Temp 48 mmHg (35-46) Arterial Blood pO2 at Patient Temp 56 mmHg (65-108) Arterial Blood HCO3 26 mmol/L (21-28) Arterial Blood Base Excess 0 mmol/L (-3-3) FiO2 100 Glucose (Fingerstick) 130 mg/dL (70-99) 200 mg/dL (70-99) Test 01/17/20 00:23 01/17/20 05:30 01/17/20 05:32 01/17/20 08:05 Glucose (Fingerstick) 186 mg/dL (70-99) 202 mg/dL (70-99) White Blood Count 8.9 x10^3/uL (4.0-11.0) Red Blood Count 2.83 x10^6/uL (4.30-5.70) Hemoglobin 8.7 g/dL (13.0-17.5) Hematocrit 27.2 % (39.0-53.0) Mean Corpuscular Volume 96 fL (79-100) Mean Corpuscular Hemoglobin 31 pg (25-35) Mean Corpuscular Hemoglobin Concent 32 g/dL (31-37) Red Cell Distribution Width 14.7 % (11.5-14.5) Platelet Count 195 x10^3/uL (140-400) Neutrophils (%) (Auto) 91 % (31-73) Lymphocytes (%) (Auto) 4 % (24-48) Monocytes (%) (Auto) 4 % (0-9) Eosinophils (%) (Auto) 1 % (0-3) Basophils (%) (Auto) 0 % (0-3) Neutrophils # (Auto) 8.0 x10^3/uL (1.8-7.7) Lymphocytes # (Auto) 0.4 x10^3/uL (1.0-4.8) Monocytes # (Auto) 0.4 x10^3/uL (0.0-1.1) Eosinophils # (Auto) 0.1 x10^3/uL (0.0-0.7) Basophils # (Auto) 0.0 x10^3/uL (0.0-0.2) Sodium Level 149 mmol/L (136-145) Potassium Level 4.2 mmol/L (3.5-5.1) Chloride Level 115 mmol/L (98-107) Carbon Dioxide Level 29 mmol/L (21-32) Anion Gap 5 (6-14) Blood Urea Nitrogen 54 mg/dL (8-26) Creatinine 1.0 mg/dL (0.7-1.3) Estimated GFR (Cockcroft-Gault) 75.0 Glucose Level 226 mg/dL (70-99) Calcium Level 6.9 mg/dL (8.5-10.1) Ferritin 769 ng/mL (26-388) C-Reactive Protein, Quantitative 167.1 mg/L (0-3.3) O2 Saturation 82 % (92-99) Arterial Blood pH 7.34 (7.35-7.45) Arterial Blood pCO2 at Patient Temp 45 mmHg (35-46) Arterial Blood pO2 at Patient Temp 50 mmHg (65-108) Arterial Blood HCO3 24 mmol/L (21-28) Arterial Blood Base Excess -2 mmol/L (-3-3) FiO2 100 Laboratory Tests Test 01/16/20 09:15 01/16/20 12:24 01/16/20 22:02 01/17/20 00:23 O2 Saturation 87 % (92-99) Arterial Blood pH 7.36 (7.35-7.45) Arterial Blood pCO2 at Patient Temp 48 mmHg (35-46) Arterial Blood pO2 at Patient Temp 56 mmHg (65-108) Arterial Blood HCO3 26 mmol/L (21-28) Arterial Blood Base Excess 0 mmol/L (-3-3) FiO2 100 Glucose (Fingerstick) 130 mg/dL (70-99) 200 mg/dL (70-99) 186 mg/dL (70-99) Test 01/17/20 05:30 01/17/20 05:32 01/17/20 08:05 White Blood Count 8.9 x10^3/uL (4.0-11.0) Red Blood Count 2.83 x10^6/uL (4.30-5.70) Hemoglobin 8.7 g/dL (13.0-17.5) Hematocrit 27.2 % (39.0-53.0) Mean Corpuscular Volume 96 fL (79-100) Mean Corpuscular Hemoglobin 31 pg (25-35) Mean Corpuscular Hemoglobin Concent 32 g/dL (31-37) Red Cell Distribution Width 14.7 % (11.5-14.5) Platelet Count 195 x10^3/uL (140-400) Neutrophils (%) (Auto) 91 % (31-73) Lymphocytes (%) (Auto) 4 % (24-48) Monocytes (%) (Auto) 4 % (0-9) Eosinophils (%) (Auto) 1 % (0-3) Basophils (%) (Auto) 0 % (0-3) Neutrophils # (Auto) 8.0 x10^3/uL (1.8-7.7) Lymphocytes # (Auto) 0.4 x10^3/uL (1.0-4.8) Monocytes # (Auto) 0.4 x10^3/uL (0.0-1.1) Eosinophils # (Auto) 0.1 x10^3/uL (0.0-0.7) Basophils # (Auto) 0.0 x10^3/uL (0.0-0.2) Sodium Level 149 mmol/L (136-145) Potassium Level 4.2 mmol/L (3.5-5.1) Chloride Level 115 mmol/L (98-107) Carbon Dioxide Level 29 mmol/L (21-32) Anion Gap 5 (6-14) Blood Urea Nitrogen 54 mg/dL (8-26) Creatinine 1.0 mg/dL (0.7-1.3) Estimated GFR (Cockcroft-Gault) 75.0 Glucose Level 226 mg/dL (70-99) Calcium Level 6.9 mg/dL (8.5-10.1) Ferritin 769 ng/mL (26-388) C-Reactive Protein, Quantitative 167.1 mg/L (0-3.3) Glucose (Fingerstick) 202 mg/dL (70-99) O2 Saturation 82 % (92-99) Arterial Blood pH 7.34 (7.35-7.45) Arterial Blood pCO2 at Patient Temp 45 mmHg (35-46) Arterial Blood pO2 at Patient Temp 50 mmHg (65-108) Arterial Blood HCO3 24 mmol/L (21-28) Arterial Blood Base Excess -2 mmol/L (-3-3) FiO2 100 Comments CXR 01/06 IMPRESSION: 1. Bilateral diffuse infiltrates are increased in the left base and mildly improved elsewhere. CXR 01/14/20 Impression: Slight interval increase in the bilateral perihilar infiltrates. Impression . 1. Acute hypoxic respiratory failure secondary to COVID-19 pneumonia/ARDS/acute lung injury--worsening oxygen requirements 2. Abnormal chest x-ray with bilateral infiltrates consistent with COVID-19 pneumonia. 3. Hypotension secondary to combination of hypovolemia and sepsis status post 2 liters of IV fluids. no pressors, now hypertensive 4. Acute kidney injury--resolved 5. Severe protein-calorie malnutrition. 6. Abnormal D-dimer related to COVID-19 pneumonia. Full dose lovenox added 01/09 due to increase in D-dimer to 20, now decreasing 7. Fevers Plan . RECOMMENDATIONS: ABG noted, will continue current assist control, and PEEP Full dose anticoagulation Broad spectrum antibiotic. Cont. IV steroids, with taper, Stress ulcer prophylaxis. s/p Plasma Pt doing poorly not expected to survive D/W RN and RT PT. is DNR Prognosis poor Critical care time 30 minutes, family aware and visited overnight and aware of pt. clinical condition, I spoke with , informed her that patient may not survive ACACIA MATIAS MD Jan 17, 2020 08:53
[2020-01-17] MEDS: IV DEXTROSE 5 %-0.2 % NACL 1,000 ML IV SCH ×2 (10:12→22:07)
--- NOTE | 2020-01-17 10:35 | PDOC ---
PROGRESS NOTES Date of Service: DATE: 01/17/20 TIME: 10:32 Chief Complaint Chief Complaint Assessment/Plan Acute hypoxemic respiratory failure Bilateral perihilar infiltrates are seen which appear increased slightly Leukocytosis with bandemia secondary to septic process Hyponatremia secondary to low effective circulatory volume, now hypernatremic Acue renal failure due to vasomotor nephropathy most likely Hyperglycemia transaminitis Uncontrolled hypertension AC mode ,100%FIO2/14 Fever overnight 01/15 plan CONSULT NEPHROLOGY Hypotonic saline iv support serum osmolality 100%FIO2/14 PEEP, dnr status 35 MIN CC TIME History of Present Illness History of Present Illness History of Present Illness Patient is a 64-year-old gentleman who was diagnosed with COVID-19 infection on Friday 5 days prior to his admission to the intensive care unit. Apparently the patient reported worsening respiratory distress reason why he came to the emergency department for evaluation and treatment. The story was quite limited since the patient was speaking K[place] only and his acuity was such that he required mechanical ventilation and prompt intubation by the emergency department physician. At the present time patient is intubated and sedated continues to require a lot of support no pertinent past medical history was reported he is admitted to the intensive care unit for further treatment 01/10/2020 Continues to require full support, glycemia has been noted in hypertension as well. Discussed with nursing staff, all of concerns were addressed to the best of my abilities no acute events reported overnight 01/11/2020 No acute events reported overnight, case discussed with nursing staff patient in no acute distress 01/12/2020 Per nursing staff, patient febrile overnight, treated with Tylenol and tepid water bath. Case discussed with nursing staff, continue with IV antibiotics and full VTE prophylaxis. 01/13/2020 Patient still febrile overnight. O2 requirement increasing. Discussed with RN. 01/16 Patient still intubated and sedated. Discussed with RN, patient was made DNR. schedule MiraLAX. Vitals Vitals Vital Signs Date Time Temp Pulse Resp B/P (MAP) Pulse Ox O2 Delivery O2 Flow Rate FiO2 01/17/20 10:12 56 22 106/55 (72) 87 Ventilator 01/17/20 08:18 98.4 98.4 01/16/20 11:17 18.0 Physical Exam Physical Exam sedated on vent General: No acute distress, Other (Intubated and sedated) Heart: Regular rate Lungs: Other (Intubated) Abdomen: Other (Nondistended) Extremities: No clubbing, No cyanosis Skin: No rashes, No breakdown Labs LABS AP portable chest radiograph 01/14/2020 Clinical History: Covid 19. An AP erect portable digital radiograph of the chest was obtained. Comparison study is dated 01/08/2020. The right internal jugular central venous catheter and NG tube are unchanged in position. The cardiac silhouette is mildly enlarged. The thoracic aorta is mildly tortuous. Bilateral perihilar infiltrates are seen which appear increased slightly. No pneumothorax or pleural effusion is noted. The osseous structures are unchanged. Impression: Slight interval increase in the bilateral perihilar infiltrates. Electronically signed by: Fredis Rodríguez MD (01/14/2020 9:25 AM) [id number] DICTATED and SIGNED BY: FREDIS RODRÍGUEZ MD DATE: 01/14/20 0925 Laboratory Tests Test 01/16/20 12:24 01/16/20 22:02 01/17/20 00:23 01/17/20 05:30 Glucose (Fingerstick) 130 mg/dL (70-99) 200 mg/dL (70-99) 186 mg/dL (70-99) White Blood Count 8.9 x10^3/uL (4.0-11.0) Red Blood Count 2.83 x10^6/uL (4.30-5.70) Hemoglobin 8.7 g/dL (13.0-17.5) Hematocrit 27.2 % (39.0-53.0) Mean Corpuscular Volume 96 fL (79-100) Mean Corpuscular Hemoglobin 31 pg (25-35) Mean Corpuscular Hemoglobin Concent 32 g/dL (31-37) Red Cell Distribution Width 14.7 % (11.5-14.5) Platelet Count 195 x10^3/uL (140-400) Neutrophils (%) (Auto) 91 % (31-73) Lymphocytes (%) (Auto) 4 % (24-48) Monocytes (%) (Auto) 4 % (0-9) Eosinophils (%) (Auto) 1 % (0-3) Basophils (%) (Auto) 0 % (0-3) Neutrophils # (Auto) 8.0 x10^3/uL (1.8-7.7) Lymphocytes # (Auto) 0.4 x10^3/uL (1.0-4.8) Monocytes # (Auto) 0.4 x10^3/uL (0.0-1.1) Eosinophils # (Auto) 0.1 x10^3/uL (0.0-0.7) Basophils # (Auto) 0.0 x10^3/uL (0.0-0.2) Sodium Level 149 mmol/L (136-145) Potassium Level 4.2 mmol/L (3.5-5.1) Chloride Level 115 mmol/L (98-107) Carbon Dioxide Level 29 mmol/L (21-32) Anion Gap 5 (6-14) Blood Urea Nitrogen 54 mg/dL (8-26) Creatinine 1.0 mg/dL (0.7-1.3) Estimated GFR (Cockcroft-Gault) 75.0 Glucose Level 226 mg/dL (70-99) Calcium Level 6.9 mg/dL (8.5-10.1) Ferritin 769 ng/mL (26-388) C-Reactive Protein, Quantitative 167.1 mg/L (0-3.3) Test 01/17/20 05:32 01/17/20 08:05 Glucose (Fingerstick) 202 mg/dL (70-99) O2 Saturation 82 % (92-99) Arterial Blood pH 7.34 (7.35-7.45) Arterial Blood pCO2 at Patient Temp 45 mmHg (35-46) Arterial Blood pO2 at Patient Temp 50 mmHg (65-108) Arterial Blood HCO3 24 mmol/L (21-28) Arterial Blood Base Excess -2 mmol/L (-3-3) FiO2 100 Comment Review of Relevant I have reviewed the following items hong (where applicable) has been applied. Labs Laboratory Tests Test 01/15/20 12:19 01/15/20 17:47 01/15/20 22:34 01/16/20 05:45 Glucose (Fingerstick) 162 mg/dL (70-99) 127 mg/dL (70-99) 89 mg/dL (70-99) White Blood Count 10.1 x10^3/uL (4.0-11.0) Red Blood Count 2.84 x10^6/uL (4.30-5.70) Hemoglobin 8.8 g/dL (13.0-17.5) Hematocrit 27.3 % (39.0-53.0) Mean Corpuscular Volume 96 fL (79-100) Mean Corpuscular Hemoglobin 31 pg (25-35) Mean Corpuscular Hemoglobin Concent 32 g/dL (31-37) Red Cell Distribution Width 14.8 % (11.5-14.5) Platelet Count 192 x10^3/uL (140-400) Neutrophils (%) (Auto) 90 % (31-73) Lymphocytes (%) (Auto) 3 % (24-48) Monocytes (%) (Auto) 5 % (0-9) Eosinophils (%) (Auto) 2 % (0-3) Basophils (%) (Auto) 1 % (0-3) Neutrophils # (Auto) 9.0 x10^3/uL (1.8-7.7) Lymphocytes # (Auto) 0.3 x10^3/uL (1.0-4.8) Monocytes # (Auto) 0.5 x10^3/uL (0.0-1.1) Eosinophils # (Auto) 0.2 x10^3/uL (0.0-0.7) Basophils # (Auto) 0.1 x10^3/uL (0.0-0.2) Sodium Level 151 mmol/L (136-145) Potassium Level 4.5 mmol/L (3.5-5.1) Chloride Level 118 mmol/L (98-107) Carbon Dioxide Level 31 mmol/L (21-32) Anion Gap 2 (6-14) Blood Urea Nitrogen 51 mg/dL (8-26) Creatinine 0.9 mg/dL (0.7-1.3) Estimated GFR (Cockcroft-Gault) 84.7 Glucose Level 112 mg/dL (70-99) Calcium Level 7.3 mg/dL (8.5-10.1) Test 01/16/20 09:15 01/16/20 12:24 01/16/20 22:02 01/17/20 00:23 O2 Saturation 87 % (92-99) Arterial Blood pH 7.36 (7.35-7.45) Arterial Blood pCO2 at Patient Temp 48 mmHg (35-46) Arterial Blood pO2 at Patient Temp 56 mmHg (65-108) Arterial Blood HCO3 26 mmol/L (21-28) Arterial Blood Base Excess 0 mmol/L (-3-3) FiO2 100 Glucose (Fingerstick) 130 mg/dL (70-99) 200 mg/dL (70-99) 186 mg/dL (70-99) Test 01/17/20 05:30 01/17/20 05:32 01/17/20 08:05 White Blood Count 8.9 x10^3/uL (4.0-11.0) Red Blood Count 2.83 x10^6/uL (4.30-5.70) Hemoglobin 8.7 g/dL (13.0-17.5) Hematocrit 27.2 % (39.0-53.0) Mean Corpuscular Volume 96 fL (79-100) Mean Corpuscular Hemoglobin 31 pg (25-35) Mean Corpuscular Hemoglobin Concent 32 g/dL (31-37) Red Cell Distribution Width 14.7 % (11.5-14.5) Platelet Count 195 x10^3/uL (140-400) Neutrophils (%) (Auto) 91 % (31-73) Lymphocytes (%) (Auto) 4 % (24-48) Monocytes (%) (Auto) 4 % (0-9) Eosinophils (%) (Auto) 1 % (0-3) Basophils (%) (Auto) 0 % (0-3) Neutrophils # (Auto) 8.0 x10^3/uL (1.8-7.7) Lymphocytes # (Auto) 0.4 x10^3/uL (1.0-4.8) Monocytes # (Auto) 0.4 x10^3/uL (0.0-1.1) Eosinophils # (Auto) 0.1 x10^3/uL (0.0-0.7) Basophils # (Auto) 0.0 x10^3/uL (0.0-0.2) Sodium Level 149 mmol/L (136-145) Potassium Level 4.2 mmol/L (3.5-5.1) Chloride Level 115 mmol/L (98-107) Carbon Dioxide Level 29 mmol/L (21-32) Anion Gap 5 (6-14) Blood Urea Nitrogen 54 mg/dL (8-26) Creatinine 1.0 mg/dL (0.7-1.3) Estimated GFR (Cockcroft-Gault) 75.0 Glucose Level 226 mg/dL (70-99) Calcium Level 6.9 mg/dL (8.5-10.1) Ferritin 769 ng/mL (26-388) C-Reactive Protein, Quantitative 167.1 mg/L (0-3.3) Glucose (Fingerstick) 202 mg/dL (70-99) O2 Saturation 82 % (92-99) Arterial Blood pH 7.34 (7.35-7.45) Arterial Blood pCO2 at Patient Temp 45 mmHg (35-46) Arterial Blood pO2 at Patient Temp 50 mmHg (65-108) Arterial Blood HCO3 24 mmol/L (21-28) Arterial Blood Base Excess -2 mmol/L (-3-3) FiO2 100 Laboratory Tests Test 01/16/20 12:24 01/16/20 22:02 01/17/20 00:23 01/17/20 05:30 Glucose (Fingerstick) 130 mg/dL (70-99) 200 mg/dL (70-99) 186 mg/dL (70-99) White Blood Count 8.9 x10^3/uL (4.0-11.0) Red Blood Count 2.83 x10^6/uL (4.30-5.70) Hemoglobin 8.7 g/dL (13.0-17.5) Hematocrit 27.2 % (39.0-53.0) Mean Corpuscular Volume 96 fL (79-100) Mean Corpuscular Hemoglobin 31 pg (25-35) Mean Corpuscular Hemoglobin Concent 32 g/dL (31-37) Red Cell Distribution Width 14.7 % (11.5-14.5) Platelet Count 195 x10^3/uL (140-400) Neutrophils (%) (Auto) 91 % (31-73) Lymphocytes (%) (Auto) 4 % (24-48) Monocytes (%) (Auto) 4 % (0-9) Eosinophils (%) (Auto) 1 % (0-3) Basophils (%) (Auto) 0 % (0-3) Neutrophils # (Auto) 8.0 x10^3/uL (1.8-7.7) Lymphocytes # (Auto) 0.4 x10^3/uL (1.0-4.8) Monocytes # (Auto) 0.4 x10^3/uL (0.0-1.1) Eosinophils # (Auto) 0.1 x10^3/uL (0.0-0.7) Basophils # (Auto) 0.0 x10^3/uL (0.0-0.2) Sodium Level 149 mmol/L (136-145) Potassium Level 4.2 mmol/L (3.5-5.1) Chloride Level 115 mmol/L (98-107) Carbon Dioxide Level 29 mmol/L (21-32) Anion Gap 5 (6-14) Blood Urea Nitrogen 54 mg/dL (8-26) Creatinine 1.0 mg/dL (0.7-1.3) Estimated GFR (Cockcroft-Gault) 75.0 Glucose Level 226 mg/dL (70-99) Calcium Level 6.9 mg/dL (8.5-10.1) Ferritin 769 ng/mL (26-388) C-Reactive Protein, Quantitative 167.1 mg/L (0-3.3) Test 01/17/20 05:32 01/17/20 08:05 Glucose (Fingerstick) 202 mg/dL (70-99) O2 Saturation 82 % (92-99) Arterial Blood pH 7.34 (7.35-7.45) Arterial Blood pCO2 at Patient Temp 45 mmHg (35-46) Arterial Blood pO2 at Patient Temp 50 mmHg (65-108) Arterial Blood HCO3 24 mmol/L (21-28) Arterial Blood Base Excess -2 mmol/L (-3-3) FiO2 100 Microbiology 01/08/20 Blood Culture - Final, Complete NO GROWTH AFTER 5 DAYS 01/06/20 Urine Culture - Final, Complete Medications Current Medications Etomidate (Amidate) 20 mg STK-MED ONCE IV ; Start 01/06/20 at 18:54; Stop 01/06/20 at 18:54; Status DC Succinylcholine Chloride (Anectine) 200 mg STK-MED ONCE .ROUTE ; Start 01/06/20 at 18:55; Stop 01/06/20 at 18:55; Status DC Propofol 50 ml @ As Directed STK-MED ONCE IV ; Start 01/06/20 at 18:55; Stop 01/06/20 at 18:56; Status DC Propofol 100 ml @ 0 mls/hr CONT PRN IV SEE PROTOCOL Last administered on 01/17/20at 10:15; Start 01/06/20 at 19:00 Fentanyl Citrate (Fentanyl 2ml Vial) 25 mcg PRN Q1HR PRN IV SEE COMMENTS; Start 01/06/20 at 19:00 Fentanyl Citrate (Fentanyl 2ml Vial) 50 mcg PRN Q1HR PRN IV SEE COMMENTS Last administered on 01/06/20at 19:42; Start 01/06/20 at 19:00 Chlorhexidine Gluconate (Peridex) 15 ml BID MM Last administered on 01/07/20at 08:16; Start 01/06/20 at 21:00; Stop 01/07/20 at 09:45; Status DC Midazolam HCl (Versed) 5 mg STK-MED ONCE .ROUTE ; Start 01/06/20 at 19:17; Stop 01/06/20 at 19:18; Status DC Midazolam HCl 50 mg/Sodium Chloride 50 ml @ 0 mls/hr 1X ONCE IV ; Start 01/06/20 at 19:30; Stop 01/06/20 at 19:31; Status UNV Albuterol/ Ipratropium (Duoneb) 3 ml STK-MED ONCE .ROUTE ; Start 01/06/20 at 19:27; Stop 01/06/20 at 19:27; Status DC Midazolam HCl 100 ml @ 0 mls/hr CONT PRN IV SEE PROTOCOL Last administered on 01/17/20at 05:58; Start 01/06/20 at 19:30 Propofol 50 ml @ 0 mls/hr 1X ONCE IV Last administered on 01/06/20at 18:55; Start 01/06/20 at 20:00; Stop 01/06/20 at 20:01; Status DC Midazolam HCl (Versed) 5 mg 1X ONCE NS Last administered on 01/06/20at 19:18; Start 01/06/20 at 19:18; Stop 01/06/20 at 19:59; Status DC Piperacillin Sod/ Tazobactam Sod 3.375 gm/Sodium Chloride 50 ml @ 100 mls/hr 1X ONCE IV Last administered on 01/06/20at 21:47; Start 01/06/20 at 20:45; Stop 01/06/20 at 21:14; Status DC Dexmedetomidine HCl 400 mcg/ Sodium Chloride 100 ml @ 0 mls/hr CONT PRN IV SEDATION Last administered on 01/17/20at 10:11; Start 01/06/20 at 20:15 Sodium Chloride 500 ml @ 500 mls/hr 1X PRN PRN IV SEE COMMENTS Last administered on 01/13/20at 11:22; Start 01/06/20 at 20:15 Atropine Sulfate (ATROPINE 0.5mg SYRINGE) 0.5 mg PRN Q5MIN PRN IV SEE COMMENTS; Start 01/06/20 at 20:15 Fentanyl Citrate (Fentanyl 2ml Vial) 100 mcg 1X ONCE IVP Last administered on 01/06/20at 20:17; Start 01/06/20 at 20:15; Stop 01/06/20 at 20:18; Status DC Methylprednisolone Sodium Succinate (SOLU-Medrol 40MG VIAL) 40 mg Q8HRS IV Last administered on 01/17/20at 06:05; Start 01/06/20 at 22:00 Enoxaparin Sodium (Lovenox 40mg Syringe) 40 mg BID SQ Last administered on 01/07/20at 08:15; Start 01/06/20 at 21:30; Stop 01/07/20 at 09:47; Status DC Potassium Chloride/Dextrose/ Sod Cl 1,000 ml @ 125 mls/hr Q8H ONCE IV Last administered on 01/06/20at 22:13; Start 01/06/20 at 21:30; Stop 01/07/20 at 05:29; Status DC Zinc Sulfate (Orazinc) 220 mg DAILY PO Last administered on 01/17/20at 07:24; Start 01/07/20 at 09:00 Ondansetron HCl (Zofran) 4 mg PRN Q4HRS PRN IV NAUSEA/VOMITING; Start 01/06/20 at 21:30 Acetaminophen (Tylenol) 650 mg PRN Q4HRS PRN GT TEMP OVER 100.4F OR MILD PAIN Last administered on 01/14/20at 05:51; Start 01/06/20 at 21:30 Acetaminophen (Tylenol Supp) 650 mg PRN Q4HRS PRN MT TEMP OVER 100.4F OR MILD PAIN; Start 01/06/20 at 21:30 Docusate Sodium (Colace) 100 mg PRN BID PRN PO HARD STOOLS Last administered on 01/12/20at 08:26; Start 01/06/20 at 21:30 Piperacillin Sod/ Tazobactam Sod 3.375 gm/Sodium Chloride 50 ml @ 100 mls/hr Q6HRS IV Last administered on 01/17/20at 06:06; Start 01/07/20 at 00:00 Pantoprazole Sodium (PROTONIX VIAL for IV PUSH) 40 mg DAILYAC IVP Last administered on 01/17/20at 07:24; Start 01/07/20 at 07:30 Norepinephrine Bitartrate 8 mg/ Dextrose 258 ml @ 12.578 mls/ hr CONT PRN IV PER PROTOCOL Last administered on 01/06/20at 22:15; Start 01/06/20 at 21:45 Sodium Chloride 1,000 ml @ 1,000 mls/hr 1X ONCE IV Last administered on 01/06/20at 21:44; Start 01/06/20 at 21:45; Stop 01/06/20 at 22:44; Status DC Fentanyl Citrate 30 ml @ 0 mls/hr CONT PRN IV SEE PROTOCOL Last administered on 01/08/20at 10:44; Start 01/06/20 at 21:45; Stop 01/08/20 at 14:49; Status DC Vecuronium [place] (Norcuron Bolus) 6 mg PRN Q2HR PRN IV VENT ASYNCHRONY Last administered on 01/08/20at 11:23; Start 01/06/20 at 21:45; Stop 01/08/20 at 14:48; Status DC Sodium Chloride 1,000 ml @ 1,000 mls/hr 1X ONCE IV Last administered on 01/06/20at 22:36; Start 01/06/20 at 22:30; Stop 01/06/20 at 23:29; Status DC Methylprednisolone Sodium Succinate (SOLU-Medrol 40MG VIAL) 40 mg Q8HRS IV ; Start 01/07/20 at 14:00; Status UNV Enoxaparin Sodium (Lovenox 80mg Syringe) 80 mg BID SQ Last administered on 01/07/20at 20:53; Start 01/07/20 at 21:00; Stop 01/08/20 at 08:57; Status DC Insulin Human Lispro (HumaLOG) 6 units TID SQ ; Start 01/07/20 at 14:00; Stop 01/07/20 at 10:05; Status DC Insulin Glargine (Lantus Syringe) 10 unit BID SQ Last administered on 01/08/20at 09:27; Start 01/07/20 at 21:00; Stop 01/08/20 at 11:25; Status DC Ascorbic Acid (Vitamin C) 250 mg Q6HRS PO Last administered on 01/16/20at 06:27; Start 01/07/20 at 12:00 Sodium Chloride 1,000 ml @ 75 mls/hr [id number] IV Last administered on 01/10/20at 19:33; Start 01/07/20 at 10:00; Stop 01/11/20 at 10:23; Status DC Insulin Human Lispro (HumaLOG) 6 units Q6HRS SQ Last administered on 01/08/20at 06:11; Start 01/07/20 at 12:00; Stop 01/08/20 at 11:25; Status DC Insulin Glargine (Lantus Syringe) 10 unit 1X ONCE SQ Last administered on 01/07/20at 11:40; Start 01/07/20 at 11:00; Stop 01/07/20 at 11:01; Status DC Enoxaparin Sodium (Lovenox 60mg Syringe) 60 mg BID SQ Last administered on 01/10/20at 08:55; Start 01/08/20 at 09:00; Stop 01/10/20 at 16:45; Status DC Vecuronium [place] (Norcuron Bolus) 6 mg PRN Q6HRS PRN IV SEDATION (2nd Choice) Last administered on 01/10/20at 16:36; Start 01/08/20 at 09:30 Insulin Glargine (Lantus Syringe) 14 unit BID SQ Last administered on 01/10/20at 09:24; Start 01/08/20 at 21:00; Stop 01/10/20 at 12:27; Status DC Insulin Human Lispro (HumaLOG) 8 units Q6HRS SQ Last administered on 01/10/20at 12:11; Start 01/08/20 at 12:00; Stop 01/10/20 at 12:27; Status DC Fentanyl Citrate 55 ml @ 0 mls/hr CONT PRN IV SEE PROTOCOL Last administered on 01/17/20at 00:16; Start 01/08/20 at 14:49 Lorazepam (Ativan Inj) 1 mg PRN Q1HR PRN IVP ANXIETY / AGITATION- MODERATE; Start 01/08/20 at 16:15 Lorazepam (Ativan Inj) 2 mg PRN Q1HR PRN IVP ANXIETY / AGITATION- SEVERE Last administered on 01/09/20at 13:10; Start 01/08/20 at 16:30 Insulin Human Lispro (HumaLOG) 6 units 1X ONCE SQ Last administered on 01/09/20at 06:20; Start 01/09/20 at 06:15; Stop 01/09/20 at 06:16; Status DC Hydralazine HCl (Apresoline Inj) 10 mg PRN Q4HRS PRN IVP ELEVATED BP, SEE COMMENTS Last administered on 01/15/20at 23:09; Start 01/10/20 at 09:15 Alteplase, Recombinant (Cathflo For Central Catheter Clearance) 1 mg 1X ONCE INT CAT Last administered on 01/10/20at 12:05; Start 01/10/20 at 11:00; Stop 01/10/20 at 11:01; Status DC Insulin Glargine (Lantus Syringe) 18 unit BID SQ Last administered on 01/11/20at 08:30; Start 01/10/20 at 21:00; Stop 01/11/20 at 10:03; Status DC Insulin Human Lispro (HumaLOG) 10 units Q6HRS SQ Last administered on 01/11/20at 05:53; Start 01/10/20 at 18:00; Stop 01/11/20 at 10:03; Status DC Vecuronium [place] 50 mg/ Miscellaneous 50 ml @ 4.027 mls/ hr CONT PRN IV SEE I/O RECORD Last administered on 01/17/20at 06:35; Start 01/10/20 at 16:15 Enoxaparin Sodium (Lovenox Per Pharmacy Treatment Dosing) 1 each PRN DAILY PRN MC SEE COMMENTS; Start 01/10/20 at 16:45 Enoxaparin Sodium (Lovenox 80mg Syringe) 80 mg Q12HR SQ Last administered on 01/17/20at 07:24; Start 01/10/20 at 21:00 Furosemide (Lasix) 40 mg 1X ONCE IVP Last administered on 01/11/20at 10:19; Start 01/11/20 at 10:00; Stop 01/11/20 at 10:01; Status DC Insulin Glargine (Lantus Syringe) 24 unit BID SQ Last administered on 01/17/20at 07:23; Start 01/11/20 at 10:30 Insulin Human Lispro (HumaLOG) 14 units Q6HRS SQ Last administered on 01/17/20at 06:06; Start 01/11/20 at 12:00 Info (Anti-Coagulation Monitoring By Pharmacy) 1 each PRN DAILY PRN MC SEE COMMENTS Last administered on 01/13/20at 14:14; Start 01/12/20 at 10:00 Polyethylene Glycol (miraLAX PACKET) 17 gm DAILY PO Last administered on 01/15/20at 09:02; Start 01/14/20 at 11:00 Dextrose/Sodium Chloride 1,000 ml @ 75 mls/hr [id number] IV Last administered on 01/17/20at 10:12; Start 01/15/20 at 09:30 Vitals/I & O Vital Sign - Last 24 Hours 01/16/20 01/16/20 01/16/20 01/16/20 10:47 11:17 11:20 12:00 Pulse 79 Resp 22 B/P (MAP) 137/61 (86) Pulse Ox 86 86 86 O2 Delivery Ventilator Ventilator Ventilator Mechanical Ventilator O2 Flow Rate 18.0 18.0 01/16/20 01/16/20 01/16/20 01/16/20 12:22 12:33 13:26 14:20 Temp 99.3 99.3 Pulse 72 68 66 Resp 22 22 B/P (MAP) 116/55 (75) 109/54 (72) 110/56 (74) Pulse Ox 88 97 85 83 O2 Delivery Ventilator Ventilator Ventilator Ventilator 01/16/20 01/16/20 01/16/20 01/16/20 15:38 16:00 16:29 16:30 Temp 98.9 98.9 Pulse 65 64 Resp 22 B/P (MAP) 112/57 (75) 112/58 (76) Pulse Ox 86 86 86 O2 Delivery Ventilator Mechanical Ventilator Ventilator Ventilator 01/16/20 01/16/20 01/16/20 01/16/20 17:12 17:57 19:00 20:00 Pulse 65 64 64 Resp 22 22 B/P (MAP) 113/60 (77) 111/57 (75) 109/56 (73) Pulse Ox 85 85 83 O2 Delivery Ventilator Ventilator Ventilator Mechanical Ventilator 01/16/20 01/16/20 01/16/20 01/16/20 20:00 20:34 21:00 22:00 Temp 98.1 98.1 Pulse 62 62 62 Resp 22 22 B/P (MAP) 110/57 (74) 113/55 (74) 107/55 (72) Pulse Ox 84 84 84 84 O2 Delivery Ventilator Ventilator Ventilator Ventilator 01/16/20 01/16/20 01/17/20 01/17/20 23:00 23:30 00:00 00:21 Temp 98.3 98.3 Pulse 62 63 Resp B/P (MAP) 110/55 (73) 119/59 (79) Pulse Ox 85 79 80 O2 Delivery Ventilator Mechanical Ventilator Ventilator Ventilator 01/17/20 01/17/20 01/17/20 01/17/20 01:00 02:00 03:00 04:00 Temp 98.4 98.4 Pulse 62 60 60 60 Resp 22 22 B/P (MAP) 118/61 (80) 114/58 (76) 113/58 (76) 114/57 (76) Pulse Ox 80 84 85 85 O2 Delivery Ventilator Ventilator Ventilator Ventilator 01/17/20 01/17/20 01/17/20 01/17/20 04:00 04:57 05:00 06:00 Pulse 59 58 Resp 22 B/P (MAP) 114/59 (77) 116/58 (77) Pulse Ox 85 86 84 O2 Delivery Mechanical Ventilator Ventilator Ventilator Ventilator 01/17/20 01/17/20 01/17/20 01/17/20 06:53 08:05 08:18 08:37 Temp 98.4 98.4 Pulse 58 58 Resp 22 22 B/P (MAP) 111/60 (77) 122/61 (81) Pulse Ox 84 85 82 O2 Delivery Ventilator Ventilator Ventilator Mechanical Ventilator 01/17/20 01/17/20 09:01 10:12 Pulse 57 56 Resp 22 B/P (MAP) 107/51 (69) 106/55 (72) Pulse Ox 85 87 O2 Delivery Ventilator Ventilator Intake and Output 01/16/20 01/16/20 01/17/20 15:00 23:00 07:00 Intake Total 300 ml 1874 ml 2047 ml Output Total 750 ml 300 ml 450 ml Balance -450 ml 1574 ml 1597 ml Justicifation of Admission Dx: Justifications for Admission: Justification of Admission Dx: Yes FABIANA PRITHCETT MD Jan 17, 2020 10:35
--- NOTE | 2020-01-17 11:25 | RAD ---
CHEST AP ONLY INDICATION: Reason: covid f/u ICU#116 / Spl. Instructions: / History: . COMPARISON STUDY: 01/14/2020. FINDINGS: Life Support Devices: Stable endotracheal tube, enteric tube, right IJ central venous catheter. Lungs: Normal lung volume. Stable bilateral perihilar and basilar heterogeneous opacities. Indistinct pulmonary vasculature. Pleura: No apical pneumothorax. Lung bases beyond the [id number]. Heart and Mediastinum: Stable cardiomediastinal silhouette and great vessels. IMPRESSION: 1. Stable bilateral perihilar and basilar regions opacities. 2. Stable life support devices. Electronically signed by: Sudheer Field MD (01/17/2020 11:22 AM) [id number]
--- NOTE | 2020-01-17 11:35 | PDOC2 ---
CONSULT Date of Consult Date of Consult DATE: 01/17/20 TIME: 11:19 Reason for Consult Reason for Consult: Electrolyte abnormality Referring Physician Referring Physician: Dr. Trejo Identification/Chief Complaint Chief Complaint Unable to Obtain 2/2 MV Source Source: Chart review History of Present Illness Reason for Visit: Hx Obtained from Chart review as Pt is Intubated Pt is a 64 yo male, admitted to [facility] on 01/06 with diagnosis of COVID-19 infection 5 days prior to his admission to the intensive care unit. Apparently he reported worsening respiratory distress and came to the emergency department for evaluation and treatment. He required mechanical ventilation and prompt intubation by the emergency department physician. At the present time he is intubated and sedated Renal consulted for "electrolyte abnormality" by Dr. Trejo Had fever, Not tolerating TF . Past Medical History Past Medical History Unable to Obtain from Pt, per Chart review - note by Hospitalist, No significant PMHX Past Surgical History Past Surgical History: No pertinent history Family History Family History Unable to Obtain from patient Family History: No Significant Social History Social History Unable to Obtain No ALCOHOL: none Drugs: None Current Medications Current Medications Current Medications Etomidate (Amidate) 20 mg STK-MED ONCE IV ; Start 01/06/20 at 18:54; Stop 01/06/20 at 18:54; Status DC Succinylcholine Chloride (Anectine) 200 mg STK-MED ONCE .ROUTE ; Start 01/06/20 at 18:55; Stop 01/06/20 at 18:55; Status DC Propofol 50 ml @ As Directed STK-MED ONCE IV ; Start 01/06/20 at 18:55; Stop 01/06/20 at 18:56; Status DC Propofol 100 ml @ 0 mls/hr CONT PRN IV SEE PROTOCOL Last administered on 01/17/20at 10:15; Start 01/06/20 at 19:00 Fentanyl Citrate (Fentanyl 2ml Vial) 25 mcg PRN Q1HR PRN IV SEE COMMENTS; Start 01/06/20 at 19:00 Fentanyl Citrate (Fentanyl 2ml Vial) 50 mcg PRN Q1HR PRN IV SEE COMMENTS Last administered on 01/06/20at 19:42; Start 01/06/20 at 19:00 Chlorhexidine Gluconate (Peridex) 15 ml BID MM Last administered on 01/07/20at 08:16; Start 01/06/20 at 21:00; Stop 01/07/20 at 09:45; Status DC Midazolam HCl (Versed) 5 mg STK-MED ONCE .ROUTE ; Start 01/06/20 at 19:17; Stop 01/06/20 at 19:18; Status DC Midazolam HCl 50 mg/Sodium Chloride 50 ml @ 0 mls/hr 1X ONCE IV ; Start 01/06/20 at 19:30; Stop 01/06/20 at 19:31; Status UNV Albuterol/ Ipratropium (Duoneb) 3 ml STK-MED ONCE .ROUTE ; Start 01/06/20 at 19:27; Stop 01/06/20 at 19:27; Status DC Midazolam HCl 100 ml @ 0 mls/hr CONT PRN IV SEE PROTOCOL Last administered on 01/17/20at 05:58; Start 01/06/20 at 19:30 Propofol 50 ml @ 0 mls/hr 1X ONCE IV Last administered on 01/06/20at 18:55; Start 01/06/20 at 20:00; Stop 01/06/20 at 20:01; Status DC Midazolam HCl (Versed) 5 mg 1X ONCE NS Last administered on 01/06/20at 19:18; Start 01/06/20 at 19:18; Stop 01/06/20 at 19:59; Status DC Piperacillin Sod/ Tazobactam Sod 3.375 gm/Sodium Chloride 50 ml @ 100 mls/hr 1X ONCE IV Last administered on 01/06/20at 21:47; Start 01/06/20 at 20:45; Stop 01/06/20 at 21:14; Status DC Dexmedetomidine HCl 400 mcg/ Sodium Chloride 100 ml @ 0 mls/hr CONT PRN IV SEDATION Last administered on 01/17/20at 10:11; Start 01/06/20 at 20:15 Sodium Chloride 500 ml @ 500 mls/hr 1X PRN PRN IV SEE COMMENTS Last administered on 01/13/20at 11:22; Start 01/06/20 at 20:15 Atropine Sulfate (ATROPINE 0.5mg SYRINGE) 0.5 mg PRN Q5MIN PRN IV SEE COMMENTS; Start 01/06/20 at 20:15 Fentanyl Citrate (Fentanyl 2ml Vial) 100 mcg 1X ONCE IVP Last administered on 01/06/20at 20:17; Start 01/06/20 at 20:15; Stop 01/06/20 at 20:18; Status DC Methylprednisolone Sodium Succinate (SOLU-Medrol 40MG VIAL) 40 mg Q8HRS IV Last administered on 01/17/20at 06:05; Start 01/06/20 at 22:00 Enoxaparin Sodium (Lovenox 40mg Syringe) 40 mg BID SQ Last administered on 01/07/20at 08:15; Start 01/06/20 at 21:30; Stop 01/07/20 at 09:47; Status DC Potassium Chloride/Dextrose/ Sod Cl 1,000 ml @ 125 mls/hr Q8H ONCE IV Last administered on 01/06/20at 22:13; Start 01/06/20 at 21:30; Stop 01/07/20 at 05:29; Status DC Zinc Sulfate (Orazinc) 220 mg DAILY PO Last administered on 01/17/20 07:24; Start 01/07/20 at 09:00 Ondansetron HCl (Zofran) 4 mg PRN Q4HRS PRN IV NAUSEA/VOMITING; Start 01/06/20 at 21:30 Acetaminophen (Tylenol) 650 mg PRN Q4HRS PRN GT TEMP OVER 100.4F OR MILD PAIN Last administered on 01/14/20at 05:51; Start 01/06/20 at 21:30 Acetaminophen (Tylenol Supp) 650 mg PRN Q4HRS PRN MA TEMP OVER 100.4F OR MILD PAIN; Start 01/06/20 at 21:30 Docusate Sodium (Colace) 100 mg PRN BID PRN PO HARD STOOLS Last administered on 01/12/20at 08:26; Start 01/06/20 at 21:30 Piperacillin Sod/ Tazobactam Sod 3.375 gm/Sodium Chloride 50 ml @ 100 mls/hr Q6HRS IV Last administered on 01/17/20 06:06; Start 01/07/20 at 00:00 Pantoprazole Sodium (PROTONIX VIAL for IV PUSH) 40 mg DAILYAC IVP Last administered on 01/17/20 07:24; Start 01/07/20 at 07:30 Norepinephrine Bitartrate 8 mg/ Dextrose 258 ml @ 12.578 mls/ hr CONT PRN IV PER PROTOCOL Last administered on 01/06/20at 22:15; Start 01/06/20 at 21:45 Sodium Chloride 1,000 ml @ 1,000 mls/hr 1X ONCE IV Last administered on 01/06/20at 21:44; Start 01/06/20 at 21:45; Stop 01/06/20 at 22:44; Status DC Fentanyl Citrate 30 ml @ 0 mls/hr CONT PRN IV SEE PROTOCOL Last administered on 01/08/20at 10:44; Start 01/06/20 at 21:45; Stop 01/08/20 at 14:49; Status DC Vecuronium [place] (Norcuron Bolus) 6 mg PRN Q2HR PRN IV VENT ASYNCHRONY Last administered on 01/08/20at 11:23; Start 01/06/20 at 21:45; Stop 01/08/20 at 14:48; Status DC Sodium Chloride 1,000 ml @ 1,000 mls/hr 1X ONCE IV Last administered on 01/06/20at 22:36; Start 01/06/20 at 22:30; Stop 01/06/20 at 23:29; Status DC Methylprednisolone Sodium Succinate (SOLU-Medrol 40MG VIAL) 40 mg Q8HRS IV ; Start 01/07/20 at 14:00; Status UNV Enoxaparin Sodium (Lovenox 80mg Syringe) 80 mg BID SQ Last administered on 01/07/20at 20:53; Start 01/07/20 at 21:00; Stop 01/08/20 at 08:57; Status DC Insulin Human Lispro (HumaLOG) 6 units TID SQ ; Start 01/07/20 at 14:00; Stop 01/07/20 at 10:05; Status DC Insulin Glargine (Lantus Syringe) 10 unit BID SQ Last administered on 01/08/20at 09:27; Start 01/07/20 at 21:00; Stop 01/08/20 at 11:25; Status DC Ascorbic Acid (Vitamin C) 250 mg Q6HRS PO Last administered on 01/16/20at 06:27; Start 01/07/20 at 12:00 Sodium Chloride 1,000 ml @ 75 mls/hr [id number] IV Last administered on 01/10/20at 19:33; Start 01/07/20 at 10:00; Stop 01/11/20 at 10:23; Status DC Insulin Human Lispro (HumaLOG) 6 units Q6HRS SQ Last administered on 01/08/20at 06:11; Start 01/07/20 at 12:00; Stop 01/08/20 at 11:25; Status DC Insulin Glargine (Lantus Syringe) 10 unit 1X ONCE SQ Last administered on 01/07/20at 11:40; Start 01/07/20 at 11:00; Stop 01/07/20 at 11:01; Status DC Enoxaparin Sodium (Lovenox 60mg Syringe) 60 mg BID SQ Last administered on 01/10/20at 08:55; Start 01/08/20 at 09:00; Stop 01/10/20 at 16:45; Status DC Vecuronium [place] (Norcuron Bolus) 6 mg PRN Q6HRS PRN IV SEDATION (2nd Choice) Last administered on 01/10/20at 16:36; Start 01/08/20 at 09:30 Insulin Glargine (Lantus Syringe) 14 unit BID SQ Last administered on 01/10/20at 09:24; Start 01/08/20 at 21:00; Stop 01/10/20 at 12:27; Status DC Insulin Human Lispro (HumaLOG) 8 units Q6HRS SQ Last administered on 01/10/20at 12:11; Start 01/08/20 at 12:00; Stop 01/10/20 at 12:27; Status DC Fentanyl Citrate 55 ml @ 0 mls/hr CONT PRN IV SEE PROTOCOL Last administered on 01/17/20at 00:16; Start 01/08/20 at 14:49 Lorazepam (Ativan Inj) 1 mg PRN Q1HR PRN IVP ANXIETY / AGITATION- MODERATE; Start 01/08/20 at 16:15 Lorazepam (Ativan Inj) 2 mg PRN Q1HR PRN IVP ANXIETY / AGITATION- SEVERE Last administered on 01/09/20at 13:10; Start 01/08/20 at 16:30 Insulin Human Lispro (HumaLOG) 6 units 1X ONCE SQ Last administered on 01/09/20at 06:20; Start 01/09/20 at 06:15; Stop 01/09/20 at 06:16; Status DC Hydralazine HCl (Apresoline Inj) 10 mg PRN Q4HRS PRN IVP ELEVATED BP, SEE COMMENTS Last administered on 01/15/20at 23:09; Start 01/10/20 at 09:15 Alteplase, Recombinant (Cathflo For Central Catheter Clearance) 1 mg 1X ONCE INT CAT Last administered on 01/10/20at 12:05; Start 01/10/20 at 11:00; Stop 01/10/20 at 11:01; Status DC Insulin Glargine (Lantus Syringe) 18 unit BID SQ Last administered on 01/11/20at 08:30; Start 01/10/20 at 21:00; Stop 01/11/20 at 10:03; Status DC Insulin Human Lispro (HumaLOG) 10 units Q6HRS SQ Last administered on 01/11/20at 05:53; Start 01/10/20 at 18:00; Stop 01/11/20 at 10:03; Status DC Vecuronium [place] 50 mg/ Miscellaneous 50 ml @ 4.027 mls/ hr CONT PRN IV SEE I/O RECORD Last administered on 01/17/20at 06:35; Start 01/10/20 at 16:15 Enoxaparin Sodium (Lovenox Per Pharmacy Treatment Dosing) 1 each PRN DAILY PRN MC SEE COMMENTS; Start 01/10/20 at 16:45 Enoxaparin Sodium (Lovenox 80mg Syringe) 80 mg Q12HR SQ Last administered on 01/17/20at 07:24; Start 01/10/20 at 21:00 Furosemide (Lasix) 40 mg 1X ONCE IVP Last administered on 01/11/20at 10:19; Start 01/11/20 at 10:00; Stop 01/11/20 at 10:01; Status DC Insulin Glargine (Lantus Syringe) 24 unit BID SQ Last administered on 01/17/20at 07:23; Start 01/11/20 at 10:30 Insulin Human Lispro (HumaLOG) 14 units Q6HRS SQ Last administered on 01/17/20at 06:06; Start 01/11/20 at 12:00 Info (Anti-Coagulation Monitoring By Pharmacy) 1 each PRN DAILY PRN MC SEE COMMENTS Last administered on 01/13/20at 14:14; Start 01/12/20 at 10:00 Polyethylene Glycol (miraLAX PACKET) 17 gm DAILY PO Last administered on 01/15/20at 09:02; Start 01/14/20 at 11:00 Dextrose/Sodium Chloride 1,000 ml @ 75 mls/hr [id number] IV Last administered on 01/17/20at 10:12; Start 01/15/20 at 09:30 Allergies Allergies: Coded Allergies: No Known Drug Allergies (Unverified , 01/06/20) ROS Review of System Unable to Obtain Physical Exam Physical Exam Visual 2/2 CoVid-19 positive GEN.: Intubated on MV HEENT: atraumatic NECK: Supple. LUNGS: Non labored HEART: RRR, ABDOMEN: Soft, EXTREMITIES: No cyanosis. NEUROLOGIC: Sedated SKIN: No rash Schumacher + Vital Signs Vital Signs Date Time Temp Pulse Resp B/P (MAP) Pulse Ox O2 Delivery O2 Flow Rate FiO2 01/17/20 11:04 56 22 106/60 (75) 88 Ventilator 01/17/20 08:18 98.4 98.4 01/16/20 11:17 18.0 Assessment & Plan Hypernatremia - Low Na at presentation Mildly better today , continue IV Hypotonic fluid (Free water flushes if tolerates TF) Monitor Acue renal failure due to vasomotor nephropathy - resolved Acute hypoxemic respiratory failure- On IV steroids, with taper, s/p Plasma Abnormal D-dimer related to COVID-19 pneumonia. On lovenox added 01/09 neg for DVT, CoViD-19 positive Transaminitis Hypertension- Currently low BP Critically ill Labs Labs Laboratory Tests Test 01/15/20 12:19 01/15/20 17:47 01/15/20 22:34 01/16/20 05:45 Glucose (Fingerstick) 162 mg/dL (70-99) 127 mg/dL (70-99) 89 mg/dL (70-99) White Blood Count 10.1 x10^3/uL (4.0-11.0) Red Blood Count 2.84 x10^6/uL (4.30-5.70) Hemoglobin 8.8 g/dL (13.0-17.5) Hematocrit 27.3 % (39.0-53.0) Mean Corpuscular Volume 96 fL (79-100) Mean Corpuscular Hemoglobin 31 pg (25-35) Mean Corpuscular Hemoglobin Concent 32 g/dL (31-37) Red Cell Distribution Width 14.8 % (11.5-14.5) Platelet Count 192 x10^3/uL (140-400) Neutrophils (%) (Auto) 90 % (31-73) Lymphocytes (%) (Auto) 3 % (24-48) Monocytes (%) (Auto) 5 % (0-9) Eosinophils (%) (Auto) 2 % (0-3) Basophils (%) (Auto) 1 % (0-3) Neutrophils # (Auto) 9.0 x10^3/uL (1.8-7.7) Lymphocytes # (Auto) 0.3 x10^3/uL (1.0-4.8) Monocytes # (Auto) 0.5 x10^3/uL (0.0-1.1) Eosinophils # (Auto) 0.2 x10^3/uL (0.0-0.7) Basophils # (Auto) 0.1 x10^3/uL (0.0-0.2) Sodium Level 151 mmol/L (136-145) Potassium Level 4.5 mmol/L (3.5-5.1) Chloride Level 118 mmol/L (98-107) Carbon Dioxide Level 31 mmol/L (21-32) Anion Gap 2 (6-14) Blood Urea Nitrogen 51 mg/dL (8-26) Creatinine 0.9 mg/dL (0.7-1.3) Estimated GFR (Cockcroft-Gault) 84.7 Glucose Level 112 mg/dL (70-99) Calcium Level 7.3 mg/dL (8.5-10.1) Test 01/16/20 09:15 01/16/20 12:24 01/16/20 22:02 01/17/20 00:23 O2 Saturation 87 % (92-99) Arterial Blood pH 7.36 (7.35-7.45) Arterial Blood pCO2 at Patient Temp 48 mmHg (35-46) Arterial Blood pO2 at Patient Temp 56 mmHg (65-108) Arterial Blood HCO3 26 mmol/L (21-28) Arterial Blood Base Excess 0 mmol/L (-3-3) FiO2 100 Glucose (Fingerstick) 130 mg/dL (70-99) 200 mg/dL (70-99) 186 mg/dL (70-99) Test 01/17/20 05:30 01/17/20 05:32 01/17/20 08:05 White Blood Count 8.9 x10^3/uL (4.0-11.0) Red Blood Count 2.83 x10^6/uL (4.30-5.70) Hemoglobin 8.7 g/dL (13.0-17.5) Hematocrit 27.2 % (39.0-53.0) Mean Corpuscular Volume 96 fL (79-100) Mean Corpuscular Hemoglobin 31 pg (25-35) Mean Corpuscular Hemoglobin Concent 32 g/dL (31-37) Red Cell Distribution Width 14.7 % (11.5-14.5) Platelet Count 195 x10^3/uL (140-400) Neutrophils (%) (Auto) 91 % (31-73) Lymphocytes (%) (Auto) 4 % (24-48) Monocytes (%) (Auto) 4 % (0-9) Eosinophils (%) (Auto) 1 % (0-3) Basophils (%) (Auto) 0 % (0-3) Neutrophils # (Auto) 8.0 x10^3/uL (1.8-7.7) Lymphocytes # (Auto) 0.4 x10^3/uL (1.0-4.8) Monocytes # (Auto) 0.4 x10^3/uL (0.0-1.1) Eosinophils # (Auto) 0.1 x10^3/uL (0.0-0.7) Basophils # (Auto) 0.0 x10^3/uL (0.0-0.2) Sodium Level 149 mmol/L (136-145) Potassium Level 4.2 mmol/L (3.5-5.1) Chloride Level 115 mmol/L (98-107) Carbon Dioxide Level 29 mmol/L (21-32) Anion Gap 5 (6-14) Blood Urea Nitrogen 54 mg/dL (8-26) Creatinine 1.0 mg/dL (0.7-1.3) Estimated GFR (Cockcroft-Gault) 75.0 Glucose Level 226 mg/dL (70-99) Calcium Level 6.9 mg/dL (8.5-10.1) Ferritin 769 ng/mL (26-388) C-Reactive Protein, Quantitative 167.1 mg/L (0-3.3) Glucose (Fingerstick) 202 mg/dL (70-99) O2 Saturation 82 % (92-99) Arterial Blood pH 7.34 (7.35-7.45) Arterial Blood pCO2 at Patient Temp 45 mmHg (35-46) Arterial Blood pO2 at Patient Temp 50 mmHg (65-108) Arterial Blood HCO3 24 mmol/L (21-28) Arterial Blood Base Excess -2 mmol/L (-3-3) FiO2 100 Laboratory Tests Test 01/16/20 12:24 01/16/20 22:02 01/17/20 00:23 01/17/20 05:30 Glucose (Fingerstick) 130 mg/dL (70-99) 200 mg/dL (70-99) 186 mg/dL (70-99) White Blood Count 8.9 x10^3/uL (4.0-11.0) Red Blood Count 2.83 x10^6/uL (4.30-5.70) Hemoglobin 8.7 g/dL (13.0-17.5) Hematocrit 27.2 % (39.0-53.0) Mean Corpuscular Volume 96 fL (79-100) Mean Corpuscular Hemoglobin 31 pg (25-35) Mean Corpuscular Hemoglobin Concent 32 g/dL (31-37) Red Cell Distribution Width 14.7 % (11.5-14.5) Platelet Count 195 x10^3/uL (140-400) Neutrophils (%) (Auto) 91 % (31-73) Lymphocytes (%) (Auto) 4 % (24-48) Monocytes (%) (Auto) 4 % (0-9) Eosinophils (%) (Auto) 1 % (0-3) Basophils (%) (Auto) 0 % (0-3) Neutrophils # (Auto) 8.0 x10^3/uL (1.8-7.7) Lymphocytes # (Auto) 0.4 x10^3/uL (1.0-4.8) Monocytes # (Auto) 0.4 x10^3/uL (0.0-1.1) Eosinophils # (Auto) 0.1 x10^3/uL (0.0-0.7) Basophils # (Auto) 0.0 x10^3/uL (0.0-0.2) Sodium Level 149 mmol/L (136-145) Potassium Level 4.2 mmol/L (3.5-5.1) Chloride Level 115 mmol/L (98-107) Carbon Dioxide Level 29 mmol/L (21-32) Anion Gap 5 (6-14) Blood Urea Nitrogen 54 mg/dL (8-26) Creatinine 1.0 mg/dL (0.7-1.3) Estimated GFR (Cockcroft-Gault) 75.0 Glucose Level 226 mg/dL (70-99) Calcium Level 6.9 mg/dL (8.5-10.1) Ferritin 769 ng/mL (26-388) C-Reactive Protein, Quantitative 167.1 mg/L (0-3.3) Test 01/17/20 05:32 01/17/20 08:05 Glucose (Fingerstick) 202 mg/dL (70-99) O2 Saturation 82 % (92-99) Arterial Blood pH 7.34 (7.35-7.45) Arterial Blood pCO2 at Patient Temp 45 mmHg (35-46) Arterial Blood pO2 at Patient Temp 50 mmHg (65-108) Arterial Blood HCO3 24 mmol/L (21-28) Arterial Blood Base Excess -2 mmol/L (-3-3) FiO2 100 Review All relevant outside records, renal labs, imaging studies, telemetry/EKG's were reviewed. DINA PURVIS MD Jan 17, 2020 11:35
[2020-01-17] MEDS ORDERED: DEXTROSE 50% 25 GM / 50ML DISP.SYRIN. IV PRN (12:00)
--- NOTE | 2020-01-17 15:17 | NUR ---
SS following up with discharge planning. SS reviewed pt chart and discussed with pt RN. Pt remains on the vent at this time. COVID19 positive. DNR. Pt on IV Zosyn. Pt remains self pay. SS will continue to follow for discharge planning.
[2020-01-18] VITALS (24 sets, daily range): BP systolic 112–132; BP diastolic 59–83
[2020-01-18] MEDS: MIDAZOLAM 100mg/100ml NS BAG 100 ML IV PRN ×3 (02:35→20:58)
[2020-01-18] MEDS: DEXMEDETOMIDINE 400 MCG in IV NORMAL SALINE 100ML 96 ML IV PRN ×5 (02:36→20:57)
[2020-01-18] MEDS: fentaNYL HIGH DOSE PCA 55 ML IV PRN ×2 (02:37→16:01)
[2020-01-18] MEDS: PROPOFOL 100 ML IV PRN ×4 (02:40→19:54)
[2020-01-18 05:04] LABS: ALBUMIN 1.1 g/dL (3.4-5.0); ALBUMIN/GLOBULIN RATIO 0.3 (1.0-1.7); CALCIUM 7.1 mg/dL (8.5-10.1); CREATININE 0.8 mg/dL (0.7-1.3); POTASSIUM 4.1 mmol/L (3.5-5.1); TOTAL BILIRUBIN 0.5 mg/dL (0.2-1.0); TOTAL PROTEIN 4.9 g/dL (6.4-8.2)
[2020-01-18] MEDS: PIPERACILLIN/TAZOBACTAM 3.375 GM in IV NORMAL SALINE 50ML 50 ML IV SCH ×3 (05:31→17:15)
[2020-01-18] MEDS: ASCORBIC ACID 500 MG TABLET PO SCH ×3 (05:32→17:15)
[2020-01-18] MEDS: INSULIN LISPRO 300 UNITS/3 ML VIAL. SQ SCH ×4 (05:32→17:15)
[2020-01-18] MEDS: methylPREDNISolone SOD SUCC PF 40 MG/ML VIAL. IV SCH ×3 (05:32→22:28)
[2020-01-18] MEDS: VECURONIUM BROMIDE 50 MG in TOTAL VOLUME 50 ML IV PRN (07:30)
[2020-01-18] MEDS: PANTOPRAZOLE IV PUSH 40 MG VIAL. IVP SCH (07:33)
[2020-01-18] MEDS: ZINC SULFATE 220 MG CAPSULE. PO SCH (07:33)
[2020-01-18] MEDS: POLYETHYLENE GLYCOL 3350 17 GM PACKET. PO SCH (07:34)
[2020-01-18] MEDS: INSULIN GLARGINE SYRINGE. SQ SCH ×2 (07:34→20:55)
[2020-01-18 09:25] LABS: BASE EXCESS ABG -3 mmol/L (-3-3); HCO3 ABG 22 mmol/L (21-28); PCO2 ABG 42 mmHg (35-46); PO2 ABG 58 mmHg (65-108); SAT O2 ABG 87 % (92-99)
[2020-01-18 09:30] LABS: FIO2 ABG 100/VENT
--- NOTE | 2020-01-18 10:50 | PDOC ---
PULMONARY PROGRESS NOTES DATE: 01/18/20 TIME: 10:48 Subjective remains intubated/sedated AC mode ,100%FIO2/14 PEEP, low P02 on ABG -- continues to hypoxia Fever overnight Vitals Vital Signs Date Time Temp Pulse Resp B/P (MAP) Pulse Ox O2 Delivery O2 Flow Rate FiO2 01/18/20 09:05 54 22 117/67 (84) 88 Ventilator 01/18/20 08:26 97.8 97.8 01/17/20 14:21 18.0 Comments visual exam done due to COVID-Pandemic no resp distess VENT 100% and PEEP 14 no skin rash lower extremity edema Lungs: Other (Intubated) Labs Laboratory Tests Test 01/16/20 12:24 01/16/20 22:02 01/17/20 00:23 01/17/20 05:30 Glucose (Fingerstick) 130 mg/dL (70-99) 200 mg/dL (70-99) 186 mg/dL (70-99) White Blood Count 8.9 x10^3/uL (4.0-11.0) Red Blood Count 2.83 x10^6/uL (4.30-5.70) Hemoglobin 8.7 g/dL (13.0-17.5) Hematocrit 27.2 % (39.0-53.0) Mean Corpuscular Volume 96 fL (79-100) Mean Corpuscular Hemoglobin 31 pg (25-35) Mean Corpuscular Hemoglobin Concent 32 g/dL (31-37) Red Cell Distribution Width 14.7 % (11.5-14.5) Platelet Count 195 x10^3/uL (140-400) Neutrophils (%) (Auto) 91 % (31-73) Lymphocytes (%) (Auto) 4 % (24-48) Monocytes (%) (Auto) 4 % (0-9) Eosinophils (%) (Auto) 1 % (0-3) Basophils (%) (Auto) 0 % (0-3) Neutrophils # (Auto) 8.0 x10^3/uL (1.8-7.7) Lymphocytes # (Auto) 0.4 x10^3/uL (1.0-4.8) Monocytes # (Auto) 0.4 x10^3/uL (0.0-1.1) Eosinophils # (Auto) 0.1 x10^3/uL (0.0-0.7) Basophils # (Auto) 0.0 x10^3/uL (0.0-0.2) Sodium Level 149 mmol/L (136-145) Potassium Level 4.2 mmol/L (3.5-5.1) Chloride Level 115 mmol/L (98-107) Carbon Dioxide Level 29 mmol/L (21-32) Anion Gap 5 (6-14) Blood Urea Nitrogen 54 mg/dL (8-26) Creatinine 1.0 mg/dL (0.7-1.3) Estimated GFR (Cockcroft-Gault) 75.0 Glucose Level 226 mg/dL (70-99) Calcium Level 6.9 mg/dL (8.5-10.1) Ferritin 769 ng/mL (26-388) C-Reactive Protein, Quantitative 167.1 mg/L (0-3.3) Test 01/17/20 05:32 01/17/20 08:05 01/17/20 12:02 01/17/20 17:27 Glucose (Fingerstick) 202 mg/dL (70-99) 193 mg/dL (70-99) 191 mg/dL (70-99) O2 Saturation 82 % (92-99) Arterial Blood pH 7.34 (7.35-7.45) Arterial Blood pCO2 at Patient Temp 45 mmHg (35-46) Arterial Blood pO2 at Patient Temp 50 mmHg (65-108) Arterial Blood HCO3 24 mmol/L (21-28) Arterial Blood Base Excess -2 mmol/L (-3-3) FiO2 100 Test 01/18/20 00:38 01/18/20 04:10 01/18/20 04:13 01/18/20 08:00 Glucose (Fingerstick) 212 mg/dL (70-99) 185 mg/dL (70-99) Sodium Level 147 mmol/L (136-145) Potassium Level 4.1 mmol/L (3.5-5.1) Chloride Level 115 mmol/L (98-107) Carbon Dioxide Level 27 mmol/L (21-32) Anion Gap 5 (6-14) Blood Urea Nitrogen 43 mg/dL (8-26) Creatinine 0.8 mg/dL (0.7-1.3) Estimated GFR (Cockcroft-Gault) 97.0 BUN/Creatinine Ratio 54 (6-20) Glucose Level 191 mg/dL (70-99) Calcium Level 7.1 mg/dL (8.5-10.1) Total Bilirubin 0.5 mg/dL (0.2-1.0) Aspartate Amino Transf (AST/SGOT) 31 U/L (15-37) Alanine Aminotransferase (ALT/SGPT) 36 U/L (16-63) Alkaline Phosphatase 78 U/L (46-116) Total Protein 4.9 g/dL (6.4-8.2) Albumin 1.1 g/dL (3.4-5.0) Albumin/Globulin Ratio 0.3 (1.0-1.7) O2 Saturation 87 % (92-99) Arterial Blood pH 7.35 (7.35-7.45) Arterial Blood pCO2 at Patient Temp 42 mmHg (35-46) Arterial Blood pO2 at Patient Temp 58 mmHg (65-108) Arterial Blood HCO3 22 mmol/L (21-28) Arterial Blood Base Excess -3 mmol/L (-3-3) FiO2 100/vent Laboratory Tests Test 01/17/20 12:02 01/17/20 17:27 01/18/20 00:38 01/18/20 04:10 Glucose (Fingerstick) 193 mg/dL (70-99) 191 mg/dL (70-99) 212 mg/dL (70-99) Sodium Level 147 mmol/L (136-145) Potassium Level 4.1 mmol/L (3.5-5.1) Chloride Level 115 mmol/L (98-107) Carbon Dioxide Level 27 mmol/L (21-32) Anion Gap 5 (6-14) Blood Urea Nitrogen 43 mg/dL (8-26) Creatinine 0.8 mg/dL (0.7-1.3) Estimated GFR (Cockcroft-Gault) 97.0 BUN/Creatinine Ratio 54 (6-20) Glucose Level 191 mg/dL (70-99) Calcium Level 7.1 mg/dL (8.5-10.1) Total Bilirubin 0.5 mg/dL (0.2-1.0) Aspartate Amino Transf (AST/SGOT) 31 U/L (15-37) Alanine Aminotransferase (ALT/SGPT) 36 U/L (16-63) Alkaline Phosphatase 78 U/L (46-116) Total Protein 4.9 g/dL (6.4-8.2) Albumin 1.1 g/dL (3.4-5.0) Albumin/Globulin Ratio 0.3 (1.0-1.7) Test 01/18/20 04:13 01/18/20 08:00 Glucose (Fingerstick) 185 mg/dL (70-99) O2 Saturation 87 % (92-99) Arterial Blood pH 7.35 (7.35-7.45) Arterial Blood pCO2 at Patient Temp 42 mmHg (35-46) Arterial Blood pO2 at Patient Temp 58 mmHg (65-108) Arterial Blood HCO3 22 mmol/L (21-28) Arterial Blood Base Excess -3 mmol/L (-3-3) FiO2 100/vent Comments CXR 01/06 IMPRESSION: 1. Bilateral diffuse infiltrates are increased in the left base and mildly improved elsewhere. CXR 01/14/20 Impression: Slight interval increase in the bilateral perihilar infiltrates. Impression . 1. Acute hypoxic respiratory failure secondary to COVID-19 pneumonia/ARDS/acute lung injury--worsening oxygen requirements 2. Abnormal chest x-ray with bilateral infiltrates consistent with COVID-19 pneumonia. 3. Hypotension secondary to combination of hypovolemia and sepsis status post 2 liters of IV fluids. no pressors, now hypertensive 4. Acute kidney injury--resolved 5. Severe protein-calorie malnutrition. 6. Abnormal D-dimer related to COVID-19 pneumonia. Full dose lovenox added 01/09 due to increase in D-dimer to 20, now decreasing 7. Fevers Plan . RECOMMENDATIONS: ABG noted, will continue current assist control, and PEEP of 14 will not escalate any further PEEP Full dose anticoagulation Broad spectrum antibiotic. Cont. IV steroids, with taper, Stress ulcer prophylaxis. s/p Plasma Pt doing poorly not expected to survive D/W RN and RT PT. is DNR Prognosis poor Critical care time 30 minutes, family aware and visited overnight and aware of pt. clinical condition, Dr Mendoza spoke with YVONNE TAYLOR Jan 18, 2020 10:49
--- NOTE | 2020-01-18 10:50 | NUR ---
SS following up with discharge planning. SS reviewed pt chart and discussed with pt RN. Pt remains on the vent at this time. COVID19 positive. Pt on IV Zosyn. DNR. Pt self pay. SS will continue to follow for discharge planning.
--- NOTE | 2020-01-18 10:59 | PDOC ---
DATE OF SERVICE DATE: 01/18/20 TIME: 10:56 SUBJECTIVE ROS Remains intubated Had fever overnight OBJECTIVE Vital Signs Vital Signs Date Time Temp Pulse Resp B/P (MAP) Pulse Ox O2 Delivery O2 Flow Rate FiO2 01/18/20 09:05 54 22 117/67 (84) 88 Ventilator 01/18/20 08:26 97.8 97.8 01/17/20 14:21 18.0 I & 0 Intake and Output 01/18/20 07:00 Intake Total 3398.3 ml Output Total 1515 ml Balance 1883.3 ml Intake IV Total 3273.3 ml Tube Feeding 125 ml Output Urine Total 1515 ml PHYSICAL EXAM Physical Exam Visual 2/ CoVid-19 positive GEN.: Intubated on MV HEENT: atraumatic NECK: Supple. LUNGS: Non labored HEART: RRR, ABDOMEN: Soft, EXTREMITIES: No cyanosis. NEUROLOGIC: Sedated SKIN: No rash Schumacher + DIAGNOSIS/ASSESSMENT Assessment & Plan Hypernatremia - Low Na at presentation , Now Hypernatremia Improving , continue IV Hypotonic fluid (Free water flushes if tolerates TF) Monitor Acue renal failure due to vasomotor nephropathy - resolved Acute hypoxemic respiratory failure- On IV steroids, with taper, s/p Plasma Abnormal D-dimer related to COVID-19 pneumonia. On lovenox added 01/09 neg for DVT, CoViD-19 positive Transaminitis Hypertension- Currently low BP Critically ill COMMENT/RELEVANT DATA Meds Current Medications Medications (Trade) Dose Ordered Sig/Augusto Start Time Stop Time Status Last Admin Dose Admin Acetaminophen (Tylenol Supp) 650 mg PRN Q4HRS PRN 01/06/20 21:30 Acetaminophen (Tylenol) 650 mg PRN Q4HRS PRN 01/06/20 21:30 01/14/20 05:51 650 MG Albuterol/ Ipratropium (Duoneb) 3 ml STK-MED ONCE 01/06/20 19:27 01/06/20 19:27 DC Alteplase, Recombinant (Cathflo For Central Catheter Clearance) 1 mg 1X ONCE 01/10/20 11:00 01/10/20 11:01 DC 01/10/20 12:05 1 MG Ascorbic Acid (Vitamin C) 250 mg Q6HRS 01/07/20 12:00 01/18/20 05:32 250 MG Atropine Sulfate (ATROPINE 0.5mg SYRINGE) 0.5 mg PRN Q5MIN PRN 01/06/20 20:15 Chlorhexidine Gluconate (Peridex) 15 ml BID 01/06/20 21:00 01/07/20 09:45 DC 01/07/20 08:16 15 ML Dexmedetomidine HCl 400 mcg/ Sodium Chloride 100 ml @ 0 mls/hr CONT PRN 01/06/20 20:15 01/18/20 07:33 23.3 MLS/HR Dextrose (Dextrose 50%-Water Syringe) 12.5 gm PRN Q15MIN PRN 01/17/20 12:00 Dextrose/Sodium Chloride 1,000 ml @ 75 mls/hr [id number] 01/15/20 09:30 01/17/20 22:07 75 MLS/HR Docusate Sodium (Colace) 100 mg PRN BID PRN 01/06/20 21:30 01/12/20 08:26 100 MG Enoxaparin Sodium (Lovenox 40mg Syringe) 40 mg BID 01/06/20 21:30 01/07/20 09:47 DC 01/07/20 08:15 40 MG Enoxaparin Sodium (Lovenox 60mg Syringe) 60 mg BID 01/08/20 09:00 01/10/20 16:45 DC 01/10/20 08:55 60 MG Enoxaparin Sodium (Lovenox 80mg Syringe) 80 mg Q12HR 01/10/20 21:00 01/18/20 07:33 80 MG Enoxaparin Sodium (Lovenox Per Pharmacy Treatment Dosing) 1 each PRN DAILY PRN 01/10/20 16:45 Etomidate (Amidate) 20 mg STK-MED ONCE 01/06/20 18:54 01/06/20 18:54 DC Fentanyl Citrate 55 ml @ 0 mls/hr CONT PRN 01/08/20 14:49 01/18/20 02:37 4 MLS/HR Fentanyl Citrate (Fentanyl 2ml Vial) 100 mcg 1X ONCE 01/06/20 20:15 01/06/20 20:18 DC 01/06/20 20:17 100 MCG Furosemide (Lasix) 40 mg 1X ONCE 01/11/20 10:00 01/11/20 10:01 DC 01/11/20 10:19 40 MG Hydralazine HCl (Apresoline Inj) 10 mg PRN Q4HRS PRN 01/10/20 09:15 01/15/20 23:09 10 MG Info (Anti-Coagulation Monitoring By Pharmacy) 1 each PRN DAILY PRN 01/12/20 10:00 01/13/20 14:14 1 EACH Insulin Glargine (Lantus Syringe) 24 unit BID 01/11/20 10:30 01/18/20 07:34 24 UNIT Insulin Human Lispro (HumaLOG) 0-5 UNITS Q6HRS 01/17/20 12:00 Lorazepam (Ativan Inj) 2 mg PRN Q1HR PRN 01/08/20 16:30 01/09/20 13:10 2 MG Methylprednisolone Sodium Succinate (SOLU-Medrol 40MG VIAL) 40 mg Q8HRS 01/07/20 14:00 UNV Midazolam HCl (Versed) 5 mg 1X ONCE 01/06/20 19:18 01/06/20 19:59 DC 01/06/20 19:18 5 MG Midazolam HCl 50 mg/Sodium Chloride 50 ml @ 0 mls/hr 1X ONCE 01/06/20 19:30 01/06/20 19:31 UNV Norepinephrine Bitartrate 8 mg/ Dextrose 258 ml @ 12.578 mls/ hr CONT PRN 01/06/20 21:45 01/06/20 22:15 6.289 MLS/HR Ondansetron HCl (Zofran) 4 mg PRN Q4HRS PRN 01/06/20 21:30 Pantoprazole Sodium (PROTONIX VIAL for IV PUSH) 40 mg DAILYAC 01/07/20 07:30 01/18/20 07:33 40 MG Piperacillin Sod/ Tazobactam Sod 3.375 gm/Sodium Chloride 50 ml @ 100 mls/hr Q6HRS 01/07/20 00:00 01/18/20 05:31 100 MLS/HR Polyethylene Glycol (miraLAX PACKET) 17 gm DAILY 01/14/20 11:00 01/15/20 09:02 17 GM Potassium Chloride/Dextrose/ Sod Cl 1,000 ml @ 125 mls/hr Q8H ONCE 01/06/20 21:30 01/07/20 05:29 DC 8/20/20 22:13 125 MLS/HR Propofol 50 ml @ 0 mls/hr 1X ONCE 01/06/20 20:00 01/06/20 20:01 DC 01/06/20 18:55 3.9 MLS/HR Sodium Chloride 1,000 ml @ 75 mls/hr [id number] 01/07/20 10:00 01/11/20 10:23 DC 01/10/20 19:33 75 MLS/HR Succinylcholine Chloride (Anectine) 200 mg STK-MED ONCE 01/06/20 18:55 01/06/20 18:55 DC Vecuronium Edson 50 mg/ Miscellaneous 50 ml @ 4.027 mls/ hr CONT PRN 01/10/20 16:15 01/18/20 07:30 2.3 MLS/HR Vecuronium Edson (Norcuron Bolus) 6 mg PRN Q6HRS PRN 01/08/20 09:30 01/10/20 16:36 6 MG Zinc Sulfate (Orazinc) 220 mg DAILY 01/07/20 09:00 01/18/20 07:33 220 MG Lab Laboratory Tests Test 01/17/20 12:02 01/17/20 17:27 01/18/20 00:38 01/18/20 04:10 Glucose (Fingerstick) 193 mg/dL (70-99) 191 mg/dL (70-99) 212 mg/dL (70-99) Sodium Level 147 mmol/L (136-145) Potassium Level 4.1 mmol/L (3.5-5.1) Chloride Level 115 mmol/L (98-107) Carbon Dioxide Level 27 mmol/L (21-32) Anion Gap 5 (6-14) Blood Urea Nitrogen 43 mg/dL (8-26) Creatinine 0.8 mg/dL (0.7-1.3) Estimated GFR (Cockcroft-Gault) 97.0 BUN/Creatinine Ratio 54 (6-20) Glucose Level 191 mg/dL (70-99) Calcium Level 7.1 mg/dL (8.5-10.1) Total Bilirubin 0.5 mg/dL (0.2-1.0) Aspartate Amino Transf (AST/SGOT) 31 U/L (15-37) Alanine Aminotransferase (ALT/SGPT) 36 U/L (16-63) Alkaline Phosphatase 78 U/L (46-116) Total Protein 4.9 g/dL (6.4-8.2) Albumin 1.1 g/dL (3.4-5.0) Albumin/Globulin Ratio 0.3 (1.0-1.7) Test 01/18/20 04:13 01/18/20 08:00 Glucose (Fingerstick) 185 mg/dL (70-99) O2 Saturation 87 % (92-99) Arterial Blood pH 7.35 (7.35-7.45) Arterial Blood pCO2 at Patient Temp 42 mmHg (35-46) Arterial Blood pO2 at Patient Temp 58 mmHg (65-108) Arterial Blood HCO3 22 mmol/L (21-28) Arterial Blood Base Excess -3 mmol/L (-3-3) FiO2 100/vent Results All relevant outside records, renal labs, imaging studies, telemetry/EKG's were reviewed. Justicifation of Admission Dx: Justifications for Admission: Justification of Admission Dx: Yes DINA PURVIS MD Jan 18, 2020 10:59
[2020-01-18] MEDS: IV DEXTROSE 5 %-0.2 % NACL 1,000 ML IV SCH ×2 (14:55→17:30)
[2020-01-19] VITALS (23 sets, daily range): BP systolic 112–125; BP diastolic 63–75
[2020-01-19] MEDS: PIPERACILLIN/TAZOBACTAM 3.375 GM in IV NORMAL SALINE 50ML 50 ML IV SCH ×3 (00:28→12:16)
[2020-01-19] MEDS: PROPOFOL 100 ML IV PRN ×6 (00:29→22:59)
[2020-01-19] MEDS: ASCORBIC ACID 500 MG TABLET PO SCH ×4 (00:29→17:05)
[2020-01-19] MEDS: VECURONIUM BROMIDE 50 MG in TOTAL VOLUME 50 ML IV PRN ×2 (00:30→18:16)
[2020-01-19] MEDS: DEXMEDETOMIDINE 400 MCG in IV NORMAL SALINE 100ML 96 ML IV PRN ×6 (02:05→22:58)
[2020-01-19] MEDS: fentaNYL HIGH DOSE PCA 55 ML IV PRN ×2 (03:41→18:14)
[2020-01-19] MEDS: INSULIN LISPRO 300 UNITS/3 ML VIAL. SQ SCH ×4 (06:00→17:05)
[2020-01-19] MEDS: methylPREDNISolone SOD SUCC PF 40 MG/ML VIAL. IV SCH ×3 (06:08→23:15)
[2020-01-19] MEDS: IV DEXTROSE 5 %-0.2 % NACL 1,000 ML IV SCH ×2 (07:25→20:10)
[2020-01-19] MEDS: PANTOPRAZOLE IV PUSH 40 MG VIAL. IVP SCH (08:25)
[2020-01-19] MEDS: ZINC SULFATE 220 MG CAPSULE. PO SCH (08:26)
[2020-01-19] MEDS: MIDAZOLAM 100mg/100ml NS BAG 100 ML IV PRN ×2 (08:31→18:16)
[2020-01-19] MEDS: POLYETHYLENE GLYCOL 3350 17 GM PACKET. PO SCH (09:00)
[2020-01-19 09:36] LABS: BASE EXCESS ABG -3 mmol/L (-3-3); HCO3 ABG 23 mmol/L (21-28); PCO2 ABG 43 mmHg (35-46); PO2 ABG 54 mmHg (65-108); SAT O2 ABG 85 % (92-99)
[2020-01-19 09:39] LABS: FIO2 ABG 100
[2020-01-19] MEDS: INSULIN GLARGINE SYRINGE. SQ SCH ×2 (10:13→21:00)
--- NOTE | 2020-01-19 10:58 | PDOC ---
[employer] PROGRESS NOTE Date of Service DOS: DATE: 01/19/20 TIME: 10:55 Chief Complaint Chief Complaint Acute hypoxemic respiratory failure Bilateral perihilar infiltrates are seen which appear increased slightly Leukocytosis with bandemia secondary to septic process Hyponatremia secondary to low effective circulatory volume, now hypernatremic Acue renal failure due to vasomotor nephropathy most likely Hyperglycemia transaminitis Uncontrolled hypertension AC mode ,100%FIO2/14 Fever overnight 01/15 History of Present Illness History of Present Illness 01/19/2020 Patient seen and examined in the COVID-19 ICU He is intubated AC/07/11 100/100% with 14 of PEEP He is sedated with Versed propofol fentanyl and Precedex he is also paralyzed with vecuronium Chart reviewed Discussed with RN Discussed with case advocate History of Present Illness Patient is a 64-year-old gentleman who was diagnosed with COVID-19 infection on Friday 5 days prior to his admission to the intensive care unit. Apparently the patient reported worsening respiratory distress reason why he came to the emergency department for evaluation and treatment. The story was quite limited since the patient was speaking Kiswahili only and his acuity was such that he required mechanical ventilation and prompt intubation by the emergency department physician. At the present time patient is intubated and sedated continues to require a lot of support no pertinent past medical history was reported he is admitted to the intensive care unit for further treatment 01/10/2020 Continues to require full support, glycemia has been noted in hypertension as well. Discussed with nursing staff, all of concerns were addressed to the best of my abilities no acute events reported overnight 01/11/2020 No acute events reported overnight, case discussed with nursing staff patient in no acute distress 01/12/2020 Per nursing staff, patient febrile overnight, treated with Tylenol and tepid water bath. Case discussed with nursing staff, continue with IV antibiotics and full VTE prophylaxis. 01/13/2020 Patient still febrile overnight. O2 requirement increasing. Discussed with RN. 01/16 Patient still intubated and sedated. Discussed with RN, patient was made DNR. schedule MiraLAX. Vitals/I&O Vitals/I&O: Vital Signs Date Time Temp Pulse Resp B/P (MAP) Pulse Ox O2 Delivery O2 Flow Rate FiO2 01/19/20 10:10 51 22 119/67 (84) 89 Ventilator 01/19/20 08:00 96.7 96.7 9/2/20 04:11 18.0 I & O 01/18/20 01/18/20 01/19/20 15:00 23:00 07:00 Intake Total 50 ml 1453 ml 988.41 ml Output Total 450 ml 635 ml 425 ml Balance -400 ml 818 ml 563.41 ml Physical Exam Physical Exam: sedated on vent General: No acute distress, Other (Intubated and sedated) Heart: Regular rate Lungs: Other (Intubated) Abdomen: Other (Nondistended) Extremities: No clubbing, No cyanosis Skin: No rashes, No breakdown Labs Labs: Laboratory Tests Test 01/18/20 12:06 01/18/20 21:09 01/19/20 09:25 01/19/20 10:21 Glucose (Fingerstick) 179 mg/dL (70-99) 165 mg/dL (70-99) 144 mg/dL (70-99) O2 Saturation 85 % (92-99) Arterial Blood pH 7.35 (7.35-7.45) Arterial Blood pCO2 at Patient Temp 43 mmHg (35-46) Arterial Blood pO2 at Patient Temp 54 mmHg (65-108) Arterial Blood HCO3 23 mmol/L (21-28) Arterial Blood Base Excess -3 mmol/L (-3-3) FiO2 100 Assessment and Plan Assessmemt and Plan COVID-19 Acute hypoxemic respiratory failure Bilateral perihilar infiltrates are seen which appear increased slightly Leukocytosis with bandemia secondary to septic process Hyponatremia secondary to low effective circulatory volume, now hypernatremic Acue renal failure due to vasomotor nephropathy most likely Hyperglycemia transaminitis Uncontrolled hypertension AC mode ,100%FIO2/14 Fever overnight 01/15 Plan ICU monitoring COVID-19 protocol Nephrology following Pulmonary following Vent weaning Home meds DVT prophylaxis He is DNR I discussed the case with case advocate He is extremely critically ill on 100% oxygen his prognosis is very guarded at best 31 minutes cc time CONSULT NEPHROLOGY Hypotonic saline iv support serum osmolality 100%FIO2/14 PEEP, dnr status 35 MIN CC TIME Comment Review of Relevant I have reviewed the following items hong (where applicable) has been applied. Justifications for Admission Other Justification JACQUES SOLIS III DO Jan 19, 2020 10:58
--- NOTE | 2020-01-19 11:07 | PDOC ---
PULMONARY PROGRESS NOTES DATE: 01/19/20 TIME: 11:04 Subjective remains intubated/sedated AC mode ,100%FIO2/14 PEEP, low P02 on ABG -- continues to hypoxia Fever overnight Vitals Vital Signs Date Time Temp Pulse Resp B/P (MAP) Pulse Ox O2 Delivery O2 Flow Rate FiO2 01/19/20 10:10 51 22 119/67 (84) 89 Ventilator 01/19/20 08:00 96.7 96.7 01/19/20 04:11 18.0 Comments visual exam done due to COVID-Pandemic no resp distess VENT 100% and PEEP 14 no skin rash lower extremity edema Lungs: Other (Intubated) Labs Laboratory Tests Test 01/17/20 12:02 01/17/20 14:20 01/17/20 17:27 01/18/20 00:38 Glucose (Fingerstick) 193 mg/dL (70-99) 191 mg/dL (70-99) 212 mg/dL (70-99) Urine Osmolality 803 mOsmol/kg (.) Test 01/18/20 04:10 01/18/20 04:13 01/18/20 08:00 01/18/20 12:06 Sodium Level 147 mmol/L (136-145) Potassium Level 4.1 mmol/L (3.5-5.1) Chloride Level 115 mmol/L (98-107) Carbon Dioxide Level 27 mmol/L (21-32) Anion Gap 5 (6-14) Blood Urea Nitrogen 43 mg/dL (8-26) Creatinine 0.8 mg/dL (0.7-1.3) Estimated GFR (Cockcroft-Gault) 97.0 BUN/Creatinine Ratio 54 (6-20) Glucose Level 191 mg/dL (70-99) Calcium Level 7.1 mg/dL (8.5-10.1) Total Bilirubin 0.5 mg/dL (0.2-1.0) Aspartate Amino Transf (AST/SGOT) 31 U/L (15-37) Alanine Aminotransferase (ALT/SGPT) 36 U/L (16-63) Alkaline Phosphatase 78 U/L (46-116) Total Protein 4.9 g/dL (6.4-8.2) Albumin 1.1 g/dL (3.4-5.0) Albumin/Globulin Ratio 0.3 (1.0-1.7) Glucose (Fingerstick) 185 mg/dL (70-99) 179 mg/dL (70-99) O2 Saturation 87 % (92-99) Arterial Blood pH 7.35 (7.35-7.45) Arterial Blood pCO2 at Patient Temp 42 mmHg (35-46) Arterial Blood pO2 at Patient Temp 58 mmHg (65-108) Arterial Blood HCO3 22 mmol/L (21-28) Arterial Blood Base Excess -3 mmol/L (-3-3) FiO2 100/vent Test 01/18/20 21:09 01/19/20 09:25 01/19/20 10:21 Glucose (Fingerstick) 165 mg/dL (70-99) 144 mg/dL (70-99) O2 Saturation 85 % (92-99) Arterial Blood pH 7.35 (7.35-7.45) Arterial Blood pCO2 at Patient Temp 43 mmHg (35-46) Arterial Blood pO2 at Patient Temp 54 mmHg (65-108) Arterial Blood HCO3 23 mmol/L (21-28) Arterial Blood Base Excess -3 mmol/L (-3-3) FiO2 100 Laboratory Tests Test 01/18/20 12:06 01/18/20 21:09 01/19/20 09:25 01/19/20 10:21 Glucose (Fingerstick) 179 mg/dL (70-99) 165 mg/dL (70-99) 144 mg/dL (70-99) O2 Saturation 85 % (92-99) Arterial Blood pH 7.35 (7.35-7.45) Arterial Blood pCO2 at Patient Temp 43 mmHg (35-46) Arterial Blood pO2 at Patient Temp 54 mmHg (65-108) Arterial Blood HCO3 23 mmol/L (21-28) Arterial Blood Base Excess -3 mmol/L (-3-3) FiO2 100 Comments CXR 01/06 IMPRESSION: 1. Bilateral diffuse infiltrates are increased in the left base and mildly improved elsewhere. CXR 01/14/20 Impression: Slight interval increase in the bilateral perihilar infiltrates. Impression . 1. Acute hypoxic respiratory failure secondary to COVID-19 pneumonia/ARDS/acute lung injury--worsening oxygen requirements 2. Abnormal chest x-ray with bilateral infiltrates consistent with COVID-19 pneumonia. 3. Hypotension secondary to combination of hypovolemia and sepsis status post 2 liters of IV fluids. no pressors, 4. Acute kidney injury--resolved 5. Severe protein-calorie malnutrition. 6. Abnormal D-dimer related to COVID-19 pneumonia. Full dose lovenox added 01/09 due to increase in D-dimer to 20, now decreasing 7. Fevers Plan . RECOMMENDATIONS: ABG noted, will continue current assist control, 100%FIO2 and PEEP of 14 will not escalate any further PEEP Full dose anticoagulation Broad spectrum antibiotic. Cont. IV steroids, with taper, Stress ulcer prophylaxis. s/p Plasma Pt doing poorly not expected to survive D/W RN and RT PT. is DNR Prognosis poor Critical care time 30 minutes, family aware of pt. clinical condition, Dr Mendoza spoke with YVONNE TAYLOR MD Jan 19, 2020 11:07
--- NOTE | 2020-01-19 12:38 | PDOC ---
DATE OF SERVICE DATE: 01/19/20 TIME: 12:37 SUBJECTIVE ROS Remains intubated OBJECTIVE Vital Signs Vital Signs Date Time Temp Pulse Resp B/P (MAP) Pulse Ox O2 Delivery O2 Flow Rate FiO2 01/19/20 12:00 Mechanical Ventilator 01/19/20 12:00 96.8 52 22 120/67 (84) 89 96.8 01/19/20 04:11 18.0 I & 0 Intake and Output 01/19/20 07:00 Intake Total 2491.41 ml Output Total 1510 ml Balance 981.41 ml Intake IV Total 2491.41 ml Output Urine Total 1510 ml PHYSICAL EXAM Physical Exam Visual 06/20 CoVid-19 positive GEN.: Intubated on MV HEENT: atraumatic NECK: Supple. LUNGS: Non labored HEART: RRR, ABDOMEN: Soft, EXTREMITIES: No cyanosis. NEUROLOGIC: Sedated SKIN: No rash Schumacher + DIAGNOSIS/ASSESSMENT Assessment & Plan Hypernatremia - Low Na at presentation , Now Hypernatremia Improving , continue IV Hypotonic fluid (Free water flushes if tolerates TF) Monitor , No labs this am Acue renal failure due to vasomotor nephropathy - resolved Acute hypoxemic respiratory failure- On IV steroids, with taper, s/p Plasma Abnormal D-dimer related to COVID-19 pneumonia. On lovenox added 01/09 neg for DVT, CoViD-19 positive Transaminitis Hypertension- Currently low BP Critically ill COMMENT/RELEVANT DATA Meds Current Medications Medications (Trade) Dose Ordered Sig/Augusto Start Time Stop Time Status Last Admin Dose Admin Acetaminophen (Tylenol Supp) 650 mg PRN Q4HRS PRN 01/06/20 21:30 Acetaminophen (Tylenol) 650 mg PRN Q4HRS PRN 01/06/20 21:30 01/14/20 05:51 650 MG Albuterol/ Ipratropium (Duoneb) 3 ml STK-MED ONCE 01/06/20 19:27 01/06/20 19:27 DC Alteplase, Recombinant (Cathflo For Central Catheter Clearance) 1 mg 1X ONCE 01/10/20 11:00 01/10/20 11:01 DC 01/10/20 12:05 1 MG Ascorbic Acid (Vitamin C) 250 mg Q6HRS 01/07/20 12:00 01/19/20 06:08 250 MG Atropine Sulfate (ATROPINE 0.5mg SYRINGE) 0.5 mg PRN Q5MIN PRN 01/06/20 20:15 Chlorhexidine Gluconate (Peridex) 15 ml BID 01/06/20 21:00 01/07/20 09:45 DC 01/07/20 08:16 15 ML Dexmedetomidine HCl 400 mcg/ Sodium Chloride 100 ml @ 0 mls/hr CONT PRN 01/06/20 20:15 01/19/20 10:13 23.3 MLS/HR Dextrose (Dextrose 50%-Water Syringe) 12.5 gm PRN Q15MIN PRN 01/17/20 12:00 Dextrose/Sodium Chloride 1,000 ml @ 75 mls/hr [id number] 01/15/20 09:30 01/19/20 07:25 75 MLS/HR Docusate Sodium (Colace) 100 mg PRN BID PRN 01/06/20 21:30 01/12/20 08:26 100 MG Enoxaparin Sodium (Lovenox 40mg Syringe) 40 mg BID 01/06/20 21:30 01/07/20 09:47 DC 01/07/20 08:15 40 MG Enoxaparin Sodium (Lovenox 60mg Syringe) 60 mg BID 01/08/20 09:00 01/10/20 16:45 DC 01/10/20 08:55 60 MG Enoxaparin Sodium (Lovenox 80mg Syringe) 80 mg Q12HR 01/10/20 21:00 01/19/20 08:26 80 MG Enoxaparin Sodium (Lovenox Per Pharmacy Treatment Dosing) 1 each PRN DAILY PRN 01/10/20 16:45 Etomidate (Amidate) 20 mg STK-MED ONCE 01/06/20 18:54 01/06/20 18:54 DC Fentanyl Citrate 55 ml @ 0 mls/hr CONT PRN 01/08/20 14:49 01/19/20 03:41 4 MLS/HR Fentanyl Citrate (Fentanyl 2ml Vial) 100 mcg 1X ONCE 01/06/20 20:15 01/06/20 20:18 DC 01/06/20 20:17 100 MCG Furosemide (Lasix) 40 mg 1X ONCE 01/11/20 10:00 01/11/20 10:01 DC 01/11/20 10:19 40 MG Hydralazine HCl (Apresoline Inj) 10 mg PRN Q4HRS PRN 01/10/20 09:15 01/15/20 23:09 10 MG Info (Anti-Coagulation Monitoring By Pharmacy) 1 each PRN DAILY PRN 01/12/20 10:00 01/13/20 14:14 1 EACH Insulin Glargine (Lantus Syringe) 24 unit BID 01/11/20 10:30 01/19/20 10:13 24 UNIT Insulin Human Lispro (HumaLOG) 0-5 UNITS Q6HRS 01/17/20 12:00 Lorazepam (Ativan Inj) 2 mg PRN Q1HR PRN 01/08/20 16:30 01/09/20 13:10 2 MG Methylprednisolone Sodium Succinate (SOLU-Medrol 40MG VIAL) 40 mg Q8HRS 01/07/20 14:00 UNV Midazolam HCl (Versed) 5 mg 1X ONCE 01/06/20 19:18 01/06/20 19:59 DC 01/06/20 19:18 5 MG Midazolam HCl 50 mg/Sodium Chloride 50 ml @ 0 mls/hr 1X ONCE 01/06/20 19:30 01/06/20 19:31 UNV Norepinephrine Bitartrate 8 mg/ Dextrose 258 ml @ 12.578 mls/ hr CONT PRN 01/06/20 21:45 01/06/20 22:15 6.289 MLS/HR Ondansetron HCl (Zofran) 4 mg PRN Q4HRS PRN 01/06/20 21:30 Pantoprazole Sodium (PROTONIX VIAL for IV PUSH) 40 mg DAILYAC 01/07/20 07:30 01/19/20 08:25 40 MG Piperacillin Sod/ Tazobactam Sod 3.375 gm/Sodium Chloride 50 ml @ 100 mls/hr Q6HRS 01/07/20 00:00 01/19/20 12:16 100 MLS/HR Polyethylene Glycol (miraLAX PACKET) 17 gm DAILY 01/14/20 11:00 01/15/20 09:02 17 GM Potassium Chloride/Dextrose/ Sod Cl 1,000 ml @ 125 mls/hr Q8H ONCE 01/06/20 21:30 01/07/20 05:29 DC 01/06/20 22:13 125 MLS/HR Propofol 50 ml @ 0 mls/hr 1X ONCE 01/06/20 20:00 01/06/20 20:01 DC 01/06/20 18:55 3.9 MLS/HR Sodium Chloride 1,000 ml @ 75 mls/hr [id number] 01/07/20 10:00 01/11/20 10:23 DC 01/10/20 19:33 75 MLS/HR Succinylcholine Chloride (Anectine) 200 mg STK-MED ONCE 01/06/20 18:55 01/06/20 18:55 DC Vecuronium [place] 50 mg/ Miscellaneous 50 ml @ 4.027 mls/ hr CONT PRN 01/10/20 16:15 01/19/20 00:30 2.517 MLS/HR Vecuronium [place] (Norcuron Bolus) 6 mg PRN Q6HRS PRN 01/08/20 09:30 01/10/20 16:36 6 MG Zinc Sulfate (Orazinc) 220 mg DAILY 01/07/20 09:00 01/19/20 08:26 220 MG Lab Laboratory Tests Test 01/18/20 21:09 01/19/20 09:25 01/19/20 10:21 Glucose (Fingerstick) 165 mg/dL (70-99) 144 mg/dL (70-99) O2 Saturation 85 % (92-99) Arterial Blood pH 7.35 (7.35-7.45) Arterial Blood pCO2 at Patient Temp 43 mmHg (35-46) Arterial Blood pO2 at Patient Temp 54 mmHg (65-108) Arterial Blood HCO3 23 mmol/L (21-28) Arterial Blood Base Excess -3 mmol/L (-3-3) FiO2 100 Results All relevant outside records, renal labs, imaging studies, telemetry/EKG's were reviewed. Justicifation of Admission Dx: Justifications for Admission: Justification of Admission Dx: Yes DINA PURVIS MD Jan 19, 2020 12:38
[2020-01-19] MEDS: ANTI-COAG MONITOR BY PHARMACY. MC PRN (12:39)
--- NOTE | 2020-01-19 13:53 | NUR ---
SS following up with discharge planning. SS reviewed pt chart and discussed with pt RN. Pt remains on the vent at this time. COVID19 positive. Pt on IV Zosyn. DNR. Self pay. SS will continue to follow for discharge planning.
--- NOTE | 2020-01-19 17:59 | NUR ---
Pts oxygen saturation remained between 85-88% thru most of the day. at 1700 sat fell to 78%. RT notified. Pt suctioned with minimal sputum. currently sats remain at 80%. Sedation still infusing. Family called and requested to talk to the patient. cell phone put on speaker and placed by patient ear so the could talk to the patient.
[2020-01-19] MEDS: ENOXAPARIN 40 MG/0.4 ML SYRINGE. SQ SCH (23:14)
[2020-01-20] VITALS (24 sets, daily range): BP systolic 115–133; BP diastolic 47–76
[2020-01-20] MEDS: PROPOFOL 100 ML IV PRN ×5 (02:54→23:59)
[2020-01-20] MEDS: DEXMEDETOMIDINE 400 MCG in IV NORMAL SALINE 100ML 96 ML IV PRN ×4 (04:01→20:14)
[2020-01-20] MEDS: ASCORBIC ACID 500 MG TABLET PO SCH ×6 (04:02→20:38)
[2020-01-20] MEDS: methylPREDNISolone SOD SUCC PF 40 MG/ML VIAL. IV SCH ×3 (05:46→22:34)
[2020-01-20] MEDS: INSULIN LISPRO 300 UNITS/3 ML VIAL. SQ SCH ×4 (05:47→17:06)
[2020-01-20 05:53] LABS: CREATININE 0.5 mg/dL (0.7-1.3); GFR 166.9; POTASSIUM 4.1 mmol/L (3.5-5.1)
[2020-01-20] MEDS: fentaNYL HIGH DOSE PCA 55 ML IV PRN ×2 (07:50→20:16)
[2020-01-20] MEDS: MIDAZOLAM 100mg/100ml NS BAG 100 ML IV PRN ×2 (08:26→20:00)
[2020-01-20] MEDS: ZINC SULFATE 220 MG CAPSULE. PO SCH (08:56)
[2020-01-20] MEDS: ENOXAPARIN 40 MG/0.4 ML SYRINGE. SQ SCH ×2 (08:56→22:35)
[2020-01-20] MEDS: PANTOPRAZOLE IV PUSH 40 MG VIAL. IVP SCH (08:56)
[2020-01-20] MEDS: INSULIN GLARGINE SYRINGE. SQ SCH ×2 (08:59→21:00)
[2020-01-20] MEDS: POLYETHYLENE GLYCOL 3350 17 GM PACKET. PO SCH (09:00)
[2020-01-20] MEDS: VECURONIUM BROMIDE 50 MG in TOTAL VOLUME 50 ML IV PRN (09:44)
[2020-01-20] MEDS: IV DEXTROSE 5 %-0.2 % NACL 1,000 ML IV SCH ×2 (09:44→22:34)
--- NOTE | 2020-01-20 10:17 | NUR ---
SS following up with discharge planning. SS reviewed pt chart and discussed with pt RN. Pt remains on the vent at this time. COVID19 positive. Pt DNR. SS will continue to follow for discharge planning.
--- NOTE | 2020-01-20 10:21 | PDOC ---
DATE OF SERVICE DATE: 01/20/20 TIME: 10:18 SUBJECTIVE ROS Remains intubated , clinically worsening per nursing OBJECTIVE Vital Signs Vital Signs Date Time Temp Pulse Resp B/P (MAP) Pulse Ox O2 Delivery O2 Flow Rate FiO2 01/20/20 09:00 52 22 133/72 (92) 90 Ventilator 01/20/20 08:20 18.0 01/20/20 08:00 97.5 97.5 I & 0 Intake and Output 01/20/20 07:00 Intake Total 2740.1 ml Output Total 1460 ml Balance 1280.1 ml Intake IV Total 2740.1 ml Output Urine Total 1460 ml PHYSICAL EXAM Physical Exam Visual 06/20 CoVid-19 positive GEN.: Intubated on MV HEENT: atraumatic NECK: Supple. LUNGS: Non labored HEART: RRR, ABDOMEN: Soft, EXTREMITIES: No cyanosis. NEUROLOGIC: Sedated SKIN: No rash Schumacher + DIAGNOSIS/ASSESSMENT Assessment & Plan Hypernatremia - Low Na at presentation , Now Hypernatremia Resolved ,Monitor Acue renal failure due to vasomotor nephropathy - resolved Acute hypoxemic respiratory failure- On IV steroids, with taper, s/p Plasma Abnormal D-dimer related to COVID-19 pneumonia. On lovenox added 01/09 neg for DVT, CoViD-19 positive Transaminitis Hypertension- Currently low BP Will sign off COMMENT/RELEVANT DATA Meds Current Medications Medications (Trade) Dose Ordered Sig/Augusto Start Time Stop Time Status Last Admin Dose Admin Acetaminophen (Tylenol Supp) 650 mg PRN Q4HRS PRN 01/06/20 21:30 Acetaminophen (Tylenol) 650 mg PRN Q4HRS PRN 01/06/20 21:30 01/14/20 05:51 650 MG Albuterol/ Ipratropium (Duoneb) 3 ml STK-MED ONCE 01/06/20 19:27 01/06/20 19:27 DC Alteplase, Recombinant (Cathflo For Central Catheter Clearance) 1 mg 1X ONCE 01/10/20 11:00 01/10/20 11:01 DC 01/10/20 12:05 1 MG Ascorbic Acid (Vitamin C) 250 mg Q6HRS 01/07/20 12:00 01/19/20 06:08 250 MG Atropine Sulfate (ATROPINE 0.5mg SYRINGE) 0.5 mg PRN Q5MIN PRN 01/06/20 20:15 Chlorhexidine Gluconate (Peridex) 15 ml BID 01/06/20 21:00 01/07/20 09:45 DC 01/07/20 08:16 15 ML Dexmedetomidine HCl 400 mcg/ Sodium Chloride 100 ml @ 0 mls/hr CONT PRN 01/06/20 20:15 01/20/20 09:11 23.3 MLS/HR Dextrose (Dextrose 50%-Water Syringe) 12.5 gm PRN Q15MIN PRN 01/17/20 12:00 Dextrose/Sodium Chloride 1,000 ml @ 75 mls/hr [id number] 01/15/20 09:30 01/20/20 09:44 75 MLS/HR Docusate Sodium (Colace) 100 mg PRN BID PRN 01/06/20 21:30 01/12/20 08:26 100 MG Enoxaparin Sodium (Lovenox 40mg Syringe) 40 mg Q12HR 01/19/20 21:00 01/20/20 08:56 40 MG Enoxaparin Sodium (Lovenox 60mg Syringe) 60 mg BID 01/08/20 09:00 01/10/20 16:45 DC 01/10/20 08:55 60 MG Enoxaparin Sodium (Lovenox 80mg Syringe) 80 mg Q12HR 01/10/20 21:00 01/19/20 18:10 DC 01/19/20 08:26 80 MG Enoxaparin Sodium (Lovenox Per Pharmacy Treatment Dosing) 1 each PRN DAILY PRN 01/10/20 16:45 01/19/20 18:12 DC Etomidate (Amidate) 20 mg STK-MED ONCE 01/06/20 18:54 01/06/20 18:54 DC Fentanyl Citrate 55 ml @ 0 mls/hr CONT PRN 01/08/20 14:49 01/20/20 07:50 4 MLS/HR Fentanyl Citrate (Fentanyl 2ml Vial) 100 mcg 1X ONCE 01/06/20 20:15 01/06/20 20:18 DC 01/06/20 20:17 100 MCG Furosemide (Lasix) 40 mg 1X ONCE 01/11/20 10:00 01/11/20 10:01 DC 01/11/20 10:19 40 MG Hydralazine HCl (Apresoline Inj) 10 mg PRN Q4HRS PRN 01/10/20 09:15 01/15/20 23:09 10 MG Info (Anti-Coagulation Monitoring By Pharmacy) 1 each PRN DAILY PRN 01/12/20 10:00 01/19/20 12:39 1 EACH Insulin Glargine (Lantus Syringe) 24 unit BID 01/11/20 10:30 01/20/20 08:59 24 UNIT Insulin Human Lispro (HumaLOG) 0-5 UNITS Q6HRS 01/17/20 12:00 Lorazepam (Ativan Inj) 2 mg PRN Q1HR PRN 01/08/20 16:30 01/09/20 13:10 2 MG Methylprednisolone Sodium Succinate (SOLU-Medrol 40MG VIAL) 40 mg Q8HRS 01/07/20 14:00 UNV Midazolam HCl (Versed) 5 mg 1X ONCE 01/06/20 19:18 01/06/20 19:59 DC 01/06/20 19:18 5 MG Midazolam HCl 50 mg/Sodium Chloride 50 ml @ 0 mls/hr 1X ONCE 01/06/20 19:30 01/06/20 19:31 UNV Norepinephrine Bitartrate 8 mg/ Dextrose 258 ml @ 12.578 mls/ hr CONT PRN 01/06/20 21:45 01/06/20 22:15 6.289 MLS/HR Ondansetron HCl (Zofran) 4 mg PRN Q4HRS PRN 01/06/20 21:30 Pantoprazole Sodium (PROTONIX VIAL for IV PUSH) 40 mg DAILYAC 01/07/20 07:30 01/20/20 08:56 40 MG Piperacillin Sod/ Tazobactam Sod 3.375 gm/Sodium Chloride 50 ml @ 100 mls/hr Q6HRS 01/07/20 00:00 01/19/20 17:00 DC 01/19/20 12:16 100 MLS/HR Polyethylene Glycol (miraLAX PACKET) 17 gm DAILY 01/14/20 11:00 01/15/20 09:02 17 GM Potassium Chloride/Dextrose/ Sod Cl 1,000 ml @ 125 mls/hr Q8H ONCE 01/06/20 21:30 01/07/20 05:29 DC 01/06/20 22:13 125 MLS/HR Propofol 50 ml @ 0 mls/hr 1X ONCE 01/06/20 20:00 01/06/20 20:01 DC 01/06/20 18:55 3.9 MLS/HR Sodium Chloride 1,000 ml @ 75 mls/hr [id number] 01/07/20 10:00 01/11/20 10:23 DC 01/10/20 19:33 75 MLS/HR Succinylcholine Chloride (Anectine) 200 mg STK-MED ONCE 01/06/20 18:55 01/06/20 18:55 DC Vecuronium [place] 50 mg/ Miscellaneous 50 ml @ 4.027 mls/ hr CONT PRN 01/10/20 16:15 01/20/20 09:44 3.524 MLS/HR Vecuronium [place] (Norcuron Bolus) 6 mg PRN Q6HRS PRN 01/08/20 09:30 01/10/20 16:36 6 MG Zinc Sulfate (Orazinc) 220 mg DAILY 01/07/20 09:00 01/20/20 08:56 220 MG Lab Laboratory Tests Test 01/19/20 10:21 01/19/20 16:51 01/19/20 17:20 01/20/20 05:00 Glucose (Fingerstick) 144 mg/dL (70-99) 131 mg/dL (70-99) D-Dimer (Shivani) 3.50 ug/mlFEU (0.00-0.50) Sodium Level 143 mmol/L (136-145) Potassium Level 4.1 mmol/L (3.5-5.1) Chloride Level 112 mmol/L (98-107) Carbon Dioxide Level 27 mmol/L (21-32) Anion Gap 4 (6-14) Blood Urea Nitrogen 22 mg/dL (8-26) Creatinine 0.5 mg/dL (0.7-1.3) Estimated GFR (Cockcroft-Gault) 166.9 Glucose Level 149 mg/dL (70-99) Calcium Level 7.0 mg/dL (8.5-10.1) Test 01/20/20 05:28 Glucose (Fingerstick) 148 mg/dL (70-99) Results All relevant outside records, renal labs, imaging studies, telemetry/EKG's were reviewed. Vishaltion of Admission Dx: Justifications for Admission: Justification of Admission Dx: Yes DINA PURVIS MD Jan 20, 2020 10:21
--- NOTE | 2020-01-20 10:49 | PDOC ---
[employer] PROGRESS NOTE Date of Service DOS: DATE: 01/20/20 TIME: 10:45 Chief Complaint Chief Complaint COVID-19 positive Acute hypoxemic respiratory failure Bilateral perihilar infiltrates are seen which appear increased slightly Leukocytosis with bandemia secondary to septic process Hyponatremia secondary to low effective circulatory volume, now hypernatremic Acue renal failure due to vasomotor nephropathy most likely Hyperglycemia transaminitis Uncontrolled hypertension Abdominal distention History of Present Illness History of Present Illness 01/20/2020 Patient seen and examined in the [place] [id number] ICU He remains intubated He is on Versed for sedation and he has to be paralyzed with vecuronium He also has propofol fentanyl and Precedex for additional sedation Chart reviewed Discussed with the case management associate Discussed with RN He remains critically ill Vent settings as follows AC//6 100/100% with 14 of PEEP 01/19/2020 Patient seen and examined in the [place] [address] ICU He is intubated AC//6 100/100% with 14 of PEEP He is sedated with Versed propofol fentanyl and Precedex he is also paralyzed with vecuronium Chart reviewed Discussed with RN Discussed with case management associate History of Present Illness Patient is a 64-year-old gentleman who was diagnosed with COVID-19 infection on Friday 5 days prior to his admission to the intensive care unit. Apparently the patient reported worsening respiratory distress reason why he came to the emergency department for evaluation and treatment. The story was quite limited since the patient was speaking Lithuanian only and his acuity was such that he required mechanical ventilation and prompt intubation by the emergency depa rtment physician. At the present time patient is intubated and sedated continues to require a lot of support no pertinent past medical history was reported he is admitted to the intensive care unit for further treatment 01/10/2020 Continues to require full support, glycemia has been noted in hypertension as well. Discussed with nursing staff, all of concerns were addressed to the best of my abilities no acute events reported overnight 01/11/2020 No acute events reported overnight, case discussed with nursing staff patient in no acute distress 01/12/2020 Per nursing staff, patient febrile overnight, treated with Tylenol and tepid water bath. Case discussed with nursing staff, continue with IV antibiotics and full VTE prophylaxis. 01/13/2020 Patient still febrile overnight. O2 requirement increasing. Discussed with RN. 01/16 Patient still intubated and sedated. Discussed with RN, patient was made DNR. schedule MiraLAX. Vitals/I&O Vitals/I&O: Vital Signs Date Time Temp Pulse Resp B/P (MAP) Pulse Ox O2 Delivery O2 Flow Rate FiO2 01/20/20 10:00 53 22 129/72 (91) 92 Ventilator 01/20/20 08:20 18.0 01/20/20 08:00 97.5 97.5 I & O 01/19/20 01/19/20 01/20/20 15:00 23:00 07:00 Intake Total 1464 ml 1276.1 ml Output Total 230 ml 820 ml 410 ml Balance -230 ml 644 ml 866.1 ml Physical Exam Physical Exam: sedated on vent General: No acute distress, Other (Intubated and sedated) Heart: Regular rate Lungs: Other (Intubated) Abdomen: Other (Nondistended) Extremities: No clubbing, No cyanosis Skin: No rashes, No breakdown Labs Labs: Laboratory Tests Test 01/19/20 16:51 01/19/20 17:20 01/20/20 05:00 01/20/20 05:28 Glucose (Fingerstick) 131 mg/dL (70-99) 148 mg/dL (70-99) D-Dimer (Shivani) 3.50 ug/mlFEU (0.00-0.50) Sodium Level 143 mmol/L (136-145) Potassium Level 4.1 mmol/L (3.5-5.1) Chloride Level 112 mmol/L (98-107) Carbon Dioxide Level 27 mmol/L (21-32) Anion Gap 4 (6-14) Blood Urea Nitrogen 22 mg/dL (8-26) Creatinine 0.5 mg/dL (0.7-1.3) Estimated GFR (Cockcroft-Gault) 166.9 Glucose Level 149 mg/dL (70-99) Calcium Level 7.0 mg/dL (8.5-10.1) Assessment and Plan Assessmemt and Plan COVID-19 positive Acute hypoxemic respiratory failure Bilateral perihilar infiltrates are seen which appear increased slightly Leukocytosis with bandemia secondary to septic process Hyponatremia secondary to low effective circulatory volume, now hypernatremic Acue renal failure due to vasomotor nephropathy most likely Hyperglycemia transaminitis Uncontrolled hypertension Abdominal distention Plan ICU monitoring Respiratory isolation COVID-19 protocol including antibiotics steroids vitamins beta agonist mecha nical ventilation Continue sedation with propofol fentanyl Precedex and Versed Paralytics with vecuronium Vent weaning Appreciate pulmonary input DVT prophylaxis Full code He remains critically ill Prognosis extremely guarded at best as he remains on 100% oxygen Total critical care time 31 minutes Comment Review of Relevant I have reviewed the following items hong (where applicable) has been applied. Medications: Current Medications Medications (Trade) Dose Ordered Sig/Augusto Route PRN Reason Start Time Stop Time Status Last Admin Dose Admin Enoxaparin Sodium (Lovenox 40mg Syringe) 40 mg Q12HR SQ 01/19/20 21:00 01/20/20 08:56 Justifications for Admission Other Justification JACQUES SOLIS III DO Jan 20, 2020 10:49
--- NOTE | 2020-01-20 11:25 | PDOC ---
PULMONARY PROGRESS NOTES DATE: 01/20/20 TIME: 11:24 Subjective remains intubated/sedated AC mode ,100%FIO2/14 PEEP, low P02 on ABG -- continues to HAVE SEVERE hypoxia Vitals Vital Signs Date Time Temp Pulse Resp B/P (MAP) Pulse Ox O2 Delivery O2 Flow Rate FiO2 01/20/20 10:00 53 22 129/72 (91) 92 Ventilator 01/20/20 08:20 18.0 01/20/20 08:00 97.5 97.5 Comments visual exam done due to COVID-Pandemic no resp distess VENT 100% and PEEP 14 no skin rash lower extremity edema Lungs: Other (Intubated) Labs Laboratory Tests Test 01/18/20 12:06 01/18/20 21:09 01/19/20 09:25 01/19/20 10:21 Glucose (Fingerstick) 179 mg/dL (70-99) 165 mg/dL (70-99) 144 mg/dL (70-99) O2 Saturation 85 % (92-99) Arterial Blood pH 7.35 (7.35-7.45) Arterial Blood pCO2 at Patient Temp 43 mmHg (35-46) Arterial Blood pO2 at Patient Temp 54 mmHg (65-108) Arterial Blood HCO3 23 mmol/L (21-28) Arterial Blood Base Excess -3 mmol/L (-3-3) FiO2 100 Test 01/19/20 16:51 01/19/20 17:20 01/20/20 05:00 01/20/20 05:28 Glucose (Fingerstick) 131 mg/dL (70-99) 148 mg/dL (70-99) D-Dimer (Shivani) 3.50 ug/mlFEU (0.00-0.50) Sodium Level 143 mmol/L (136-145) Potassium Level 4.1 mmol/L (3.5-5.1) Chloride Level 112 mmol/L (98-107) Carbon Dioxide Level 27 mmol/L (21-32) Anion Gap 4 (6-14) Blood Urea Nitrogen 22 mg/dL (8-26) Creatinine 0.5 mg/dL (0.7-1.3) Estimated GFR (Cockcroft-Gault) 166.9 Glucose Level 149 mg/dL (70-99) Calcium Level 7.0 mg/dL (8.5-10.1) Laboratory Tests Test 01/19/20 16:51 01/19/20 17:20 01/20/20 05:00 01/20/20 05:28 Glucose (Fingerstick) 131 mg/dL (70-99) 148 mg/dL (70-99) D-Dimer (Shivani) 3.50 ug/mlFEU (0.00-0.50) Sodium Level 143 mmol/L (136-145) Potassium Level 4.1 mmol/L (3.5-5.1) Chloride Level 112 mmol/L (98-107) Carbon Dioxide Level 27 mmol/L (21-32) Anion Gap 4 (6-14) Blood Urea Nitrogen 22 mg/dL (8-26) Creatinine 0.5 mg/dL (0.7-1.3) Estimated GFR (Cockcroft-Gault) 166.9 Glucose Level 149 mg/dL (70-99) Calcium Level 7.0 mg/dL (8.5-10.1) Comments CXR 01/06 IMPRESSION: 1. Bilateral diffuse infiltrates are increased in the left base and mildly improved elsewhere. CXR 01/14/20 Impression: Slight interval increase in the bilateral perihilar infiltrates. Impression . 1. Acute hypoxic respiratory failure secondary to COVID-19 pneumonia/ARDS/acute lung injury--worsening oxygen requirements 2. Abnormal chest x-ray with bilateral infiltrates consistent with COVID-19 pneumonia. 3. Hypotension secondary to combination of hypovolemia and sepsis status post 2 liters of IV fluids. no pressors, 4. Acute kidney injury--resolved 5. Severe protein-calorie malnutrition. 6. Abnormal D-dimer related to COVID-19 pneumonia. Full dose lovenox added 01/09 due to increase in D-dimer to 20, now decreasing 7. Fevers Plan . RECOMMENDATIONS: ABG noted, will continue current assist control, 100%FIO2 and PEEP of 14 will not escalate any further PEEP Full dose anticoagulation Broad spectrum antibiotic. Cont. IV steroids, with taper, Stress ulcer prophylaxis. s/p Plasma Pt doing poorly not expected to survive D/W RN and RT PT. is DNR Prognosis poor Critical care time 30 minutes, family aware of pt. clinical condition, Dr Mendoza spoke with BRANDONYVONNECAPRICE Pedersen MD Jan 20, 2020 11:25
[2020-01-21] VITALS (24 sets, daily range): BP systolic 132–165; BP diastolic 71–91
[2020-01-21] MEDS: VECURONIUM BROMIDE 50 MG in TOTAL VOLUME 50 ML IV PRN ×2 (00:39→15:16)
[2020-01-21] MEDS: DEXMEDETOMIDINE 400 MCG in IV NORMAL SALINE 100ML 96 ML IV PRN ×5 (00:39→22:31)
[2020-01-21] MEDS: PROPOFOL 100 ML IV PRN ×3 (04:20→19:31)
[2020-01-21] MEDS: methylPREDNISolone SOD SUCC PF 40 MG/ML VIAL. IV SCH ×3 (06:13→22:05)
[2020-01-21] MEDS: MIDAZOLAM 100mg/100ml NS BAG 100 ML IV PRN ×2 (06:14→18:55)
[2020-01-21] MEDS: INSULIN LISPRO 300 UNITS/3 ML VIAL. SQ SCH ×4 (06:37→18:00)
[2020-01-21] MEDS: PANTOPRAZOLE IV PUSH 40 MG VIAL. IVP SCH (08:30)
[2020-01-21] MEDS: ZINC SULFATE 220 MG CAPSULE. PO SCH (08:30)
[2020-01-21] MEDS: ENOXAPARIN 40 MG/0.4 ML SYRINGE. SQ SCH ×2 (08:30→21:01)
[2020-01-21] MEDS: INSULIN GLARGINE SYRINGE. SQ SCH ×2 (08:30→21:00)
[2020-01-21 08:44] LABS: BASE EXCESS ABG -1 mmol/L (-3-3); HCO3 ABG 25 mmol/L (21-28); PCO2 ABG 41 mmHg (35-46); PO2 ABG 53 mmHg (65-108); SAT O2 ABG 86 % (92-99)
[2020-01-21 08:50] LABS: FIO2 ABG 100
[2020-01-21 08:56] LABS: BASO % 0 % (0-3); EOS # 0.1 x10^3/uL (0.0-0.7); EOS % 1 % (0-3); HEMATOCRIT 30.3 % (39.0-53.0); HEMOGLOBIN 9.9 g/dL (13.0-17.5); LYMPH # 0.6 x10^3/uL (1.0-4.8); LYMPH % 7 % (24-48); MEAN CORPUSCULAR HEMOGLOBIN 31 pg (25-35); MEAN CORPUSCULAR HGB CONC 33 g/dL (31-37); MEAN CORPUSCULAR VOLUME 95 fL (79-100); MONO # 0.2 x10^3/uL (0.0-1.1); MONO % 3 % (0-9); NEUT # 7.3 x10^3/uL (1.8-7.7); NEUT % 89 % (31-73); PLATELET COUNT 167 x10^3/uL (140-400); RED BLOOD COUNT 3.18 x10^6/uL (4.30-5.70); WHITE BLOOD COUNT 8.2 x10^3/uL (4.0-11.0)
[2020-01-21] MEDS: POLYETHYLENE GLYCOL 3350 17 GM PACKET. PO SCH (09:00)
[2020-01-21 09:09] LABS: CALCIUM 6.4 mg/dL (8.5-10.1); CREATININE 0.5 mg/dL (0.7-1.3); GFR 166.9
[2020-01-21] MEDS: fentaNYL HIGH DOSE PCA 55 ML IV PRN ×2 (09:55→22:33)
[2020-01-21 10:04] LABS: MAGNESIUM 2.4 mg/dL (1.8-2.4); PHOSPHORUS 2.9 mg/dL (2.6-4.7)
[2020-01-21] MEDS: TPN PER PHARMACY MC PRN ×2 (10:31→10:32)
--- NOTE | 2020-01-21 10:33 | NUR ---
Pharmacy TPN Dosing Note S: YANDY HORN is a 64 year old M Currently receiving Central Continuous TPN started 01/21/20 B:Pertinent PMH: critical illness Height: 5 feet, 2 inches Weight: 90.0 kg Current diet: npo LABS: Sodium: 143 Potassium: 4 Chloride: 110 Calcium: 6.4 Corrected Calcium: 8.72 Magnesium: 2.4 CO2: 30 SCr: 0.5 Glucose: 165 Albumin: 1.1 AST: 31 ALT: 36 TPN FORMULA: TPN TYPE: Central Continuous AMINO ACIDS: 60 gm DEXTROSE: 195 gm LIPIDS: gm SODIUM CHLORIDE: mEq SODIUM ACETATE: 90 mEq SODIUM PHOSPHATE: mmol POTASSIUM CHLORIDE: mEq POTASSIUM ACETATE: 50 mEq POTASSIUM PHOSPHATE: 13.6 mmol MAGNESIUM: 10 mEq CALCIUM: 10 mEq INSULIN: units MULTIPLE VITAMIN: 10 ml TRACE ELEMENTS: mte5 1 ml ml(s) TPN PLAN: Pt with Covid 19, intubated and critically ill. On propofol at 23.3 ml/h, this supplies ~615 kcal/day. Started standard TPN with no lipid and salts as acetate. Stopped large volume fluid D5-1/4NaCl when TPN starts. BMP/phos/mag in AM. R: Begin TPN ABOVE. Will monitor electrolytes, glucose, and tolerance to TPN. Y[facility]I [facility], 01/21/20 [id number]
--- NOTE | 2020-01-21 10:40 | PDOC ---
[employer] PROGRESS NOTE Date of Service DOS: DATE: 01/21/20 TIME: 10:39 Chief Complaint Chief Complaint COVID-19 positive Acute hypoxemic respiratory failure Bilateral perihilar infiltrates are seen which appear increased slightly Leukocytosis with bandemia secondary to septic process Hyponatremia secondary to low effective circulatory volume, now hypernatremic Acue renal failure due to vasomotor nephropathy most likely Hyperglycemia transaminitis Uncontrolled hypertension Abdominal distention History of Present Illness History of Present Illness 01/21/2020 Patient seen and [place] [address] ICU He remains intubated Assist-control/ with 100% FiO2 He is in [facility] for patient safety He is sedated with propofol Versed and fentanyl Has OG at 60 cc an hour Discussed with RN Discussed with case management Reviewed chart 01/20/2020 Patient seen and examined in the [place] [address] ICU He remains intubated He is on Versed for sedation and he has to be paralyzed with vecuronium He also has propofol fentanyl and Precedex for additional sedation Chart reviewed Discussed with the caser in Discussed with RN He remains critically ill Vent settings as follows AC//6 100/100% with 14 of PEEP 01/19/2020 Patient seen and examined in the [place] [address] ICU He is intubated AC//6 100/100% with 14 of PEEP He is sedated with Versed propofol fentanyl and Precedex he is also paralyzed with vecuronium Chart reviewed Discussed with RN Discussed with caser in History of Present Illness Patient is a 64-year-old gentleman who was diagnosed with COVID-19 infection on Friday 5 days prior to his admission to the intensive care unit. Apparently the patient reported worsening respiratory distress reason why he came to the emergency department for evaluation and treatment. The story was quite limited since the patient was speaking Swedish only and his acuity was such that he required mechanical ventilation and prompt intubation by the emergency department physician. At the present time patient is intubated and sedated continues to require a lot of support no pertinent past medical history was reported he is admitted to the intensive care unit for further treatment 01/10/2020 Continues to require full support, glycemia has been noted in hypertension as well. Discussed with nursing staff, all of concerns were addressed to the best of my abilities no acute events reported overnight 01/11/2020 No acute events reported overnight, case discussed with nursing staff patient in no acute distress 01/12/2020 Per nursing staff, patient febrile overnight, treated with Tylenol and tepid water bath. Case discussed with nursing staff, continue with IV antibiotics and full VTE prophylaxis. 01/13/2020 Patient still febrile overnight. O2 requirement increasing. Discussed with RN. 01/16 Patient still intubated and sedated. Discussed with RN, patient was made DNR. schedule MiraLAX. Vitals/I&O Vitals/I&O: Vital Signs Date Time Temp Pulse Resp B/P (MAP) Pulse Ox O2 Delivery O2 Flow Rate FiO2 01/21/20 09:55 91 18.0 01/21/20 07:21 Ventilator 01/21/20 07:00 50 22 141/80 (100) 01/21/20 04:00 97.6 97.6 I & O 01/20/20 01/20/20 01/21/20 15:00 23:00 07:00 Intake Total 1723.9 ml Output Total 540 ml 490 ml 625 ml Balance -540 ml 1233.9 ml -625 ml Physical Exam Physical Exam: sedated on vent General: No acute distress, Other (Intubated and sedated) Heart: Regular rate Lungs: Other (Intubated) Abdomen: Other (Nondistended) Extremities: No clubbing, No cyanosis Skin: No rashes, No breakdown Labs Labs: Laboratory Tests Test 01/20/20 13:14 01/20/20 17:00 01/21/20 08:40 01/21/20 08:45 Glucose (Fingerstick) 151 mg/dL (70-99) 160 mg/dL (70-99) O2 Saturation 86 % (92-99) Arterial Blood pH 7.39 (7.35-7.45) Arterial Blood pCO2 at Patient Temp 41 mmHg (35-46) Arterial Blood pO2 at Patient Temp 53 mmHg (65-108) Arterial Blood HCO3 25 mmol/L (21-28) Arterial Blood Base Excess -1 mmol/L (-3-3) FiO2 100 White Blood Count 8.2 x10^3/uL (4.0-11.0) Red Blood Count 3.18 x10^6/uL (4.30-5.70) Hemoglobin 9.9 g/dL (13.0-17.5) Hematocrit 30.3 % (39.0-53.0) Mean Corpuscular Volume 95 fL (79-100) Mean Corpuscular Hemoglobin 31 pg (25-35) Mean Corpuscular Hemoglobin Concent 33 g/dL (31-37) Red Cell Distribution Width 15.0 % (11.5-14.5) Platelet Count 167 x10^3/uL (140-400) Neutrophils (%) (Auto) 89 % (31-73) Lymphocytes (%) (Auto) 7 % (24-48) Monocytes (%) (Auto) 3 % (0-9) Eosinophils (%) (Auto) 1 % (0-3) Basophils (%) (Auto) 0 % (0-3) Neutrophils # (Auto) 7.3 x10^3/uL (1.8-7.7) Lymphocytes # (Auto) 0.6 x10^3/uL (1.0-4.8) Monocytes # (Auto) 0.2 x10^3/uL (0.0-1.1) Eosinophils # (Auto) 0.1 x10^3/uL (0.0-0.7) Basophils # (Auto) 0.0 x10^3/uL (0.0-0.2) Sodium Level 143 mmol/L (136-145) Potassium Level 4.0 mmol/L (3.5-5.1) Chloride Level 110 mmol/L (98-107) Carbon Dioxide Level 30 mmol/L (21-32) Anion Gap 3 (6-14) Blood Urea Nitrogen 17 mg/dL (8-26) Creatinine 0.5 mg/dL (0.7-1.3) Estimated GFR (Cockcroft-Gault) 166.9 Glucose Level 165 mg/dL (70-99) Calcium Level 6.4 mg/dL (8.5-10.1) Phosphorus Level 2.9 mg/dL (2.6-4.7) Magnesium Level 2.4 mg/dL (1.8-2.4) Triglycerides Level 242 mg/dL (0-150) Assessment and Plan Assessmemt and Plan COVID-19 positive Acute hypoxemic respiratory failure Bilateral perihilar infiltrates are seen which appear increased slightly Leukocytosis with bandemia secondary to septic process Hyponatremia secondary to low effective circulatory volume, now hypernatremic Acue renal failure due to vasomotor nephropathy most likely Hyperglycemia transaminitis Uncontrolled hypertension Abdominal distention Plan ICU monitoring Respiratory isolation COVID-19 protocol including antibiotics steroids vitamins beta agonist mechanical ventilation Continue sedation with propofol fentanyl Precedex and Versed Paralytics with vecuronium Vent weaning Appreciate pulmonary input DVT prophylaxis Full code He remains critically ill Prognosis extremely guarded at best as he remains on 100% oxygen cc time 33 minutes Per pulmonary please see below recommendations, agree: RECOMMENDATIONS: ABG noted, will continue current assist control, 100%FIO2 and PEEP of 14 will not escalate any further PEEP Full dose anticoagulation Broad spectrum antibiotic. Cont. IV steroids, with taper, Stress ulcer prophylaxis. s/p Plasma Pt doing poorly not expected to survive Comment Review of Relevant I have reviewed the following items hong (where applicable) has been applied. Medications: Current Medications Medications (Trade) Dose Ordered Sig/Augusto Route PRN Reason Start Time Stop Time Status Last Admin Dose Admin Info (Tpn Per Pharmacy) 1 each PRN DAILY PRN MC SEE COMMENTS 01/21/20 09:30 01/21/20 10:32 Justifications for Admission Other Justification JACQUES SOLIS III DO Jan 21, 2020 10:40
--- NOTE | 2020-01-21 10:55 | PDOC ---
PULMONARY PROGRESS NOTES DATE: 01/21/20 TIME: 10:53 Subjective remains intubated/sedated AC mode ,100%FIO2/14 PEEP, low P02 on ABG -- continues to HAVE SEVERE hypoxia Vitals Vital Signs Date Time Temp Pulse Resp B/P (MAP) Pulse Ox O2 Delivery O2 Flow Rate FiO2 01/21/20 09:55 91 18.0 01/21/20 09:00 52 22 139/78 (98) Ventilator 01/21/20 08:00 97.9 97.9 Comments visual exam done due to COVID-Pandemic no resp distess VENT 100% and PEEP 14 no skin rash lower extremity edema Lungs: Other (Intubated) Labs Laboratory Tests Test 01/19/20 16:51 01/19/20 17:20 01/20/20 05:00 01/20/20 05:28 Glucose (Fingerstick) 131 mg/dL (70-99) 148 mg/dL (70-99) D-Dimer (Shivani) 3.50 ug/mlFEU (0.00-0.50) Sodium Level 143 mmol/L (136-145) Potassium Level 4.1 mmol/L (3.5-5.1) Chloride Level 112 mmol/L (98-107) Carbon Dioxide Level 27 mmol/L (21-32) Anion Gap 4 (6-14) Blood Urea Nitrogen 22 mg/dL (8-26) Creatinine 0.5 mg/dL (0.7-1.3) Estimated GFR (Cockcroft-Gault) 166.9 Glucose Level 149 mg/dL (70-99) Calcium Level 7.0 mg/dL (8.5-10.1) Test 01/20/20 13:14 01/20/20 17:00 01/21/20 08:40 01/21/20 08:45 Glucose (Fingerstick) 151 mg/dL (70-99) 160 mg/dL (70-99) O2 Saturation 86 % (92-99) Arterial Blood pH 7.39 (7.35-7.45) Arterial Blood pCO2 at Patient Temp 41 mmHg (35-46) Arterial Blood pO2 at Patient Temp 53 mmHg (65-108) Arterial Blood HCO3 25 mmol/L (21-28) Arterial Blood Base Excess -1 mmol/L (-3-3) FiO2 100 White Blood Count 8.2 x10^3/uL (4.0-11.0) Red Blood Count 3.18 x10^6/uL (4.30-5.70) Hemoglobin 9.9 g/dL (13.0-17.5) Hematocrit 30.3 % (39.0-53.0) Mean Corpuscular Volume 95 fL (79-100) Mean Corpuscular Hemoglobin 31 pg (25-35) Mean Corpuscular Hemoglobin Concent 33 g/dL (31-37) Red Cell Distribution Width 15.0 % (11.5-14.5) Platelet Count 167 x10^3/uL (140-400) Neutrophils (%) (Auto) 89 % (31-73) Lymphocytes (%) (Auto) 7 % (24-48) Monocytes (%) (Auto) 3 % (0-9) Eosinophils (%) (Auto) 1 % (0-3) Basophils (%) (Auto) 0 % (0-3) Neutrophils # (Auto) 7.3 x10^3/uL (1.8-7.7) Lymphocytes # (Auto) 0.6 x10^3/uL (1.0-4.8) Monocytes # (Auto) 0.2 x10^3/uL (0.0-1.1) Eosinophils # (Auto) 0.1 x10^3/uL (0.0-0.7) Basophils # (Auto) 0.0 x10^3/uL (0.0-0.2) Sodium Level 143 mmol/L (136-145) Potassium Level 4.0 mmol/L (3.5-5.1) Chloride Level 110 mmol/L (98-107) Carbon Dioxide Level 30 mmol/L (21-32) Anion Gap 3 (6-14) Blood Urea Nitrogen 17 mg/dL (8-26) Creatinine 0.5 mg/dL (0.7-1.3) Estimated GFR (Cockcroft-Gault) 166.9 Glucose Level 165 mg/dL (70-99) Calcium Level 6.4 mg/dL (8.5-10.1) Phosphorus Level 2.9 mg/dL (2.6-4.7) Magnesium Level 2.4 mg/dL (1.8-2.4) Triglycerides Level 242 mg/dL (0-150) Laboratory Tests Test 01/20/20 13:14 01/20/20 17:00 01/21/20 08:40 01/21/20 08:45 Glucose (Fingerstick) 151 mg/dL (70-99) 160 mg/dL (70-99) O2 Saturation 86 % (92-99) Arterial Blood pH 7.39 (7.35-7.45) Arterial Blood pCO2 at Patient Temp 41 mmHg (35-46) Arterial Blood pO2 at Patient Temp 53 mmHg (65-108) Arterial Blood HCO3 25 mmol/L (21-28) Arterial Blood Base Excess -1 mmol/L (-3-3) FiO2 100 White Blood Count 8.2 x10^3/uL (4.0-11.0) Red Blood Count 3.18 x10^6/uL (4.30-5.70) Hemoglobin 9.9 g/dL (13.0-17.5) Hematocrit 30.3 % (39.0-53.0) Mean Corpuscular Volume 95 fL (79-100) Mean Corpuscular Hemoglobin 31 pg (25-35) Mean Corpuscular Hemoglobin Concent 33 g/dL (31-37) Red Cell Distribution Width 15.0 % (11.5-14.5) Platelet Count 167 x10^3/uL (140-400) Neutrophils (%) (Auto) 89 % (31-73) Lymphocytes (%) (Auto) 7 % (24-48) Monocytes (%) (Auto) 3 % (0-9) Eosinophils (%) (Auto) 1 % (0-3) Basophils (%) (Auto) 0 % (0-3) Neutrophils # (Auto) 7.3 x10^3/uL (1.8-7.7) Lymphocytes # (Auto) 0.6 x10^3/uL (1.0-4.8) Monocytes # (Auto) 0.2 x10^3/uL (0.0-1.1) Eosinophils # (Auto) 0.1 x10^3/uL (0.0-0.7) Basophils # (Auto) 0.0 x10^3/uL (0.0-0.2) Sodium Level 143 mmol/L (136-145) Potassium Level 4.0 mmol/L (3.5-5.1) Chloride Level 110 mmol/L (98-107) Carbon Dioxide Level 30 mmol/L (21-32) Anion Gap 3 (6-14) Blood Urea Nitrogen 17 mg/dL (8-26) Creatinine 0.5 mg/dL (0.7-1.3) Estimated GFR (Cockcroft-Gault) 166.9 Glucose Level 165 mg/dL (70-99) Calcium Level 6.4 mg/dL (8.5-10.1) Phosphorus Level 2.9 mg/dL (2.6-4.7) Magnesium Level 2.4 mg/dL (1.8-2.4) Triglycerides Level 242 mg/dL (0-150) Comments CXR 01/06 IMPRESSION: 1. Bilateral diffuse infiltrates are increased in the left base and mildly improved elsewhere. CXR 01/14/20 Impression: Slight interval increase in the bilateral perihilar infiltrates. Impression . 1. Acute hypoxic respiratory failure secondary to COVID-19 pneumonia/ARDS/acute lung injury--worsening oxygen requirements 2. Abnormal chest x-ray with bilateral infiltrates consistent with COVID-19 pneumonia. 3. Hypotension secondary to combination of hypovolemia and sepsis status post 2 liters of IV fluids. no pressors, 4. Acute kidney injury--resolved 5. Severe protein-calorie malnutrition. 6. Abnormal D-dimer related to COVID-19 pneumonia. Full dose lovenox added 01/09 due to increase in D-dimer to 20, now decreasing to 3.5. Lovenox dose reduced 7. Fevers Plan . RECOMMENDATIONS: ABG noted, will continue current assist control, 100%FIO2 and PEEP of 14 will not escalate any further PEEP Lovenox dose reduced since D-Dimer down to 3.5 from 20 Broad spectrum antibiotic. Cont. IV steroids, with taper, Stress ulcer prophylaxis. s/p Plasma Pt doing poorly not expected to survive D/W RN and RT PT. is DNR Prognosis poor Critical care time 30 minutes, family aware of pt. clinical condition, Dr Mendoza spoke with TAYLORYVONNE VASQUES Nuvia BARBOZA Jan 21, 2020 10:55
--- NOTE | 2020-01-21 11:22 | NUR ---
SS following up with discharge planning. SS reviewed pt chart and discussed with pt RN. Pt remains on the vent at this time. COVID19 positive. Pt on TPN and is DNR. Self pay. SS will continue to follow for discharge planning.
[2020-01-21] MEDS: ASCORBIC ACID 500 MG TABLET PO SCH ×2 (13:18→18:00)
[2020-01-21] MEDS: IV DEXTROSE 5 %-0.2 % NACL 1,000 ML IV SCH (15:15)
[2020-01-21] MEDS ORDERED: AMINO ACID IV SCH (22:00)
[2020-01-21] MEDS ORDERED: [UNRECOGNIZED DRUG - OTHER] IV SCH (22:00)
[2020-01-21] MEDS ORDERED: TOTAL PARENTERAL NUTRITION IV SCH (22:00)
[2020-01-21] MEDS ORDERED: DEXTROSE 70% IV SCH (22:00)
[2020-01-22] VITALS (24 sets, daily range): BP systolic 74–178; BP diastolic 84–97
[2020-01-22] MEDS: ASCORBIC ACID 500 MG TABLET PO SCH ×4 (00:08→17:53)
[2020-01-22] MEDS: INSULIN LISPRO 300 UNITS/3 ML VIAL. SQ SCH ×4 (00:43→18:12)
[2020-01-22] MEDS: DEXMEDETOMIDINE 400 MCG in IV NORMAL SALINE 100ML 96 ML IV PRN ×6 (01:36→22:51)
[2020-01-22] MEDS: PROPOFOL 100 ML IV PRN ×4 (03:44→17:54)
[2020-01-22] MEDS: VECURONIUM BROMIDE 50 MG in TOTAL VOLUME 50 ML IV PRN ×2 (05:52→14:30)
[2020-01-22] MEDS: MIDAZOLAM 100mg/100ml NS BAG 100 ML IV PRN ×2 (05:53→12:43)
[2020-01-22] MEDS: methylPREDNISolone SOD SUCC PF 40 MG/ML VIAL. IV SCH ×3 (06:01→22:11)
[2020-01-22 06:20] LABS: CALCIUM 6.6 mg/dL (8.5-10.1); CREATININE 0.5 mg/dL (0.7-1.3); GFR 166.9; MAGNESIUM 2.4 mg/dL (1.8-2.4); PHOSPHORUS 3.2 mg/dL (2.6-4.7); POTASSIUM 4.4 mmol/L (3.5-5.1)
[2020-01-22] MEDS: POLYETHYLENE GLYCOL 3350 17 GM PACKET. PO SCH (08:20)
[2020-01-22] MEDS: PANTOPRAZOLE IV PUSH 40 MG VIAL. IVP SCH (08:20)
[2020-01-22] MEDS: ZINC SULFATE 220 MG CAPSULE. PO SCH (08:21)
[2020-01-22] MEDS: INSULIN GLARGINE SYRINGE. SQ SCH ×2 (08:21→22:12)
[2020-01-22] MEDS: ENOXAPARIN 40 MG/0.4 ML SYRINGE. SQ SCH ×2 (08:22→22:11)
[2020-01-22 09:11] LABS: BASE EXCESS ABG 1 mmol/L (-3-3); HCO3 ABG 26 mmol/L (21-28); PCO2 ABG 42 mmHg (35-46); PO2 ABG 61 mmHg (65-108); SAT O2 ABG 90 % (92-99)
[2020-01-22 09:14] LABS: FIO2 ABG 100
[2020-01-22] MEDS: fentaNYL HIGH DOSE PCA 55 ML IV PRN (09:28)
--- NOTE | 2020-01-22 10:27 | PDOC ---
PULMONARY PROGRESS NOTES DATE: 01/22/20 TIME: 10:25 Subjective remains intubated/sedated AC mode ,100%FIO2/14 PEEP, sedated on versed propofol fentanyl on paralytic agent vac small ett secretion Vitals Vital Signs Date Time Temp Pulse Resp B/P (MAP) Pulse Ox O2 Delivery O2 Flow Rate FiO2 01/22/20 10:00 53 22 178/94 (122) 90 Ventilator 01/22/20 08:00 97.4 97.4 01/21/20 10:25 18.0 Comments visual exam done due to COVID-Pandemic intubated sedated VENT 100% and PEEP 14 nc at rrr no accessory muscle use no skin rash lower extremity edema Lungs: Other (Intubated) Labs Laboratory Tests Test 01/20/20 13:14 01/20/20 17:00 01/21/20 06:32 01/21/20 08:40 Glucose (Fingerstick) 151 mg/dL (70-99) 160 mg/dL (70-99) 162 mg/dL (70-99) O2 Saturation 86 % (92-99) Arterial Blood pH 7.39 (7.35-7.45) Arterial Blood pCO2 at Patient Temp 41 mmHg (35-46) Arterial Blood pO2 at Patient Temp 53 mmHg (65-108) Arterial Blood HCO3 25 mmol/L (21-28) Arterial Blood Base Excess -1 mmol/L (-3-3) FiO2 100 Test 01/21/20 08:45 01/21/20 18:07 01/22/20 00:18 01/22/20 05:37 White Blood Count 8.2 x10^3/uL (4.0-11.0) Red Blood Count 3.18 x10^6/uL (4.30-5.70) Hemoglobin 9.9 g/dL (13.0-17.5) Hematocrit 30.3 % (39.0-53.0) Mean Corpuscular Volume 95 fL (79-100) Mean Corpuscular Hemoglobin 31 pg (25-35) Mean Corpuscular Hemoglobin Concent 33 g/dL (31-37) Red Cell Distribution Width 15.0 % (11.5-14.5) Platelet Count 167 x10^3/uL (140-400) Neutrophils (%) (Auto) 89 % (31-73) Lymphocytes (%) (Auto) 7 % (24-48) Monocytes (%) (Auto) 3 % (0-9) Eosinophils (%) (Auto) 1 % (0-3) Basophils (%) (Auto) 0 % (0-3) Neutrophils # (Auto) 7.3 x10^3/uL (1.8-7.7) Lymphocytes # (Auto) 0.6 x10^3/uL (1.0-4.8) Monocytes # (Auto) 0.2 x10^3/uL (0.0-1.1) Eosinophils # (Auto) 0.1 x10^3/uL (0.0-0.7) Basophils # (Auto) 0.0 x10^3/uL (0.0-0.2) Sodium Level 143 mmol/L (136-145) Potassium Level 4.0 mmol/L (3.5-5.1) Chloride Level 110 mmol/L (98-107) Carbon Dioxide Level 30 mmol/L (21-32) Anion Gap 3 (6-14) Blood Urea Nitrogen 17 mg/dL (8-26) Creatinine 0.5 mg/dL (0.7-1.3) Estimated GFR (Cockcroft-Gault) 166.9 Glucose Level 165 mg/dL (70-99) Calcium Level 6.4 mg/dL (8.5-10.1) Phosphorus Level 2.9 mg/dL (2.6-4.7) Magnesium Level 2.4 mg/dL (1.8-2.4) Triglycerides Level 242 mg/dL (0-150) Glucose (Fingerstick) 181 mg/dL (70-99) 203 mg/dL (70-99) 240 mg/dL (70-99) Test 01/22/20 06:00 01/22/20 09:00 Sodium Level 142 mmol/L (136-145) Potassium Level 4.4 mmol/L (3.5-5.1) Chloride Level 109 mmol/L (98-107) Carbon Dioxide Level 32 mmol/L (21-32) Anion Gap 1 (6-14) Blood Urea Nitrogen 15 mg/dL (8-26) Creatinine 0.5 mg/dL (0.7-1.3) Estimated GFR (Cockcroft-Gault) 166.9 Glucose Level 230 mg/dL (70-99) Calcium Level 6.6 mg/dL (8.5-10.1) Phosphorus Level 3.2 mg/dL (2.6-4.7) Magnesium Level 2.4 mg/dL (1.8-2.4) O2 Saturation 90 % (92-99) Arterial Blood pH 7.42 (7.35-7.45) Arterial Blood pCO2 at Patient Temp 42 mmHg (35-46) Arterial Blood pO2 at Patient Temp 61 mmHg (65-108) Arterial Blood HCO3 26 mmol/L (21-28) Arterial Blood Base Excess 1 mmol/L (-3-3) FiO2 100 Laboratory Tests Test 01/21/20 18:07 01/22/20 00:18 01/22/20 05:37 01/22/20 06:00 Glucose (Fingerstick) 181 mg/dL (70-99) 203 mg/dL (70-99) 240 mg/dL (70-99) Sodium Level 142 mmol/L (136-145) Potassium Level 4.4 mmol/L (3.5-5.1) Chloride Level 109 mmol/L (98-107) Carbon Dioxide Level 32 mmol/L (21-32) Anion Gap 1 (6-14) Blood Urea Nitrogen 15 mg/dL (8-26) Creatinine 0.5 mg/dL (0.7-1.3) Estimated GFR (Cockcroft-Gault) 166.9 Glucose Level 230 mg/dL (70-99) Calcium Level 6.6 mg/dL (8.5-10.1) Phosphorus Level 3.2 mg/dL (2.6-4.7) Magnesium Level 2.4 mg/dL (1.8-2.4) Test 01/22/20 09:00 O2 Saturation 90 % (92-99) Arterial Blood pH 7.42 (7.35-7.45) Arterial Blood pCO2 at Patient Temp 42 mmHg (35-46) Arterial Blood pO2 at Patient Temp 61 mmHg (65-108) Arterial Blood HCO3 26 mmol/L (21-28) Arterial Blood Base Excess 1 mmol/L (-3-3) FiO2 100 Comments CXR reviewed 1. Bilateral diffuse infiltrates are increased in the left base and mildly improved elsewhere. Impression . 1. Acute hypoxic respiratory failure secondary to COVID-19 pneumonia/ARDS/acute lung injury-- 2. Abnormal chest x-ray with bilateral infiltrates consistent with COVID-19 pneumonia. 3. Hypotension secondary to combination of hypovolemia and sepsis status post 2 liters of IV fluids. no pressors, 4. Acute kidney injury--resolved 5. Severe protein-calorie malnutrition. 6. Abnormal D-dimer related to COVID-19 pneumonia. Full dose lovenox added 01/09 due to increase in D-dimer to 20, now decreasing to 3.5. Lovenox dose reduced 7. Fevers Plan . RECOMMENDATIONS: ABG noted, will continue current assist control, 100%FIO2 and PEEP of 14 will not escalate any further PEEP Lovenox dose reduced since D-Dimer down to 3.5 from 20 Broad spectrum antibiotic. Cont. IV steroids, with taper, Stress ulcer prophylaxis. s/p Plasma Pt doing poorly not expected to survive prognosis poor D/W RN and RT PT. is DNR Prognosis poor critically ill Critical care time 30 minutes, family aware of pt. clinical condition, no overlap Dr Mendoza spoke with MARIO YODER MD Jan 22, 2020 10:27
--- NOTE | 2020-01-22 10:56 | PDOC ---
[employer] PROGRESS NOTE Date of Service DOS: DATE: 01/22/20 TIME: 10:54 Chief Complaint Chief Complaint COVID-19 positive Acute hypoxemic respiratory failure Bilateral perihilar infiltrates are seen which appear increased slightly Leukocytosis with bandemia secondary to septic process Hyponatremia secondary to low effective circulatory volume, now hypernatremic Acue renal failure due to vasomotor nephropathy most likely Hyperglycemia transaminitis Uncontrolled hypertension Abdominal distention History of Present Illness History of Present Illness 01/22/2020 Patient seen in the [place] [address] ICU He remains mechanically ventilated He is also started on TPN He is sedated with propofol fentanyl Versed and Precedex We are using paralytics with vecuronium Vent settings as follows AC/07/11 100/100% with 14 of PEEP Chart reviewed Discussed with RN He remains very critically ill prognosis is very guarded at best 01/21/2020 Patient seen and [place] [address] ICU He remains intubated Assist-control/ with 100% FiO2 He is in mitts for patient safety He is sedated with propofol Versed and fentanyl Has OG at 60 cc an hour Discussed with RN Discussed with case management Reviewed chart 01/20/2020 Patient seen and examined in the [place] [address] ICU He remains intubated He is on Versed for sedation and he has to be paralyzed with vecuronium He also has propofol fentanyl and Precedex for additional sedation Chart reviewed Discussed with the disease case manager Discussed with RN He remains critically ill Vent settings as follows AC/07/11 100/100% with 14 of PEEP 01/19/2020 Patient seen and examined in the [place] [address] ICU He is intubated AC/07/11 100/100% with 14 of PEEP He is sedated with Versed propofol fentanyl and Precedex he is also paralyzed with vecuronium Chart reviewed Discussed with RN Discussed with disease case manager History of Present Illness Patient is a 64-year-old gentleman who was diagnosed with COVID-19 infection on Friday 5 days prior to his admission to the intensive care unit. Apparently the patient reported worsening respiratory distress reason why he came to the emergency department for evaluation and treatment. The story was quite limited since the patient was speaking Croatian only and his acuity was such that he required mechanical ventilation and prompt intubation by the emergency department physician. At the present time patient is intubated and sedated continues to require a lot of support no pertinent past medical history was reported he is admitted to the intensive care unit for further treatment 01/10/2020 Continues to require full support, glycemia has been noted in hypertension as well. Discussed with nursing staff, all of concerns were addressed to the best of my abilities no acute events reported overnight 01/11/2020 No acute events reported overnight, case discussed with nursing staff patient in no acute distress 01/12/2020 Per nursing staff, patient febrile overnight, treated with Tylenol and tepid water bath. Case discussed with nursing staff, continue with IV antibiotics and full VTE prophylaxis. 01/13/2020 Patient still febrile overnight. O2 requirement increasing. Discussed with RN. 01/16 Patient still intubated and sedated. Discussed with RN, patient was made DNR. schedule MiraLAX. Vitals/I&O Vitals/I&O: Vital Signs Date Time Temp Pulse Resp B/P (MAP) Pulse Ox O2 Delivery O2 Flow Rate FiO2 01/22/20 10:00 53 22 178/94 (122) 90 Ventilator 01/22/20 08:00 97.4 97.4 01/21/20 10:25 18.0 I & O 01/21/20 01/21/20 01/22/20 15:00 23:00 07:00 Intake Total 2050.7 ml 1696.30 ml Output Total 620 ml 790 ml 1000 ml Balance -620 ml 1260.7 ml 696.30 ml Physical Exam Physical Exam: sedated on vent General: No acute distress, Other (Intubated and sedated) Heart: Regular rate Lungs: Other (Intubated) Abdomen: Other (Nondistended) Extremities: No clubbing, No cyanosis Skin: No rashes, No breakdown Labs Labs: Laboratory Tests Test 01/21/20 18:07 01/22/20 00:18 01/22/20 05:37 01/22/20 06:00 Glucose (Fingerstick) 181 mg/dL (70-99) 203 mg/dL (70-99) 240 mg/dL (70-99) Sodium Level 142 mmol/L (136-145) Potassium Level 4.4 mmol/L (3.5-5.1) Chloride Level 109 mmol/L (98-107) Carbon Dioxide Level 32 mmol/L (21-32) Anion Gap 1 (6-14) Blood Urea Nitrogen 15 mg/dL (8-26) Creatinine 0.5 mg/dL (0.7-1.3) Estimated GFR (Cockcroft-Gault) 166.9 Glucose Level 230 mg/dL (70-99) Calcium Level 6.6 mg/dL (8.5-10.1) Phosphorus Level 3.2 mg/dL (2.6-4.7) Magnesium Level 2.4 mg/dL (1.8-2.4) Test 01/22/20 09:00 O2 Saturation 90 % (92-99) Arterial Blood pH 7.42 (7.35-7.45) Arterial Blood pCO2 at Patient Temp 42 mmHg (35-46) Arterial Blood pO2 at Patient Temp 61 mmHg (65-108) Arterial Blood HCO3 26 mmol/L (21-28) Arterial Blood Base Excess 1 mmol/L (-3-3) FiO2 100 Assessment and Plan Assessmemt and Plan ICU monitoring Respiratory isolation IV TPN COVID-19 protocol including antibiotics steroids vitamins beta agonist mechanical ventilation Continue sedation with propofol fentanyl Precedex and Versed Paralytics with vecuronium Vent weaning Appreciate pulmonary input DVT prophylaxis Full code He remains critically ill Prognosis extremely guarded at best and probably terminal as he remains on 100% oxygen cc time 31 minutes Comment Review of Relevant I have reviewed the following items hong (where applicable) has been applied. Medications: Current Medications Medications (Trade) Dose Ordered Sig/Augusto Route PRN Reason Start Time Stop Time Status Last Admin Dose Admin Sodium Acetate 90 meq/Potassium Acetate 50 meq/ Potassium Phosphate 13.6 mmol/Magnesium Sulfate 10 meq/ Calcium Gluconate 10 meq/ Multivitamins 10 ml/Chromium/ Copper/Manganese/ Seleni/Zn 1 ml/ Total Parenteral Nutrition/Amino Acids/Dextrose 1,512 ml @ 63 mls/hr TPN CONT IV 01/21/20 22:00 01/22/20 21:59 01/21/20 22:05 Justifications for Admission Other Justification JACQUES SOLIS III DO Jan 22, 2020 10:56
[2020-01-22] MEDS: TPN PER PHARMACY MC PRN (12:32)
--- NOTE | 2020-01-22 12:33 | NUR ---
Pharmacy TPN Dosing Note S: YANDY HORN is a 64 year old M Currently receiving Central Continuous TPN started 01/21/20 B:Pertinent PMH: critical illness Height: 5 feet, 2 inches Weight: 97.9 kg Current diet: npo LABS: Sodium: 142 Potassium: 4.4 Chloride: 109 Calcium: 6.6 Corrected Calcium: 8.92 Magnesium: 2.4 CO2: 32 SCr: 0.5 Glucose: 230 Albumin: 1.1 AST: 31 ALT: 36 TPN FORMULA: TPN TYPE: Central Continuous AMINO ACIDS: 60 gm DEXTROSE: 195 gm LIPIDS: gm SODIUM CHLORIDE: mEq SODIUM ACETATE: 90 mEq SODIUM PHOSPHATE: mmol POTASSIUM CHLORIDE: mEq POTASSIUM ACETATE: 40 mEq POTASSIUM PHOSPHATE: 13.6 mmol MAGNESIUM: 8 mEq CALCIUM: 10 mEq INSULIN: units MULTIPLE VITAMIN: 10 ml TRACE ELEMENTS: mte5 1 ml ml(s) TPN PLAN: -On propofol, continue w/o lipids -Will decrease magnesium and potassium acetate slightly -Labs in the am R: Continue TPN as written above. Will monitor electrolytes, glucose, and tolerance to TPN. PO [facility] [place], 01/22/20 [id number]
[2020-01-22] MEDS ORDERED: AMINO ACID IV SCH (22:00)
[2020-01-22] MEDS ORDERED: DEXTROSE 70% IV SCH (22:00)
[2020-01-22] MEDS ORDERED: TOTAL PARENTERAL NUTRITION IV SCH (22:00)
[2020-01-22] MEDS ORDERED: [UNRECOGNIZED DRUG - OTHER] IV SCH (22:00)
[2020-01-23] VITALS (24 sets, daily range): BP systolic 126–169; BP diastolic 6–91
[2020-01-23] MEDS: INSULIN LISPRO 300 UNITS/3 ML VIAL. SQ SCH ×4 (00:39→17:56)
[2020-01-23] MEDS: fentaNYL HIGH DOSE PCA 55 ML IV PRN ×2 (00:40→12:09)
[2020-01-23] MEDS: ASCORBIC ACID 500 MG TABLET PO SCH ×5 (00:43→23:52)
[2020-01-23] MEDS: MIDAZOLAM 100mg/100ml NS BAG 100 ML IV PRN ×3 (00:44→23:53)
[2020-01-23] MEDS: VECURONIUM BROMIDE 50 MG in TOTAL VOLUME 50 ML IV PRN ×3 (02:16→23:52)
[2020-01-23] MEDS: DEXMEDETOMIDINE 400 MCG in IV NORMAL SALINE 100ML 96 ML IV PRN ×4 (02:59→21:49)
[2020-01-23] MEDS: PROPOFOL 100 ML IV PRN ×4 (03:35→18:41)
[2020-01-23] MEDS: methylPREDNISolone SOD SUCC PF 40 MG/ML VIAL. IV SCH ×3 (05:42→21:49)
[2020-01-23 06:35] LABS: CALCIUM 7.2 mg/dL (8.5-10.1); CREATININE 0.4 mg/dL (0.7-1.3); GFR 215.9; MAGNESIUM 2.2 mg/dL (1.8-2.4); PHOSPHORUS 2.8 mg/dL (2.6-4.7); POTASSIUM 4.5 mmol/L (3.5-5.1)
[2020-01-23] MEDS: PANTOPRAZOLE IV PUSH 40 MG VIAL. IVP SCH (07:41)
[2020-01-23] MEDS: ZINC SULFATE 220 MG CAPSULE. PO SCH (08:30)
[2020-01-23] MEDS: INSULIN GLARGINE SYRINGE. SQ SCH ×2 (08:30→21:12)
[2020-01-23] MEDS: ENOXAPARIN 40 MG/0.4 ML SYRINGE. SQ SCH ×2 (08:30→21:11)
[2020-01-23] MEDS: POLYETHYLENE GLYCOL 3350 17 GM PACKET. PO SCH (08:31)
[2020-01-23 08:58] LABS: BASE EXCESS ABG 4 mmol/L (-3-3); HCO3 ABG 29 mmol/L (21-28); PCO2 ABG 45 mmHg (35-46); PO2 ABG 54 mmHg (65-108); SAT O2 ABG 86 % (92-99)
[2020-01-23 09:00] LABS: FIO2 ABG 100
--- NOTE | 2020-01-23 10:06 | PDOC ---
[employer] PROGRESS NOTE Date of Service DOS: DATE: 01/23/20 TIME: 10:04 Chief Complaint Chief Complaint COVID-19 positive Acute hypoxemic respiratory failure Bilateral perihilar infiltrates are seen which appear increased slightly Leukocytosis with bandemia secondary to septic process Hyponatremia secondary to low effective circulatory volume, now hypernatremic Acue renal failure due to vasomotor nephropathy most likely Hyperglycemia transaminitis Uncontrolled hypertension Abdominal distention History of Present Illness History of Present Illness 01/23/2020 Patient seen in the [place] [address] ICU He is on the vent Assist-control/07/11 100/100% with 14 of PEEP He is critically ill Discussed with RN Chart reviewed 01/22/2020 Patient seen in the [place] [address] ICU He remains mechanically ventilated He is also started on TPN He is sedated with propofol fentanyl Versed and Precedex We are using paralytics with vecuronium Vent settings as follows AC/07/11 100/100% with 14 of PEEP Chart reviewed Discussed with RN He remains very critically ill prognosis is very guarded at best 01/21/2020 Patient seen and [place] [address] ICU He remains intubated Assist-control/ with 100% FiO2 He is in [facility] for patient safety He is sedated with propofol Versed and fentanyl Has OG at 60 cc an hour Discussed with RN Discussed with case management Reviewed chart 01/20/2020 Patient seen and examined in the [place] [address] ICU He remains intubated He is on Versed for sedation and he has to be paralyzed with vecuronium He also has propofol fentanyl and Precedex for additional sedation Chart reviewed Discussed with the case management social worker Discussed with RN He remains critically ill Vent settings as follows AC/07/11 100/100% with 14 of PEEP 01/19/2020 Patient seen and examined in the [place] [address] ICU He is intubated AC/07/11 100/100% with 14 of PEEP He is sedated with Versed propofol fentanyl and Precedex he is also paralyzed with vecuronium Chart reviewed Discussed with RN Discussed with case management social worker History of Present Illness Patient is a 64-year-old gentleman who was diagnosed with COVID-19 infection on Friday 5 days prior to his admission to the intensive care unit. Apparently the patient reported worsening respiratory distress reason why he came to the emergency department for evaluation and treatment. The story was quite limited since the patient was speaking Tajik only and his acuity was such that he required mechanical ventilation and prompt intubation by the emergency department physician. At the present time patient is intubated and sedated continues to require a lot of support no pertinent past medical history was reported he is admitted to the intensive care unit for further treatment 01/10/2020 Continues to require full support, glycemia has been noted in hypertension as well. Discussed with nursing staff, all of concerns were addressed to the best of my abilities no acute events reported overnight 01/11/2020 No acute events reported overnight, case discussed with nursing staff patient in no acute distress 01/12/2020 Per nursing staff, patient febrile overnight, treated with Tylenol and tepid water bath. Case discussed with nursing staff, continue with IV antibiotics and full VTE prophylaxis. 01/13/2020 Patient still febrile overnight. O2 requirement increasing. Discussed with RN. 01/16 Patient still intubated and sedated. Discussed with RN, patient was made DNR. schedule MiraLA[facility]. Vitals/I&O Vitals/I&O: Vital Signs Date Time Temp Pulse Resp B/P (MAP) Pulse Ox O2 Delivery O2 Flow Rate FiO2 01/23/20 09:00 50 20 165/87 (113) 89 Ventilator 01/23/20 08:00 97.4 97.4 I & O 01/22/20 01/22/20 01/23/20 15:00 23:00 07:00 Intake Total 2105 ml 1171 ml Output Total 500 ml 900 ml 1025 ml Balance -500 ml 1205 ml 146 ml Physical Exam Physical Exam: sedated on vent General: No acute distress, Other (Intubated and sedated) Heart: Regular rate Lungs: Crackles, Other (Intubated) Abdomen: Other (Nondistended) Extremities: No clubbing, No cyanosis Skin: No rashes, No breakdown Labs Labs: Laboratory Tests Test 01/22/20 11:38 01/22/20 17:59 01/23/20 00:36 01/23/20 05:30 Glucose (Fingerstick) 253 mg/dL (70-99) 238 mg/dL (70-99) 229 mg/dL (70-99) Sodium Level 143 mmol/L (136-145) Potassium Level 4.5 mmol/L (3.5-5.1) Chloride Level 108 mmol/L (98-107) Carbon Dioxide Level 32 mmol/L (21-32) Anion Gap 3 (6-14) Blood Urea Nitrogen 15 mg/dL (8-26) Creatinine 0.4 mg/dL (0.7-1.3) Estimated GFR (Cockcroft-Gault) 215.9 Glucose Level 218 mg/dL (70-99) Calcium Level 7.2 mg/dL (8.5-10.1) Phosphorus Level 2.8 mg/dL (2.6-4.7) Magnesium Level 2.2 mg/dL (1.8-2.4) Test 01/23/20 05:58 01/23/20 08:54 Glucose (Fingerstick) 208 mg/dL (70-99) O2 Saturation 86 % (92-99) Arterial Blood pH 7.42 (7.35-7.45) Arterial Blood pCO2 at Patient Temp 45 mmHg (35-46) Arterial Blood pO2 at Patient Temp 54 mmHg (65-108) Arterial Blood HCO3 29 mmol/L (21-28) Arterial Blood Base Excess 4 mmol/L (-3-3) FiO2 100 Assessment and Plan Assessmemt and Plan COVID-19 positive Acute hypoxemic respiratory failure requiring mechanical ventilation Bilateral perihilar infiltrates are seen which appear increased slightly Leukocytosis with bandemia secondary to septic process Hyponatremia secondary to low effective circulatory volume, now hypernatremic Acue renal failure due to vasomotor nephropathy most likely Hyperglycemia transaminitis Uncontrolled hypertension Abdominal distention Plan ICU monitoring Respiratory isolation Trend labs and chest x-rays COVID-19 protocol including antibiotics steroids vitamins beta agonist mechanical ventilation Continue sedation with propofol fentanyl Precedex and Versed Paralytics with vecuronium Vent weaning Appreciate pulmonary input DVT prophylaxis Full code He remains critically ill Prognosis is still guarded at best as he remains on 100% oxygen cc time 32 minutes Comment Review of Relevant I have reviewed the following items hong (where applicable) has been applied. Medications: Current Medications Medications (Trade) Dose Ordered Sig/Augusto Route PRN Reason Start Time Stop Time Status Last Admin Dose Admin Sodium Acetate 90 meq/Potassium Acetate 40 meq/ Potassium Phosphate 13.6 mmol/Magnesium Sulfate 8 meq/ Calcium Gluconate 10 meq/ Multivitamins 10 ml/Chromium/ Copper/Manganese/ Seleni/Zn 1 ml/ Total Parenteral Nutrition/Amino Acids/Dextrose 1,512 ml @ 63 mls/hr TPN CONT IV 01/22/20 22:00 01/23/20 21:59 01/22/20 22:11 Justifications for Admission Other Justification JACQUES SOLIS III DO Jan 23, 2020 10:06
--- NOTE | 2020-01-23 12:08 | PDOC ---
PULMONARY PROGRESS NOTES DATE: 01/23/20 TIME: 12:06 Subjective remains intubated/sedated AC mode ,100%FIO2/14 PEEP, desat w any movement sedated on versed propofol fentanyl precedex on paralytic agent vac small ett secretion Vitals Vital Signs Date Time Temp Pulse Resp B/P (MAP) Pulse Ox O2 Delivery O2 Flow Rate FiO2 01/23/20 11:58 94 Ventilator 01/23/20 11:43 50 20 128/67 (87) 01/23/20 08:00 97.4 97.4 Comments visual exam done due to COVID-Pandemic intubated sedated VENT 100% and PEEP 14 nc at rrr no accessory muscle use no skin rash lower extremity edema Lungs: Crackles, Other (Intubated) Labs Laboratory Tests Test 01/21/20 18:07 01/22/20 00:18 01/22/20 05:37 01/22/20 06:00 Glucose (Fingerstick) 181 mg/dL (70-99) 203 mg/dL (70-99) 240 mg/dL (70-99) Sodium Level 142 mmol/L (136-145) Potassium Level 4.4 mmol/L (3.5-5.1) Chloride Level 109 mmol/L (98-107) Carbon Dioxide Level 32 mmol/L (21-32) Anion Gap 1 (6-14) Blood Urea Nitrogen 15 mg/dL (8-26) Creatinine 0.5 mg/dL (0.7-1.3) Estimated GFR (Cockcroft-Gault) 166.9 Glucose Level 230 mg/dL (70-99) Calcium Level 6.6 mg/dL (8.5-10.1) Phosphorus Level 3.2 mg/dL (2.6-4.7) Magnesium Level 2.4 mg/dL (1.8-2.4) Test 01/22/20 09:00 01/22/20 11:38 01/22/20 17:59 01/23/20 00:36 O2 Saturation 90 % (92-99) Arterial Blood pH 7.42 (7.35-7.45) Arterial Blood pCO2 at Patient Temp 42 mmHg (35-46) Arterial Blood pO2 at Patient Temp 61 mmHg (65-108) Arterial Blood HCO3 26 mmol/L (21-28) Arterial Blood Base Excess 1 mmol/L (-3-3) FiO2 100 Glucose (Fingerstick) 253 mg/dL (70-99) 238 mg/dL (70-99) 229 mg/dL (70-99) Test 01/23/20 05:30 01/23/20 05:58 01/23/20 08:54 01/23/20 11:27 Sodium Level 143 mmol/L (136-145) Potassium Level 4.5 mmol/L (3.5-5.1) Chloride Level 108 mmol/L (98-107) Carbon Dioxide Level 32 mmol/L (21-32) Anion Gap 3 (6-14) Blood Urea Nitrogen 15 mg/dL (8-26) Creatinine 0.4 mg/dL (0.7-1.3) Estimated GFR (Cockcroft-Gault) 215.9 Glucose Level 218 mg/dL (70-99) Calcium Level 7.2 mg/dL (8.5-10.1) Phosphorus Level 2.8 mg/dL (2.6-4.7) Magnesium Level 2.2 mg/dL (1.8-2.4) Glucose (Fingerstick) 208 mg/dL (70-99) 236 mg/dL (70-99) O2 Saturation 86 % (92-99) Arterial Blood pH 7.42 (7.35-7.45) Arterial Blood pCO2 at Patient Temp 45 mmHg (35-46) Arterial Blood pO2 at Patient Temp 54 mmHg (65-108) Arterial Blood HCO3 29 mmol/L (21-28) Arterial Blood Base Excess 4 mmol/L (-3-3) FiO2 100 Laboratory Tests Test 01/22/20 17:59 01/23/20 00:36 01/23/20 05:30 01/23/20 05:58 Glucose (Fingerstick) 238 mg/dL (70-99) 229 mg/dL (70-99) 208 mg/dL (70-99) Sodium Level 143 mmol/L (136-145) Potassium Level 4.5 mmol/L (3.5-5.1) Chloride Level 108 mmol/L (98-107) Carbon Dioxide Level 32 mmol/L (21-32) Anion Gap 3 (6-14) Blood Urea Nitrogen 15 mg/dL (8-26) Creatinine 0.4 mg/dL (0.7-1.3) Estimated GFR (Cockcroft-Gault) 215.9 Glucose Level 218 mg/dL (70-99) Calcium Level 7.2 mg/dL (8.5-10.1) Phosphorus Level 2.8 mg/dL (2.6-4.7) Magnesium Level 2.2 mg/dL (1.8-2.4) Test 01/23/20 08:54 01/23/20 11:27 O2 Saturation 86 % (92-99) Arterial Blood pH 7.42 (7.35-7.45) Arterial Blood pCO2 at Patient Temp 45 mmHg (35-46) Arterial Blood pO2 at Patient Temp 54 mmHg (65-108) Arterial Blood HCO3 29 mmol/L (21-28) Arterial Blood Base Excess 4 mmol/L (-3-3) FiO2 100 Glucose (Fingerstick) 236 mg/dL (70-99) Comments CXR reviewed 1. Bilateral diffuse infiltrates are increased in the left base and mildly improved elsewhere. Impression . 1. Acute hypoxic respiratory failure secondary to COVID-19 pneumonia/ARDS/acute lung injury-- 2. Abnormal chest x-ray with bilateral infiltrates consistent with COVID-19 pneumonia. 3. Hypotension secondary to combination of hypovolemia and sepsis status post 2 liters of IV fluids. no pressors, 4. Acute kidney injury--resolved 5. Severe protein-calorie malnutrition. 6. Abnormal D-dimer related to COVID-19 pneumonia. Full dose lovenox added 01/09 due to increase in D-dimer to 20, now decreasing to 3.5. Lovenox dose reduced 7. Fevers Plan . RECOMMENDATIONS: ABG noted, will continue current assist control, 100%FIO2 and PEEP of 14 try to taper off propofol if possible will not escalate any further PEEP Lovenox dose reduced since D-Dimer down to 3.5 from 20 Broad spectrum antibiotic. Cont. IV steroids, with taper, Stress ulcer prophylaxis. s/p Plasma Pt doing poorly not expected to survive prognosis poor D/W RN and RT PT. is DNR critically ill Critical care time 30 minutes, family aware of pt. clinical condition, no overlap Dr Mendoza spoke with BEBAMARIO BARBOZA Jan 23, 2020 12:08
[2020-01-23] MEDS: TPN PER PHARMACY MC PRN (12:19)
--- NOTE | 2020-01-23 12:20 | NUR ---
Pharmacy TPN Dosing Note S: YANDY HORN is a 64 year old M Currently receiving Central Continuous TPN started 01/21/20 B:Pertinent PMH: critical illness Height: 5 feet, 2 inches Weight: 88.7 kg Current diet: npo LABS: Sodium: 143 Potassium: 4.5 Chloride: 108 Calcium: 7.2 Corrected Calcium: 9.52 Magnesium: 2.2 CO2: 32 SCr: 0.4 Glucose: 218 Albumin: 1.1 AST: 31 ALT: 36 TPN FORMULA: TPN TYPE: Central Continuous AMINO ACIDS: 60 gm DEXTROSE: 195 gm LIPIDS: gm SODIUM CHLORIDE: mEq SODIUM ACETATE: 90 mEq SODIUM PHOSPHATE: mmol POTASSIUM CHLORIDE: mEq POTASSIUM ACETATE: 10 mEq POTASSIUM PHOSPHATE: 20 mmol MAGNESIUM: 8 mEq CALCIUM: 10 mEq INSULIN: units MULTIPLE VITAMIN: 10 ml TRACE ELEMENTS: mte5 1 ml ml(s) TPN PLAN: -On propofol, continue w/o lipids -Potassium creeping up with decrease potassium acetate -Phos trending down, will increase phos to 20mmol -Labs in the am R: Continue TPN as written above. Will monitor electrolytes, glucose, and tolerance to TPN. PO LEARY [facility], 01/23/20 [id number]
[2020-01-23] MEDS ORDERED: TOTAL PARENTERAL NUTRITION IV SCH (22:00)
[2020-01-23] MEDS ORDERED: AMINO ACID IV SCH (22:00)
[2020-01-23] MEDS ORDERED: DEXTROSE 70% IV SCH (22:00)
[2020-01-23] MEDS ORDERED: [UNRECOGNIZED DRUG - OTHER] IV SCH (22:00)
[2020-01-24] VITALS (23 sets, daily range): BP systolic 93–196; BP diastolic 51–94
[2020-01-24] MEDS: INSULIN LISPRO 300 UNITS/3 ML VIAL. SQ SCH ×4 (01:18→17:14)
[2020-01-24] MEDS: fentaNYL HIGH DOSE PCA 55 ML IV PRN ×2 (01:38→14:02)
[2020-01-24] MEDS: PROPOFOL 100 ML IV PRN ×2 (04:58→08:05)
[2020-01-24] MEDS: methylPREDNISolone SOD SUCC PF 40 MG/ML VIAL. IV SCH ×3 (05:46→22:37)
[2020-01-24] MEDS: ASCORBIC ACID 500 MG TABLET PO SCH ×3 (05:46→17:14)
[2020-01-24 06:51] LABS: CALCIUM 7.7 mg/dL (8.5-10.1); CREATININE 0.5 mg/dL (0.7-1.3); GFR 166.9; MAGNESIUM 2.2 mg/dL (1.8-2.4); PHOSPHORUS 3.2 mg/dL (2.6-4.7)
[2020-01-24] MEDS: PANTOPRAZOLE IV PUSH 40 MG VIAL. IVP SCH (08:09)
[2020-01-24 08:29] LABS: BASE EXCESS ABG 3 mmol/L (-3-3); HCO3 ABG 28 mmol/L (21-28); PCO2 ABG 48 mmHg (35-46); PO2 ABG 71 mmHg (65-108); SAT O2 ABG 93 % (92-99)
[2020-01-24] MEDS: INSULIN GLARGINE SYRINGE. SQ SCH ×2 (08:59→20:52)
[2020-01-24] MEDS: POLYETHYLENE GLYCOL 3350 17 GM PACKET. PO SCH (09:02)
[2020-01-24] MEDS: ZINC SULFATE 220 MG CAPSULE. PO SCH (09:02)
[2020-01-24] MEDS: ENOXAPARIN 40 MG/0.4 ML SYRINGE. SQ SCH ×2 (09:02→20:52)
[2020-01-24] MEDS: hydrALAZINE 20 MG/ML VIAL. IVP PRN (09:03)
[2020-01-24 09:12] LABS: FIO2 ABG 100
--- NOTE | 2020-01-24 09:29 | PDOC ---
PULMONARY PROGRESS NOTES DATE: 01/24/20 TIME: 09:28 Subjective remains intubated/sedated AC mode ,100%FIO2/14 PEEP, desat w any movement sedated on versed propofol fentanyl precedex on paralytic agent vac small ett secretion Vitals Vital Signs Date Time Temp Pulse Resp B/P (MAP) Pulse Ox O2 Delivery O2 Flow Rate FiO2 01/24/20 09:03 118 193/110 01/24/20 06:00 22 94 Ventilator 01/24/20 04:00 97.4 97.4 Comments visual exam done due to COVID-Pandemic intubated sedated VENT 100% and PEEP 14 nc at rrr no accessory muscle use no skin rash lower extremity edema Lungs: Crackles, Other (Intubated) Labs Laboratory Tests Test 01/22/20 11:38 01/22/20 17:59 01/23/20 00:36 01/23/20 05:30 Glucose (Fingerstick) 253 mg/dL (70-99) 238 mg/dL (70-99) 229 mg/dL (70-99) Sodium Level 143 mmol/L (136-145) Potassium Level 4.5 mmol/L (3.5-5.1) Chloride Level 108 mmol/L (98-107) Carbon Dioxide Level 32 mmol/L (21-32) Anion Gap 3 (6-14) Blood Urea Nitrogen 15 mg/dL (8-26) Creatinine 0.4 mg/dL (0.7-1.3) Estimated GFR (Cockcroft-Gault) 215.9 Glucose Level 218 mg/dL (70-99) Calcium Level 7.2 mg/dL (8.5-10.1) Phosphorus Level 2.8 mg/dL (2.6-4.7) Magnesium Level 2.2 mg/dL (1.8-2.4) Test 01/23/20 05:58 01/23/20 08:54 01/23/20 11:27 01/23/20 17:46 Glucose (Fingerstick) 208 mg/dL (70-99) 236 mg/dL (70-99) 237 mg/dL (70-99) O2 Saturation 86 % (92-99) Arterial Blood pH 7.42 (7.35-7.45) Arterial Blood pCO2 at Patient Temp 45 mmHg (35-46) Arterial Blood pO2 at Patient Temp 54 mmHg (65-108) Arterial Blood HCO3 29 mmol/L (21-28) Arterial Blood Base Excess 4 mmol/L (-3-3) FiO2 100 Test 01/23/20 21:38 01/24/20 00:43 01/24/20 05:45 01/24/20 06:10 Glucose (Fingerstick) 229 mg/dL (70-99) 226 mg/dL (70-99) 202 mg/dL (70-99) Sodium Level 140 mmol/L (136-145) Potassium Level 4.0 mmol/L (3.5-5.1) Chloride Level 103 mmol/L (98-107) Carbon Dioxide Level 32 mmol/L (21-32) Anion Gap 5 (6-14) Blood Urea Nitrogen 20 mg/dL (8-26) Creatinine 0.5 mg/dL (0.7-1.3) Estimated GFR (Cockcroft-Gault) 166.9 Glucose Level 211 mg/dL (70-99) Calcium Level 7.7 mg/dL (8.5-10.1) Phosphorus Level 3.2 mg/dL (2.6-4.7) Magnesium Level 2.2 mg/dL (1.8-2.4) Test 01/24/20 08:10 O2 Saturation 93 % (92-99) Arterial Blood pH 7.39 (7.35-7.45) Arterial Blood pCO2 at Patient Temp 48 mmHg (35-46) Arterial Blood pO2 at Patient Temp 71 mmHg (65-108) Arterial Blood HCO3 28 mmol/L (21-28) Arterial Blood Base Excess 3 mmol/L (-3-3) FiO2 100 Laboratory Tests Test 01/23/20 11:27 01/23/20 17:46 01/23/20 21:38 01/24/20 00:43 Glucose (Fingerstick) 236 mg/dL (70-99) 237 mg/dL (70-99) 229 mg/dL (70-99) 226 mg/dL (70-99) Test 01/24/20 05:45 01/24/20 06:10 01/24/20 08:10 Sodium Level 140 mmol/L (136-145) Potassium Level 4.0 mmol/L (3.5-5.1) Chloride Level 103 mmol/L (98-107) Carbon Dioxide Level 32 mmol/L (21-32) Anion Gap 5 (6-14) Blood Urea Nitrogen 20 mg/dL (8-26) Creatinine 0.5 mg/dL (0.7-1.3) Estimated GFR (Cockcroft-Gault) 166.9 Glucose Level 211 mg/dL (70-99) Calcium Level 7.7 mg/dL (8.5-10.1) Phosphorus Level 3.2 mg/dL (2.6-4.7) Magnesium Level 2.2 mg/dL (1.8-2.4) Glucose (Fingerstick) 202 mg/dL (70-99) O2 Saturation 93 % (92-99) Arterial Blood pH 7.39 (7.35-7.45) Arterial Blood pCO2 at Patient Temp 48 mmHg (35-46) Arterial Blood pO2 at Patient Temp 71 mmHg (65-108) Arterial Blood HCO3 28 mmol/L (21-28) Arterial Blood Base Excess 3 mmol/L (-3-3) FiO2 100 Comments CXR reviewed 1. Bilateral diffuse infiltrates are increased in the left base and mildly improved elsewhere. Impression . 1. Acute hypoxic respiratory failure secondary to COVID-19 pneumonia/ARDS/acute lung injury-- 2. Abnormal chest x-ray with bilateral infiltrates consistent with COVID-19 pneumonia. 3. Hypotension secondary to combination of hypovolemia and sepsis status post 2 liters of IV fluids. no pressors, 4. Acute kidney injury--resolved 5. Severe protein-calorie malnutrition. 6. Abnormal D-dimer related to COVID-19 pneumonia. Full dose lovenox added 01/09 due to increase in D-dimer to 20, now decreasing to 3.5. Lovenox dose reduced 7. Fevers ,resolved Plan . RECOMMENDATIONS: ABG noted, will continue current assist control, 100%FIO2 and PEEP of 14, wean FIO2 to 95% if tolerates try to taper off propofol if possible will not escalate any further PEEP Lovenox dose reduced since D-Dimer down to 3.5 from 20 Broad spectrum antibiotic. Cont. IV steroids, with taper, Stress ulcer prophylaxis. s/p Plasma Pt doing poorly not expected to survive prognosis poor D/W RN and RT PT. is DNR critically ill Critical care time 30 minutes, family aware of pt. clinical condition, no overlap Dr Mendoza spoke with YVONNE TAYLOR Jan 24, 2020 09:29
[2020-01-24] MEDS: MIDAZOLAM 100mg/100ml NS BAG 100 ML IV PRN ×2 (09:44→17:40)
[2020-01-24] MEDS: DEXMEDETOMIDINE 400 MCG in IV NORMAL SALINE 100ML 96 ML IV PRN ×2 (09:44→19:36)
--- NOTE | 2020-01-24 10:00 | PDOC ---
PROGRESS NOTES Date of Service: DATE: 01/24/20 TIME: 09:59 Chief Complaint Chief Complaint COVID-19 positive Acute hypoxemic respiratory failure Bilateral perihilar infiltrates are seen which appear increased slightly Leukocytosis with bandemia secondary to septic process Hyponatremia secondary to low effective circulatory volume, now hypernatremic Acue renal failure due to vasomotor nephropathy most likely Hyperglycemia transaminitis Uncontrolled hypertension Abdominal distention Plan Continue with supportive measures Prognosis is quite guarded Continues to require 100% oxygen Continues to require a lot of PEEP History of Present Illness History of Present Illness 01/24/2020 Remains critically ill Seen in the ICU Continues with ventilatory support Assist-control/07/11 100/100% with 14 of PEEP Discussed with RN Chart reviewed 01/23/2020 Patient seen in the [place] [id number] ICU He is on the vent Assist-control/07/11 100/100% with 14 of PEEP He is critically ill Discussed with RN Chart reviewed 01/22/2020 Patient seen in the [place] [address] ICU He remains mechanically ventilated He is also started on TPN He is sedated with propofol fentanyl Versed and Precedex We are using paralytics with vecuronium Vent settings as follows AC/07/11 100/100% with 14 of PEEP Chart reviewed Discussed with RN He remains very critically ill prognosis is very guarded at best 01/21/2020 Patient seen and [place] [id number] ICU He remains intubated Assist-control/ with 100% FiO2 He is in mitts for patient safety He is sedated with propofol Versed and fentanyl Has OG at 60 cc an hour Discussed with RN Discussed with case management Reviewed chart 01/20/2020 Patient seen and examined in the [place] [address] ICU He remains intubated He is on Versed for sedation and he has to be paralyzed with vecuronium He also has propofol fentanyl and Precedex for additional sedation Chart reviewed Discussed with the watch case polisher Discussed with RN He remains critically ill Vent settings as follows AC/07/11 100/100% with 14 of PEEP 01/19/2020 Patient seen and examined in the [place] [address] ICU He is intubated AC/07/11 100/100% with 14 of PEEP He is sedated with Versed propofol fentanyl and Precedex he is also paralyzed with vecuronium Chart reviewed Discussed with RN Discussed with watch case polisher History of Present Illness Patient is a 64-year-old gentleman who was diagnosed with COVID-19 infection on Friday 5 days prior to his admission to the intensive care unit. Apparently the patient reported worsening respiratory distress reason why he came to the emergency department for evaluation and treatment. The story was quite limited since the patient was speaking [place] only and his acuity was such that he required mechanical ventilation and prompt intubation by the emergency department physician. At the present time patient is intubated and sedated continues to require a lot of support no pertinent past medical history was reported he is admitted to the intensive care unit for further treatment 01/10/2020 Continues to require full support, glycemia has been noted in hypertension as well. Discussed with nursing staff, all of concerns were addressed to the best of my abilities no acute events reported overnight 01/11/2020 No acute events reported overnight, case discussed with nursing staff patient in no acute distress 01/12/2020 Per nursing staff, patient febrile overnight, treated with Tylenol and tepid water bath. Case discussed with nursing staff, continue with IV antibiotics and full VTE prophylaxis. 01/13/2020 Patient still febrile overnight. O2 requirement increasing. Discussed with RN. 01/16 Patient still intubated and sedated. Discussed with RN, patient was made DNR. schedule MiraLAX. Vitals Vitals Vital Signs Date Time Temp Pulse Resp B/P (MAP) Pulse Ox O2 Delivery O2 Flow Rate FiO2 01/24/20 09:03 118 193/110 01/24/20 08:10 95 Ventilator 01/24/20 06:00 22 01/24/20 04:00 97.4 97.4 Physical Exam Physical Exam sedated on vent General: No acute distress, Other (Intubated and sedated) Heart: Regular rate Lungs: Crackles, Other (Intubated) Abdomen: Other (Nondistended) Extremities: No clubbing, No cyanosis Skin: No rashes, No breakdown Labs LABS Laboratory Tests Test 01/23/20 11:27 01/23/20 17:46 01/23/20 21:38 01/24/20 00:43 Glucose (Fingerstick) 236 mg/dL (70-99) 237 mg/dL (70-99) 229 mg/dL (70-99) 226 mg/dL (70-99) Test 01/24/20 05:45 01/24/20 06:10 01/24/20 08:10 Sodium Level 140 mmol/L (136-145) Potassium Level 4.0 mmol/L (3.5-5.1) Chloride Level 103 mmol/L (98-107) Carbon Dioxide Level 32 mmol/L (21-32) Anion Gap 5 (6-14) Blood Urea Nitrogen 20 mg/dL (8-26) Creatinine 0.5 mg/dL (0.7-1.3) Estimated GFR (Cockcroft-Gault) 166.9 Glucose Level 211 mg/dL (70-99) Calcium Level 7.7 mg/dL (8.5-10.1) Phosphorus Level 3.2 mg/dL (2.6-4.7) Magnesium Level 2.2 mg/dL (1.8-2.4) Glucose (Fingerstick) 202 mg/dL (70-99) O2 Saturation 93 % (92-99) Arterial Blood pH 7.39 (7.35-7.45) Arterial Blood pCO2 at Patient Temp 48 mmHg (35-46) Arterial Blood pO2 at Patient Temp 71 mmHg (65-108) Arterial Blood HCO3 28 mmol/L (21-28) Arterial Blood Base Excess 3 mmol/L (-3-3) FiO2 100 Comment Review of Relevant I have reviewed the following items hong (where applicable) has been applied. Labs Laboratory Tests Test 01/22/20 11:38 01/22/20 17:59 01/23/20 00:36 01/23/20 05:30 Glucose (Fingerstick) 253 mg/dL (70-99) 238 mg/dL (70-99) 229 mg/dL (70-99) Sodium Level 143 mmol/L (136-145) Potassium Level 4.5 mmol/L (3.5-5.1) Chloride Level 108 mmol/L (98-107) Carbon Dioxide Level 32 mmol/L (21-32) Anion Gap 3 (6-14) Blood Urea Nitrogen 15 mg/dL (8-26) Creatinine 0.4 mg/dL (0.7-1.3) Estimated GFR (Cockcroft-Gault) 215.9 Glucose Level 218 mg/dL (70-99) Calcium Level 7.2 mg/dL (8.5-10.1) Phosphorus Level 2.8 mg/dL (2.6-4.7) Magnesium Level 2.2 mg/dL (1.8-2.4) Test 01/23/20 05:58 01/23/20 08:54 01/23/20 11:27 01/23/20 17:46 Glucose (Fingerstick) 208 mg/dL (70-99) 236 mg/dL (70-99) 237 mg/dL (70-99) O2 Saturation 86 % (92-99) Arterial Blood pH 7.42 (7.35-7.45) Arterial Blood pCO2 at Patient Temp 45 mmHg (35-46) Arterial Blood pO2 at Patient Temp 54 mmHg (65-108) Arterial Blood HCO3 29 mmol/L (21-28) Arterial Blood Base Excess 4 mmol/L (-3-3) FiO2 100 Test 01/23/20 21:38 01/24/20 00:43 01/24/20 05:45 01/24/20 06:10 Glucose (Fingerstick) 229 mg/dL (70-99) 226 mg/dL (70-99) 202 mg/dL (70-99) Sodium Level 140 mmol/L (136-145) Potassium Level 4.0 mmol/L (3.5-5.1) Chloride Level 103 mmol/L (98-107) Carbon Dioxide Level 32 mmol/L (21-32) Anion Gap 5 (6-14) Blood Urea Nitrogen 20 mg/dL (8-26) Creatinine 0.5 mg/dL (0.7-1.3) Estimated GFR (Cockcroft-Gault) 166.9 Glucose Level 211 mg/dL (70-99) Calcium Level 7.7 mg/dL (8.5-10.1) Phosphorus Level 3.2 mg/dL (2.6-4.7) Magnesium Level 2.2 mg/dL (1.8-2.4) Test 01/24/20 08:10 O2 Saturation 93 % (92-99) Arterial Blood pH 7.39 (7.35-7.45) Arterial Blood pCO2 at Patient Temp 48 mmHg (35-46) Arterial Blood pO2 at Patient Temp 71 mmHg (65-108) Arterial Blood HCO3 28 mmol/L (21-28) Arterial Blood Base Excess 3 mmol/L (-3-3) FiO2 100 Laboratory Tests Test 01/23/20 11:27 01/23/20 17:46 01/23/20 21:38 01/24/20 00:43 Glucose (Fingerstick) 236 mg/dL (70-99) 237 mg/dL (70-99) 229 mg/dL (70-99) 226 mg/dL (70-99) Test 01/24/20 05:45 01/24/20 06:10 01/24/20 08:10 Sodium Level 140 mmol/L (136-145) Potassium Level 4.0 mmol/L (3.5-5.1) Chloride Level 103 mmol/L (98-107) Carbon Dioxide Level 32 mmol/L (21-32) Anion Gap 5 (6-14) Blood Urea Nitrogen 20 mg/dL (8-26) Creatinine 0.5 mg/dL (0.7-1.3) Estimated GFR (Cockcroft-Gault) 166.9 Glucose Level 211 mg/dL (70-99) Calcium Level 7.7 mg/dL (8.5-10.1) Phosphorus Level 3.2 mg/dL (2.6-4.7) Magnesium Level 2.2 mg/dL (1.8-2.4) Glucose (Fingerstick) 202 mg/dL (70-99) O2 Saturation 93 % (92-99) Arterial Blood pH 7.39 (7.35-7.45) Arterial Blood pCO2 at Patient Temp 48 mmHg (35-46) Arterial Blood pO2 at Patient Temp 71 mmHg (65-108) Arterial Blood HCO3 28 mmol/L (21-28) Arterial Blood Base Excess 3 mmol/L (-3-3) FiO2 100 Microbiology 01/08/20 Blood Culture - Final, Complete NO GROWTH AFTER 5 DAYS 01/06/20 Urine Culture - Final, Complete Medications Current Medications Etomidate (Amidate) 20 mg STK-MED ONCE IV ; Start 01/06/20 at 18:54; Stop 01/06/20 at 18:54; Status DC Succinylcholine Chloride (Anectine) 200 mg STK-MED ONCE .ROUTE ; Start 01/06/20 at 18:55; Stop 01/06/20 at 18:55; Status DC Propofol 50 ml @ As Directed STK-MED ONCE IV ; Start 01/06/20 at 18:55; Stop 01/06/20 at 18:56; Status DC Propofol 100 ml @ 0 mls/hr CONT PRN IV SEE PROTOCOL Last administered on 01/24/20at 08:05; Start 01/06/20 at 19:00 Fentanyl Citrate (Fentanyl 2ml Vial) 25 mcg PRN Q1HR PRN IV SEE COMMENTS; Start 01/06/20 at 19:00; Stop 01/22/20 at 08:54; Status DC Fentanyl Citrate (Fentanyl 2ml Vial) 50 mcg PRN Q1HR PRN IV SEE COMMENTS Last administered on 01/06/20at 19:42; Start 01/06/20 at 19:00 Chlorhexidine Gluconate (Peridex) 15 ml BID MM Last administered on 01/07/20at 08:16; Start 01/06/20 at 21:00; Stop 01/07/20 at 09:45; Status DC Midazolam HCl (Versed) 5 mg STK-MED ONCE .ROUTE ; Start 01/06/20 at 19:17; Stop 01/06/20 at 19:18; Status DC Midazolam HCl 50 mg/Sodium Chloride 50 ml @ 0 mls/hr 1X ONCE IV ; Start 01/06/20 at 19:30; Stop 01/06/20 at 19:31; Status UNV Albuterol/ Ipratropium (Duoneb) 3 ml STK-MED ONCE .ROUTE ; Start 01/06/20 at 19:27; Stop 01/06/20 at 19:27; Status DC Midazolam HCl 100 ml @ 0 mls/hr CONT PRN IV SEE PROTOCOL Last administered on 01/24/20at 09:44; Start 01/06/20 at 19:30 Propofol 50 ml @ 0 mls/hr 1X ONCE IV Last administered on 01/06/20at 18:55; Start 01/06/20 at 20:00; Stop 01/06/20 at 20:01; Status DC Midazolam HCl (Versed) 5 mg 1X ONCE NS Last administered on 01/06/20at 19:18; Start 01/06/20 at 19:18; Stop 01/06/20 at 19:59; Status DC Piperacillin Sod/ Tazobactam Sod 3.375 gm/Sodium Chloride 50 ml @ 100 mls/hr 1X ONCE IV Last administered on 01/06/20at 21:47; Start 01/06/20 at 20:45; Stop 01/06/20 at 21:14; Status DC Dexmedetomidine HCl 400 mcg/ Sodium Chloride 100 ml @ 0 mls/hr CONT PRN IV SEDATION Last administered on 01/24/20 09:44; Start 01/06/20 at 20:15 Sodium Chloride 500 ml @ 500 mls/hr 1X PRN PRN IV SEE COMMENTS Last administered on 01/13/20 11:22; Start 01/06/20 at 20:15 Atropine Sulfate (ATROPINE 0.5mg SYRINGE) 0.5 mg PRN Q5MIN PRN IV SEE COMMENTS; Start 01/06/20 at 20:15 Fentanyl Citrate (Fentanyl 2ml Vial) 100 mcg 1X ONCE IVP Last administered on 01/06/20 20:17; Start 01/06/20 at 20:15; Stop 01/06/20 at 20:18; Status DC Methylprednisolone Sodium Succinate (SOLU-Medrol 40MG VIAL) 40 mg Q8HRS IV Last administered on 01/24/20 05:46; Start 01/06/20 at 22:00 Enoxaparin Sodium (Lovenox 40mg Syringe) 40 mg BID SQ Last administered on 01/07/20 08:15; Start 01/06/20 at 21:30; Stop 01/07/20 at 09:47; Status DC Potassium Chloride/Dextrose/ Sod Cl 1,000 ml @ 125 mls/hr Q8H ONCE IV Last administered on 01/06/20 22:13; Start 01/06/20 at 21:30; Stop 01/07/20 at 05:29; Status DC Zinc Sulfate (Orazinc) 220 mg DAILY PO Last administered on 01/24/20 09:02; Start 01/07/20 at 09:00 Ondansetron HCl (Zofran) 4 mg PRN Q4HRS PRN IV NAUSEA/VOMITING; Start 01/06/20 at 21:30 Acetaminophen (Tylenol) 650 mg PRN Q4HRS PRN GT TEMP OVER 100.4F OR MILD PAIN Last administered on 01/14/20 05:51; Start 01/06/20 at 21:30 Acetaminophen (Tylenol Supp) [address] TEMP OVER 100.4F OR MILD PAIN; Start 01/06/20 at 21:30 Docusate Sodium (Colace) 100 mg PRN BID PRN PO HARD STOOLS Last administered on 01/12/20 08:26; Start 01/06/20 at 21:30 Piperacillin Sod/ Tazobactam Sod 3.375 gm/Sodium Chloride 50 ml @ 100 mls/hr Q6HRS IV Last administered on 01/19/20at 12:16; Start 01/07/20 at 00:00; Stop 01/19/20 at 17:00; Status DC Pantoprazole Sodium (PROTONIX VIAL for IV PUSH) 40 mg DAILYAC IVP Last administered on 01/24/20at 08:09; Start 01/07/20 at 07:30 Norepinephrine Bitartrate 8 mg/ Dextrose 258 ml @ 12.578 mls/ hr CONT PRN IV PER PROTOCOL Last administered on 01/06/20at 22:15; Start 01/06/20 at 21:45 Sodium Chloride 1,000 ml @ 1,000 mls/hr 1X ONCE IV Last administered on 01/06/20at 21:44; Start 01/06/20 at 21:45; Stop 01/06/20 at 22:44; Status DC Fentanyl Citrate 30 ml @ 0 mls/hr CONT PRN IV SEE PROTOCOL Last administered on 01/08/20at 10:44; Start 01/06/20 at 21:45; Stop 01/08/20 at 14:49; Status DC Vecuronium [place] (Norcuron Bolus) 6 mg PRN Q2HR PRN IV VENT ASYNCHRONY Last administered on 01/08/20at 11:23; Start 01/06/20 at 21:45; Stop 01/08/20 at 14:48; Status DC Sodium Chloride 1,000 ml @ 1,000 mls/hr 1X ONCE IV Last administered on 01/06/20at 22:36; Start 01/06/20 at 22:30; Stop 01/06/20 at 23:29; Status DC Methylprednisolone Sodium Succinate (SOLU-Medrol 40MG VIAL) 40 mg Q8HRS IV ; Start 01/07/20 at 14:00; Status UNV Enoxaparin Sodium (Lovenox 80mg Syringe) 80 mg BID SQ Last administered on 01/07/20at 20:53; Start 01/07/20 at 21:00; Stop 01/08/20 at 08:57; Status DC Insulin Human Lispro (HumaLOG) 6 units TID SQ ; Start 01/07/20 at 14:00; Stop 01/07/20 at 10:05; Status DC Insulin Glargine (Lantus Syringe) 10 unit BID SQ Last administered on 01/08/20at 09:27; Start 01/07/20 at 21:00; Stop 01/08/20 at 11:25; Status DC Ascorbic Acid (Vitamin C) 250 mg Q6HRS PO Last administered on 01/24/20at 05:46; Start 01/07/20 at 12:00 Sodium Chloride 1,000 ml @ 75 mls/hr [id number] IV Last administered on 01/10/20at 19:33; Start 01/07/20 at 10:00; Stop 01/11/20 at 10:23; Status DC Insulin Human Lispro (HumaLOG) 6 units Q6HRS SQ Last administered on 01/08/20at 06:11; Start 01/07/20 at 12:00; Stop 01/08/20 at 11:25; Status DC Insulin Glargine (Lantus Syringe) 10 unit 1X ONCE SQ Last administered on 01/07/20at 11:40; Start 01/07/20 at 11:00; Stop 01/07/20 at 11:01; Status DC Enoxaparin Sodium (Lovenox 60mg Syringe) 60 mg BID SQ Last administered on 01/10/20at 08:55; Start 01/08/20 at 09:00; Stop 01/10/20 at 16:45; Status DC Vecuronium [place] (Norcuron Bolus) 6 mg PRN Q6HRS PRN IV SEDATION (2nd Choice) Last administered on 01/10/20at 16:36; Start 01/08/20 at 09:30 Insulin Glargine (Lantus Syringe) 14 unit BID SQ Last administered on 01/10/20at 09:24; Start 01/08/20 at 21:00; Stop 01/10/20 at 12:27; Status DC Insulin Human Lispro (HumaLOG) 8 units Q6HRS SQ Last administered on 01/10/20at 12:11; Start 01/08/20 at 12:00; Stop 01/10/20 at 12:27; Status DC Fentanyl Citrate 55 ml @ 0 mls/hr CONT PRN IV SEE PROTOCOL Last administered on 01/24/20at 01:38; Start 01/08/20 at 14:49 Lorazepam (Ativan Inj) 1 mg PRN Q1HR PRN IVP ANXIETY / AGITATION- MODERATE; Start 01/08/20 at 16:15 Lorazepam (Ativan Inj) 2 mg PRN Q1HR PRN IVP ANXIETY / AGITATION- SEVERE Last administered on 01/09/20at 13:10; Start 01/08/20 at 16:30 Insulin Human Lispro (HumaLOG) 6 units 1X ONCE SQ Last administered on 01/09/20at 06:20; Start 01/09/20 at 06:15; Stop 01/09/20 at 06:16; Status DC Hydralazine HCl (Apresoline Inj) 10 mg PRN Q4HRS PRN IVP ELEVATED BP, SEE COMMENTS Last administered on 01/24/20at 09:03; Start 01/10/20 at 09:15 Alteplase, Recombinant (Cathflo For Central Catheter Clearance) 1 mg 1X ONCE INT CAT Last administered on 01/10/20at 12:05; Start 01/10/20 at 11:00; Stop 01/10/20 at 11:01; Status DC Insulin Glargine (Lantus Syringe) 18 unit BID SQ Last administered on 01/11/20at 08:30; Start 01/10/20 at 21:00; Stop 01/11/20 at 10:03; Status DC Insulin Human Lispro (HumaLOG) 10 units Q6HRS SQ Last administered on 01/11/20at 05:53; Start 01/10/20 at 18:00; Stop 01/11/20 at 10:03; Status DC Vecuronium [place] 50 mg/ Miscellaneous 50 ml @ 4.027 mls/ hr CONT PRN IV SEE I/O RECORD Last administered on 01/23/20at 23:52; Start 01/10/20 at 16:15 Enoxaparin Sodium (Lovenox Per Pharmacy Treatment Dosing) 1 each PRN DAILY PRN MC SEE COMMENTS; Start 01/10/20 at 16:45; Stop 01/19/20 at 18:12; Status DC Enoxaparin Sodium (Lovenox 80mg Syringe) 80 mg Q12HR SQ Last administered on 01/19/20at 08:26; Start 01/10/20 at 21:00; Stop 01/19/20 at 18:10; Status DC Furosemide (Lasix) 40 mg 1X ONCE IVP Last administered on 01/11/20at 10:19; Start 01/11/20 at 10:00; Stop 01/11/20 at 10:01; Status DC Insulin Glargine (Lantus Syringe) 24 unit BID SQ Last administered on 01/24/20at 08:59; Start 01/11/20 at 10:30 Insulin Human Lispro (HumaLOG) 14 units Q6HRS SQ Last administered on 01/17/20at 06:06; Start 01/11/20 at 12:00; Stop 01/17/20 at 11:48; Status DC Info (Anti-Coagulation Monitoring By Pharmacy) 1 each PRN DAILY PRN MC SEE COMMENTS Last administered on 01/19/20at 12:39; Start 01/12/20 at 10:00; Stop 01/20/20 at 13:31; Status DC Polyethylene Glycol (miraLAX PACKET) 17 gm DAILY PO Last administered on 01/24/20 09:02; Start 01/14/20 at 11:00 Dextrose/Sodium Chloride 1,000 ml @ 75 mls/hr [id number] IV Last administered on 01/21/20at 15:15; Start 01/15/20 at 09:30; Stop 01/21/20 at 21:59; Status DC Insulin Human Lispro (HumaLOG) 0-5 UNITS Q6HRS SQ Last administered on 01/24/20at 06:25; Start 01/17/20 at 12:00 Dextrose (Dextrose 50%-Water Syringe) 12.5 gm PRN Q15MIN PRN IV SEE COMMENTS; Start 01/17/20 at 12:00 Enoxaparin Sodium (Lovenox 40mg Syringe) 40 mg Q12HR SQ Last administered on 01/24/20 09:02; Start 01/19/20 at 21:00 Info (Tpn Per Pharmacy) 1 each PRN DAILY PRN MC SEE COMMENTS Last administered on 01/23/20at 12:19; Start 01/21/20 at 09:30 Sodium Acetate 90 meq/Potassium Acetate 50 meq/ Potassium Phosphate 13.6 mmol/Magnesium Sulfate 10 meq/ Calcium Gluconate 10 meq/ Multivitamins 10 ml/Chromium/ Copper/Manganese/ Seleni/Zn 1 ml/ Total Parenteral Nutrition/Amino Acids/Dextrose 1,512 ml @ 63 mls/hr TPN CONT IV Last administered on 01/21/20at 22:05; Start 01/21/20 at 22:00; Stop 01/22/20 at 21:59; Status DC Sodium Acetate 90 meq/Potassium Acetate 40 meq/ Potassium Phosphate 13.6 mmol/Magnesium Sulfate 8 meq/ Calcium Gluconate 10 meq/ Multivitamins 10 ml/Chromium/ Copper/Manganese/ Seleni/Zn 1 ml/ Total Parenteral Nutrition/Amino Acids/Dextrose 1,512 ml @ 63 mls/hr TPN CONT IV Last administered on 01/22/20at 22:11; Start 01/22/20 at 22:00; Stop 01/23/20 at 21:59; Status DC Sodium Acetate 90 meq/Potassium Acetate 10 meq/ Potassium Phosphate 20 mmol/ Magnesium Sulfate 8 meq/Calcium Gluconate 10 meq/ Multivitamins 10 ml/Chromium/ Copper/Manganese/ Seleni/Zn 1 ml/ Total Parenteral Nutrition/Amino Acids/Dextrose 1,512 ml @ 63 mls/hr TPN CONT IV Last administered on 01/23/20at 21:49; Start 01/23/20 at 22:00; Stop 01/24/20 at 21:59 Vitals/I & O Vital Sign - Last 24 Hours 01/23/20 01/23/20 01/23/20 01/23/20 10:00 11:43 11:58 12:00 Temp 97.4 97.4 Pulse 49 50 49 Resp 20 20 20 B/P (MAP) 165/87 (113) 128/67 (87) 155/87 (109) Pulse Ox 91 90 94 94 O2 Delivery Ventilator Ventilator Ventilator Ventilator 01/23/20 01/23/20 01/23/20 01/23/20 12:00 12:09 12:39 13:00 Pulse 49 Resp 20 22 20 B/P (MAP) 156/87 (110) Pulse Ox 94 93 93 O2 Delivery Mechanical Ventilator Ventilator Ventilator Ventilator 01/23/20 01/23/20 01/23/20 01/23/20 14:00 15:00 15:39 16:00 Temp 97.8 97.8 Pulse 49 49 49 Resp 20 20 20 B/P (MAP) 150/84 (106) 153/85 (107) 144/76 (98) Pulse Ox 94 92 94 92 O2 Delivery Ventilator Ventilator Ventilator Ventilator 01/23/20 01/23/20 01/23/20 01/23/20 16:00 17:00 18:00 19:00 Pulse 49 49 49 Resp 20 22 B/P (MAP) 152/82 (105) 149/80 (103) 143/77 (99) Pulse Ox 93 94 94 O2 Delivery Mechanical Ventilator Ventilator Ventilator Ventilator 01/23/20 01/23/20 01/23/20 01/23/20 20:00 20:00 20:28 21:00 Temp 97.3 97.3 Pulse 50 49 Resp 22 B/P (MAP) 138/73 (94) 130/72 (91) Pulse Ox 95 94 95 O2 Delivery Mechanical Ventilator Ventilator Ventilator Ventilator 01/23/20 01/23/20 01/23/20 01/24/20 22:00 23:00 23:59 00:00 Temp 97.3 97.3 Pulse 49 49 50 Resp 22 B/P (MAP) 133/71 (91) 126/68 (87) 129/67 (87) Pulse Ox 95 94 93 O2 Delivery Ventilator Ventilator Mechanical Ventilator Ventilator 01/24/20 01/24/20 01/24/20 01/24/20 00:17 01:00 01:38 02:00 Pulse 52 49 Resp 22 B/P (MAP) 137/73 (94) 153/82 (105) Pulse Ox 94 92 93 O2 Delivery Ventilator Ventilator Ventilator Ventilator 01/24/20 01/24/20 01/24/20 01/24/20 02:08 03:00 04:00 04:00 Temp 97.4 97.4 Pulse 54 97 Resp 22 B/P (MAP) 157/83 (107) 171/86 (114) Pulse Ox 92 94 O2 Delivery Ventilator Ventilator Ventilator Mechanical Ventilator 01/24/20 01/24/20 01/24/20 01/24/20 04:44 05:00 06:00 08:10 Pulse 110 115 Resp 22 B/P (MAP) 155/81 (105) 187/93 (124) Pulse Ox 95 95 94 95 O2 Delivery Ventilator Ventilator Ventilator Ventilator 01/24/20 09:03 Pulse 118 B/P (MAP) 193/110 Intake and Output 01/23/20 01/23/20 01/24/20 15:00 23:00 07:00 Intake Total 1801 ml Output Total 575 ml 735 ml 345 ml Balance -575 ml -735 ml 1456 ml Justicifation of Admission Dx: Justifications for Admission: Justification of Admission Dx: Yes CAROLINA VEGA MD Jan 24, 2020 10:00
[2020-01-24] MEDS: TPN PER PHARMACY MC PRN (11:01)
--- NOTE | 2020-01-24 11:02 | NUR ---
Pharmacy TPN Dosing Note S: YANDY HORN is a 64 year old M Currently receiving Central Continuous TPN started 01/21/20 B:Pertinent PMH: critical illness Height: 5 feet, 2 inches Weight: 99.7 kg Current diet: npo LABS: Sodium: 140 Potassium: 4.0 Chloride: 103 Calcium: 7.7 Corrected Calcium: 10.02 Magnesium: 2.2 CO2: 32 SCr: 0.5 Glucose: 211 Albumin: 1.1 AST: 31 ALT: 36 TPN FORMULA: TPN TYPE: Central Continuous AMINO ACIDS: 60 gm DEXTROSE: 195 gm LIPIDS: 0 gm SODIUM CHLORIDE: mEq SODIUM ACETATE: 90 mEq SODIUM PHOSPHATE: mmol POTASSIUM CHLORIDE: mEq POTASSIUM ACETATE: 10 mEq POTASSIUM PHOSPHATE: 20 mmol MAGNESIUM: 8 mEq CALCIUM: 10 mEq INSULIN: units MULTIPLE VITAMIN: 10 ml TRACE ELEMENTS: mte5 1 ml ml(s) TPN PLAN: -On propofol, continue w/o lipids -Labs stable and WNLs, continue same TPN -Labs in the am R: Continue TPN as written above. Will monitor electrolytes, glucose, and tolerance to TPN. PO [facility], 01/24/20 [id number]
[2020-01-24] MEDS: VECURONIUM BROMIDE 50 MG in TOTAL VOLUME 50 ML IV PRN (15:08)
[2020-01-24] MEDS ORDERED: AMINO ACID IV SCH (22:00)
[2020-01-24] MEDS ORDERED: DEXTROSE 70% IV SCH (22:00)
[2020-01-24] MEDS ORDERED: [UNRECOGNIZED DRUG - OTHER] IV SCH (22:00)
[2020-01-24] MEDS ORDERED: TOTAL PARENTERAL NUTRITION IV SCH (22:00)
[2020-01-25] VITALS (24 sets, daily range): BP systolic 94–207; BP diastolic 55–104
[2020-01-25] MEDS: ASCORBIC ACID 500 MG TABLET PO SCH ×4 (00:50→17:38)
[2020-01-25] MEDS: PROPOFOL 100 ML IV PRN ×4 (01:01→15:29)
[2020-01-25] MEDS: MIDAZOLAM 100mg/100ml NS BAG 100 ML IV PRN ×3 (01:38→15:28)
[2020-01-25] MEDS: fentaNYL HIGH DOSE PCA 55 ML IV PRN ×2 (04:44→15:53)
[2020-01-25] MEDS: DEXMEDETOMIDINE 400 MCG in IV NORMAL SALINE 100ML 96 ML IV PRN (05:37)
[2020-01-25] MEDS: methylPREDNISolone SOD SUCC PF 40 MG/ML VIAL. IV SCH ×3 (05:41→21:30)
[2020-01-25] MEDS: INSULIN LISPRO 300 UNITS/3 ML VIAL. SQ SCH ×4 (06:00→17:58)
[2020-01-25 07:00] LABS: CALCIUM 7.2 mg/dL (8.5-10.1); CREATININE 0.6 mg/dL (0.7-1.3); GFR 135.2; MAGNESIUM 2.2 mg/dL (1.8-2.4); PHOSPHORUS 3.2 mg/dL (2.6-4.7); POTASSIUM 4.1 mmol/L (3.5-5.1)
--- NOTE | 2020-01-25 07:23 | PDOC ---
PROGRESS NOTES Date of Service: DATE: 01/25/20 TIME: 07:20 Chief Complaint Chief Complaint COVID-19 positive Acute hypoxemic respiratory failure Bilateral perihilar infiltrates are seen which appear increased slightly Leukocytosis with bandemia secondary to septic process Hyponatremia secondary to low effective circulatory volume, now hypernatremic Acue renal failure due to vasomotor nephropathy most likely Hyperglycemia transaminitis Uncontrolled hypertension Abdominal distention Plan Continue with supportive measures Prognosis is quite guarded Continues to require 95% oxygen Continues to require a lot of PEEP currently at 14 will give an update to the family History of Present Illness History of Present Illness 01/25/2020 Continues to be about the same No acute events reported overnight. discussed with RN Does not tolerate moving around too much. 01/24/2020 Remains critically ill Seen in the ICU Continues with ventilatory support Assist-control/07/11 100/100% with 14 of PEEP Discussed with RN Chart reviewed 01/23/2020 Patient seen in the [place] [id number] ICU He is on the vent Assist-control/07/11 100/100% with 14 of PEEP He is critically ill Discussed with RN Chart reviewed 01/22/2020 Patient seen in the [place] [id number] ICU He remains mechanically ventilated He is also started on TPN He is sedated with propofol fentanyl Versed and Precedex We are using paralytics with vecuronium Vent settings as follows AC/07/11 100/100% with 14 of PEEP Chart reviewed Discussed with RN He remains very critically ill prognosis is very guarded at best 01/21/2020 Patient seen and [place] [address] ICU He remains intubated Assist-control/ with 100% FiO2 He is in [facility] for patient safety He is sedated with propofol Versed and fentanyl Has OG at 60 cc an hour Discussed with RN Discussed with case management Reviewed chart 01/20/2020 Patient seen and examined in the [place] [id number] ICU He remains intubated He is on Versed for sedation and he has to be paralyzed with vecuronium He also has propofol fentanyl and Precedex for additional sedation Chart reviewed Discussed with the case maker Discussed with RN He remains critically ill Vent settings as follows AC// 100/100% with 14 of PEEP 01/19/2020 Patient seen and examined in the [place] [id number] ICU He is intubated AC/07/11 100/100% with 14 of PEEP He is sedated with Versed propofol fentanyl and Precedex he is also paralyzed with vecuronium Chart reviewed Discussed with RN Discussed with case maker History of Present Illness Patient is a 64-year-old gentleman who was diagnosed with COVID-19 infection on Friday 5 days prior to his admission to the intensive care unit. Apparently the patient reported worsening respiratory distress reason why he came to the emerg ency department for evaluation and treatment. The story was quite limited since the patient was speaking [place] only and his acuity was such that he required mechanical ventilation and prompt intubation by the emergency department physician. At the present time patient is intubated and sedated continues to require a lot of support no pertinent past medical history was reported he is admitted to the intensive care unit for further treatment 01/10/2020 Continues to require full support, glycemia has been noted in hypertension as well. Discussed with nursing staff, all of concerns were addressed to the best of my abilities no acute events reported overnight 01/11/2020 No acute events reported overnight, case discussed with nursing staff patient in no acute distress 01/12/2020 Per nursing staff, patient febrile overnight, treated with Tylenol and tepid water bath. Case discussed with nursing staff, continue with IV antibiotics and full VTE prophylaxis. 01/13/2020 Patient still febrile overnight. O2 requirement increasing. Discussed with RN. 01/16 Patient still intubated and sedated. Discussed with RN, patient was made DNR. schedule MiraLAX. Vitals Vitals Vital Signs Date Time Temp Pulse Resp B/P (MAP) Pulse Ox O2 Delivery O2 Flow Rate FiO2 01/25/20 07:00 59 22 96/55 (69) 94 Ventilator 01/25/20 04:00 97.6 97.6 Physical Exam Physical Exam sedated on vent General: No acute distress, Other (Intubated and sedated) Heart: Regular rate, Normal S1, Normal S2 Lungs: Crackles, Other (Intubated) Abdomen: Other (Nondistended) Extremities: No clubbing, No cyanosis Skin: No rashes, No breakdown Labs LABS Laboratory Tests Test 01/24/20 08:10 01/24/20 12:33 01/24/20 17:11 01/25/20 00:51 O2 Saturation 93 % (92-99) Arterial Blood pH 7.39 (7.35-7.45) Arterial Blood pCO2 at Patient Temp 48 mmHg (35-46) Arterial Blood pO2 at Patient Temp 71 mmHg (65-108) Arterial Blood HCO3 28 mmol/L (21-28) Arterial Blood Base Excess 3 mmol/L (-3-3) FiO2 100 Glucose (Fingerstick) 223 mg/dL (70-99) 210 mg/dL (70-99) 193 mg/dL (70-99) Test 01/25/20 06:13 01/25/20 06:15 Glucose (Fingerstick) 223 mg/dL (70-99) Sodium Level 141 mmol/L (136-145) Potassium Level 4.1 mmol/L (3.5-5.1) Chloride Level 105 mmol/L (98-107) Carbon Dioxide Level 36 mmol/L (21-32) Anion Gap 0 (6-14) Blood Urea Nitrogen 21 mg/dL (8-26) Creatinine 0.6 mg/dL (0.7-1.3) Estimated GFR (Cockcroft-Gault) 135.2 Glucose Level 187 mg/dL (70-99) Calcium Level 7.2 mg/dL (8.5-10.1) Phosphorus Level 3.2 mg/dL (2.6-4.7) Magnesium Level 2.2 mg/dL (1.8-2.4) Comment Review of Relevant I have reviewed the following items hong (where applicable) has been applied. Labs Laboratory Tests Test 01/23/20 08:54 01/23/20 11:27 01/23/20 17:46 01/23/20 21:38 O2 Saturation 86 % (92-99) Arterial Blood pH 7.42 (7.35-7.45) Arterial Blood pCO2 at Patient Temp 45 mmHg (35-46) Arterial Blood pO2 at Patient Temp 54 mmHg (65-108) Arterial Blood HCO3 29 mmol/L (21-28) Arterial Blood Base Excess 4 mmol/L (-3-3) FiO2 100 Glucose (Fingerstick) 236 mg/dL (70-99) 237 mg/dL (70-99) 229 mg/dL (70-99) Test 01/24/20 00:43 01/24/20 05:45 01/24/20 06:10 01/24/20 08:10 Glucose (Fingerstick) 226 mg/dL (70-99) 202 mg/dL (70-99) Sodium Level 140 mmol/L (136-145) Potassium Level 4.0 mmol/L (3.5-5.1) Chloride Level 103 mmol/L (98-107) Carbon Dioxide Level 32 mmol/L (21-32) Anion Gap 5 (6-14) Blood Urea Nitrogen 20 mg/dL (8-26) Creatinine 0.5 mg/dL (0.7-1.3) Estimated GFR (Cockcroft-Gault) 166.9 Glucose Level 211 mg/dL (70-99) Calcium Level 7.7 mg/dL (8.5-10.1) Phosphorus Level 3.2 mg/dL (2.6-4.7) Magnesium Level 2.2 mg/dL (1.8-2.4) O2 Saturation 93 % (92-99) Arterial Blood pH 7.39 (7.35-7.45) Arterial Blood pCO2 at Patient Temp 48 mmHg (35-46) Arterial Blood pO2 at Patient Temp 71 mmHg (65-108) Arterial Blood HCO3 28 mmol/L (21-28) Arterial Blood Base Excess 3 mmol/L (-3-3) FiO2 100 Test 01/24/20 12:33 01/24/20 17:11 01/25/20 00:51 01/25/20 06:13 Glucose (Fingerstick) 223 mg/dL (70-99) 210 mg/dL (70-99) 193 mg/dL (70-99) 223 mg/dL (70-99) Test 01/25/20 06:15 Sodium Level 141 mmol/L (136-145) Potassium Level 4.1 mmol/L (3.5-5.1) Chloride Level 105 mmol/L (98-107) Carbon Dioxide Level 36 mmol/L (21-32) Anion Gap 0 (6-14) Blood Urea Nitrogen 21 mg/dL (8-26) Creatinine 0.6 mg/dL (0.7-1.3) Estimated GFR (Cockcroft-Gault) 135.2 Glucose Level 187 mg/dL (70-99) Calcium Level 7.2 mg/dL (8.5-10.1) Phosphorus Level 3.2 mg/dL (2.6-4.7) Magnesium Level 2.2 mg/dL (1.8-2.4) Laboratory Tests Test 01/24/20 08:10 01/24/20 12:33 01/24/20 17:11 01/25/20 00:51 O2 Saturation 93 % (92-99) Arterial Blood pH 7.39 (7.35-7.45) Arterial Blood pCO2 at Patient Temp 48 mmHg (35-46) Arterial Blood pO2 at Patient Temp 71 mmHg (65-108) Arterial Blood HCO3 28 mmol/L (21-28) Arterial Blood Base Excess 3 mmol/L (-3-3) FiO2 100 Glucose (Fingerstick) 223 mg/dL (70-99) 210 mg/dL (70-99) 193 mg/dL (70-99) Test 01/25/20 06:13 01/25/20 06:15 Glucose (Fingerstick) 223 mg/dL (70-99) Sodium Level 141 mmol/L (136-145) Potassium Level 4.1 mmol/L (3.5-5.1) Chloride Level 105 mmol/L (98-107) Carbon Dioxide Level 36 mmol/L (21-32) Anion Gap 0 (6-14) Blood Urea Nitrogen 21 mg/dL (8-26) Creatinine 0.6 mg/dL (0.7-1.3) Estimated GFR (Cockcroft-Gault) 135.2 Glucose Level 187 mg/dL (70-99) Calcium Level 7.2 mg/dL (8.5-10.1) Phosphorus Level 3.2 mg/dL (2.6-4.7) Magnesium Level 2.2 mg/dL (1.8-2.4) Microbiology 01/08/20 Blood Culture - Final, Complete NO GROWTH AFTER 5 DAYS 01/06/20 Urine Culture - Final, Complete Medications Current Medications Etomidate (Amidate) 20 mg STK-MED ONCE IV ; Start 01/06/20 at 18:54; Stop 01/06/20 at 18:54; Status DC Succinylcholine Chloride (Anectine) 200 mg STK-MED ONCE .ROUTE ; Start 01/06/20 at 18:55; Stop 01/06/20 at 18:55; Status DC Propofol 50 ml @ As Directed STK-MED ONCE IV ; Start 01/06/20 at 18:55; Stop 01/06/20 at 18:56; Status DC Propofol 100 ml @ 0 mls/hr CONT PRN IV SEE PROTOCOL Last administered on 01/25/20at 05:41; Start 01/06/20 at 19:00 Fentanyl Citrate (Fentanyl 2ml Vial) 25 mcg PRN Q1HR PRN IV SEE COMMENTS; Start 01/06/20 at 19:00; Stop 01/22/20 at 08:54; Status DC Fentanyl Citrate (Fentanyl 2ml Vial) 50 mcg PRN Q1HR PRN IV SEE COMMENTS Last administered on 01/06/20at 19:42; Start 01/06/20 at 19:00 Chlorhexidine Gluconate (Peridex) 15 ml BID MM Last administered on 01/07/20at 08:16; Start 01/06/20 at 21:00; Stop 01/07/20 at 09:45; Status DC Midazolam HCl (Versed) 5 mg STK-MED ONCE .ROUTE ; Start 01/06/20 at 19:17; Stop 01/06/20 at 19:18; Status DC Midazolam HCl 50 mg/Sodium Chloride 50 ml @ 0 mls/hr 1X ONCE IV ; Start 01/06/20 at 19:30; Stop 01/06/20 at 19:31; Status UNV Albuterol/ Ipratropium (Duoneb) 3 ml STK-MED ONCE .ROUTE ; Start 01/06/20 at 19:27; Stop 01/06/20 at 19:27; Status DC Midazolam HCl 100 ml @ 0 mls/hr CONT PRN IV SEE PROTOCOL Last administered on 01/25/20at 01:38; Start 01/06/20 at 19:30 Propofol 50 ml @ 0 mls/hr 1X ONCE IV Last administered on 01/06/20at 18:55; Start 01/06/20 at 20:00; Stop 01/06/20 at 20:01; Status DC Midazolam HCl (Versed) 5 mg 1X ONCE NS Last administered on 01/06/20at 19:18; Start 01/06/20 at 19:18; Stop 01/06/20 at 19:59; Status DC Piperacillin Sod/ Tazobactam Sod 3.375 gm/Sodium Chloride 50 ml @ 100 mls/hr 1X ONCE IV Last administered on 01/06/20at 21:47; Start 01/06/20 at 20:45; Stop 01/06/20 at 21:14; Status DC Dexmedetomidine HCl 400 mcg/ Sodium Chloride 100 ml @ 0 mls/hr CONT PRN IV SEDATION Last administered on 01/25/20 05:37; Start 01/06/20 at 20:15 Sodium Chloride 500 ml @ 500 mls/hr 1X PRN PRN IV SEE COMMENTS Last administe red on 01/13/20at 11:22; Start 01/06/20 at 20:15 Atropine Sulfate (ATROPINE 0.5mg SYRINGE) 0.5 mg PRN Q5MIN PRN IV SEE COMMENTS; Start 01/06/20 at 20:15 Fentanyl Citrate (Fentanyl 2ml Vial) 100 mcg 1X ONCE IVP Last administered on 01/06/20 20:17; Start 01/06/20 at 20:15; Stop 01/06/20 at 20:18; Status DC Methylprednisolone Sodium Succinate (SOLU-Medrol 40MG VIAL) 40 mg Q8HRS IV Last administered on 01/25/20 05:41; Start 01/06/20 at 22:00 Enoxaparin Sodium (Lovenox 40mg Syringe) 40 mg BID SQ Last administered on 01/07/20 08:15; Start 01/06/20 at 21:30; Stop 01/07/20 at 09:47; Status DC Potassium Chloride/Dextrose/ Sod Cl 1,000 ml @ 125 mls/hr Q8H ONCE IV Last administered on 01/06/20 22:13; Start 01/06/20 at 21:30; Stop 01/07/20 at 05:29; Status DC Zinc Sulfate (Orazinc) 220 mg DAILY PO Last administered on 01/24/20 09:02; Start 01/07/20 at 09:00 Ondansetron HCl (Zofran) 4 mg PRN Q4HRS PRN IV NAUSEA/VOMITING; Start 01/06/20 at 21:30 Acetaminophen (Tylenol) 650 mg PRN Q4HRS PRN GT TEMP OVER 100.4F OR MILD PAIN Last administered on 01/14/20 05:51; Start 01/06/20 at 21:30 Acetaminophen (Tylenol Supp) 650 mg PRN Q4HRS PRN MO TEMP OVER 100.4F OR MILD PAIN; Start 01/06/20 at 21:30 Docusate Sodium (Colace) 100 mg PRN BID PRN PO HARD STOOLS Last administered on 01/12/20 08:26; Start 01/06/20 at 21:30 Piperacillin Sod/ Tazobactam Sod 3.375 gm/Sodium Chloride 50 ml @ 100 mls/hr Q6HRS IV Last administered on 01/19/20at 12:16; Start 01/07/20 at 00:00; Stop 01/19/20 at 17:00; Status DC Pantoprazole Sodium (PROTONIX VIAL for IV PUSH) 40 mg DAILYAC IVP Last administered on 01/24/20at 08:09; Start 01/07/20 at 07:30 Norepinephrine Bitartrate 8 mg/ Dextrose 258 ml @ 12.578 mls/ hr CONT PRN IV PER PROTOCOL Last administered on 01/06/20at 22:15; Start 01/06/20 at 21:45 Sodium Chloride 1,000 ml @ 1,000 mls/hr 1X ONCE IV Last administered on 01/06/20at 21:44; Start 01/06/20 at 21:45; Stop 01/06/20 at 22:44; Status DC Fentanyl Citrate 30 ml @ 0 mls/hr CONT PRN IV SEE PROTOCOL Last administered on 01/08/20at 10:44; Start 01/06/20 at 21:45; Stop 01/08/20 at 14:49; Status DC Vecuronium [place] (Norcuron Bolus) 6 mg PRN Q2HR PRN IV VENT ASYNCHRONY Last administered on 01/08/20at 11:23; Start 01/06/20 at 21:45; Stop 01/08/20 at 14:48; Status DC Sodium Chloride 1,000 ml @ 1,000 mls/hr 1X ONCE IV Last administered on 01/06/20at 22:36; Start 01/06/20 at 22:30; Stop 01/06/20 at 23:29; Status DC Methylprednisolone Sodium Succinate (SOLU-Medrol 40MG VIAL) 40 mg Q8HRS IV ; Start 01/07/20 at 14:00; Status UNV Enoxaparin Sodium (Lovenox 80mg Syringe) 80 mg BID SQ Last administered on 01/07/20at 20:53; Start 01/07/20 at 21:00; Stop 01/08/20 at 08:57; Status DC Insulin Human Lispro (HumaLOG) 6 units TID SQ ; Start 01/07/20 at 14:00; Stop 01/07/20 at 10:05; Status DC Insulin Glargine (Lantus Syringe) 10 unit BID SQ Last administered on 01/08/20at 09:27; Start 01/07/20 at 21:00; Stop 01/08/20 at 11:25; Status DC Ascorbic Acid (Vitamin C) 250 mg Q6HRS PO Last administered on 01/25/20at 05:41; Start 01/07/20 at 12:00 Sodium Chloride 1,000 ml @ 75 mls/hr [id number] IV Last administered on 01/10/20at 19:33; Start 01/07/20 at 10:00; Stop 01/11/20 at 10:23; Status DC Insulin Human Lispro (HumaLOG) 6 units Q6HRS SQ Last administered on 01/08/20at 06:11; Start 01/07/20 at 12:00; Stop 01/08/20 at 11:25; Status DC Insulin Glargine (Lantus Syringe) 10 unit 1X ONCE SQ Last administered on 01/07/20at 11:40; Start 01/07/20 at 11:00; Stop 01/07/20 at 11:01; Status DC Enoxaparin Sodium (Lovenox 60mg Syringe) 60 mg BID SQ Last administered on at 08:55; Start 01/08/20 at 09:00; Stop 01/10/20 at 16:45; Status DC Vecuronium [place] (Norcuron Bolus) 6 mg PRN Q6HRS PRN IV SEDATION (2nd Choice) Last administered on 01/10/20at 16:36; Start 01/08/20 at 09:30 Insulin Glargine (Lantus Syringe) 14 unit BID SQ Last administered on 01/10/20at 09:24; Start 01/08/20 at 21:00; Stop 01/10/20 at 12:27; Status DC Insulin Human Lispro (HumaLOG) 8 units Q6HRS SQ Last administered on 01/10/20at 12:11; Start 01/08/20 at 12:00; Stop 01/10/20 at 12:27; Status DC Fentanyl Citrate 55 ml @ 0 mls/hr CONT PRN IV SEE PROTOCOL Last administered on 01/25/20at 04:44; Start 01/08/20 at 14:49 Lorazepam (Ativan Inj) 1 mg PRN Q1HR PRN IVP ANXIETY / AGITATION- MODERATE; Start 01/08/20 at 16:15 Lorazepam (Ativan Inj) 2 mg PRN Q1HR PRN IVP ANXIETY / AGITATION- SEVERE Last administered on 01/09/20at 13:10; Start 01/08/20 at 16:30 Insulin Human Lispro (HumaLOG) 6 units 1X ONCE SQ Last administered on 01/09/20at 06:20; Start 01/09/20 at 06:15; Stop 01/09/20 at 06:16; Status DC Hydralazine HCl (Apresoline Inj) 10 mg PRN Q4HRS PRN IVP ELEVATED BP, SEE COMMENTS Last administered on 01/24/20at 09:03; Start 01/10/20 at 09:15 Alteplase, Recombinant (Cathflo For Central Catheter Clearance) 1 mg 1X ONCE INT CAT Last administered on 01/10/20at 12:05; Start 01/10/20 at 11:00; Stop 01/10/20 at 11:01; Status DC Insulin Glargine (Lantus Syringe) 18 unit BID SQ Last administered on 01/11/20at 08:30; Start 01/10/20 at 21:00; Stop 01/11/20 at 10:03; Status DC Insulin Human Lispro (HumaLOG) 10 units Q6HRS SQ Last administered on 01/11/20at 05:53; Start 01/10/20 at 18:00; Stop 01/11/20 at 10:03; Status DC Vecuronium [place] 50 mg/ Miscellaneous 50 ml @ 4.027 mls/ hr CONT PRN IV SEE I/O RECORD Last administered on 01/24/20at 15:08; Start 01/10/20 at 16:15 Enoxaparin Sodium (Lovenox Per Pharmacy Treatment Dosing) 1 each PRN DAILY PRN MC SEE COMMENTS; Start 01/10/20 at 16:45; Stop 01/19/20 at 18:12; Status DC Enoxaparin Sodium (Lovenox 80mg Syringe) 80 mg Q12HR SQ Last administered on 01/19/20at 08:26; Start 01/10/20 at 21:00; Stop 01/19/20 at 18:10; Status DC Furosemide (Lasix) 40 mg 1X ONCE IVP Last administered on 01/11/20 10:19; Start 01/11/20 at 10:00; Stop 01/11/20 at 10:01; Status DC Insulin Glargine (Lantus Syringe) 24 unit BID SQ Last administered on 01/24/20at 20:52; Start 01/11/20 at 10:30 Insulin Human Lispro (HumaLOG) 14 units Q6HRS SQ Last administered on 01/17/20at 06:06; Start 01/11/20 at 12:00; Stop 01/17/20 at 11:48; Status DC Info (Anti-Coagulation Monitoring By Pharmacy) 1 each PRN DAILY PRN MC SEE COMMENTS Last administered on 01/19/20at 12:39; Start 01/12/20 at 10:00; Stop 01/20/20 at 13:31; Status DC Polyethylene Glycol (miraLAX PACKET) 17 gm DAILY PO Last administered on 01/24/20 09:02; Start 01/14/20 at 11:00 Dextrose/Sodium Chloride 1,000 ml @ 75 mls/hr [id number] IV Last administered on 01/21/20at 15:15; Start 01/15/20 at 09:30; Stop 01/21/20 at 21:59; Status DC Insulin Human Lispro (HumaLOG) 0-5 UNITS Q6HRS SQ Last administered on 01/24/20at 17:14; Start 01/17/20 at 12:00 Dextrose (Dextrose 50%-Water Syringe) 12.5 gm PRN Q15MIN PRN IV SEE COMMENTS; Start 01/17/20 at 12:00 Enoxaparin Sodium (Lovenox 40mg Syringe) 40 mg Q12HR SQ Last administered on 01/24/20at 20:52; Start 01/19/20 at 21:00 Info (Tpn Per Pharmacy) 1 each PRN DAILY PRN MC SEE COMMENTS Last administered on 01/24/20at 11:01; Start 01/21/20 at 09:30 Sodium Acetate 90 meq/Potassium Acetate 50 meq/ Potassium Phosphate 13.6 mmol/Magnesium Sulfate 10 meq/ Calcium Gluconate 10 meq/ Multivitamins 10 ml/Chromium/ Copper/Manganese/ Seleni/Zn 1 ml/ Total Parenteral Nutrition/Amino Acids/Dextrose 1,512 ml @ 63 mls/hr TPN CONT IV Last administered on 01/21/20at 22:05; Start 01/21/20 at 22:00; Stop 01/22/20 at 21:59; Status DC Sodium Acetate 90 meq/Potassium Acetate 40 meq/ Potassium Phosphate 13.6 mmol/Magnesium Sulfate 8 meq/ Calcium Gluconate 10 meq/ Multivitamins 10 ml/Chromium/ Copper/Manganese/ Seleni/Zn 1 ml/ Total Parenteral Nutrition/Amino Acids/Dextrose 1,512 ml @ 63 mls/hr TPN CONT IV Last administered on 01/22/20at 22:11; Start 01/22/20 at 22:00; Stop 01/23/20 at 21:59; Status DC Sodium Acetate 90 meq/Potassium Acetate 10 meq/ Potassium Phosphate 20 mmol/ Magnesium Sulfate 8 meq/Calcium Gluconate 10 meq/ Multivitamins 10 ml/Chromium/ Copper/Manganese/ Seleni/Zn 1 ml/ Total Parenteral Nutrition/Amino Acids/Dextrose 1,512 ml @ 63 mls/hr TPN CONT IV Last administered on 01/23/20at 21:49; Start 01/23/20 at 22:00; Stop 01/24/20 at 21:59; Status DC Sodium Acetate 90 meq/Potassium Acetate 10 meq/ Potassium Phosphate 20 mmol/ Magnesium Sulfate 8 meq/Calcium Gluconate 10 meq/ Multivitamins 10 ml/Chromium/ Copper/Manganese/ Seleni/Zn 1 ml/ Total Parenteral Nutrition/Amino Acids/Dextrose 1,512 ml @ 63 mls/hr TPN CONT IV Last administered on 01/24/20at 22:38; Start 01/24/20 at 22:00; Stop 01/25/20 at 21:59 Vitals/I & O Vital Sign - Last 24 Hours 01/24/20 01/24/20 01/24/20 01/24/20 08:00 08:00 08:10 09:00 Temp 97.7 97.7 Pulse 120 120 Resp 22 B/P (MAP) 191/80 (117) 181/94 (123) Pulse Ox 96 95 95 O2 Delivery Ventilator Mechanical Ventilator Ventilator Ventilator 01/24/20 01/24/20 01/24/20 01/24/20 09:03 10:00 11:00 12:00 Temp 97.7 97.7 Pulse 118 120 120 120 Resp 22 22 22 B/P (MAP) 193/110 165/82 (109) 139/76 (97) Pulse Ox 95 95 95 O2 Delivery Ventilator Ventilator Ventilator 01/24/20 01/24/20 01/24/20 01/24/20 12:00 12:30 13:00 14:00 Pulse 107 108 Resp B/P (MAP) 122/71 (88) 121/72 (88) Pulse Ox 95 95 98 O2 Delivery Mechanical Ventilator Ventilator Ventilator Ventilator 01/24/20 01/24/20 01/24/20 01/24/20 14:02 15:00 16:00 16:00 Temp 98.1 98.1 Pulse 93 76 Resp B/P (MAP) 115/73 (87) 99/51 (67) Pulse Ox 95 99 O2 Delivery Ventilator Ventilator Ventilator Mechanical Ventilator 01/24/20 01/24/20 01/24/20 01/24/20 16:15 17:00 18:00 19:00 Pulse 82 80 78 Resp B/P (MAP) 115/70 (85) 101/69 (80) 94/64 (74) Pulse Ox 95 95 97 97 O2 Delivery Ventilator Ventilator Ventilator Ventilator 01/24/20 01/24/20 01/24/20 01/24/20 20:00 20:00 20:27 21:00 Temp 97.8 97.8 Pulse 76 74 Resp B/P (MAP) 93/62 (72) 103/66 (78) Pulse Ox 97 95 97 O2 Delivery Mechanical Ventilator Ventilator Ventilator Ventilator 01/24/20 01/24/20 01/25/20 01/25/20 22:00 23:00 00:00 00:00 Temp 98.3 98.3 Pulse 72 69 66 Resp 22 B/P (MAP) 99/62 (74) 96/60 (72) 94/62 (73) Pulse Ox 97 96 96 O2 Delivery Ventilator Ventilator Ventilator Mechanical Ventilator 01/25/20 01/25/20 01/25/20 01/25/20 00:03 01:00 02:00 03:00 Pulse 65 63 61 Resp 22 B/P (MAP) 105/68 (80) 99/57 (71) 99/60 (73) Pulse Ox 96 94 95 96 O2 Delivery Ventilator Ventilator Ventilator Ventilator 01/25/20 01/25/20 01/25/20 01/25/20 04:00 04:00 04:10 05:00 Temp 97.6 97.6 Pulse 66 66 Resp 22 22 B/P (MAP) 101/58 (72) 107/60 (76) Pulse Ox 93 95 94 O2 Delivery Ventilator Mechanical Ventilator Ventilator Ventilator 01/25/20 01/25/20 06:00 07:00 Pulse 65 59 Resp 22 22 B/P (MAP) 100/58 (72) 96/55 (69) Pulse Ox 94 94 O2 Delivery Ventilator Ventilator Intake and Output 01/24/20 01/24/20 01/25/20 15:00 23:00 07:00 Intake Total 1689.29 ml 1012.3 ml Output Total 325 ml 160 ml 375 ml Balance -325 ml 1529.29 ml 637.3 ml Justicifation of Admission Dx: Justifications for Admission: Justification of Admission Dx: Yes CAROLINA VEGA MD Jan 25, 2020 07:23
[2020-01-25] MEDS: ZINC SULFATE 220 MG CAPSULE. PO SCH (08:03)
[2020-01-25] MEDS: POLYETHYLENE GLYCOL 3350 17 GM PACKET. PO SCH (08:03)
[2020-01-25] MEDS: PANTOPRAZOLE IV PUSH 40 MG VIAL. IVP SCH (08:03)
[2020-01-25] MEDS: INSULIN GLARGINE SYRINGE. SQ SCH ×2 (08:04→21:18)
[2020-01-25] MEDS: ENOXAPARIN 40 MG/0.4 ML SYRINGE. SQ SCH ×2 (08:04→21:18)
--- NOTE | 2020-01-25 08:49 | PDOC ---
PULMONARY PROGRESS NOTES DATE: 01/25/20 TIME: 08:49 Subjective remains intubated/sedated AC mode ,95 FIO2/14 PEEP, desat w any movement Patient sedated Vitals Vital Signs Date Time Temp Pulse Resp B/P (MAP) Pulse Ox O2 Delivery O2 Flow Rate FiO2 01/25/20 08:00 97.5 57 22 104/59 (74) 93 Ventilator 97.5 Comments visual exam done due to COVID-Pandemic intubated sedated VENT 100% and PEEP 14 nc at rrr no accessory muscle use no skin rash lower extremity edema Lungs: Crackles, Other (Intubated) Labs Laboratory Tests Test 01/23/20 08:54 01/23/20 11:27 01/23/20 17:46 01/23/20 21:38 O2 Saturation 86 % (92-99) Arterial Blood pH 7.42 (7.35-7.45) Arterial Blood pCO2 at Patient Temp 45 mmHg (35-46) Arterial Blood pO2 at Patient Temp 54 mmHg (65-108) Arterial Blood HCO3 29 mmol/L (21-28) Arterial Blood Base Excess 4 mmol/L (-3-3) FiO2 100 Glucose (Fingerstick) 236 mg/dL (70-99) 237 mg/dL (70-99) 229 mg/dL (70-99) Test 01/24/20 00:43 01/24/20 05:45 01/24/20 06:10 01/24/20 08:10 Glucose (Fingerstick) 226 mg/dL (70-99) 202 mg/dL (70-99) Sodium Level 140 mmol/L (136-145) Potassium Level 4.0 mmol/L (3.5-5.1) Chloride Level 103 mmol/L (98-107) Carbon Dioxide Level 32 mmol/L (21-32) Anion Gap 5 (6-14) Blood Urea Nitrogen 20 mg/dL (8-26) Creatinine 0.5 mg/dL (0.7-1.3) Estimated GFR (Cockcroft-Gault) 166.9 Glucose Level 211 mg/dL (70-99) Calcium Level 7.7 mg/dL (8.5-10.1) Phosphorus Level 3.2 mg/dL (2.6-4.7) Magnesium Level 2.2 mg/dL (1.8-2.4) O2 Saturation 93 % (92-99) Arterial Blood pH 7.39 (7.35-7.45) Arterial Blood pCO2 at Patient Temp 48 mmHg (35-46) Arterial Blood pO2 at Patient Temp 71 mmHg (65-108) Arterial Blood HCO3 28 mmol/L (21-28) Arterial Blood Base Excess 3 mmol/L (-3-3) FiO2 100 Test 01/24/20 12:33 01/24/20 17:11 01/25/20 00:51 01/25/20 06:13 Glucose (Fingerstick) 223 mg/dL (70-99) 210 mg/dL (70-99) 193 mg/dL (70-99) 223 mg/dL (70-99) Test 01/25/20 06:15 Sodium Level 141 mmol/L (136-145) Potassium Level 4.1 mmol/L (3.5-5.1) Chloride Level 105 mmol/L (98-107) Carbon Dioxide Level 36 mmol/L (21-32) Anion Gap 0 (6-14) Blood Urea Nitrogen 21 mg/dL (8-26) Creatinine 0.6 mg/dL (0.7-1.3) Estimated GFR (Cockcroft-Gault) 135.2 Glucose Level 187 mg/dL (70-99) Calcium Level 7.2 mg/dL (8.5-10.1) Phosphorus Level 3.2 mg/dL (2.6-4.7) Magnesium Level 2.2 mg/dL (1.8-2.4) Laboratory Tests Test 01/24/20 12:33 01/24/20 17:11 01/25/20 00:51 01/25/20 06:13 Glucose (Fingerstick) 223 mg/dL (70-99) 210 mg/dL (70-99) 193 mg/dL (70-99) 223 mg/dL (70-99) Test 01/25/20 06:15 Sodium Level 141 mmol/L (136-145) Potassium Level 4.1 mmol/L (3.5-5.1) Chloride Level 105 mmol/L (98-107) Carbon Dioxide Level 36 mmol/L (21-32) Anion Gap 0 (6-14) Blood Urea Nitrogen 21 mg/dL (8-26) Creatinine 0.6 mg/dL (0.7-1.3) Estimated GFR (Cockcroft-Gault) 135.2 Glucose Level 187 mg/dL (70-99) Calcium Level 7.2 mg/dL (8.5-10.1) Phosphorus Level 3.2 mg/dL (2.6-4.7) Magnesium Level 2.2 mg/dL (1.8-2.4) Comments CXR reviewed 1. Bilateral diffuse infiltrates are increased in the left base and mildly improved elsewhere. Impression . 1. Acute hypoxic respiratory failure secondary to COVID-19 pneumonia/ARDS/acute lung injury-- 2. Abnormal chest x-ray with bilateral infiltrates consistent with COVID-19 pneumonia. 3. Hypotension secondary to combination of hypovolemia and sepsis status post 2 liters of IV fluids. no pressors, 4. Acute kidney injury--resolved 5. Severe protein-calorie malnutrition. 6. Abnormal D-dimer related to COVID-19 pneumonia. Full dose lovenox added 01/09 due to increase in D-dimer to 20, now decreasing to 3.5. Lovenox dose reduced 7. Fevers ,resolved Plan . Discussed with RT titrate FiO2 Continue current support try to taper off propofol if possible will not escalate any further PEEP, to avoid barotrauma Lovenox dose reduced since D-Dimer down to 3.5 from 20 Broad spectrum antibiotic. Cont. IV steroids, with taper, Stress ulcer prophylaxis. s/p Plasma Pt doing poorly not expected to survive prognosis poor D/W RN and RT PT. is DNR critically ill Critical care time 30 minutes, family aware of pt. clinical condition, no overlap Dr Matias spoke with ACACIA MATIAS MD Jan 25, 2020 08:49
[2020-01-25 09:11] LABS: BASE EXCESS ABG 6 mmol/L (-3-3); HCO3 ABG 32 mmol/L (21-28); PCO2 ABG 49 mmHg (35-46); PO2 ABG 65 mmHg (65-108); SAT O2 ABG 91 % (92-99)
[2020-01-25 09:15] LABS: FIO2 ABG 95
[2020-01-25] MEDS: hydrALAZINE 20 MG/ML VIAL. IVP PRN ×2 (13:09→17:37)
[2020-01-25] MEDS: VECURONIUM BROMIDE 50 MG in TOTAL VOLUME 50 ML IV PRN (13:09)
[2020-01-25] MEDS: TPN PER PHARMACY MC PRN (13:53)
--- NOTE | 2020-01-25 13:53 | NUR ---
Pharmacy TPN Dosing Note S: YANDY HORN is a 64 year old M Currently receiving Central Continuous TPN started 01/21/20 B:Pertinent PMH: critical illness Height: 5 feet, 2 inches Weight: 100.9 kg Current diet: npo LABS: Sodium: 141 Potassium: 4.1 Chloride: 105 Calcium: 7.2 Corrected Calcium: 9.52 Magnesium: 2.2 CO2: 36 SCr: 0.6 Glucose: 169-223 Albumin: 1.1 AST: 31 ALT: 36 TPN FORMULA: TPN TYPE: Central Continuous AMINO ACIDS: 60 gm DEXTROSE: 195 gm LIPIDS: 0 gm SODIUM ACETATE: 90 mEq POTASSIUM CHLORIDE: 10 mEq POTASSIUM PHOSPHATE: 20 mmol MAGNESIUM: 8 mEq CALCIUM: 10 mEq MULTIPLE VITAMIN: 10 ml TRACE ELEMENTS: 1 ml(s) TPN PLAN: Change KAce to KCl due to elevated TCO2 today. R: Change TPN as noted above. Will monitor electrolytes, glucose, and tolerance to TPN. KOFI BRAN [facility], 01/25/20 [id number]
--- NOTE | 2020-01-25 14:38 | NUR ---
SS following up with discharge planning. SS reviewed pt chart and discussed with pt RN. Pt remains on the vent at this time. COVID19 positive. Pt on TPN. DNR. SS will continue to follow for discharge planning.
[2020-01-25] MEDS: METOPROLOL TARTRATE 5 MG/5 ML VIAL. IVP SCH ×2 (15:28→17:37)
--- NOTE | 2020-01-25 16:21 | NUR ---
Pt O2 sats have decreased into the 70's with no activity around 1600. FiO2 increased to 100%. Pt remains paralyzed on the vent with sedation. Suctioned pt with little secretions removed. RT notified of pt condition and FiO2 increase.
[2020-01-25] MEDS ORDERED: AMINO ACID IV SCH (22:00)
[2020-01-25] MEDS ORDERED: [UNRECOGNIZED DRUG - OTHER] IV SCH (22:00)
[2020-01-25] MEDS ORDERED: DEXTROSE 70% IV SCH (22:00)
[2020-01-25] MEDS ORDERED: TOTAL PARENTERAL NUTRITION IV SCH (22:00)
[2020-01-26] VITALS (18 sets, daily range): BP systolic 45–175; BP diastolic 29–80
[2020-01-26] MEDS: ASCORBIC ACID 500 MG TABLET PO SCH ×3 (00:07→11:43)
[2020-01-26] MEDS: METOPROLOL TARTRATE 5 MG/5 ML VIAL. IVP SCH ×3 (00:07→11:43)
[2020-01-26] MEDS: INSULIN LISPRO 300 UNITS/3 ML VIAL. SQ SCH ×3 (00:08→11:43)
--- NOTE | 2020-01-26 00:27 | NUR ---
Desats badly with any movement. Recovery time increasing. After pulling pillows out from under patient at 0000, O2 sat 69-70 with no signs of recovery at this time. RT informed.
[2020-01-26] MEDS: MIDAZOLAM 100mg/100ml NS BAG 100 ML IV PRN ×2 (00:34→08:16)
[2020-01-26] MEDS: PROPOFOL 100 ML IV PRN ×3 (00:34→13:49)
[2020-01-26] MEDS: fentaNYL HIGH DOSE PCA 55 ML IV PRN (05:11)
[2020-01-26] MEDS: methylPREDNISolone SOD SUCC PF 40 MG/ML VIAL. IV SCH ×2 (06:00→13:48)
--- NOTE | 2020-01-26 06:45 | PDOC ---
PROGRESS NOTES Date of Service: DATE: 01/26/20 TIME: 06:40 Chief Complaint Chief Complaint COVID-19 positive Acute hypoxemic respiratory failure Bilateral perihilar infiltrates are seen which appear increased slightly Leukocytosis with bandemia secondary to septic process Hyponatremia secondary to low effective circulatory volume, now hypernatremic Acue renal failure due to vasomotor nephropathy most likely Hyperglycemia transaminitis Uncontrolled hypertension Abdominal distention Plan Continue with supportive measures Prognosis is quite guarded Continues to require 95% oxygen Continues to require a lot of PEEP currently at 14 will give an update to the family History of Present Illness History of Present Illness 01/26/2020 Remains critically ill Seen in the ICU Continues with ventilatory support Assist-control/6 100/100% with 14 of PEEP Discussed with RN Chart reviewed 01/25/2020 Continues to be about the same No acute events reported overnight. discussed with RN Does not tolerate moving around too much. 01/24/2020 Remains critically ill Seen in the ICU Continues with ventilatory support Assist-control/6 100/100% with 14 of PEEP Discussed with RN Chart reviewed 01/23/2020 Patient seen in the [place] [id number] ICU He is on the vent Assist-control/6 100/100% with 14 of PEEP He is critically ill Discussed with RN Chart reviewed 01/22/2020 Patient seen in the [place] [id number] ICU He remains mechanically ventilated He is also started on TPN He is sedated with propofol fentanyl Versed and Precedex We are using paralytics with vecuronium Vent settings as follows AC/22/6 100/100% with 14 of PEEP Chart reviewed Discussed with RN He remains very critically ill prognosis is very guarded at best 01/21/2020 Patient seen and [place] [id number] ICU He remains intubated Assist-control//600 with 100% FiO2 He is in [facility] for patient safety He is sedated with propofol Versed and fentanyl Has OG at 60 cc an hour Discussed with RN Discussed with case management Reviewed chart 01/20/2020 Patient seen and examined in the [place] [id number] ICU He remains intubated He is on Versed for sedation and he has to be paralyzed with vecuronium He also has propofol fentanyl and Precedex for additional sedation Chart reviewed Discussed with the rn field case manager Discussed with RN He remains critically ill Vent settings as follows AC/22/6 100/100% with 14 of PEEP 01/19/2020 Patient seen and examined in the COVID-19 ICU He is intubated 100/100% with 14 of PEEP He is sedated with Versed propofol fentanyl and Precedex he is also paralyzed with vecuronium Chart reviewed Discussed with RN Discussed with rn field case manager History of Present Illness Patient is a 64-year-old gentleman who was diagnosed with COVID-19 infection on Friday 5 days prior to his admission to the intensive care unit. Apparently the patient reported worsening respiratory distress reason why he came to the emergency department for evaluation and treatment. The story was quite limited since the patient was speaking Sami only and his acuity was such that he required mechanical ventilation and prompt intubation by the emergency department physician. At the present time patient is intubated and sedated continues to require a lot of support no pertinent past medical history was reported he is admitted to the intensive care unit for further treatment 01/10/2020 Continues to require full support, glycemia has been noted in hypertension as well. Discussed with nursing staff, all of concerns were addressed to the best of my abilities no acute events reported overnight 01/11/2020 No acute events reported overnight, case discussed with nursing staff patient in no acute distress 01/12/2020 Per nursing staff, patient febrile overnight, treated with Tylenol and tepid water bath. Case discussed with nursing staff, continue with IV antibiotics and full VTE prophylaxis. 01/13/2020 Patient still febrile overnight. O2 requirement increasing. Discussed with RN. 01/16 Patient still intubated and sedated. Discussed with RN, patient was made DNR. schedule MiraLAX. Vitals Vitals Vital Signs Date Time Temp Pulse Resp B/P (MAP) Pulse Ox O2 Delivery O2 Flow Rate FiO2 01/26/20 06:11 103 148/70 01/26/20 06:00 22 80 Ventilator 01/26/20 04:00 98.4 98.4 Physical Exam Physical Exam sedated on vent General: No acute distress, Other (Intubated and sedated) Heart: Regular rate, Normal S1, Normal S2 Lungs: Crackles, Other (Intubated) Abdomen: Other (Nondistended) Extremities: No clubbing, No cyanosis Skin: No rashes, No breakdown Labs LABS Laboratory Tests Test 01/25/20 08:45 01/25/20 11:39 01/25/20 17:46 01/25/20 23:55 O2 Saturation 91 % (92-99) Arterial Blood pH 7.42 (7.35-7.45) Arterial Blood pCO2 at Patient Temp 49 mmHg (35-46) Arterial Blood pO2 at Patient Temp 65 mmHg (65-108) Arterial Blood HCO3 32 mmol/L (21-28) Arterial Blood Base Excess 6 mmol/L (-3-3) FiO2 95 Glucose (Fingerstick) 169 mg/dL (70-99) 181 mg/dL (70-99) 172 mg/dL (70-99) Test 01/26/20 05:52 Glucose (Fingerstick) 167 mg/dL (70-99) Comment Review of Relevant I have reviewed the following items hong (where applicable) has been applied. Labs Laboratory Tests Test 01/24/20 08:10 01/24/20 12:33 01/24/20 17:11 01/25/20 00:51 O2 Saturation 93 % (92-99) Arterial Blood pH 7.39 (7.35-7.45) Arterial Blood pCO2 at Patient Temp 48 mmHg (35-46) Arterial Blood pO2 at Patient Temp 71 mmHg (65-108) Arterial Blood HCO3 28 mmol/L (21-28) Arterial Blood Base Excess 3 mmol/L (-3-3) FiO2 100 Glucose (Fingerstick) 223 mg/dL (70-99) 210 mg/dL (70-99) 193 mg/dL (70-99) Test 01/25/20 06:13 01/25/20 06:15 01/25/20 08:45 01/25/20 11:39 Glucose (Fingerstick) 223 mg/dL (70-99) 169 mg/dL (70-99) Sodium Level 141 mmol/L (136-145) Potassium Level 4.1 mmol/L (3.5-5.1) Chloride Level 105 mmol/L (98-107) Carbon Dioxide Level 36 mmol/L (21-32) Anion Gap 0 (6-14) Blood Urea Nitrogen 21 mg/dL (8-26) Creatinine 0.6 mg/dL (0.7-1.3) Estimated GFR (Cockcroft-Gault) 135.2 Glucose Level 187 mg/dL (70-99) Calcium Level 7.2 mg/dL (8.5-10.1) Phosphorus Level 3.2 mg/dL (2.6-4.7) Magnesium Level 2.2 mg/dL (1.8-2.4) O2 Saturation 91 % (92-99) Arterial Blood pH 7.42 (7.35-7.45) Arterial Blood pCO2 at Patient Temp 49 mmHg (35-46) Arterial Blood pO2 at Patient Temp 65 mmHg (65-108) Arterial Blood HCO3 32 mmol/L (21-28) Arterial Blood Base Excess 6 mmol/L (-3-3) FiO2 95 Test 01/25/20 17:46 01/25/20 23:55 01/26/20 05:52 Glucose (Fingerstick) 181 mg/dL (70-99) 172 mg/dL (70-99) 167 mg/dL (70-99) Laboratory Tests Test 01/25/20 08:45 01/25/20 11:39 01/25/20 17:46 01/25/20 23:55 O2 Saturation 91 % (92-99) Arterial Blood pH 7.42 (7.35-7.45) Arterial Blood pCO2 at Patient Temp 49 mmHg (35-46) Arterial Blood pO2 at Patient Temp 65 mmHg (65-108) Arterial Blood HCO3 32 mmol/L (21-28) Arterial Blood Base Excess 6 mmol/L (-3-3) FiO2 95 Glucose (Fingerstick) 169 mg/dL (70-99) 181 mg/dL (70-99) 172 mg/dL (70-99) Test 01/26/20 05:52 Glucose (Fingerstick) 167 mg/dL (70-99) Microbiology 01/08/20 Blood Culture - Final, Complete NO GROWTH AFTER 5 DAYS 01/06/20 Urine Culture - Final, Complete Medications Current Medications Etomidate (Amidate) 20 mg STK-MED ONCE IV ; Start 01/06/20 at 18:54; Stop 01/06/20 at 18:54; Status DC Succinylcholine Chloride (Anectine) 200 mg STK-MED ONCE .ROUTE ; Start 01/06/20 at 18:55; Stop 01/06/20 at 18:55; Status DC Propofol 50 ml @ As Directed STK-MED ONCE IV ; Start 01/06/20 at 18:55; Stop 01/06/20 at 18:56; Status DC Propofol 100 ml @ 0 mls/hr CONT PRN IV SEE PROTOCOL Last administered on 01/26/20at 00:34; Start 01/06/20 at 19:00 Fentanyl Citrate (Fentanyl 2ml Vial) 25 mcg PRN Q1HR PRN IV SEE COMMENTS; Sta rt 01/06/20 at 19:00; Stop 01/22/20 at 08:54; Status DC Fentanyl Citrate (Fentanyl 2ml Vial) 50 mcg PRN Q1HR PRN IV SEE COMMENTS Last administered on 01/06/20at 19:42; Start 01/06/20 at 19:00 Chlorhexidine Gluconate (Peridex) 15 ml BID MM Last administered on 01/07/20at 08:16; Start 01/06/20 at 21:00; Stop 01/07/20 at 09:45; Status DC Midazolam HCl (Versed) 5 mg STK-MED ONCE .ROUTE ; Start 01/06/20 at 19:17; Stop 01/06/20 at 19:18; Status DC Midazolam HCl 50 mg/Sodium Chloride 50 ml @ 0 mls/hr 1X ONCE IV ; Start 01/06/20 at 19:30; Stop 01/06/20 at 19:31; Status UNV Albuterol/ Ipratropium (Duoneb) 3 ml STK-MED ONCE .ROUTE ; Start 01/06/20 at 19:27; Stop 01/06/20 at 19:27; Status DC Midazolam HCl 100 ml @ 0 mls/hr CONT PRN IV SEE PROTOCOL Last administered on 01/26/20at 00:34; Start 01/06/20 at 19:30 Propofol 50 ml @ 0 mls/hr 1X ONCE IV Last administered on 01/06/20at 18:55; Start 01/06/20 at 20:00; Stop 01/06/20 at 20:01; Status DC Midazolam HCl (Versed) 5 mg 1X ONCE NS Last administered on 01/06/20at 19:18; Start 01/06/20 at 19:18; Stop 01/06/20 at 19:59; Status DC Piperacillin Sod/ Tazobactam Sod 3.375 gm/Sodium Chloride 50 ml @ 100 mls/hr 1X ONCE IV Last administered on 01/06/20at 21:47; Start 01/06/20 at 20:45; Stop 01/06/20 at 21:14; Status DC Dexmedetomidine HCl 400 mcg/ Sodium Chloride 100 ml @ 0 mls/hr CONT PRN IV SEDATION Last administered on 01/25/20 05:37; Start 01/06/20 at 20:15 Sodium Chloride 500 ml @ 500 mls/hr 1X PRN PRN IV SEE COMMENTS Last administered on 01/13/20at 11:22; Start 01/06/20 at 20:15 Atropine Sulfate (ATROPINE 0.5mg SYRINGE) 0.5 mg PRN Q5MIN PRN IV SEE COMMENTS; Start 01/06/20 at 20:15 Fentanyl Citrate (Fentanyl 2ml Vial) 100 mcg 1X ONCE IVP Last administered on 01/06/20 20:17; Start 01/06/20 at 20:15; Stop 01/06/20 at 20:18; Status DC Methylprednisolone Sodium Succinate (SOLU-Medrol 40MG VIAL) 40 mg Q8HRS IV Last administered on 01/26/20 06:00; Start 01/06/20 at 22:00 Enoxaparin Sodium (Lovenox 40mg Syringe) 40 mg BID SQ Last administered on 01/07/20 08:15; Start 01/06/20 at 21:30; Stop 01/07/20 at 09:47; Status DC Potassium Chloride/Dextrose/ Sod Cl 1,000 ml @ 125 mls/hr Q8H ONCE IV Last administered on 01/06/20 22:13; Start 01/06/20 at 21:30; Stop 01/07/20 at 05:29; Status DC Zinc Sulfate (Orazinc) 220 mg DAILY PO Last administered on 01/25/20 08:03; Start 01/07/20 at 09:00 Ondansetron HCl (Zofran) 4 mg PRN Q4HRS PRN IV NAUSEA/VOMITING; Start 01/06/20 at 21:30 Acetaminophen (Tylenol) 650 mg PRN Q4HRS PRN GT TEMP OVER 100.4F OR MILD PAIN Last administered on 01/14/20 05:51; Start 01/06/20 at 21:30 Acetaminophen (Tylenol Supp) 650 mg PRN Q4HRS PRN [place] TEMP OVER 100.4F OR MILD PAIN; Start 01/06/20 at 21:30 Docusate Sodium (Colace) 100 mg PRN BID PRN PO HARD STOOLS Last administered on 8/26/20at 08:26; Start 01/06/20 at 21:30 Piperacillin Sod/ Tazobactam Sod 3.375 gm/Sodium Chloride 50 ml @ 100 mls/hr Q6HRS IV Last administered on 01/19/20 12:16; Start 01/07/20 at 00:00; Stop 01/19/20 at 17:00; Status DC Pantoprazole Sodium (PROTONIX VIAL for IV PUSH) 40 mg DAILYAC IVP Last administered on 01/25/20 08:03; Start 01/07/20 at 07:30 Norepinephrine Bitartrate 8 mg/ Dextrose 258 ml @ 12.578 mls/ hr CONT PRN IV PER PROTOCOL Last administered on 01/06/20at 22:15; Start 01/06/20 at 21:45 Sodium Chloride 1,000 ml @ 1,000 mls/hr 1X ONCE IV Last administered on 01/06/20at 21:44; Start 01/06/20 at 21:45; Stop 01/06/20 at 22:44; Status DC Fentanyl Citrate 30 ml @ 0 mls/hr CONT PRN IV SEE PROTOCOL Last administered on 01/08/20at 10:44; Start 01/06/20 at 21:45; Stop 01/08/20 at 14:49; Status DC Vecuronium Accident (Norcuron Bolus) 6 mg PRN Q2HR PRN IV VENT ASYNCHRONY Last administered on 01/08/20at 11:23; Start 01/06/20 at 21:45; Stop 01/08/20 at 14:48; Status DC Sodium Chloride 1,000 ml @ 1,000 mls/hr 1X ONCE IV Last administered on 01/06/20at 22:36; Start 01/06/20 at 22:30; Stop 01/06/20 at 23:29; Status DC Methylprednisolone Sodium Succinate (SOLU-Medrol 40MG VIAL) 40 mg Q8HRS IV ; Start 01/07/20 at 14:00; Status UNV Enoxaparin Sodium (Lovenox 80mg Syringe) 80 mg BID SQ Last administered on 01/07/20at 20:53; Start 01/07/20 at 21:00; Stop 01/08/20 at 08:57; Status DC Insulin Human Lispro (HumaLOG) 6 units TID SQ ; Start 01/07/20 at 14:00; Stop 01/07/20 at 10:05; Status DC Insulin Glargine (Lantus Syringe) 10 unit BID SQ Last administered on 01/08/20at 09:27; Start 01/07/20 at 21:00; Stop 01/08/20 at 11:25; Status DC Ascorbic Acid (Vitamin C) 250 mg Q6HRS PO Last administered on 01/26/20 06:11; Start 01/07/20 at 12:00 Sodium Chloride 1,000 ml @ 75 mls/hr [id number] IV Last administered on 01/10/20at 19:33; Start 01/07/20 at 10:00; Stop 01/11/20 at 10:23; Status DC Insulin Human Lispro (HumaLOG) 6 units Q6HRS SQ Last administered on 01/08/20at 06:11; Start 01/07/20 at 12:00; Stop 01/08/20 at 11:25; Status DC Insulin Glargine (Lantus Syringe) 10 unit 1X ONCE SQ Last administered on 01/07/20at 11:40; Start 01/07/20 at 11:00; Stop 01/07/20 at 11:01; Status DC Enoxaparin Sodium (Lovenox 60mg Syringe) 60 mg BID SQ Last administered on 01/10/20at 08:55; Start 01/08/20 at 09:00; Stop 01/10/20 at 16:45; Status DC Vecuronium Accident (Norcuron Bolus) 6 mg PRN Q6HRS PRN IV SEDATION (2nd Choice) Last administered on 01/10/20at 16:36; Start 01/08/20 at 09:30 Insulin Glargine (Lantus Syringe) 14 unit BID SQ Last administered on 01/10/20at 09:24; Start 01/08/20 at 21:00; Stop 01/10/20 at 12:27; Status DC Insulin Human Lispro (HumaLOG) 8 units Q6HRS SQ Last administered on 01/10/20at 12:11; Start 01/08/20 at 12:00; Stop 01/10/20 at 12:27; Status DC Fentanyl Citrate 55 ml @ 0 mls/hr CONT PRN IV SEE PROTOCOL Last administered on 01/26/20at 05:11; Start 01/08/20 at 14:49 Lorazepam (Ativan Inj) 1 mg PRN Q1HR PRN IVP ANXIETY / AGITATION- MODERATE; Start 01/08/20 at 16:15 Lorazepam (Ativan Inj) 2 mg PRN Q1HR PRN IVP ANXIETY / AGITATION- SEVERE Last administered on 01/09/20at 13:10; Start 01/08/20 at 16:30 Insulin Human Lispro (HumaLOG) 6 units 1X ONCE SQ Last administered on 01/09/20at 06:20; Start 01/09/20 at 06:15; Stop 01/09/20 at 06:16; Status DC Hydralazine HCl (Apresoline Inj) 10 mg PRN Q4HRS PRN IVP ELEVATED BP, SEE COMMENTS Last administered on 01/25/20at 17:37; Start 01/10/20 at 09:15 Alteplase, Recombinant (Cathflo For Central Catheter Clearance) 1 mg 1X ONCE INT CAT Last administered on 01/10/20at 12:05; Start 01/10/20 at 11:00; Stop 01/10/20 at 11:01; Status DC Insulin Glargine (Lantus Syringe) 18 unit BID SQ Last administered on 01/11/20at 08:30; Start 01/10/20 at 21:00; Stop 01/11/20 at 10:03; Status DC Insulin Human Lispro (HumaLOG) 10 units Q6HRS SQ Last administered on 01/11/20at 05:53; Start 01/10/20 at 18:00; Stop 01/11/20 at 10:03; Status DC Vecuronium Accident 50 mg/ Miscellaneous 50 ml @ 4.027 mls/ hr CONT PRN IV SEE I/O RECORD Last administered on 01/25/20at 13:09; Start 01/10/20 at 16:15 Enoxaparin Sodium (Lovenox Per Pharmacy Treatment Dosing) 1 each PRN DAILY PRN MC SEE COMMENTS; Start 01/10/20 at 16:45; Stop 01/19/20 at 18:12; Status DC Enoxaparin Sodium (Lovenox 80mg Syringe) 80 mg Q12HR SQ Last administered on 01/19/20at 08:26; Start 01/10/20 at 21:00; Stop 01/19/20 at 18:10; Status DC Furosemide (Lasix) 40 mg 1X ONCE IVP Last administered on 01/11/20at 10:19; Start 01/11/20 at 10:00; Stop 01/11/20 at 10:01; Status DC Insulin Glargine (Lantus Syringe) 24 unit BID SQ Last administered on 01/25/20at 21:18; Start 01/11/20 at 10:30 Insulin Human Lispro (HumaLOG) 14 units Q6HRS SQ Last administered on 01/17/20at 06:06; Start 01/11/20 at 12:00; Stop 01/17/20 at 11:48; Status DC Info (Anti-Coagulation Monitoring By Pharmacy) 1 each PRN DAILY PRN MC SEE COMMENTS Last administered on 01/19/20 12:39; Start 01/12/20 at 10:00; Stop 01/20/20 at 13:31; Status DC Polyethylene Glycol (miraLAX PACKET) 17 gm DAILY PO Last administered on 01/25/20at 08:03; Start 01/14/20 at 11:00 Dextrose/Sodium Chloride 1,000 ml @ 75 mls/hr [id number] IV Last administered on 01/21/20at 15:15; Start 01/15/20 at 09:30; Stop 01/21/20 at 21:59; Status DC Insulin Human Lispro (HumaLOG) 0-5 UNITS Q6HRS SQ Last administered on 01/26/20at 06:14; Start 01/17/20 at 12:00 Dextrose (Dextrose 50%-Water Syringe) 12.5 gm PRN Q15MIN PRN IV SEE COMMENTS; Start 01/17/20 at 12:00 Enoxaparin Sodium (Lovenox 40mg Syringe) 40 mg Q12HR SQ Last administered on 01/25/20 21:18; Start 01/19/20 at 21:00 Info (Tpn Per Pharmacy) 1 each PRN DAILY PRN MC SEE COMMENTS Last administered on 01/25/20at 13:53; Start 01/21/20 at 09:30 Sodium Acetate 90 meq/Potassium Acetate 50 meq/ Potassium Phosphate 13.6 mmol/Ma gnesium Sulfate 10 meq/ Calcium Gluconate 10 meq/ Multivitamins 10 ml/Chromium/ Copper/Manganese/ Seleni/Zn 1 ml/ Total Parenteral Nutrition/Amino Acids/Dextrose 1,512 ml @ 63 mls/hr TPN CONT IV Last administered on 01/21/20at 22:05; Start 01/21/20 at 22:00; Stop 01/22/20 at 21:59; Status DC Sodium Acetate 90 meq/Potassium Acetate 40 meq/ Potassium Phosphate 13.6 mmol/Magnesium Sulfate 8 meq/ Calcium Gluconate 10 meq/ Multivitamins 10 ml/Chromium/ Copper/Manganese/ Seleni/Zn 1 ml/ Total Parenteral Nutrition/Amino Acids/Dextrose 1,512 ml @ 63 mls/hr TPN CONT IV Last administered on 01/22/20at 22:11; Start 01/22/20 at 22:00; Stop 01/23/20 at 21:59; Status DC Sodium Acetate 90 meq/Potassium Acetate 10 meq/ Potassium Phosphate 20 mmol/ Magnesium Sulfate 8 meq/Calcium Gluconate 10 meq/ Multivitamins 10 ml/Chromium/ Copper/Manganese/ Seleni/Zn 1 ml/ Total Parenteral Nutrition/Amino Acids/D extrose 1,512 ml @ 63 mls/hr TPN CONT IV Last administered on 01/23/20at 21:49; Start 01/23/20 at 22:00; Stop 01/24/20 at 21:59; Status DC Sodium Acetate 90 meq/Potassium Acetate 10 meq/ Potassium Phosphate 20 mmol/ Magnesium Sulfate 8 meq/Calcium Gluconate 10 meq/ Multivitamins 10 ml/Chromium/ Copper/Manganese/ Seleni/Zn 1 ml/ Total Parenteral Nutrition/Amino Acids/Dextrose 1,512 ml @ 63 mls/hr TPN CONT IV Last administered on 01/24/20at 22:38; Start 01/24/20 at 22:00; Stop 01/25/20 at 21:59; Status DC Sodium Acetate 90 meq/Potassium Phosphate 20 mmol/ Magnesium Sulfate 8 meq/Calcium Gluconate 10 meq/ Multivitamins 10 ml/Chromium/ Copper/Manganese/ Seleni/Zn 1 ml/ Potassium Chloride 10 meq/ Total Parenteral Nutrition/Amino Acids/Dextrose 1,512 ml @ 63 mls/hr TPN CONT IV Last administered on 01/25/20at 21:31; Start 01/25/20 at 22:00; Stop 01/26/20 at 21:59 Metoprolol Tartrate (Lopressor Vial) 5 mg Q6HRS IVP Last administered on 01/26/20at 06:11; Start 01/25/20 at 15:00 Vitals/I & O Vital Sign - Last 24 Hours 01/25/20 01/25/20 01/25/20 01/25/20 07:00 08:00 08:00 08:42 Temp 97.5 97.5 Pulse 59 57 Resp 22 22 B/P (MAP) 96/55 (69) 104/59 (74) Pulse Ox 94 93 93 O2 Delivery Ventilator Mechanical Ventilator Ventilator Ventilator 01/25/20 01/25/20 01/25/20 01/25/20 09:00 10:00 11:00 11:15 Pulse 64 64 62 Resp 22 22 22 B/P (MAP) 125/80 (95) 137/75 (95) 129/77 (94) Pulse Ox 92 93 92 93 O2 Delivery Ventilator Ventilator Ventilator Ventilator 01/25/20 01/25/20 01/25/20 01/25/20 12:00 12:00 13:00 13:09 Temp 97.4 97.4 Pulse 70 83 89 Resp 22 22 B/P (MAP) 148/86 (106) 173/86 (115) 173/86 Pulse Ox 92 94 O2 Delivery Mechanical Ventilator Ventilator Ventilator 01/25/20 01/25/20 01/25/20 01/25/20 14:00 15:00 15:28 15:58 Pulse 121 122 125 Resp 22 22 B/P (MAP) 200/85 (123) 164/74 (104) 168/78 Pulse Ox 91 84 74 O2 Delivery Ventilator Ventilator Ventilator 01/25/20 01/25/20 01/25/20 01/25/20 16:00 16:00 17:00 17:37 Temp 97.8 97.8 Pulse 97 120 126 Resp 22 22 B/P (MAP) 160/75 (103) 207/104 (138) 208/96 Pulse Ox 78 76 O2 Delivery Ventilator Mechanical Ventilator Ventilator 01/25/20 01/25/20 01/25/20 01/25/20 17:37 18:00 19:00 19:52 Pulse 123 104 120 Resp 22 22 B/P (MAP) 208/96 173/87 (115) 177/94 (121) Pulse Ox 79 77 78 O2 Delivery Ventilator Ventilator Ventilator 9/8/20 9/8/20 9/8/20 9/8/20 20:00 20:53 21:00 22:00 Temp 97.7 97.7 Pulse 120 116 114 Resp B/P (MAP) 154/80 (104) 128/74 (92) 136/75 (95) Pulse Ox 78 82 82 O2 Delivery Ventilator Mechanical Ventilator Ventilator Ventilator 01/25/20 01/25/20 01/26/20 01/26/20 23:00 23:26 00:00 00:00 Temp 98.0 98.0 Pulse 112 84 Resp B/P (MAP) 140/77 (98) 153/80 (104) Pulse Ox 81 81 69 O2 Delivery Ventilator Ventilator Ventilator Mechanical Ventilator 01/26/20 01/26/20 01/26/20 01/26/20 00:07 01:00 02:00 03:00 Pulse 112 98 102 102 Resp B/P (MAP) 153/80 115/72 (86) 127/75 (92) 130/74 (92) Pulse Ox 74 76 77 O2 Delivery Ventilator Ventilator Ventilator 01/26/20 01/26/20 01/26/20 01/26/20 03:54 04:00 04:00 05:00 Temp 98.4 98.4 Pulse 103 102 Resp B/P (MAP) 138/72 (94) 141/72 (95) Pulse Ox 77 77 78 O2 Delivery Ventilator Mechanical Ventilator Ventilator Ventilator 01/26/20 01/26/20 01/26/20 01/26/20 05:11 05:45 06:00 06:11 Pulse 86 103 Resp B/P (MAP) 149/70 (96) 148/70 Pulse Ox 77 80 O2 Delivery Ventilator Ventilator Ventilator Intake and Output 01/25/20 01/25/20 01/26/20 15:00 23:00 07:00 Intake Total 1202 ml Output Total 360 ml 420 ml 610 ml Balance -360 ml 782 ml -610 ml Justicifation of Admission Dx: Justifications for Admission: Justification of Admission Dx: Yes CAROLINA VEGA MD Jan 26, 2020 06:45
[2020-01-26] MEDS: POLYETHYLENE GLYCOL 3350 17 GM PACKET. PO SCH (08:15)
[2020-01-26] MEDS: PANTOPRAZOLE IV PUSH 40 MG VIAL. IVP SCH (08:16)
[2020-01-26] MEDS: ZINC SULFATE 220 MG CAPSULE. PO SCH (08:16)
[2020-01-26] MEDS: ENOXAPARIN 40 MG/0.4 ML SYRINGE. SQ SCH (08:16)
[2020-01-26] MEDS: VECURONIUM BROMIDE 50 MG in TOTAL VOLUME 50 ML IV PRN (08:17)
[2020-01-26] MEDS: INSULIN GLARGINE SYRINGE. SQ SCH (08:18)
--- NOTE | 2020-01-26 08:39 | PDOC ---
PULMONARY PROGRESS NOTES DATE: 01/26/20 TIME: 08:39 Subjective remains intubated/sedated AC mode ,95 FIO2/14 PEEP, desat w any movement Patient sedated Vitals Vital Signs Date Time Temp Pulse Resp B/P (MAP) Pulse Ox O2 Delivery O2 Flow Rate FiO2 01/26/20 08:00 98.2 94 22 148/73 (98) 83 Ventilator 98.2 Comments visual exam done due to COVID-Pandemic intubated sedated VENT 100% and PEEP 14 nc at rrr no accessory muscle use no skin rash lower extremity edema Lungs: Crackles, Other (Intubated) Labs Laboratory Tests Test 01/24/20 12:33 01/24/20 17:11 01/25/20 00:51 01/25/20 06:13 Glucose (Fingerstick) 223 mg/dL (70-99) 210 mg/dL (70-99) 193 mg/dL (70-99) 223 mg/dL (70-99) Test 01/25/20 06:15 01/25/20 08:45 01/25/20 11:39 01/25/20 17:46 Sodium Level 141 mmol/L (136-145) Potassium Level 4.1 mmol/L (3.5-5.1) Chloride Level 105 mmol/L (98-107) Carbon Dioxide Level 36 mmol/L (21-32) Anion Gap 0 (6-14) Blood Urea Nitrogen 21 mg/dL (8-26) Creatinine 0.6 mg/dL (0.7-1.3) Estimated GFR (Cockcroft-Gault) 135.2 Glucose Level 187 mg/dL (70-99) Calcium Level 7.2 mg/dL (8.5-10.1) Phosphorus Level 3.2 mg/dL (2.6-4.7) Magnesium Level 2.2 mg/dL (1.8-2.4) O2 Saturation 91 % (92-99) Arterial Blood pH 7.42 (7.35-7.45) Arterial Blood pCO2 at Patient Temp 49 mmHg (35-46) Arterial Blood pO2 at Patient Temp 65 mmHg (65-108) Arterial Blood HCO3 32 mmol/L (21-28) Arterial Blood Base Excess 6 mmol/L (-3-3) FiO2 95 Glucose (Fingerstick) 169 mg/dL (70-99) 181 mg/dL (70-99) Test 01/25/20 23:55 01/26/20 05:52 Glucose (Fingerstick) 172 mg/dL (70-99) 167 mg/dL (70-99) Laboratory Tests Test 01/25/20 08:45 01/25/20 11:39 01/25/20 17:46 01/25/20 23:55 O2 Saturation 91 % (92-99) Arterial Blood pH 7.42 (7.35-7.45) Arterial Blood pCO2 at Patient Temp 49 mmHg (35-46) Arterial Blood pO2 at Patient Temp 65 mmHg (65-108) Arterial Blood HCO3 32 mmol/L (21-28) Arterial Blood Base Excess 6 mmol/L (-3-3) FiO2 95 Glucose (Fingerstick) 169 mg/dL (70-99) 181 mg/dL (70-99) 172 mg/dL (70-99) Test 01/26/20 05:52 Glucose (Fingerstick) 167 mg/dL (70-99) Comments CXR reviewed 1. Bilateral diffuse infiltrates are increased in the left base and mildly improved elsewhere. Impression . 1. Acute hypoxic respiratory failure secondary to COVID-19 pneumonia/ARDS/acute lung injury-- 2. Abnormal chest x-ray with bilateral infiltrates consistent with COVID-19 pneumonia. 3. Hypotension secondary to combination of hypovolemia and sepsis status post 2 liters of IV fluids. no pressors, 4. Acute kidney injury--resolved 5. Severe protein-calorie malnutrition. 6. Abnormal D-dimer related to COVID-19 pneumonia. Full dose lovenox added 01/09 due to increase in D-dimer to 20, now decreasing to 3.5. Lovenox dose reduced 7. Fevers ,resolved Plan . Patient doing poorly today, 100% FiO2 14 of PEEP saturations 69% We will increase Lovenox to 1 mg/kg Continue current support try to taper off propofol if possible will not escalate any further PEEP, to avoid barotrauma Broad spectrum antibiotic. Cont. IV steroids, with taper, Stress ulcer prophylaxis. s/p Plasma Pt doing poorly not expected to survive prognosis poor D/W RN and RT PT. is DNR critically ill Critical care time 30 minutes, family aware of pt. clinical condition, no overlap Dr Matias spoke with ACACIA MATIAS MD Jan 26, 2020 08:39
[2020-01-26 09:10] LABS: BASE EXCESS ABG 5 mmol/L (-3-3); HCO3 ABG 33 mmol/L (21-28); SAT O2 ABG 84 % (92-99)
[2020-01-26 09:14] LABS: FIO2 ABG 100; PCO2 ABG 62 mmHg (35-46); PO2 ABG 50 mmHg (65-108)
[2020-01-26] MEDS: TPN PER PHARMACY MC PRN (10:02)
--- NOTE | 2020-01-26 10:05 | NUR ---
Pharmacy TPN Dosing Note S: YANDY HORN is a 64 year old M Currently receiving Central Continuous TPN started 01/21/20 B:Pertinent PMH: critical illness Height: 5 feet, 2 inches Weight: 99.8 kg Current diet: npo LABS: Sodium: 141 Potassium: 4.1 Chloride: 105 Calcium: 7.2 Corrected Calcium: 9.52 Magnesium: 2.2 CO2: 36 SCr: 0.6 Glucose: 169-223 Albumin: 1.1 AST: 31 ALT: 36 TPN FORMULA: TPN TYPE: Central Continuous AMINO ACIDS: 75 gm DEXTROSE: 225 gm SODIUM ACETATE: 90 mEq POTASSIUM CHLORIDE: 10 mEq POTASSIUM PHOSPHATE: 20 mmol MAGNESIUM: 8 mEq CALCIUM: 10 mEq MULTIPLE VITAMIN: 10 ml TRACE ELEMENTS: 1 ml(s) TPN PLAN: Macros adjusted per plastic cutter rec's No labs/no electrolyte adjustements today. Labs ordered for AM tomorrow R: Change TPN per plan and ordered formula Will monitor electrolytes, glucose, and tolerance to TPN. Kerri Ordoñez RPH, 01/26/20 [id number]
--- NOTE | 2020-01-26 12:08 | NUR ---
SS following up with discharge planning. COVID19 positive. Pt remains on the vent at this time. Pt DNR. SS will continue to follow for discharge planning.
--- NOTE | 2020-01-26 13:55 | RAD ---
CHEST AP ONLY 01/26/2020 6:00 AM INDICATION: Respiratory failure COMPARISON: 01/17/2020 TECHNIQUE: Portable frontal view of the chest is provided. FINDINGS: The cardiomediastinal silhouette is similar in appearance. Small left pleural effusion with adjacent breast atelectasis versus infiltrate appears similar. Improved aeration of the right lung base with decrease in tracer pleural effusion. There is mixed interstitial and alveolar airspace disease with improved aeration compared the prior examination. No pneumothorax. Endotracheal tube, nasogastric tube and right IJ central venous catheter. Similar position given differences in technique. No suspicious osseous abnormality. IMPRESSION: Improved aeration of the lungs compared to prior examination with persistent bilateral mixed interstitial and alveolar airspace disease. Electronically signed by: Aislinn Coyle MD (01/26/2020 1:52 PM) [id number]
--- NOTE | 2020-01-26 17:52 | NUR ---
At 1400, patient's oxygen started dropping, notified family member Luz who translated to Valencia, his . Dr. Meza was able to call Valencia and translate in medical terms the poor prognosis and the recent decline of the patient. Valencia was able to come visit at the bedside briefly wearing a mask and the appropriate PPE, patient's daughter also able to come visit. The loading unit operator seating was able to translate for this RN to describe the problems oxygenating, the slowing of the heart rate and the reason he is now hypotensive, family aware of the situation but still wanted to leave him intubated for the time being. Shortly after they left, patient became bradycardic and then rhythm changed to asystole at 1733. Patient assessed with two RNs, pronounced at 1733. Valencia notified by Dr. Meza via telephone contact, will call the unit with home.
--- NOTE | 2020-01-26 18:07 | PDOC3 ---
Discharge Summary Visit Information Date of Admission: Jan 07, 2020 Date of Discharge: Jan 26, 2020 Admitting Diagnosis Comment: Acute hypoxemic respiratory failure Leukocytosis with bandemia secondary to septic process Hyponatremia secondary to low effective circulatory volume Acue renal failure due to vasomotor nephropathy most likely Hyperglycemia mild transaminitis Final Diagnosis COVID-19 positive Acute hypoxemic respiratory failure Bilateral perihilar infiltrates are seen which appear increased slightly Leukocytosis with bandemia secondary to septic process Hyponatremia secondary to low effective circulatory volume, now hypernatremic Acue renal failure due to vasomotor nephropathy most likely Hyperglycemia transaminitis Uncontrolled hypertension Abdominal distention Brief Hospital Course Allergies Allergies Coded Allergies Type Severity Reaction Last Updated Verified No Known Drug Allergies 01/06/20 No Vital Signs Vital Signs Date Time Temp Pulse Resp B/P (MAP) Pulse Ox O2 Delivery O2 Flow Rate FiO2 01/26/20 17:00 67 22 45/29 (34) 26 Ventilator 01/26/20 12:00 98.0 98.0 Lab Results Laboratory Tests Test 01/25/20 00:51 01/25/20 06:13 01/25/20 06:15 01/25/20 08:45 Glucose (Fingerstick) 193 mg/dL (70-99) 223 mg/dL (70-99) Sodium Level 141 mmol/L (136-145) Potassium Level 4.1 mmol/L (3.5-5.1) Chloride Level 105 mmol/L (98-107) Carbon Dioxide Level 36 mmol/L (21-32) Anion Gap 0 (6-14) Blood Urea Nitrogen 21 mg/dL (8-26) Creatinine 0.6 mg/dL (0.7-1.3) Estimated GFR (Cockcroft-Gault) 135.2 Glucose Level 187 mg/dL (70-99) Calcium Level 7.2 mg/dL (8.5-10.1) Phosphorus Level 3.2 mg/dL (2.6-4.7) Magnesium Level 2.2 mg/dL (1.8-2.4) O2 Saturation 91 % (92-99) Arterial Blood pH 7.42 (7.35-7.45) Arterial Blood pCO2 at Patient Temp 49 mmHg (35-46) Arterial Blood pO2 at Patient Temp 65 mmHg (65-108) Arterial Blood HCO3 32 mmol/L (21-28) Arterial Blood Base Excess 6 mmol/L (-3-3) FiO2 95 Test 01/25/20 11:39 01/25/20 17:46 01/25/20 23:55 01/26/20 05:52 Glucose (Fingerstick) 169 mg/dL (70-99) 181 mg/dL (70-99) 172 mg/dL (70-99) 167 mg/dL (70-99) Test 01/26/20 08:45 01/26/20 11:36 O2 Saturation 84 % (92-99) Arterial Blood pH 7.34 (7.35-7.45) Arterial Blood pCO2 at Patient Temp 62 mmHg (35-46) Arterial Blood pO2 at Patient Temp 50 mmHg (65-108) Arterial Blood HCO3 33 mmol/L (21-28) Arterial Blood Base Excess 5 mmol/L (-3-3) FiO2 100 Glucose (Fingerstick) 141 mg/dL (70-99) Laboratory Tests Test 01/25/20 23:55 01/26/20 05:52 01/26/20 08:45 01/26/20 11:36 Glucose (Fingerstick) 172 mg/dL (70-99) 167 mg/dL (70-99) 141 mg/dL (70-99) O2 Saturation 84 % (92-99) Arterial Blood pH 7.34 (7.35-7.45) Arterial Blood pCO2 at Patient Temp 62 mmHg (35-46) Arterial Blood pO2 at Patient Temp 50 mmHg (65-108) Arterial Blood HCO3 33 mmol/L (21-28) Arterial Blood Base Excess 5 mmol/L (-3-3) FiO2 100 Brief Hospital Course History of Present Illness Patient is a 64-year-old gentleman who was diagnosed with COVID-19 infection on Friday 5 days prior to his admission to the intensive care unit. Apparently the patient reported worsening respiratory distress reason why he came to the emergency department for evaluation and treatment. The story was quite limited since the patient was speaking Yoruba only and his acuity was such that he required mechanical ventilation and prompt intubation by the emergency department physician. At the present time patient is intubated and sedated continues to require a lot of support no pertinent past medical history was reported he is admitted to the intensive care unit for further treatment 01/10/2020 Continues to require full support, glycemia has been noted in hypertension as well. Discussed with nursing staff, all of concerns were addressed to the best of my abilities no acute events reported overnight 01/11/2020 No acute events reported overnight, case discussed with nursing staff patient in no acute distress 01/12/2020 Per nursing staff, patient febrile overnight, treated with Tylenol and tepid water bath. Case discussed with nursing staff, continue with IV antibiotics and full VTE prophylaxis. 01/13/2020 Patient still febrile overnight. O2 requirement increasing. Discussed with RN. 01/16 Patient still intubated and sedated. Discussed with RN, patient was made DNR. schedule MiraLAX. 01/19/2020 Patient seen and examined in the [facility] [address] ICU He is intubated AC/22/6 100/100% with 14 of PEEP He is sedated with Versed propofol fentanyl and Precedex he is also paralyzed with vecuronium Chart reviewed Discussed with RN Discussed with pillowcase turner 01/20/2020 Patient seen and examined in the [facility] [address] ICU He remains intubated He is on Versed for sedation and he has to be paralyzed with vecuronium He also has propofol fentanyl and Precedex for additional sedation Chart reviewed Discussed with the pillowcase turner Discussed with RN He remains critically ill Vent settings as follows AC/22/6 100/100% with 14 of PEEP 01/21/2020 Patient seen and [place] [id number] ICU He remains intubated Assist-control/ with 100% FiO2 He is in mitts for patient safety He is sedated with propofol Versed and fentanyl Has OG at 60 cc an hour Discussed with RN Discussed with case management 01/22/2020 Patient seen in the [facility] [address] ICU He remains mechanically ventilated He is also started on TPN He is sedated with propofol fentanyl Versed and Precedex We are using paralytics with vecuronium Vent settings as follows AC/22/6 100/100% with 14 of PEEP Chart reviewed Discussed with RN He remains very critically ill prognosis is very guarded at best 01/23/2020 Patient seen in the [facility] [address] ICU He is on the vent Assist-control/6 100/100% with 14 of PEEP He is critically ill Discussed with RN Chart reviewed 01/24/2020 Remains critically ill Seen in the ICU Continues with ventilatory support Assist-control/07/11 100/100% with 14 of PEEP Discussed with RN Chart reviewed 01/25/2020 Continues to be about the same No acute events reported overnight. discussed with RN Does not tolerate moving around too much. 01/26/2020 Remains critically ill Seen in the ICU Continues with ventilatory support Assist-control/07/11 100/100% with 14 of PEEP Discussed with RN Chart reviewed Patient deteriorated during the day even more and conversation took place over the phone with his . She was quite tearful given the grim prognosis presented to her, she was able to visit moments before the patient passed I placed a phone call to inform her of the passing. Time of 173 Discharge Information Condition at Discharge: / Justicifation of Admission Dx: Justifications for Admission: Justification of Admission Dx: Yes CAROLINA VEGA MD Jan 26, 2020 18:07
[2020-01-26] MEDS ORDERED: TOTAL PARENTERAL NUTRITION IV SCH (22:00)
[2020-01-26] MEDS ORDERED: DEXTROSE 70% IV SCH (22:00)
[2020-01-26] MEDS ORDERED: [UNRECOGNIZED DRUG - OTHER] IV SCH (22:00)
[2020-01-26] MEDS ORDERED: AMINO ACID IV SCH (22:00)
== END 2020-01-26 17:33 | disposition expired | DRG 870 ==
LOC: ER 18:27 → 1 WEST ICU 19:56 → EDBD 19:56
PROVIDERS: ADMIT Internal Medicine; ATTEND Internal Medicine
PROC: 0BH17EZ Insertion of Endotracheal Airway into Trachea, Via Natural or Artificial Opening (ICD-10-PCS; principal; 2020-01-06)
PROC: 5A1955Z Respiratory Ventilation, Greater than 96 Consecutive Hours (ICD-10-PCS; 2020-01-06)
PROC: XW13325 Transfusion of Convalescent Plasma (Nonautologous) into Peripheral Vein, Percutaneous Approach, New Technology Group 5 (ICD-10-PCS; 2020-01-07)
PROC: 02HV33Z Insertion of Infusion Device into Superior Vena Cava, Percutaneous Approach (ICD-10-PCS; 2020-01-07)
PROC: B548ZZA Ultrasonography of Superior Vena Cava, Guidance (ICD-10-PCS; 2020-01-07)
DX: A41.89 Other specified sepsis (principal); E43 Unspecified severe protein-calorie malnutrition; J12.89 Other viral pneumonia; J96.01 Acute respiratory failure with hypoxia; N17.0 Acute kidney failure with tubular necrosis; U07.1 COVID-19; E87.0 Hyperosmolality and hypernatremia; E87.1 Hypo-osmolality and hyponatremia; Z68.41 Body mass index [BMI] 40.0-44.9, adult; E86.1 Hypovolemia; I10 Essential (primary) hypertension; Z66 Do not resuscitate; Z68.31 Body mass index [BMI] 31.0-31.9, adult; Z78.9 Other specified health status; Z79.899 Other long term (current) drug therapy; R73.9 Hyperglycemia, unspecified; R74.0 Nonspecific elevation of levels of transaminase and lactic acid dehydrogenase [LDH]
CPT/HCPCS: 31500; 36415; 36600; 51702; 71045; 80048; 80053; 81001; 82550; 82728; 82805; 82962; 83690; 83735; 83930; 83935; 84100; 84145; 84478; 85007; 85025; 85379; 86140; 86850; 86900; 86901; 86927; 87040; 87086; 87103; 93005; 93970; 94002; 94003; 94640; 96374; 96376; C9113; J0360; J0610; J1650; J1815; J1940; J2060; J2250; J2543; J2704; J2920; J2997; J3010; J3475; J3480; J3490; J7030; J7040; J7042; J7060; 99291-25; G0378; P9017; U0003-CS